=== PATIENT | female | born 1970 | race Caucasian/White ===

== ENCOUNTER → 2018-02-11 14:18 | Outpatient (POV) | payer MEDICAID, SELFPAY | PROVIDERS: Family Provider Physician Assistant; PCP Physician Assistant; Visit Provider Internal Medicine | DX: Z00.00 Encounter for general adult medical examination without abnormal findings (principal) ==

== ENCOUNTER 2018-03-31 12:34 | Inpatient (IN) ==
[2018-03-31 12:55] LABS: ABG Base Excess -7.2 mmol/L (-2.4-2.3); ABG Oxygen Saturation 96 % (90-100); ABG PO2 103.9 mmhg (80-100); ABG TCO2 24.1 mmhg (23-27)
[2018-03-31 12:57] LABS: ABG PH 7.13 mmol/L (7.35-7.45); Allen's Test Acceptable; Oxygen 100 %
[2018-03-31 12:58] LABS: ABG PCO2 67.9 mmhg (35.0-45.0)
[2018-03-31 13:00] LABS: Basophils # 0.1 K/mm3 (0-0.2); Basophils % 0.9 % (0.1-2.0); Eosinophils # 0.4 K/mm3 (0.0-0.4); Eosinophils % 3.9 % (0.1-12.0); Hematocrit 47.6 % (37.0-47.0); Hemoglobin 16.1 g/dL (12.2-16.2); Lymphocytes # 6.3 K/mm3 (0.7-4.5); Lymphocytes % 56.6 K/mm3 (10-50); Mean Corpuscular HGB Conc 33.9 g/dL (31.8-35.4); Mean Corpuscular Hemoglobin 33.6 pg (27.0-31.2); Mean Corpuscular Volume 99.2 fl (81-99); Mean Platelet Volume 7.8 fl (7.4-10.4); Monocytes # 0.5 K/mm3 (0.1-1.0); Monocytes % 4.7 % (1.7-9.3); Neutrophils # 3.7 K/mm3 (1.8-7.8); Neutrophils % 33.8 % (37.0-80.0); Platelet Count 271 K/mm3 (142-424); Red Blood Count 4.79 M/mm3 (4.20-5.40); White Blood Count 11.1 K/mm3 (4.8-10.8)
--- NOTE | 2018-03-31 13:11 | Emergency Department Note ---
ED Disposition Clinical Impression: COPD exacerbation, Tobacco abuse disorder, Respiratory failure with hypercapnia, Non-compliance, Opiate dependence Disposition: Still a Patient Condition on Discharge: Serious - Critical Care Critical Care Time: Yes Attestation: On , the high probability of a clinically significant, sudden or life threatening deterioration of the following system(s) required my full and direct attention, intervention and personal management. The time I documented below is in addition to time spent performing reported procedures but includes the following listed in this critical care notation. Total Critical Care Time: 30 Vital system(s) involved:: Respiratory Failure My critical care processes included: Assessment & monitoring of V/S, Initial and Re-exams, Data Review/Interpretation, Coordinating Care, Medication Orders and management, Documentation Medical Decision Making - Medical Records Medical records reviewed: Yes: I reviewed the patient's medical records. - Eliecer Inquiry Pt receiving controlled substance: No Eliecer was queried for this patient: No Vital Signs: 03/31/18 12:45 03/31/18 12:57 03/31/18 13:18 Temperature 98.0 F Temperature Source Oral Pulse Rate 110 H Pulse Rate [Right Brachial] 120 H 82 Respiratory Rate 26 H Blood Pressure [Right Arm] 114/54 155/98 Blood Pressure Mean [Right Arm] 74 117 Blood Pressure Source [Right Arm] Automatic Cuff Automatic Cuff Blood Pressure Position [Right Arm] Sitting Sitting 02 Sat by Pulse Oximetry 91 L 94 L Oxygen Delivery Method Room Air BiPAP - Lab Data Lab Results 03/31/18 12:36: Specimen Source Rt radial, O2 % 100, ABG pH 7.13 L*, ABG pCO2 67.9 H, ABG pO2 103.9 H, ABG HCO3 22.0, ABG Total CO2 24.1, ABG O2 Saturation 96, ABG Base Excess -7.2 L, Cong Test Acceptable 03/31/18 12:45: WBC 11.1 H, RBC 4.79, Hgb 16.1, Hct 47.6 H, MCV 99.2 H, MCH 33.6 H, MCHC 33.9, RDW 14.0, Plt Count 271, MPV 7.8, Neut % (Auto) 33.8 L, Lymph % (Auto) 56.6 H, [place] % (Auto) 4.7, Eos % (Auto) 3.9, Baso % (Auto) 0.9, Neut # (Auto) 3.7, Lymph # (Auto) 6.3 H, [place] # (Auto) 0.5, Eos # (Auto) 0.4, Baso # (Auto) 0.1, Total Counted 100, Neutrophils % (Manual) 34 L, Lymphocytes % (Manual) 45, Atypical Lymphs % 16.0, Monocytes % (Manual) 3, Eosinophils % (Manual) 2, Platelet Estimate Normal, Spherocytes 3+ 03/31/18 12:45: Sodium 142, Potassium 5.0, Chloride 107, Carbon Dioxide 27, Anion Gap 13.0, BUN 10, Creatinine 0.91, Estimated Creat Clear 80, Estimated GFR 67, Est GFR ( Amer) 81, Glucose 218 H, Calcium 8.7, Total Bilirubin 0.4, AST 34, ALT 25, Alkaline Phosphatase 156 H, Total Protein 7.2, Albumin 3.7, Globulin 3.5 H, Albumin/Globulin Ratio 1.1 03/31/18 12:45: Total Creatine Kinase 114, CK-MB (CK-2) 2.0, CK-MB (CK-2) Rel Index 1.8, Troponin I < 0.02 03/31/18 12:45: B-Natriuretic Peptide 118 H 03/31/18 12:45: Lactate 5.8 H 03/31/18 14:00: Specimen Source Rt radial, O2 % 60, ABG pH 7.25 L, ABG pCO2 56.1 H, ABG pO2 91.6, ABG HCO3 24.3, ABG Total CO2 26.0, ABG O2 Saturation 96, ABG Base Excess -2.9 L, Cong Test Acceptable, Tidal Volume Bipap 06/13 Result diagrams: 03/31/18 12:45 03/31/18 12:45 Orders (Tests/Meds): ED MEDICATIONS Generic Name Dose Route Start Last Admin Trade Name Freq PRN Reason Stop Dose Admin Albuterol/Ipratropium 3 ml 03/31/18 13:00 Duoneb 3ml Neb IH 04/30/18 12:59 Q1H JUDAH Ceftriaxone Sodium 1 gm/ 50 mls @ 100 mls/hr 03/31/18 13:00 03/31/18 13:24 Sodium Chloride IV 04/14/18 12:59 100 mls/hr Q24H JUDAH Administration Protocol Discontinued Medications Generic Name Dose Route Start Last Admin Trade Name Freq PRN Reason Stop Dose Admin Albuterol Sulfate 2.5 mg 03/31/18 12:40 03/31/18 12:45 Albuterol 0.083% 2.5mg/3ml Neb IH 03/31/18 12:41 2.5 mg ONCE ONE Administration Nitroglycerin 0.5 gm 03/31/18 12:59 03/31/18 13:24 Nitroglycerin 1 Inch Oint Udp TD 03/31/18 13:00 0.5 gm ONCE ONE Administration ORDERS Category Date Time Status Chest XR -- portable [XR chest portable] Stat Exams 03/31/18 12:41 Taken Lactic Acid Follow Up (RFLX 1) Stat Lab 03/31/18 13:19 Ordered UA [Urinalysis and Microscopic] Stat Lab 03/31/18 13:22 Ordered Blood Culture Stat Micro 03/31/18 12:45 Received ABG [Arterial Blood Gas] Stat RT 03/31/18 14:00 Ordered Arterial Blood Gas Stat RT 03/31/18 12:36 Ordered - Radiology Data #1 Image(s): Chest Image Reviewed: Yes I reviewed the patient's radiology image Preliminary Findings: Abnormal Hyperinflated chronic changes no definite acute infiltrates. Medical Decision Narrative: I obtained a stat EKG revealed tachycardia 113/min be an artifact no acute findings. Her ABG was significant for respiratory acidosis 7.129/67/103 oxygen saturation is 96%. The patient was alert oriented 3 I discussed with her using a BiPAP trying to avert on a ventilator and she was agreeable. 1325 I did a reassessment of the patient she was in no respiratory distress working with a BiPAP machine 60%, Rate 20/min, 12/6 pressures with excellent harmony. Saturation is 95% RR 22/min blood pressure is 155/98 mmhg heart rate is 83/min. Patient maintain her alertness feels 50% better or more lungs are clear to auscultation with moderate air entry, heart sounds are clear, abdomen was soft nontender, no lower extremity edema. 1425 patient remained hemodynamically and neurologically stable working with the BiPAP machine obtained a second blood gas that showed improvement of her acid- base balance carbon dioxide retention and maintenance of her oxygen level. Patient seems to be improving and turning the corner. I spoke with Laura the physician seismic survey assistant for Dr. Vicente who agreed the agreed to admit the patient on his behalf. Resp/SOB HPI - General Chief Complaint: Shortness of Breath/Dyspnea Stated Complaint: RESPIRATORY Time Seen by Provider: 03/31/18 13:00 Mode of Arrival: EMS - History of Present Illness 47 years old white female smoker with end-stage lung disease who is oxygen dependent and opiate dependence. The patient reports that at 10:00 she became short of breath she contacted EMS upon arrival found her off her oxygen with a saturation of 66%. Patient received the labs on him IV Solu-Medrol with i mprovement of her oxygenation to 89%. She was brought to the ED continuous neb and upon arrival her blood pressure was 155/98 mmhg, respiration is 20/min, tachycardia 113/min and oxygen saturation 93% while receiving a DuoNeb. Complaint: shortness of breath Onset (ago): hour(s) (3 hours.) Severity: severe Consistency/Duration: constant Relieving factors: oxygen, bronchodilators, upright position Exacerbating factors: exertion, other (off her oxygen, smoking and second hand smoke.) Known history of: COPD Associated symptoms: denies other symptoms Treatment prior to arrival: oxygen, bronchodilator - Related Data Home oxygen amount: other (She was given Solu-Medrol DuoNeb and oxygen therapy.) Home Medications Medication Instructions Recorded Confirmed buprenorphine 8 mg-naloxone 2 mg 1 tab SUBLINGUAL BID tab 10/11/17 03/31/18 sublingual tablet Fluticasone/Vilanterol [Breo 1 inh INHALATION Q24H 03/31/18 03/31/18 Ellipta 200-25 Mcg INH] Ibuprofen [Ibuprofen 800mg 800 mg PO TID 03/31/18 03/31/18 Tablet] Omeprazole [Omeprazole 20mg 20 mg PO DAILY 03/31/18 03/31/18 Capsule] Propranolol HCl [Innopran Xl] 80 mg PO DAILY 03/31/18 03/31/18 Sertraline HCl [Zoloft] 100 mg PO Q24H 03/31/18 03/31/18 Umeclidinium [place] [Incruse 62.5 mcg INHALATION QHS 03/31/18 03/31/18 Ellipta] Previous Rx's Medication Instructions Recorded albuterol sulfate HFA 90 2 puff INHALATION Q4-6H PRN 90 03/26/18 mcg/actuation aerosol inhaler Days #3 units Allergies Allergy/AdvReac Type Severity Reaction Status Date / Time hydromorphone Allergy Severe S-DIFF. Verified 02/19/18 13:51 BREATHING; HIVES propoxyphene Allergy Severe S-SWELLS-OR Verified 02/19/18 13:51 [From Darvocet-N] AL/THROAT gabapentin [From Neurontin] Allergy Intermediate I-HIVES Verified 02/19/18 13:51 [facility] History I have reviewed the patient's past medical history: Yes (I did review her most recent office visit. ) Medical History: Reports:: Anxiety, Chronic Obstructive Pulmonary Disease (COPD), Depression, Gastroesophageal Reflux Disease(GERD) Other Surgeries: Yes: Hysterectomy-Total Amputation: No Fractures: No Comment: gallbladder - Social History Smoking Status: Current every day smoker Tobacco Type: cigarettes # Packs/Day (cigarettes): 1 Alcohol Intake: never Substance Use Type: denies use Occupational Status: unemployed Housing: house Household Members: children - Psychiatric History Pschychiatric History:: Reports:: Anxiety, Depression Family Hx:: Hypertension ROS Obtained: Yes All systems reviewed & no additional complaints Physical Exam - General General appearance: alert, anxious, in distress, other (She is alert oriented 3 in obvious respiratory distress. ) - Head Head exam: atraumatic, normocephalic, normal inspection - Eye Eye exam: Present: normal appearance, PERRL, EOMI. Absent: scleral icterus, jaundice, nystagmus - ENT ENT exam: Present: normal exam, normal oropharynx, mucous membranes moist, TM's normal bilaterally, normal external ear exam - Neck Neck exam: Present: normal inspection, full ROM, trachea midline. Absent: tenderness, meningismus, lymphadenopathy - Chest Chest inspection: Present: normal inspection, symmetric chest wall rise. Absent: tenderness - Respiratory Respiratory exam: Present: normal lung sounds bilaterally, respiratory distress, wheezes (Moderate air entry with inspiratory and expiratory wheezing.) - Cardiovascular Cardiovascular exam: Present: tachycardia. Absent: systolic murmur, diastolic murmur, JVD - Abdominal Exam Abdominal exam: Present: soft, normal bowel sounds. Absent: distention, tenderness, guarding, rebound, rigidity - External exam: Present: normal external exam - Extremities Exam Extremities exam: Present: normal inspection, full ROM, normal capillary refill. Absent: tenderness, pedal edema, joint swelling, calf tenderness - Back Exam Back exam: Present: normal inspection. Absent: tenderness, CVA tenderness (R), CVA tenderness (L), paraspinal tenderness, vertebral tenderness - Neurological Exam Neurological exam: Present: alert, oriented X3, CN II-XII intact, motor sensory deficit, reflexes normal, other (The gait was not tested due to her respiratory condition.) - Psychiatric Psychiatric exam: Present: anxious - Skin Skin exam: Present: warm, intact, normal color, diaphoresis - Lymphatic Lymphatic Findings: no adenopathy
[2018-03-31 13:12] LABS: Albumin Level 3.7 gm/dL (3.4-5.0); Albumin/Globulin Ratio 1.1 (1.1-1.8); Bilirubin,Total 0.4 mg/dL (0.2-1.0); Calcium 8.7 mg/dL (8.5-10.1); Globulin 3.5 gm/dl (1.3-3.2); Total Protein,Serum 7.2 gm/dL (6.4-8.2)
[2018-03-31 13:17] LABS: Eosinophils % 2 % (0-3); Lymphocytes % 45 % (10-50); Monocytes % 3 % (2-9); Neutrophils % 34 % (42-76); Total Cells Counted 100
[2018-03-31 13:36] LABS: Creatine Kinase 114 U/L (26-192)
[2018-03-31 14:06] LABS: ABG Base Excess -2.9 mmol/L (-2.4-2.3); ABG HCO3 24.3 mmhg (22.0-26.0); ABG Oxygen Saturation 96 % (90-100); ABG PH 7.25 mmol/L (7.35-7.45); ABG PO2 91.6 mmhg (80-100)
[2018-03-31 14:08] LABS: ABG PCO2 56.1 mmhg (35.0-45.0); Allen's Test Acceptable; Oxygen 60 %
[2018-03-31 16:22] LABS: Anion Gap 11.2 mEq/L (5-15); Potassium 4.2 mmoL/L (3.5-5.1)
[2018-03-31 16:35] LABS: Calcium 7.9 mg/dL (8.5-10.1)
[2018-03-31 17:54] LABS: ABG Base Excess -4.8 mmol/L (-2.4-2.3); ABG Oxygen Saturation 98 % (90-100); ABG PCO2 48.3 mmhg (35.0-45.0); ABG PH 7.28 mmol/L (7.35-7.45); ABG PO2 127.6 mmhg (80-100); ABG TCO2 23.5 mmhg (23-27)
[2018-03-31 17:55] LABS: Allen's Test Acceptable; Oxygen 60% I=12 E-6 %
--- NOTE | 2018-03-31 19:09 | History & Physical Report ---
*Admission Date: 03/31/18 *Chief complaint: Shortness of air *History of present illness: Patient admitted earlier thru ER with acute onset SOA, improved with Bipap. History of respiratory failure, COPD. ABG improved with Bipap to avoid ventilation. Second serial troponin elevated. [facility] History I have reviewed the patient's past medical history: Yes Medical History: Reports:: Anxiety, Chronic Obstructive Pulmonary Disease (COPD), Depression, Gastroesophageal Reflux Disease(GERD) Denies:: Cancer, Diabetes Mellitus Type 1, Diabetes Mellitus Type 2, MRSA Other Surgeries: Yes: Hysterectomy-Total Amputation: No Fractures: No - *Social History Educational Level: Completed High School Smoking Status: Current every day smoker Tobacco Type: cigarettes # Packs/Day (cigarettes): 1 Alcohol Intake: never Substance Use Type: denies use Occupational Status: unemployed Housing: house Household Members: children - Psychiatric History Expresses thoughts of harming self/others: None Suicide Plan Description: No Plan Pschychiatric History:: Reports:: Anxiety, Depression *Family Hx:: Hypertension Review of Systems - Review of Systems Review of systems:: pertinent systems reviewed and negative unless documented below - Constitutional Denies fever(s) - *Respiratory Reports cough, Reports shortness of breath Meds Home Medications Medication Instructions Recorded Confirmed Type buprenorphine 8 mg-naloxone 2 mg 1 tab SUBLINGUAL BID tab 10/11/17 03/31/18 History sublingual tablet Fluticasone/Vilanterol [Breo 1 inh INHALATION Q24H 03/31/18 03/31/18 History Ellipta 200-25 Mcg INH] Ibuprofen [Ibuprofen 800mg 800 mg PO TID 03/31/18 03/31/18 History Tablet] Omeprazole [Omeprazole 20mg 20 mg PO DAILY 03/31/18 03/31/18 History Capsule] Propranolol HCl [Innopran Xl] 80 mg PO DAILY 03/31/18 03/31/18 History Sertraline HCl [Zoloft] 100 mg PO Q24H 03/31/18 03/31/18 History Umeclidinium [place] [Incruse 62.5 mcg INHALATION QHS 03/31/18 03/31/18 History Ellipta] Allergies Allergy/AdvReac Type Severity Reaction Status Date / Time hydromorphone Allergy Severe S-DIFF. Verified 02/19/18 13:51 BREATHING; HIVES propoxyphene Allergy Severe S-SWELLS-OR Verified 02/19/18 13:51 [From Darvocet-N] AL/THROAT gabapentin [From Neurontin] Allergy Intermediate I-HIVES Verified 02/19/18 13:51 Exam Vital signs and Labs for Last 24 Hours: Temp Pulse Resp BP Pulse Ox 97.8 F 79 22 142/79 90 L 03/31/18 16:49 03/31/18 16:49 03/31/18 16:49 03/31/18 16:49 03/31/18 18:45 Laboratory Results - last 24 hr 03/31/18 12:36: Specimen Source Rt radial, O2 % 100, ABG pH 7.13 L*, ABG pCO2 67.9 H, ABG pO2 103.9 H, ABG HCO3 22.0, ABG Total CO2 24.1, ABG O2 Saturation 96, ABG Base Excess -7.2 L, Cong Test Acceptable 03/31/18 12:45: WBC 11.1 H, RBC 4.79, Hgb 16.1, Hct 47.6 H, MCV 99.2 H, MCH 33.6 H, MCHC 33.9, RDW 14.0, Plt Count 271, MPV 7.8, Neut % (Auto) 33.8 L, Lymph % (Auto) 56.6 H, [place] % (Auto) 4.7, Eos % (Auto) 3.9, Baso % (Auto) 0.9, Neut # (Auto) 3.7, Lymph # (Auto) 6.3 H, [place] # (Auto) 0.5, Eos # (Auto) 0.4, Baso # (Auto) 0.1, Total Counted 100, Neutrophils % (Manual) 34 L, Lymphocytes % (Manual) 45, Atypical Lymphs % 16.0, Monocytes % (Manual) 3, Eosinophils % (Manual) 2, Platelet Estimate Normal, Spherocytes 3+ 03/31/18 12:45: Sodium 142, Potassium 5.0, Chloride 107, Carbon Dioxide 27, Anion Gap 13.0, BUN 10, Creatinine 0.91, Estimated Creat Clear 80, Estimated GFR 67, Est GFR ( Amer) 81, Glucose 218 H, Calcium 8.7, Total Bilirubin 0.4, AST 34, ALT 25, Alkaline Phosphatase 156 H, Total Protein 7.2, Albumin 3.7, Globulin 3.5 H, Albumin/Globulin Ratio 1.1 03/31/18 12:45: Total Creatine Kinase 114, CK-MB (CK-2) 2.0, CK-MB (CK-2) Rel Index 1.8, Troponin I < 0.02 03/31/18 12:45: B-Natriuretic Peptide 118 H 03/31/18 12:45: Lactate 5.8 H 03/31/18 14:00: Specimen Source Rt radial, O2 % 60, ABG pH 7.25 L, ABG pCO2 56.1 H, ABG pO2 91.6, ABG HCO3 24.3, ABG Total CO2 26.0, ABG O2 Saturation 96, ABG Base Excess -2.9 L, Cong Test Acceptable, Tidal Volume Bipap /03/31/18 14:48: Lactate 1.3 03/31/18 15:48: Sodium 144, Potassium 4.2, Chloride 111 H, Carbon Dioxide 26, Anion Gap 11.2, BUN 11, Creatinine 0.62 D, Estimated Creat Clear 118, Estimated GFR 104, Est GFR ( Amer) 125 D, Glucose 119 H D, Calcium 7.9 L 03/31/18 17:20: Lactate 0.6 03/31/18 17:51: Specimen Source Left radial, O2 % 60% i=12 e-6, ABG pH 7.28 L, ABG pCO2 48.3 H, ABG pO2 127.6 H, ABG HCO3 22.0, ABG Total CO2 23.5, ABG O2 Saturation 98, ABG Base Excess -4.8 L, Cong Test Acceptable 03/31/18 18:12: Troponin I 0.72 H I & O for Last 24 hours: Intake & Output 03/29/18 03/30/18 03/31/18 04/01/18 11:59 11:59 11:59 11:59 Intake Total 2149 Output Total 0 / 0 Balance 2149 Weight 139 lb 5 oz - Constitutional no acute distress (after bipap placed (in obvious distress in ER per MD)) - *Routine HEENT Exam Head: Present: normocephalic Eye: Present: PERRL ENT: Present: mucous membranes moist, TM's clear bilaterally. Absent: sinus tenderness - Routine Chest/Breast/Axilla Exam Chest wall: Absent: tenderness - *Routine Respiratory Exam Present: decreased breath sounds, respiratory distress - *Routine Cardiovascular Exam Present: RRR. Absent: murmur - *Routine Extremities Exam Absent: cyanosis, clubbing - *Routine Skin Exam Present: intact - *Routine Neurological Exam Present: alert, oriented X3 - Routine Psychiatric Exam Present: normal affect Assessment and Plan - Assessment and plan all Dx Assessment and Plan for all problems:: ECHO and cardiology consult for elevated troponin Bipap, Abx, Steroids, DuoNebs for COPD exacerbation
[2018-03-31 22:54] LABS: ABG Base Excess -6.7 mmol/L (-2.4-2.3); ABG HCO3 18.7 mmhg (22.0-26.0); ABG Oxygen Saturation 91 % (90-100); ABG PCO2 33.7 mmhg (35.0-45.0); ABG PH 7.36 mmol/L (7.35-7.45); ABG PO2 61.8 mmhg (80-100); ABG TCO2 19.8 mmhg (23-27)
[2018-03-31 22:56] LABS: Allen's Test Acceptable
[2018-04-01 05:54] LABS: Basophils % 0.2 % (0.1-2.0); Eosinophils % 0.6 % (0.1-12.0); Hematocrit 42.1 % (37.0-47.0); Lymphocytes # 0.8 K/mm3 (0.7-4.5); Lymphocytes % 19.4 K/mm3 (10-50); Mean Corpuscular HGB Conc 32.3 g/dL (31.8-35.4); Mean Corpuscular Hemoglobin 31.1 pg (27.0-31.2); Mean Corpuscular Volume 96.2 fl (81-99); Mean Platelet Volume 8.3 fl (7.4-10.4); Monocytes # 0.1 K/mm3 (0.1-1.0); Monocytes % 1.8 % (1.7-9.3); Platelet Count 186 K/mm3 (142-424); Red Blood Count 4.37 M/mm3 (4.20-5.40); White Blood Count 3.9 K/mm3 (4.8-10.8)
[2018-04-01 05:57] LABS: Hemoglobin 13.6 g/dL (12.2-16.2)
[2018-04-01 06:00] LABS: Albumin Level 3.2 gm/dL (3.4-5.0); Albumin/Globulin Ratio 1.1 (1.1-1.8); Anion Gap 14.6 mEq/L (5-15); Bilirubin,Total 0.4 mg/dL (0.2-1.0); Calcium 8.2 mg/dL (8.5-10.1); Phosphorous 2.7 mg/dL (2.4-4.9); Potassium 3.6 mmoL/L (3.5-5.1); Total Protein,Serum 6.2 gm/dL (6.4-8.2)
--- NOTE | 2018-04-01 07:35 | Pharmacy Consult Notes ---
[facility] Pharmacy VTE Monitoring - Patient Demographics Admission date: 03/31/18 Report Date: 04/01/18 Time: 07:35 Allergies/Adverse Reactions: Patient Allergies hydromorphone Allergy (Severe, Verified 02/19/18 13:51) S-DIFF. BREATHING; HIVES propoxyphene [From Darvocet-N] Allergy (Severe, Verified 02/19/18 13:51) H-BPOBZA-UAOB/THROAT gabapentin [From Neurontin] Allergy (Intermediate, Verified 02/19/18 13:51) I-HIVES Height: 1.6 m Weight: 68.237 kg Patient Problems: Current Active Problems Tobacco abuse disorder (Acute) Respiratory failure with hypercapnia (Acute) Non-compliance (Acute) Opiate dependence (Acute) COPD exacerbation (Acute) - VTE Risk Labs: VTE Related Lab Results Hgb 13.6 g/dL (12.2-16.2) D 04/01/18 05:14 Hct 42.1 % (37.0-47.0) 04/01/18 05:14 Plt Count 186 K/mm3 (142-424) D 04/01/18 05:14 BUN 11 mg/dL (7-18) 04/01/18 05:14 Creatinine 0.69 mg/dL (0.55-1.02) 04/01/18 05:14 Estimated Creat Clear 102 mL/min (0-300) 04/01/18 05:14 Was VTE Risk Assessment Performed: Yes VTE Score: 2 VTE Risk Level: Very Low Risk - Prophylaxis VTE Prophylaxis Ordered?: Yes Types of VTE Prophylaxis: TEDS Knee High Location of Applied Device: Bilateral Lower Extremeties - VTE Diagnosis Confirmed Treatment or plan recommended: Continue Current Treatment
--- NOTE | 2018-04-01 08:55 | Progress Note ---
Internal Medicine - PN: Subj *Date: 04/01/18 *Time: 08:53 Interval history: doing better with resp and we discussed tob cessation and has elevated card enz awaiting card eval Exam Vital signs and Labs for Last 24 Hours: Temp Pulse Resp BP Pulse Ox 98.8 F 66 13 110/70 88 L 04/01/18 08:00 04/01/18 08:00 04/01/18 08:00 04/01/18 08:00 04/01/18 08:00 Laboratory Results - last 24 hr 03/31/18 12:36: Specimen Source Rt radial, O2 % 100, ABG pH 7.13 L*, ABG pCO2 67.9 H, ABG pO2 103.9 H, ABG HCO3 22.0, ABG Total CO2 24.1, ABG O2 Saturation 96, ABG Base Excess -7.2 L, Cong Test Acceptable 03/31/18 12:45: WBC 11.1 H, RBC 4.79, Hgb 16.1, Hct 47.6 H, MCV 99.2 H, MCH 33.6 H, MCHC 33.9, RDW 14.0, Plt Count 271, MPV 7.8, Neut % (Auto) 33.8 L, Lymph % (Auto) 56.6 H, [place] % (Auto) 4.7, Eos % (Auto) 3.9, Baso % (Auto) 0.9, Neut # (Auto) 3.7, Lymph # (Auto) 6.3 H, [place] # (Auto) 0.5, Eos # (Auto) 0.4, Baso # (Auto) 0.1, Total Counted 100, Neutrophils % (Manual) 34 L, Lymphocytes % (Manual) 45, Atypical Lymphs % 16.0, Monocytes % (Manual) 3, Eosinophils % (Manual) 2, Platelet Estimate Normal, Spherocytes 3+ 03/31/18 12:45: Sodium 142, Potassium 5.0, Chloride 107, Carbon Dioxide 27, Anion Gap 13.0, BUN 10, Creatinine 0.91, Estimated Creat Clear 80, Estimated GFR 67, Est GFR ( Amer) 81, Glucose 218 H, Calcium 8.7, Total Bilirubin 0.4, AST 34, ALT 25, Alkaline Phosphatase 156 H, Total Protein 7.2, Albumin 3.7, Globulin 3.5 H, Albumin/Globulin Ratio 1.1 03/31/18 12:45: Total Creatine Kinase 114, CK-MB (CK-2) 2.0, CK-MB (CK-2) Rel Index 1.8, Troponin I < 0.02 03/31/18 12:45: B-Natriuretic Peptide 118 H 03/31/18 12:45: Lactate 5.8 H 03/31/18 14:00: Specimen Source Rt radial, O2 % 60, ABG pH 7.25 L, ABG pCO2 56.1 H, ABG pO2 91.6, ABG HCO3 24.3, ABG Total CO2 26.0, ABG O2 Saturation 96, ABG Base Excess -2.9 L, Cong Test Acceptable, Tidal Volume Bipap 06/1303/31/18 14:48: Lactate 1.3 03/31/18 15:48: Sodium 144, Potassium 4.2, Chloride 111 H, Carbon Dioxide 26, Anion Gap 11.2, BUN 11, Creatinine 0.62 D, Estimated Creat Clear 118, Estimated GFR 104, Est GFR ( Amer) 125 D, Glucose 119 H D, Calcium 7.9 L 03/31/18 17:20: Lactate 0.6 03/31/18 17:51: Specimen Source Left radial, O2 % 60% i=12 e-6, ABG pH 7.28 L, ABG pCO2 48.3 H, ABG pO2 127.6 H, ABG HCO3 22.0, ABG Total CO2 23.5, ABG O2 Saturation 98, ABG Base Excess -4.8 L, Cong Test Acceptable 03/31/18 18:12: Troponin I 0.72 H 03/31/18 21:00: Troponin I 0.88 H 03/31/18 22:45: Specimen Source Left radial, O2 % 28% nc, ABG pH 7.36, ABG pCO2 33.7 L, ABG pO2 61.8 L, ABG HCO3 18.7 L, ABG Total CO2 19.8 L, ABG O2 Saturation 91, ABG Base Excess -6.7 L, Cong Test Acceptable 04/01/18 05:14: WBC 3.9 L D, RBC 4.37, Hgb 13.6 D, Hct 42.1, MCV 96.2, MCH 31.1, MCHC 32.3, RDW 14.0, Plt Count 186 D, MPV 8.3, Neut % (Auto) 78.0, Lymph % (Auto) 19.4, [place] % (Auto) 1.8, Eos % (Auto) 0.6, Baso % (Auto) 0.2, Neut # (Auto) 3.0, Lymph # (Auto) 0.8, [place] # (Auto) 0.1, Eos # (Auto) 0.0, Baso # (Auto) 0.0 04/01/18 05:14: Sodium 140, Potassium 3.6, Chloride 106, Carbon Dioxide 23, Anion Gap 14.6, BUN 11, Creatinine 0.69, Estimated Creat Clear 102, Estimated GFR 92, Est GFR ( Amer) 111, Glucose 176 H D, Calcium 8.2 L, Phosphorus 2.7, Magnesium 1.4, Total Bilirubin 0.4, AST 20 D, ALT 26, Alkaline Phosphatase 129 H, Total Protein 6.2 L, Albumin 3.2 L D, Globulin 3.0, Albumin/Globulin Ratio 1.1 I & O for Last 24 hours: Intake & Output 03/29/18 03/30/18 03/31/18 04/01/18 11:59 11:59 11:59 11:59 Intake Total 3418 / 3418 Output Total 0 / 0 Balance 3418 / 3418 Weight 150 lb 7 oz - Constitutional no acute distress - *Routine HEENT Exam Head: Present: normocephalic Eye: Present: EOMI, PERRL ENT: Present: mucous membranes dry - *Routine Neck Exam Present: supple - *Routine Respiratory Exam Present: decreased breath sounds - *Routine Cardiovascular Exam Present: RRR, murmur, S4 - *Routine Abdominal Exam Present: soft - *Routine Extremities Exam Absent: calf tenderness - *Routine Skin Exam Present: intact - *Routine Neurological Exam Present: alert, oriented X3, CN II-XII intact - Routine Psychiatric Exam Present: normal affect Assessment and Plan (1) Elevated troponin Current visit: Yes Status: Acute Category: Medical Code(s): R74.8 - Abnormal levels of other serum enzymes (2) Tobacco abuse disorder Current visit: Yes Status: Acute Category: Medical Code(s): Z72.0 - Tobacco use (3) Respiratory failure with hypercapnia Current visit: Yes Status: Acute Category: Medical Code(s): J96.92 - Respiratory failure, unspecified with hypercapnia
--- NOTE | 2018-04-01 14:56 | Consult Report ---
History of Present Illness Consult date: 04/01/18 Requesting physician: Darron Vicente Consult reason: shortness of breath Chief complaint: Shortness of Breath and COPD exacerbation Additional Medical History:: 1. Acute Non-ST elevation myocardial infarction (03/31/18) 2. COPD exacerbation (03/31/18) 3. Tobacco abuse disorder a. Smokes 1-2ppd for past 20 + years. 4. Opiate dependence 5. Noncompliance to medication regimen. 6. Oxygen dependency a. Continuous oxygen at 1-2 liters via [place] at home. 7. End-stage lung disease 8. Left ventricular dysfunction (04/01/18) 9. Systolic congestive heart failure EF 40% a. Heart catheterization (04/01/18) 10. Abnormal EKG (03/31/18) History of present illness: 47-year-old female presented into the emergency room on 03/31/2018 with complaints of increased shortness of breath. Patient has history of COPD and stated she was having a very hard time breathing. Patient is oxygen dependent at home. Denied chest pain, pressure or tightness. Patient admitted to smoking 1-2 packs per day and has for the past 20+ years. Patient is alert and oriented 3 appropriately. No lower extremity edema noted. Upon evaluation, EKG revealed normal sinus rhythm with T-wave abnormality with a heart rate of 69 bpm. Vital signs are stable. Initial chest x-ray revealed no acute findings otherwise noted as COPD. Creatinine 0.69 and BUN 11. Cardiac serial enzymes revealed [address] elevation was noted on EKG. Echocardiogram was performed. Preliminary results revealed EF of 40-45%. Due to elevated troponins, non-ST elevation myocardial infarction, tobacco use and shortness of breath, left heart catheterization was recommended. Discussed with patient the risk and benefits of a left heart catheterization with access through the right wrist. Patient agreeable to procedure. Discussed case with Dr. Alfred. Left heart catheterization results revealed: IMPRESSION: 1. Clinically insignificant myocardial bridge 2. No evidence of atherosclerotic heart disease 3. Left ventricular dilatation with large regional wall motion abnormality 4. Moderate to severely elevated LVEDP PLAN: 1. Patient has a nonischemic cardiomyopathy. Various cardiomyopathy is can still present with regional wall motion abnormalities 2. Patient requires diuretics and standard therapy for systolic heart failure 3. Risk factor modification 4. Avoidance of tobacco products Will recommend starting diuretics, tobacco cessation and Aspirin daily. Patient will need to have cardiology follow-up in 1 week after discharge from the hospital. [facility] History Medical History: Reports:: Anxiety, Chronic Obstructive Pulmonary Disease (COPD), Depression, Gastroesophageal Reflux Disease(GERD) Denies:: Cancer, Diabetes Mellitus Type 1, Diabetes Mellitus Type 2, MRSA Other Surgeries: Yes: Hysterectomy-Total Amputation: No Fractures: No - *Social History Educational Level: Completed High School Smoking Status: Current every day smoker Tobacco Type: cigarettes # Packs/Day (cigarettes): 1 Alcohol Intake: never Substance Use Type: denies use Occupational Status: unemployed Housing: house Household Members: children - Psychiatric History Expresses thoughts of harming self/others: None Suicide Plan Description: No Plan Pschychiatric History:: Reports:: Anxiety, Depression *Family Hx:: Hypertension Meds Home Medications Medication Instructions Recorded Confirmed Type buprenorphine 8 mg-naloxone 2 mg 1 tab SUBLINGUAL BID tab 10/11/17 03/31/18 History sublingual tablet Fluticasone/Vilanterol [Breo 1 puff INHALATION DAILY 03/31/18 04/01/18 History Ellipta 200-25 Mcg INH] Ibuprofen [Ibuprofen 800mg 800 mg PO TID 03/31/18 03/31/18 History Tablet] Omeprazole [Omeprazole 20mg 20 mg PO DAILY 03/31/18 03/31/18 History Capsule] Propranolol HCl [Innopran Xl] 80 mg PO DAILY 03/31/18 03/31/18 History Sertraline HCl [Zoloft] 100 mg PO DAILY 03/31/18 04/01/18 History Umeclidinium Brm/Vilanterol Tr 1 each IH DAILY 04/01/18 04/01/18 History [Anoro Ellipta 62.5-25 Mcg INH] Allergies Allergy/AdvReac Type Severity Reaction Status Date / Time hydromorphone Allergy Severe S-DIFF. Verified 02/19/18 13:51 BREATHING; HIVES propoxyphene Allergy Severe S-SWELLS-OR Verified 02/19/18 13:51 [From Darvocet-N] AL/THROAT gabapentin [From Neurontin] Allergy Intermediate I-HIVES Verified 02/19/18 13:51 Review of Systems - Review of Systems Review of systems:: pertinent systems reviewed and negative unless documented below - Constitutional Reports daytime sleepiness, Reports fatigue, Reports lack of energy, Reports weakness - *Cardiovascular Reports shortness of breath, Reports shortness of breath with activity, Reports shortness of breath when lying down, Denies chest pain, Denies chest pain at rest, Denies chest pain with activity, Denies generalized swelling, Denies irregular heart rhythm, Denies rapid, pounding, or irregular heartbeat - *Respiratory Reports cough, Reports shortness of breath, Reports shortness of breath with activity, Reports wheezing, Denies chest congestion, Denies coughing up blood - *Gastrointestinal Denies abdominal pain, Denies bloating - *Musculoskeletal Reports muscle weakness, Denies abnormal walking, Denies neck pain - *Neurologic Denies abnormal walking, Denies seizure-like activity, Denies dizziness Exam Vital signs and Labs for Last 24 Hours: Temp Pulse Resp BP Pulse Ox 97.7 F 67 18 97/59 92 L 04/01/18 12:25 04/01/18 13:25 04/01/18 13:15 04/01/18 13:15 04/01/18 13:25 Laboratory Results - last 24 hr 03/31/18 14:48: Lactate 1.3 03/31/18 15:48: Sodium 144, Potassium 4.2, Chloride 111 H, Carbon Dioxide 26, Anion Gap 11.2, BUN 11, Creatinine 0.62 D, Estimated Creat Clear 118, Estimated GFR 104, Est GFR ( Amer) 125 D, Glucose 119 H D, Calcium 7.9 L 03/31/18 17:20: Lactate 0.6 03/31/18 17:51: Specimen Source Left radial, O2 % 60% i=12 e-6, ABG pH 7.28 L, ABG pCO2 48.3 H, ABG pO2 127.6 H, ABG HCO3 22.0, ABG Total CO2 23.5, ABG O2 Saturation 98, ABG Base Excess -4.8 L, Cong Test Acceptable 03/31/18 18:12: Troponin I 0.72 H 03/31/18 21:00: Troponin I 0.88 H 03/31/18 22:45: Specimen Source Left radial, O2 % 28% nc, ABG pH 7.36, ABG pCO2 33.7 L, ABG pO2 61.8 L, ABG HCO3 18.7 L, ABG Total CO2 19.8 L, ABG O2 Saturation 91, ABG Base Excess -6.7 L, Cong Test Acceptable 04/01/18 05:14: WBC 3.9 L D, RBC 4.37, Hgb 13.6 D, Hct 42.1, MCV 96.2, MCH 31.1, MCHC 32.3, RDW 14.0, Plt Count 186 D, MPV 8.3, Neut % (Auto) 78.0, Lymph % (Auto) 19.4, [place] % (Auto) 1.8, Eos % (Auto) 0.6, Baso % (Auto) 0.2, Neut # (Auto) 3.0, Lymph # (Auto) 0.8, [place] # (Auto) 0.1, Eos # (Auto) 0.0, Baso # (Auto) 0.0 04/01/18 05:14: Sodium 140, Potassium 3.6, Chloride 106, Carbon Dioxide 23, Anion Gap 14.6, BUN 11, Creatinine 0.69, Estimated Creat Clear 102, Estimated GFR 92, Est GFR ( Amer) 111, Glucose 176 H D, Calcium 8.2 L, Phosphorus 2.7, Magnesium 1.4, Total Bilirubin 0.4, AST 20 D, ALT 26, Alkaline Phosphatase 129 H, Total Protein 6.2 L, Albumin 3.2 L D, Globulin 3.0, Albumin/Globulin Ratio 1.1 I & O for Last 24 hours: Intake & Output 03/29/18 03/30/18 03/31/18 04/01/18 23:59 23:59 23:59 23:59 Intake Total 2390 / 2390 1028 / 1028 Output Total 0 / 0 Balance 2390 / 2390 1028 / 1028 Weight 139 lb 5 oz 150 lb 7 oz - Constitutional no acute distress, average body habitus, cooperative - *Routine HEENT Exam ENT: Present: mucous membranes moist - *Routine Neck Exam Present: supple, full ROM, normal carotid upstroke. Absent: JVD, carotid bruit, lymphadenopathy - Routine Chest/Breast/Axilla Exam Chest wall: Present: tenderness. Absent: pacemaker Axillae: Absent: lymphadenopathy, mass - *Routine Respiratory Exam Present: accessory muscle use. Absent: wheezes - *Routine Cardiovascular Exam Present: RRR, Normal S1, Normal S2. Absent: murmur, gallop, rubs, click, bradycardia, tachycardia, irregular rhythm, irregularly irregular, JVD - *Routine Abdominal Exam Present: soft, normoactive bowel sounds. Absent: tenderness, bruit - *Routine Extremities Exam Present: full ROM, pulses intact, normal capillary refill. Absent: cyanosis, clubbing, edema - Routine Back/Spine/Pelvis Exam Back/Spine: Present: full ROM. Absent: CVA tenderness - *Routine Skin Exam Present: intact, dry, warm, normal turgor. Absent: cyanosis, erythema, pallor, lesions - *Routine Neurological Exam Present: alert, oriented X3, CN II-XII intact, moving all extremities, normal speech Assessment and Plan (1) Elevated troponin Current visit: Yes Status: Acute Category: Medical Code(s): R74.8 - Abnormal levels of other serum enzymes (2) Tobacco abuse disorder Current visit: Yes Status: Acute Category: Medical Code(s): Z72.0 - Tobacco use (3) Respiratory failure with hypercapnia Current visit: Yes Status: Acute Category: Medical Code(s): J96.92 - Respiratory failure, unspecified with hypercapnia (4) Non-ST elevated myocardial infarction Current visit: Yes Status: Acute Category: Medical Code(s): I21.4 - Non-ST elevation (NSTEMI) myocardial infarction (5) Left ventricular dysfunction Current visit: Yes Status: Acute Category: Medical Code(s): I51.9 - Heart disease, unspecified (6) Systolic congestive heart failure Current visit: Yes Status: Acute Category: Medical Code(s): I50.20 - Unspecified systolic (congestive) heart failure (7) COPD exacerbation Current visit: Yes Status: Acute Category: Medical Code(s): J44.1 - Chronic obstructive pulmonary disease with (acute) exacerbation (8) Non-compliance Current visit: Yes Status: Acute Category: Medical Code(s): Z91.19 - Patient's noncompliance with other medical treatment and regimen (9) Opiate dependence Current visit: Yes Status: Acute Category: Medical Code(s): F11.20 - Opioid dependence, uncomplicated - Assessment and plan all Dx Assessment and Plan for all problems:: Plan: 1. Schedule Left heart catheterization today. (04/01/18). 2. Schedule Echocardiogram today (04/01/18). 3. Start Aspirin 81mg po daily. 4. Start Lasix 40mg daily for systolic heart failure. 5. Will defer starting beta jemima or eugenio inhibitor at this time due to bradycardia and hypotension. 6. Tobacco cessation advised and recommended. 7. Follow-up in cardiac clinic in 1 week.
--- NOTE | 2018-04-01 19:57 | Cardiology Report ---
PROCEDURE: 2-D M-mode and color Doppler study INDICATIONS FOR THE TEST: Chest pain COPD+ Heart Murmur Tobacco Smoking+ Palpitations Fatigue Syncope Edema Hypertension Diabetes Mellitus Rheumatic Fever SOB GUIDO Obesity Hyperlipidemia Family History HD Additional History HOME O2 PATIENT INFORMATION HEIGHT: 63 WEIGHT:139 GENDER: Female B/P:114/54 2-D/M-MODE INTERPRETATION: 2-D MEASUREMENTS OBSERVED VALUES IN CMS Right Ventricular Dimension (RVDd) 2.7 Interventricular Septum (Thickness)(IVsd) 1.1 Left Ventricular Internal Dimensions(LVIDd) 4.0 Left Ventricular Posterior Wall (Thickness)(LVPWd) 1.4 Aortic Root 3.6 Aortic Cusp Separation 2.1 Left Atrial Dimensions (LAD) 3.2 2D 1. Left atrium is mildly enlarged, left ventricle is normal size, mild concentric left ventricular hypertrophy, visually estimated ejection fraction 55% with no regional wall motion abnormality, endocardial surface are somewhat poorly visualized. 2. The right atrium and right ventricle are normal size and contractility. 3. The aortic valve is minimally thickened and fibrosed. 4. The mitral and tricuspid valvular grossly normal. 5. The pulmonic valve is poorly visualized. 6. No significant pericardial effusion noted. DOPPLER INTERROGATION: Doppler interrogation of the aortic, mitral and tricuspid valvular presence of mild mitral and tricuspid regurgitation, tricuspid regurgitation jet velocity is insufficient for calculation of the right ventricular systolic pressure, grade 1 diastolic dysfunction seen with tissue Doppler evidence of raised left atrial pressure. CONCLUSION: 1. Mildly enlarged left atrium, normal left ventricular size, mild concentric left ventricular hypertrophy, visually estimated ejection fraction of 55% with no regional wall motion abnormality, grade 1 diastolic dysfunction seen with tissue Doppler evidence of raised left atrial pressure. 2. Mild mitral and tricuspid regurgitation 3. No significant pericardial effusion noted.
--- NOTE | 2018-04-02 08:41 | Progress Note ---
Subjective Date: 04/02/18 Time: 08:38 Principal diagnosis: NSTEMI Interval history: 47-year-old white female in bed in no acute distress. States she is breathing better with no chest pain. States she will quit smoking. She does relate similar episode 1 year ago for which she was on the ventilator for about 5 days. Exam Vital signs and Labs for Last 24 Hours: Temp Pulse Resp BP Pulse Ox 98.4 F 75 16 108/69 90 L 04/02/18 04:34 04/02/18 06:44 04/02/18 04:34 04/02/18 04:34 04/02/18 06:44 I & O for Last 24 hours: Intake & Output 03/30/18 03/31/18 04/01/18 04/02/18 11:59 11:59 11:59 11:59 Intake Total 3658 / 3658 1842 / 1842 Output Total 0 / 0 300 / 300 Balance 3658 / 3658 1542 / 1542 Weight 150 lb 7 oz 143 lb 1 oz - *Routine Respiratory Exam Present: CTA bilaterally, wheezes. Absent: accessory muscle use, rales, rhonchi Comments: Expiratory wheeze noted bilaterally - *Routine Cardiovascular Exam Present: RRR. Absent: murmur, gallop, rubs - *Routine Extremities Exam Absent: edema, calf tenderness Progress Note: A&P (1) Non-ST elevated myocardial infarction Status: Acute Current Visit: Yes (2) Respiratory failure with hypercapnia Status: Acute Current Visit: Yes (3) Tobacco abuse disorder Status: Acute Current Visit: Yes (4) Left ventricular dysfunction Status: Acute Current Visit: Yes (5) Systolic congestive heart failure Status: Acute Current Visit: Yes (6) COPD exacerbation Status: Acute Current Visit: Yes (7) Non-compliance Status: Acute Current Visit: Yes (8) Opiate dependence Status: Acute Current Visit: Yes Assessment and Plan for All Diagnoses:: 1. Patient was started on aspirin and p.o. Lasix yesterday. 2. Blood pressure has improved and will therefore start ARB therapy today. 3. With wheezing at this time, will hold off on beta-jemima therapy until lungs have improved and blood pressure response to ARB is evaluated. 4. Continue to monitor intake and output and vital signs.
--- NOTE | 2018-04-02 09:41 | Progress Note ---
Internal Medicine - PN: Subj *Date: 04/02/18 *Time: 09:38 Interval history: doing better this am with recent card cath Exam Vital signs and Labs for Last 24 Hours: Temp Pulse Resp BP Pulse Ox 97.8 F 92 H 18 112/60 93 L 04/02/18 08:00 04/02/18 08:00 04/02/18 08:00 04/02/18 08:00 04/02/18 08:00 I & O for Last 24 hours: Intake & Output 03/30/18 03/31/18 04/01/18 04/02/18 11:59 11:59 11:59 11:59 Intake Total 3657 / 3657 Output Total 0 / 0 300 / 300 Balance 3657 / 3657 1781 / 1781 Weight 150 lb 7 oz 143 lb 1 oz - Constitutional no acute distress - *Routine HEENT Exam Head: Present: normocephalic Eye: Present: EOMI, PERRL ENT: Present: mucous membranes dry - *Routine Neck Exam Present: supple - *Routine Respiratory Exam Present: CTA bilaterally - *Routine Cardiovascular Exam Present: RRR, murmur - *Routine Abdominal Exam Present: soft - *Routine Extremities Exam Absent: calf tenderness - *Routine Skin Exam Present: intact - *Routine Neurological Exam Present: alert, CN II-XII intact - Routine Psychiatric Exam Present: normal affect Assessment and Plan (1) Non-ST elevated myocardial infarction Current visit: Yes Status: Acute Category: Medical Code(s): I21.4 - Non-ST elevation (NSTEMI) myocardial infarction (2) Respiratory failure with hypercapnia Current visit: Yes Status: Acute Category: Medical Code(s): J96.92 - Respiratory failure, unspecified with hypercapnia (3) Tobacco abuse disorder Current visit: Yes Status: Acute Category: Medical Code(s): Z72.0 - Tobacco use (4) Left ventricular dysfunction Current visit: Yes Status: Acute Category: Medical Code(s): I51.9 - Heart disease, unspecified (5) Systolic congestive heart failure Current visit: Yes Status: Acute Category: Medical Code(s): I50.20 - Unspecified systolic (congestive) heart failure (6) COPD exacerbation Current visit: Yes Status: Acute Category: Medical Code(s): J44.1 - Chron ic obstructive pulmonary disease with (acute) exacerbation (7) Non-compliance Current visit: Yes Status: Acute Category: Medical Code(s): Z91.19 - Patient's noncompliance with other medical treatment and regimen (8) Opiate dependence Current visit: Yes Status: Acute Category: Medical Code(s): F11.20 - Opioid dependence, uncomplicated
--- NOTE | 2018-04-02 13:41 | Consult Report ---
*Admission Date: 03/31/18 *Chief complaint: I got so short of breath. *History of present illness: Mrs. Kimble is a 47-year-old woman who appears to have significant chronic obstructive pulmonary disease associated with continued cigarette smoking. I initially evaluated her once in 2014 and then she return to me in early February of this year. I had ordered pulmonary function studies, a 6-minute walk, a CT scan of the chest because of a hilar abnormality on chest x-ray and plan to follow-up with her in April. I also counseled her about quitting smoking. The testing I ordered was not set up and she was in her usual state of health until this past weekend. On Sunday, she dusted her home using pledge and other sprays and slept well Sunday night. On Sunday, she just did not feel right: "I seemed weak." As the day went on, she became more breathless and it seemed to occur almost suddenly. "I was holding my very last cigarette in about to light it when it hit me." She had no chest pain or near syncopal episode and no fever or chills. For a couple of days before this, her cough had increased a little but it was still productive of clear sputum.. She came to the emergency room and has been treated for an acute exacerbation of COPD. She was also found to have a non-ST segment elevation myocardial infarction and cardiac catheterization showed no occlusive coronary disease but a dilated left ventricle with a segmental area of poor contractility. She is feeling much better but is still more short of breath than usual and she is still wheezing despite bronchodilators and intravenous corticosteroids. I have placed my history from the February 11 note below this narrative. "Mrs. Kimble is a 47-year-old woman who presumably has chronic obstructive pulmonary disease and whom I saw in December 2014 for recurrent episodes of bronchitis. I only saw her once at that time and could not confirm obstructive lung disease because she did not complete pulmonary function testing. Over the last several years, she has had intermittent episodes of bronchitis, at least once a year requiring antibiotics and, last September, she was admitted to [facility] with acute respiratory failure and signs of sepsis. She was intubated and transferred to the [facility] where she recalls that rhinovirus was identified and she was found to have a DVT in one of her legs. Pulmonary embolism was apparently excluded. She was treated with Xarelto for a year, stopping about a month ago. Mrs. Kimble has a daily cough which is productive of perhaps 2 teaspoonfuls of white sputum. She has had no chest pain or hemoptysis. She becomes breathless walking briskly on level ground, perhaps for 100-150 feet and easily becomes short of breath climbing up and down her basement steps, especially if she is carrying laundry. Sometimes, she has to stop before reaching the top of the stairs. Mrs. Kimble is comfortable at rest. She has difficulty falling asleep at night but, once asleep, does not awaken often. She does not have symptoms of excessive daytime somnolence. She is troubled by recurrent heartburn which has been helped by omeprazole. She drinks at least 4 large cups of coffee every day and 40 ounces of either Mountain Dew or Pepsi. She often snacks on peanut butter and crackers or a Li'l Debbies before going to bed. Her appetite is good and her weight has increased this past year. Normally, she weighs about 125. When I initially saw her in 2014, she had lost quite a bit of weight after an illness and she also related it to periodontitis. She had an EGD in 2013 which showed duodenitis and gastritis. Mrs. Kimble began smoking at the age of 19 and smoked 1 package of cigarettes daily until this past year. She smokes about one half package a day now. She has been prescribed Chantix, Wellbutrin and nicotine patches and does not use any of these currently." [facility] History Medical History: Reports:: Anxiety, Chronic Obstructive Pulmonary Disease (COPD), Depression, Gastroesophageal Reflux Disease(GERD) Denies:: Cancer, Diabetes Mellitus Type 1, Diabetes Mellitus Type 2, MRSA Other Surgeries: Yes: Hysterectomy-Total Amputation: No Fractures: No - *Social History Educational Level: Completed High School Smoking Status: Current every day smoker Tobacco Type: cigarettes # Packs/Day (cigarettes): 1 Alcohol Intake: never Substance Use Type: denies use Occupational Status: unemployed Housing: house Household Members: children Comment: Mrs. 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 He has been out in this heat and it has been difficult lately. She never had any children of her own but cared for a young mother and her child years ago. The mother could not take care of the baby and so she has raised the boy who is now 15. He is doing well and looking forward to starting school again so he can play football and baseball.The [place]'s live in their own home and have 2 cats. Their dog had to be put to sleep just a couple of weeks ago. He was a 22-year-old Pomeranian.She enjoys reading and working puzzles.. - Psychiatric History Expresses thoughts of harming self/others: None Suicide Plan Description: No Plan Pschychiatric History:: Reports:: Anxiety, Depression *Family Hx:: Hypertension Comment: Her mother was a quadriplegic after an automobile accident. when she was in her thirties. She at the age of 63. Her father has chronic obstructive pulmonary disease. He is one of my patients. . I have taken care of other family members and one of her aunts of. complications of chronic obstructive pulmonary disease. . There is a family history of breast cancer, lung cancer and throat cancer. Review of Systems - Review of Systems Review of systems:: pertinent systems reviewed and negative unless documented below - *Neurologic Reports weakness, Denies abnormal walking, Denies seizure-like activity, Denies dizziness Meds Home Medications Medication Instructions Recorded Confirmed Type buprenorphine 8 mg-naloxone 2 mg 1 tab SUBLINGUAL BID tab 10/11/17 03/31/18 History sublingual tablet Fluticasone/Vilanterol [Breo 1 puff INHALATION DAILY 03/31/18 04/01/18 History Ellipta 200-25 Mcg INH] Ibuprofen [Ibuprofen 800mg 800 mg PO TID 03/31/18 03/31/18 History Tablet] Omeprazole [Omeprazole 20mg 20 mg PO DAILY 03/31/18 03/31/18 History Capsule] Propranolol HCl [Innopran Xl] 80 mg PO DAILY 03/31/18 03/31/18 History Sertraline HCl [Zoloft] 100 mg PO DAILY 03/31/18 04/01/18 History Umeclidinium Brm/Vilanterol Tr 1 each IH DAILY 04/01/18 04/01/18 History [Anoro Ellipta 62.5-25 Mcg INH] Allergies Allergy/AdvReac Type Severity Reaction Status Date / Time hydromorphone Allergy Severe S-DIFF. Verified 02/19/18 13:51 BREATHING; HIVES propoxyphene Allergy Severe S-SWELLS-OR Verified 02/19/18 13:51 [From Darvocet-N] AL/THROAT gabapentin [From Neurontin] Allergy Intermediate I-HIVES Verified 02/19/18 13:51 Exam Vital signs and Labs for Last 24 Hours: Temp Pulse Resp BP Pulse Ox 98.5 F 95 H 20 127/84 94 L 04/02/18 12:00 04/02/18 12:00 04/02/18 12:00 04/02/18 12:00 04/02/18 12:00 I & O for Last 24 hours: Intake & Output 03/30/18 03/31/18 04/01/18 04/02/18 23:59 23:59 23:59 23:59 Intake Total 2390 / 2390 2036 1313 / 1313 Output Total 0 / 0 300 / 300 Balance 2390 / 2390 2036 1013 / 1013 Weight 63.191 kg 68.237 kg 64.892 kg Microbiology Reports for the Last 24 Hours: Microbiology 03/31/18 12:45 Blood Blood Culture - Preliminary NO GROWTH AFTER 48 HOURS 03/31/18 12:45 Blood Blood Culture - Preliminary NO GROWTH AFTER 48 HOURS Narrative: On physical examination, Mrs. Kimble is a very pleasant woman who is sitting in bed, mildly breathless, wearing oxygen. She is able to carry on a conversation without difficulty. HEENT: Sclerae clear; conjunctivae pink; PERRLA; external nares unremarkable; lips moist; oropharynx shows some missing teeth. There is no evidence of thrush. Mallampati I. Neck: Carotids 2+ and without bruits; no adenopathy. No JVD sitting erect. Chest: Symmetrical expansion; increased AP diameter; hyperresonance by percussion bilaterally; prolonged expiratory phase of ventilation with expiratory wheezes throughout. Heart: Regular rhythm; question S3 gallop Abdomen: Bowel sounds present; soft, nontender, no masses or organomegaly. Musculoskeletal: No royer arthritis Neurological: Grossly intact Skin: No rash Extremities: No clubbing or edema. Internal Medicine - CN: Reslt - Labs CBC & Chem 7: 04/01/18 05:14 04/01/18 05:14 - ABG Interpretation ABG results: 03/31/18 03/31/18 03/31/18 12:36 14:00 17:51 ABG pH 7.13 L* 7.25 L 7.28 L ABG pCO2 67.9 H 56.1 H 48.3 H ABG pO2 103.9 H 91.6 127.6 H ABG HCO3 22.0 24.3 22.0 ABG Total CO2 24.1 26.0 23.5 ABG O2 Saturation 96 96 98 ABG Base Excess -7.2 L -2.9 L -4.8 L 03/31/18 22:45 ABG pH 7.36 ABG pCO2 33.7 L ABG pO2 61.8 L ABG HCO3 18.7 L ABG Total CO2 19.8 L ABG O2 Saturation 91 ABG Base Excess -6.7 L - Impressions I personally reviewed her most recent chest x-rays. There is evidence of chronic air-trapping in that there is hyperlucency in the upper lobes, an increased AP diameter, increased retrosternal airspace, flattening of the diaphragms. The left hilum appears prominent and I think it is vascular. There is no evidence of a pulmonary infiltrate, pneumothorax, pleural effusion or atelectasis. I reviewed her labs. ABG showed the development of hypercapnia, I think when she is under conscious sedation for the cardiac cath. Her CBC showed leukopenia with low neutrophil count and 3+ spherocytes. Assessment and Plan (1) Non-ST elevated myocardial infarction Current visit: Yes Status: Acute Category: Medical Code(s): I21.4 - Non-ST elevation (NSTEMI) myocardial infarction (2) Respiratory failure with hypercapnia Current visit: Yes Status: Acute Category: Medical Code(s): J96.92 - Respiratory failure, unspecified with hypercapnia (3) Tobacco abuse disorder Current visit: Yes Status: Acute Category: Medical Code(s): Z72.0 - To bacco use (4) Left ventricular dysfunction Current visit: Yes Status: Acute Category: Medical Code(s): I51.9 - Heart disease, unspecified (5) Systolic congestive heart failure Current visit: Yes Status: Acute Category: Medical Code(s): I50.20 - Unspecified systolic (congestive) heart failure (6) COPD exacerbation Current visit: Yes Status: Acute Category: Medical Code(s): J44.1 - Chronic obstructive pulmonary disease with (acute) exacerbation (7) Non-compliance Current visit: Yes Status: Acute Category: Medical Code(s): Z91.19 - Patient's noncompliance with other medical treatment and regimen (8) Opiate dependence Current visit: Yes Status: Acute Category: Medical Code(s): F11.20 - Opioid dependence, uncomplicated - Assessment and plan all Dx Assessment and Plan for all problems:: Mrs. Kimble has, likely, severe chronic obstructive pulmonary disease associated with continued cigarette smoking. I really urged her never to restart after this serious illness. I agree with continuing corticosteroids and bronchodilators but do not think antibiotics are necessary. She has a leukopenia along with spherocytes on the initial CBC here. I would repeat that and, if they are still present, consider Max test and perhaps hemoglobin electrophoresis. I do not think she has had these abnormalities on prior CBCs though. She has a history of venous thrombosis when she was hospitalized for sepsis and the sudden onset of dyspnea here associated with an initial blood gas showing respiratory alkalosis has made me consider that she might of had a pulmonary embolism as a precipitating factor. I have ordered a venous duplex and d-dimer but would follow up with a CT scan of the chest with contrast if these tests are not helpful. I will see her in the outpatient clinic in just a few weeks and plan to have pulmonary function studies and a 6-minute walk performed before then. I assume she will be offered the pneumococcal vaccine as appropriate and the influenza vaccine at the time of discharge. Thank you for the opportunity to participate in Mrs. Kimble's care.
--- NOTE | 2018-04-02 14:50 | Non-Invasive Vascular Report ---
"Venous Exam Indications: Orthopnea 786.02. IMPRESSIONS 1. There is no evidence of significant Reflux. 2. No evidence of deep or superficial vein thrombosis involving the right lower extremity Left lower extremity venous duplex evaluation. Doppler flow study including spectral analysis, color and young scale imaging. Location: Vascular laboratory. Patient status: Outpatient. Tables: Venous flow and imaging: + +-------+ + |Location |Overall|Flow properties | + +-------+ + |Left common femoral |Patent |Normal phasicity; spontaneous; | | | |normal augmentation; compressible | + +-------+ + |Left saphenofemoral junction|Patent |Compressible | + +-------+ + |Left profunda femoral |Patent |Compressible | + +-------+ + |Left femoral |Patent |Normal phasicity; spontaneous; | | | |normal augmentation; compressible | + +-------+ + |Left greater saphenous |Patent |Normal phasicity; spontaneous; | | | |normal augmentation; compressible | + +-------+ + |Left popliteal |Patent |Normal phasicity; spontaneous; | | | |normal augmentation; compressible | + +-------+ + |Left posterior tibial |Patent |Compressible | + +-------+ + |Left peroneal |Patent |Compressible | + +-------+ + |Left gastrocnemius |Patent |Compressible | + +-------+ + |Left soleal |Patent |Compressible | + +-------+ + (Report amended ) Electronically signed by: oCng Tang [id number]"
--- NOTE | 2018-04-03 09:48 | Discharge Summary ---
General - General Admission date:: 03/31/18 Discharge date: 04/03/18 HPI HPI: Patient admitted earlier thru ER with acute onset SOA, improved with Bipap. History of respiratory failure, COPD. ABG improved with Bipap to avoid ventilation. Second serial troponin elevated. Hospital Course Hospital Course: cta chest:IMPRESSION: 1. Acute pulmonary emboli in the right lower lobe. 2. Centrilobular and paraseptal emphysema with scattered areas of fibrosis and left lower lobe atelectasis. 3. Mild prominence of the main pulmonary artery which may be related to pulmonary arterial hypertension venous doppler neg from dvt Patient states last September she had a PE in in December had been a year so she stopped taking her blood thinner. Will restart Xarelto at 15 mg twice a day for 3 weeks and then increase to 20 mg once a day patient is going to follow-up with Dr. Maguire. We will discharge home on short course of steroids. Objective Vital signs: Temp Pulse Resp BP Pulse Ox 98.4 F 94 H 20 128/88 94 L 04/03/18 07:43 04/03/18 07:43 04/03/18 07:43 04/03/18 07:43 04/03/18 08:00 - *Routine HEENT Exam Head: Present: normocephalic Eye: Present: EOMI ENT: Present: mucous membranes moist - *Routine Neck Exam Present: full ROM - *Routine Respiratory Exam Present: wheezes - *Routine Cardiovascular Exam Present: RRR - *Routine Abdominal Exam Present: soft, normoactive bowel sounds - *Routine Extremities Exam Present: full ROM - Routine Back/Spine/Pelvis Exam Back/Spine: Present: full ROM - *Routine Skin Exam Present: intact - *Routine Neurological Exam Present: alert, oriented X3 - Routine Psychiatric Exam Present: normal affect Results Labs on day of discharge: Labs from last 24 hours 04/02/18 14:00 D-Dimer 1020 H* Preliminary micro results at discharge 03/31/18 12:45 Blood Culture - Preliminary Blood NO GROWTH AFTER 48 HOURS 03/31/18 12:45 Blood Culture - Preliminary Blood NO GROWTH AFTER 48 HOURS - Additional Comments Dr. Vicente rounded earlier-all orders per Dr. Vicente. DS: Diagnosis - Discharge Diagnosis (1) Non-ST elevated myocardial infarction Status: Acute (2) Respiratory failure with hypercapnia Status: Acute (3) Tobacco abuse disorder Status: Acute (4) Left ventricular dysfunction Status: Acute (5) Systolic congestive heart failure Status: Acute (6) COPD exacerbation Status: Acute (7) Non-compliance Status: Acute (8) Opiate dependence Status: Acute (9) Pulmonary emboli Status: Acute Discharge Plan - Patient Discharge Instructions ACTIVITY: Continue current activity DIET: continue same diet Patient Instructions: Chronic Obstructive Pulmonary Disease, Cardiac Catheterization, Nicotine Addiction, Surgical Site Infection, How to Quit Smoking, Respiratory Failure - Follow up Plan Follow up with: Darron Vicente MD [Staff Physician] - 1 week Ángel Maguire MD [Consulting Physician] - 2 weeks Disposition: Home, Self-Fdc Medications: Home Medications Medication Instructions Recorded Confirmed Type buprenorphine 8 mg-naloxone 2 mg 1 tab SUBLINGUAL BID tab 10/11/17 03/31/18 History sublingual tablet Fluticasone/Vilanterol [Breo 1 puff INHALATION DAILY 03/31/18 04/01/18 History Ellipta 200-25 Mcg INH] Ibuprofen [Ibuprofen 800mg 800 mg PO TID 03/31/18 03/31/18 History Tablet] Omeprazole [Omeprazole 20mg 20 mg PO DAILY 03/31/18 03/31/18 History Capsule] Propranolol HCl [Innopran Xl] 80 mg PO DAILY 03/31/18 03/31/18 History Sertraline HCl [Zoloft] 100 mg PO DAILY 03/31/18 04/01/18 History Umeclidinium Brm/Vilanterol Tr 1 each IH DAILY 04/01/18 04/01/18 History [Anoro Ellipta 62.5-25 Mcg INH] Prescriptions/Medication Reconciliation: New Irbesartan [Avapro 75mg tablet] 75 mg PO DAILY 30 Days #30 tab Nicotine [Nicoderm 21mg/24hr patch] 21 mg TD DAILY 30 Days #30 patch.td24 predniSONE [Prednisone 20mg Tab] 20 mg PO BID 5 Days #10 tab Rivaroxaban [Xarelto 15mg tablet] 15 mg PO BID 21 Days tab Ipratropium/Albuterol Sulfate [Duoneb 3mL neb] 3 ml IH Q4RT 30 Days #1 box Continue albuterol sulfate HFA 90 mcg/actuation aerosol inhaler 2 puff INHALATION Q4- 6H PRN 90 Days #3 units PRN Reason: shortness of breath or wheezing buprenorphine 8 mg-naloxone 2 mg sublingual tablet 1 tab SUBLINGUAL BID tab Propranolol HCl [Innopran Xl] 80 mg PO DAILY Omeprazole [Omeprazole 20mg Capsule] 20 mg PO DAILY Sertraline HCl [Zoloft] 100 mg PO DAILY Umeclidinium Brm/Vilanterol Tr [Anoro Ellipta 62.5-25 Mcg INH] 1 each IH DAILY Discontinued Fluticasone/Vilanterol [Breo Ellipta 200-25 Mcg INH] 1 puff INHALATION DAILY Ibuprofen [Ibuprofen 800mg Tablet] 800 mg PO TID
--- NOTE | 2018-04-03 11:06 | Progress Note ---
Subjective Date: 04/03/18 Time: 11:04 Principal diagnosis: NSTEMI Interval history: 47-year-old white female in bed in no acute distress. States she feels much better. She is ready to go home. CT of the chest yesterday revealed evidence of pulmonary embolus in the right side. Patient had been started on Lovenox therapy and was switched to Xarelto therapy today. Lower extremity venous Doppler negative for DVT. Exam Vital signs and Labs for Last 24 Hours: Temp Pulse Resp BP Pulse Ox 98.4 F 83 20 128/88 95 04/03/18 07:43 04/03/18 10:10 04/03/18 07:43 04/03/18 07:43 04/03/18 10:10 Laboratory Results - last 24 hr 04/02/18 14:00: D-Dimer 1020 H* I & O for Last 24 hours: Intake & Output 03/31/18 04/01/18 04/02/18 04/03/18 11:59 11:59 11:59 11:59 Intake Total 3658 / 3658 2082 / 2082 1560 / 1560 Output Total 0 / 0 300 / 300 2501 / 2501 Balance 3658 / 3658 1782 / 1782 -941 / -941 Weight 150 lb 7 oz 143 lb 1 oz 144 lb 3 oz Microbiology Reports for the Last 24 Hours: Microbiology 03/31/18 12:45 Blood Blood Culture - Preliminary NO GROWTH AFTER 48 HOURS 03/31/18 12:45 Blood Blood Culture - Preliminary NO GROWTH AFTER 48 HOURS - *Routine Respiratory Exam Present: CTA bilaterally. Absent: accessory muscle use, rales, rhonchi, wheezes - *Routine Cardiovascular Exam Present: RRR. Absent: murmur, gallop, rubs Progress Note: A&P (1) Non-ST elevated myocardial infarction Status: Acute Current Visit: Yes (2) Respiratory failure with hypercapnia Status: Acute Current Visit: Yes (3) Tobacco abuse disorder Status: Acute Current Visit: Yes (4) Left ventricular dysfunction Status: Acute Current Visit: Yes (5) Systolic congestive heart failure Status: Acute Current Visit: Yes (6) COPD exacerbation Status: Acute Current Visit: Yes (7) Non-compliance Status: Acute Current Visit: Yes (8) Opiate dependence Status: Acute Current Visit: Yes (9) Pulmonary emboli Status: Acute Current Visit: Yes Assessment and Plan for All Diagnoses:: Elevated troponins likely secondary to pulmonary embolus. 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 Patient will continue Lasix therapy at 40 mg daily. Xarelto 15 mg twice daily for 21 days and then switch to Xarelto 20 mg daily thereafter. We will see the patient back in the office in 1-2 weeks and plan on performing an echocardiogram in about 2-3 months. Strongly urged smoking cessation.
== END 2018-04-03 11:25 | disposition home or self-care (01) ==
LOC: ER 12:34 → 2ND 14:43
PROVIDERS: ADMIT Emergency Medicine; ATTEND Emergency Medicine

== ENCOUNTER → 2018-05-07 14:11 | Outpatient (POV) | payer MEDICAID, SELFPAY | PROVIDERS: Visit Provider Internal Medicine | DX: Z00.00 Encounter for general adult medical examination without abnormal findings (principal) ==

== ENCOUNTER 2018-05-26 19:58 | Observation (INO) ==
[2018-05-26 20:18] LABS: ABG Base Excess -2.1 mmol/L (-2.4-2.3); ABG HCO3 24.3 mmhg (22.0-26.0); ABG Oxygen Saturation 94 % (90-100); ABG PO2 71.4 mmhg (80-100); ABG TCO2 25.9 mmhg (23-27)
[2018-05-26 20:19] LABS: Allen's Test Y; Oxygen 4 %
[2018-05-26 20:20] LABS: ABG PCO2 50.7 mmhg (35.0-45.0)
[2018-05-26 20:27] LABS: Basophils # 0.1 K/mm3 (0-0.2); Basophils % 0.9 % (0.1-2.0); Eosinophils # 0.7 K/mm3 (0.0-0.4); Eosinophils % 9.6 % (0.1-12.0); Hematocrit 45.7 % (37.0-47.0); Lymphocytes # 2.1 K/mm3 (0.7-4.5); Lymphocytes % 28.5 % (10-50); Mean Corpuscular HGB Conc 32.7 g/dL (31.8-35.4); Mean Corpuscular Hemoglobin 31.4 pg (27.0-31.2); Mean Platelet Volume 7.3 fl (7.4-10.4); Monocytes # 0.4 K/mm3 (0.1-1.0); Monocytes % 5.4 % (1.7-9.3); Neutrophils % 55.5 % (37.0-80.0); Platelet Count 256 K/mm3 (142-424); Red Blood Count 4.76 M/mm3 (4.20-5.40); White Blood Count 7.2 K/mm3 (4.8-10.8)
[2018-05-26 20:47] LABS: Blood Urea Nitrogen 12 mg/dL (7-18); Calcium 8.6 mg/dL (8.5-10.1); Carbon Dioxide 31 mmol/L (21.0-32.0); Chloride 103 mmol/L (98-107); Glucose 110 mg/dL (74-106); Sodium 141 mmol/L (136-145)
--- NOTE | 2018-05-26 21:32 | Emergency Department Note ---
ED Disposition Clinical Impression: COPD exacerbation Disposition: Still a Patient Condition on Discharge: Fair Referrals: Darron Vicente MD [Primary Care Provider] - - Critical Care Critical Care Time: No Attestation: On 05/26/18, the high probability of a clinically significant, sudden or life th reatening deterioration of the following system(s) required my full and direct attention, intervention and personal management. The time I documented below is in addition to time spent performing reported procedures but includes the following listed in this critical care notation. Medical Decision Making - Eliecer Inquiry Pt receiving controlled substance: No Vital Signs: 05/26/18 19:58 05/26/18 20:27 05/26/18 21:48 Temperature 99 F Temperature Source Oral Pulse Rate [Right Radial] 88 76 77 Respiratory Rate 28 H 28 H 22 Blood Pressure [Right Arm] 161/124 H 162/86 H 141/108 H Blood Pressure Mean [Right Arm] 136 111 119 Blood Pressure Source [Right Arm] Automatic Cuff Automatic Cuff Automatic Cuff Blood Pressure Position [Right Arm] Sitting Sitting Sitting 02 Sat by Pulse Oximetry 86 L 90 L 94 L Oxygen Delivery Method Room Air Nasal Cannula Nasal Cannula Oxygen Flow Rate (LPM) 05/26/18 23:09 Temperature Temperature Source Pulse Rate [Right Radial] 78 Respiratory Rate 22 Blood Pressure [Right Arm] 142/79 H Blood Pressure Mean [Right Arm] 100 Blood Pressure Source [Right Arm] Automatic Cuff Blood Pressure Position [Right Arm] Sitting 02 Sat by Pulse Oximetry 95 Oxygen Delivery Method Nasal Cannula Oxygen Flow Rate (LPM) 6 - Lab Data Lab Results 05/26/18 20:17: Specimen Source R/r, O2 % 4, ABG pH 7.30 L, ABG pCO2 50.7 H, ABG pO2 71.4 L, ABG HCO3 24.3, ABG Total CO2 25.9, ABG O2 Saturation 94, ABG Base Excess -2.1, Cong Test Y 05/26/18 20:20: WBC 7.2, RBC 4.76, Hgb 15.0, Hct 45.7, MCV 96.0, MCH 31.4 H, MCHC 32.7, RDW 14.0, Plt Count 256, MPV 7.3 L, Neut % (Auto) 55.5, Lymph % (Auto) 28.5, [place] % (Auto) 5.4, Eos % (Auto) 9.6, Baso % (Auto) 0.9, Neut # (Auto) 4.0, Lymph # (Auto) 2.1, [place] # (Auto) 0.4, Eos # (Auto) 0.7 H, Baso # (Auto) 0.1 05/26/18 20:20: Sodium 141, Potassium 4.0, Chloride 103, Carbon Dioxide 31, Anion Gap 11.0, BUN 12, Creatinine 0.71, Estimated Creat Clear 96, Estimated GFR 89, Est GFR ( Amer) 107, Glucose 110 H, Calcium 8.6, Troponin I < 0.02 05/26/18 20:20: Lactate 0.4 Result diagrams: 05/26/18 20:20 05/26/18 20:20 Orders (Tests/Meds): ED MEDICATIONS Generic Name Dose Route Start Last Admin Trade Name Freq PRN Reason Stop Dose Admin Sodium Chloride 3 ml 05/26/18 20:05 Sodium Chloride 3% 15ml Neb IH 06/25/18 20:04 ONCE PRN INDUCE SPUTUM COLLECTION Discontinued Medications Generic Name Dose Route Start Last Admin Trade Name Freq PRN Reason Stop Dose Admin Albuterol/Ipratropium 3 ml 05/26/18 21:52 05/26/18 22:47 Duoneb 3ml Neb IH 05/26/18 21:53 3 ml ONCE ONE Administration Sodium Chloride 500 mls @ 999 mls/hr 05/26/18 20:15 05/26/18 20:21 Sod Chlor 0.9% 1000ml Bag IV 05/26/18 20:45 Not Given .Q31M JUDAH Sodium Chloride 1,000 mls @ 999 mls/hr 05/26/18 20:15 05/26/18 20:10 Sod Chlor 0.9% 1000ml Bag IV 05/26/18 21:15 999 mls/hr .Q1H1M JUDAH Administration Iopamidol 70 ml 05/26/18 22:53 05/26/18 22:55 Mye-Azplga-657; 75ml Vial IV 05/26/18 22:54 70 ml ONCE ONE Administration Protocol Methylprednisolone Sodium Succinate 125 mg 05/26/18 21:51 05/26/18 22:04 Solu-Medrol 125mg/2ml Vial IV 05/26/18 21:52 125 mg ONCE ONE Administration Sodium Chloride 40 ml 05/26/18 22:53 05/26/18 22:55 Rad-Ns 50ml Vial IV 05/26/18 22:54 40 ml ONCE ONE Administration Sodium Chloride 10 ml 05/26/18 22:53 05/26/18 22:55 Rad-Saline Flush 10ml Syringe IV 05/26/18 22:54 10 ml ONCE ONE Administration ORDERS Category Date Time Status CT angio chest Stat Cat Scan 05/26/18 21:51 Taken XR chest portable Stat Exams 05/26/18 20:04 Taken Urinalysis and Microscopic Stat Lab 05/26/18 20:04 Ordered Blood Culture Stat Micro 05/26/18 19:58 Ordered Sputum Culture & Gram Stain Stat Micro 05/26/18 20:05 Ordered ABG [Arterial Blood Gas] Stat RT 05/26/18 20:28 Ordered ECG Request by /Phillip Stat Y 05/26/18 20:04 Ordered - Radiology Data #1 Image(s): Chest Image Reviewed: Yes I reviewed the patient's radiology image Atelectasis vs scarring bases, COPD - CT Data CT Scan: Chest (CT angiogram) Time Received: 22:30 Findings Narrative: CT scan interpreted by [facility] radiologist. Faxed report received and reviewed: No acute findings. Pulmonary emboli appear less prominent compared to prior. There may be a small amount of residual clot in the lower lungs versus motion artifact. No definite new or large clots seen. Pulmonary hyperinflation, emphysematous changes, mild interstitial scarring. No consolidation seen. - ECG Data Tracing #1 EKG interpreted by Jamey Underwood MD: Rhythm: sinus Rate: 81 [place]: Rightward Ectopy: none Conduction: normal ST Segment Changes: none T Wave Changes: none Q Waves: none No evidence of acute ischemia or injury Baseline artifact and wander present, but I consider the EKG adequate for accurate interpretation. - Physician Consults Physician Consulted: Kit Vicente Time: 00:07 Reason -: Admission Comment/Response: Agrees to admit the patient to the hospital. We discussed the patient's clinical information, including history, exam, laboratory and radiolog y results and ED course. Per hospital procedure, I will write temporary bridge inpatient orders on the patient. Specific orders requested by the admitting physician: Continue oxygen, nebulizer treatments, steroids, start Zithromax General Adult HPI - General Chief complaint: Shortness of Breath/Dyspnea Stated complaint: soa Time Seen by Provider: 05/26/18 21:31 Mode of Arrival: Ambulatory Limitations: No Limitations Description of Symptoms (Recalled from ER Triage Doc. by RN): Pt reports difficulty breathing that started about 3hrs ago. Pt reports she was d/cd from here on may 04 with an unresolved PE and sent home on xarelto. Duo neb given in route. - History of Present Illness HPI narrative: Arrives by ambulance complaining of shortness of breath. She says it started this morning mildly but then suddenly got worse this evening. She said she had a feeling of a hot lopez up her chest when the shortness of breath got worse and this feels like when she had a pulmonary embolism April 02. She also has history of COPD. She denies chest pain. She has some congestion and coughing, but no sputum production and no hemoptysis. No leg pain or swelling. He is on Xarelto for her pulmonary embolism and she is compliant, no missed doses. Received a nebulizer treatment during transport. Feels like she can use another - Related Data Home Medications Medication Instructions Recorded Confirmed buprenorphine 8 mg-naloxone 2 mg 1 tab SUBLINGUAL BID tab 10/11/17 05/26/18 sublingual tablet Omeprazole [Omeprazole 20mg 20 mg PO DAILY 03/31/18 05/26/18 Capsule] Propranolol HCl [Innopran Xl] 80 mg PO DAILY 03/31/18 05/26/18 Sertraline HCl [Zoloft] 100 mg PO DAILY 03/31/18 05/26/18 Umeclidinium Brm/Vilanterol Tr 1 each IH DAILY 04/01/18 05/26/18 [Anoro Ellipta 62.5-25 Mcg INH] omeprazole 20 mg capsule,delayed 20 mg PO HS 30 Days #30 cap 04/17/18 05/26/18 release Ipratropium/Albuterol Sulfate 3 ml INHALATION Q8H 05/26/18 05/26/18 [Iprat-Albut 0.5-3(2.5) mg/3 ml] Varenicline Tartrate [Chantix 1 mg PO BID 05/26/18 05/26/18 Continuing Month Box] Varenicline Tartrate [Chantix See Rx Instructions PO PER PKG DIR 05/26/18 05/26/18 Starting Month Box] buPROPion HCl [Wellbutrin 75mg 75 mg PO BID 05/26/18 05/26/18 Tablet] Previous Rx's Medication Instructions Recorded albuterol sulfate HFA 90 2 puff INHALATION Q4-6H PRN 90 03/26/18 mcg/actuation aerosol inhaler Days #3 units Allergies Allergy/AdvReac Type Severity Reaction Status Date / Time hydromorphone Allergy Severe S-DIFF. Verified 05/26/18 20:03 BREATHING; HIVES propoxyphene Allergy Severe S-SWELLS-OR Verified 05/26/18 20:03 [From Darvocet-N] AL/THROAT gabapentin [From Neurontin] Allergy Intermediate I-HIVES Verified 05/26/18 20:03 [facility] History I have reviewed the patient's past medical history: Yes Medical History: Reports:: Anxiety, Chronic Obstructive Pulmonary Disease (COPD), Depression, Gastroesophageal Reflux Disease(GERD) Denies:: Cancer, Diabetes Mellitus Type 1, Diabetes Mellitus Type 2, MRSA Other Surgeries: Yes: Hysterectomy-Total Amputation: No Fractures: No Comment: gallbladder - Social History Smoking Status: Former smoker Tobacco Type: cigarettes # Packs/Day (cigarettes): 1 Alcohol Intake: never Substance Use Type: denies use Occupational Status: unemployed Housing: house Household Members: children Comment: Mrs. 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 He has been out in this heat and it has been difficult lately. She never had any children of her own but cared for a young mother and her child years ago. The mother could not take care of the baby and so she has raised the boy who is now 15. He is doing well and looking forward to starting school again so he can play football and baseball.The Shyanne's live in their own home and have 2 cats. Their dog had to be put to sleep just a couple of weeks ago. He was a 22-year-old Pomeranian.She enjoys reading and working puzzles.. - Psychiatric History Expresses thoughts of harming self/others: None Suicide Plan Description: No Plan Pschychiatric History:: Reports:: Anxiety, Depression Family Hx:: Hypertension Comment: Her mother was a quadriplegic after an automobile accident. when she was in her thirties. She at the age of 63. Her father has chronic obstructive pulmonary disease. He is one of my patients. . I have taken care of other family members and one of her aunts of. complications of chronic obstructive pulmonary disease. . There is a family history of breast cancer, lung cancer and throat cancer. ROS Obtained: Yes All systems reviewed & no additional complaints - Constitutional Constitutional: Denies fever(s) - Cardiovascular Cardiovascular: Denies chest pain, Denies leg edema - Respiratory Respiratory: Yes cough, Yes dyspnea, No excessive phlegm production, No coughing up blood - Gastrointestinal Gastrointestingal: Denies: abdominal pain, vomiting Physical Exam - General General appearance: alert Comment: Labored respirations - Head Head exam: atraumatic, normocephalic - Eye Eye exam: Present: normal appearance, PERRL, EOMI - ENT ENT exam: Present: mucous membranes moist - Neck Neck exam: Present: normal inspection, trachea midline - Respiratory Respiratory exam: Present: accessory muscle use, other (Decreased breath sounds bilaterally) - Cardiovascular Cardiovascular exam: Present: regular rate, normal rhythm, normal heart sounds - Abdominal Exam Abdominal exam: Present: soft. Absent: distention, tenderness - Extremities Exam Extremities exam: Present: normal inspection, full ROM. Absent: tenderness, pedal edema, calf tenderness - Neurological Exam Neurological exam: Present: alert, oriented X3 - Psychiatric Psychiatric exam: Present: normal affect - Skin Skin exam: Present: warm, dry
--- NOTE | 2018-05-27 11:10 | Pharmacy Consult Notes ---
[facility] VTE Monitoring - Patient Demographics Admission date: 05/26/18 Report Date: 05/27/18 Time: 11:10 Allergies/Adverse Reactions: Patient Allergies hydromorphone Allergy (Severe, Verified 05/26/18 20:03) S-DIFF. BREATHING; HIVES propoxyphene [From Darvocet-N] Allergy (Severe, Verified 05/26/18 20:03) M-HKSHMS-OBOT/THROAT gabapentin [From Neurontin] Allergy (Intermediate, Verified 05/26/18 20:03) I-HIVES Height: 1.6 m Weight: 64.183 kg Patient Problems: Current Active Problems COPD exacerbation (Acute) - VTE Risk Labs: VTE Related Lab Results Hgb 15.0 g/dL (12.2-16.2) 05/26/18 20:20 Hct 45.7 % (37.0-47.0) 05/26/18 20:20 Plt Count 256 K/mm3 (142-424) 05/26/18 20:20 BUN 12 mg/dL (7-18) 05/26/18 20:20 Creatinine 0.71 mg/dL (0.55-1.02) 05/26/18 20:20 Estimated Creat Clear 96 mL/min (50-200) 05/26/18 20:20 VTE Score: 6 VTE Risk Level: Moderate Risk - Prophylaxis VTE Prophylaxis Ordered?: Yes Types of VTE Prophylaxis: TEDS Knee High Location of Applied Device: Bilateral Lower Extremeties - VTE Diagnosis Confirmed Treatment or plan recommended: Continue Current Treatment
--- NOTE | 2018-05-27 12:58 | History & Physical Report ---
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 She says it started this morning mildly but then suddenly got worse this evening. She said she had a feeling of a hot lopez up her chest when the shortness of breath got worse and this feels like when she had a pulmonary embolism April 02. She also has history of COPD. She denies chest pain. She has some congestion and coughing, but no sputum production and no hemoptysis. No leg pain or swelling. He is on Xarelto for her pulmonary embolism and she is compliant, no missed doses. Received a nebulizer treatment during transport. [facility] History I have reviewed the patient's past medical history: Yes Medical History: Reports:: Anxiety, Chronic Obstructive Pulmonary Disease (COPD), Depression, Gastroesophageal Reflux Disease(GERD) Denies:: Cancer, Diabetes Mellitus Type 1, Diabetes Mellitus Type 2, MRSA Other Surgeries: Yes: Hysterectomy-Total Amputation: No Fractures: No - *Social History Educational Level: Completed High School Smoking Status: Current every day smoker Tobacco Type: cigarettes # Packs/Day (cigarettes): 2 Alcohol Intake: never Substance Use Type: painkillers Occupational Status: unemployed Housing: house Household Members: children - Psychiatric History Expresses thoughts of harming self/others: None Suicide Plan Description: No Plan Pschychiatric History:: Reports:: Anxiety, Depression *Family Hx:: Hypertension Review of Systems - Review of Systems Review of systems:: pertinent systems reviewed and negative unless documented below - Constitutional Denies fever(s) - Eyes Denies change in vision - ENT Denies sinus pain - *Cardiovascular Denies chest pain at rest - *Respiratory Reports cough, Reports shortness of breath - *Gastrointestinal Denies abdominal pain - *Genitourinary Denies blood in urine - *Musculoskeletal Denies joint pain - Integumentary/Breasts Denies rash - *Neurologic Denies seizure-like activity - Psychiatric Reports anxiety Meds Home Medications Medication Instructions Recorded Confirmed Type buprenorphine 8 mg-naloxone 2 mg 1.25 tab SUBLINGUAL DAILY tab 10/11/17 05/27/18 History sublingual tablet Omeprazole [Omeprazole 20mg 20 mg PO DAILY 03/31/18 05/27/18 History Capsule] Propranolol HCl [Innopran Xl] 80 mg PO DAILY 03/31/18 05/27/18 History Sertraline HCl [Zoloft] 100 mg PO DAILY 03/31/18 05/27/18 History Umeclidinium Brm/Vilanterol Tr 1 puff IH DAILY 04/01/18 05/27/18 History [Anoro Ellipta 62.5-25 Mcg INH] Ipratropium/Albuterol Sulfate 3 ml INHALATION Q8H 05/26/18 05/27/18 History [Iprat-Albut 0.5-3(2.5) mg/3 ml] Varenicline Tartrate [Chantix 1 mg PO BID 05/26/18 05/27/18 History Continuing Month Box] buPROPion HCl [Wellbutrin 75mg 75 mg PO BID 05/26/18 05/27/18 History Tablet] Rivaroxaban [Xarelto 20mg Tablet] 20 mg PO DAILY 05/27/18 05/27/18 History Allergies Allergy/AdvReac Type Severity Reaction Status Date / Time hydromorphone Allergy Severe S-DIFF. Verified 05/26/18 20:03 BREATHING; HIVES propoxyphene Allergy Severe S-SWELLS-OR Verified 05/26/18 20:03 [From Darvocet-N] AL/THROAT gabapentin [From Neurontin] Allergy Intermediate I-HIVES Verified 05/26/18 20:03 Exam Vital signs and Labs for Last 24 Hours: Temp Pulse Resp BP Pulse Ox 97.8 F 81 20 161/93 H 94 L 05/27/18 10:47 05/27/18 10:47 05/27/18 10:47 05/27/18 10:47 05/27/18 11:21 Laboratory Results - last 24 hr 05/26/18 20:17: Specimen Source R/r, O2 % 4, ABG pH 7.30 L, ABG pCO2 50.7 H, ABG pO2 71.4 L, ABG HCO3 24.3, ABG Total CO2 25.9, ABG O2 Saturation 94, ABG Base Excess -2.1, Cong Test Y 05/26/18 20:20: WBC 7.2, RBC 4.76, Hgb 15.0, Hct 45.7, MCV 96.0, MCH 31.4 H, MCHC 32.7, RDW 14.0, Plt Count 256, MPV 7.3 L, Neut % (Auto) 55.5, Lymph % (Auto) 28.5, [place] % (Auto) 5.4, Eos % (Auto) 9.6, Baso % (Auto) 0.9, Neut # (Auto) 4.0, Lymph # (Auto) 2.1, [place] # (Auto) 0.4, Eos # (Auto) 0.7 H, Baso # (Auto) 0.1 05/26/18 20:20: Sodium 141, Potassium 4.0, Chloride 103, Carbon Dioxide 31, Anion Gap 11.0, BUN 12, Creatinine 0.71, Estimated Creat Clear 96, Estimated GFR 89, Est GFR ( Amer) 107, Glucose 110 H, Calcium 8.6, Troponin I < 0.02 05/26/18 20:20: Lactate 0.4 I & O for Last 24 hours: Intake & Output 05/25/18 05/26/18 05/27/18 05/28/18 11:59 11:59 11:59 11:59 Intake Total 150 / 150 Balance 150 / 150 Weight 141 lb 8 oz - Constitutional no acute distress, average body habitus - *Routine HEENT Exam Head: Present: normocephalic Eye: Present: EOMI, PERRL ENT: Present: mucous membranes dry - *Routine Neck Exam Absent: JVD - *Routine Respiratory Exam Present: wheezes - *Routine Cardiovascular Exam Present: RRR, murmur, S4 - *Routine Abdominal Exam Present: soft - *Routine Extremities Exam Absent: calf tenderness - *Routine Skin Exam Present: intact - *Routine Neurological Exam Present: alert, oriented X3, CN II-XII intact - Routine Psychiatric Exam Present: normal affect Assessment and Plan (1) COPD exacerbation Current visit: Yes Status: Acute Category: Medical Code(s): J44.1 - Chronic obstructive pulmonary disease with (acute) exacerbation (2) Bronchitis Current visit: No Status: Acute Category: Medical Code(s): J40 - Bronchitis, not specified as acute or chronic
--- NOTE | 2018-05-28 16:19 | Discharge Summary ---
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 She says it started this morning mildly but then suddenly got worse this evening. She said she had a feeling of a hot lopez up her chest when the shortness of breath got worse and this feels like when she had a pulmonary embolism April 02. She also has history of COPD. She denies chest pain. She has some congestion and coughing, but no sputum production and no hemoptysis. No leg pain or swelling. He is on Xarelto for her pulmonary embolism and she is compliant, no missed doses. Received a nebulizer treatment during transport. Hospital Course Hospital Course: today pt states she feels better and would like to be d/c. discussed with elva will restart breo and encourage proper oral care. CTA:IMPRESSION 1. No definitive PE.. .. Certainly no prominent nor large PE evident. The larger vessels well visualized and normal. However Motion artifact degrades images through lower lobes & does limit evaluation of smaller vessels toward lung bases... At the left lower lobe, I tend to favor viewing motion artifact rather than residual PE at left lower lobe branches-but if there should be persistent significant symptoms a follow-up CTA chest would be suggested to better evaluate. Appears to been clearing of intraluminal thrombi RLL vessels since previous CTA chest study 04/02/2018. 2. Prominent emphysematous changes again observed. 3. No acute infiltrate. No pleural fluid or lesions. Mental arteries appear satisfactory with no new findings Objective Vital signs: Temp Pulse Resp BP Pulse Ox 98.7 F 81 17 109/66 L 97 05/28/18 15:43 05/28/18 15:43 05/28/18 15:43 05/28/18 15:43 05/28/18 15:43 no acute distress - *Routine HEENT Exam Head: Present: normocephalic Eye: Present: PERRL ENT: Present: mucous membranes moist - *Routine Neck Exam Present: full ROM - *Routine Respiratory Exam Present: wheezes - *Routine Cardiovascular Exam Present: RRR - *Routine Abdominal Exam Present: soft, normoactive bowel sounds - *Routine Extremities Exam Present: full ROM - *Routine Skin Exam Present: intact - *Routine Neurological Exam Present: alert, oriented X3 - Routine Psychiatric Exam Present: normal affect Results - Additional Comments rounded with jamie all orders per jamie DS: Diagnosis - Discharge Diagnosis (1) COPD exacerbation Status: Acute (2) Bronchitis Status: Acute Discharge Plan - Patient Discharge Instructions ACTIVITY: Continue current activity DIET: continue same diet Patient Instructions: DI for Chronic Obstructive Pulmonary Disease - Follow up Plan Follow up with: Darron Vicente MD [Primary Care Provider] - 1 week Disposition: Home, Self-Fpc Medications: Home Medications Medication Instructions Recorded Confirmed Type buprenorphine 8 mg-naloxone 2 mg 1.25 tab SUBLINGUAL DAILY tab 10/11/17 05/27/18 History sublingual tablet Ipratropium/Albuterol Sulfate 3 ml INHALATION Q8H 05/26/18 05/27/18 History [Iprat-Albut 0.5-3(2.5) mg/3 ml] Varenicline Tartrate [Chantix 1 mg PO BID 05/26/18 05/27/18 History Continuing Month Box] buPROPion HCl [Wellbutrin 75mg 75 mg PO BID 05/26/18 05/27/18 History Tablet] Rivaroxaban [Xarelto 20mg Tablet] 20 mg PO DAILY 05/27/18 05/27/18 History Prescriptions/Medication Reconciliation: New Fluticasone/Vilanterol [Breo Ellipta 100-25 Mcg INH] 1 each IH DAILY 30 Days #1 blst.w.dev predniSONE [Prednisone 20mg Tab] 20 mg PO BID #10 tab Azithromycin [Zithromax 250mg tab] 250 mg PO DIRECTED #6 tab Continue albuterol sulfate HFA 90 mcg/actuation aerosol inhaler 2 puff INHALATION Q4- 6H PRN 90 Days #3 units PRN Reason: shortness of breath or wheezing propranolol XL 80 mg capsule,extended release 24 hr 80 mg PO DAILY #30 cap omeprazole 20 mg capsule,delayed release 20 mg PO DAILY #30 cap buprenorphine 8 mg-naloxone 2 mg sublingual tablet 1.25 tab SUBLINGUAL DAILY tab sertraline 100 mg tablet 100 mg PO DAILY #30 tab Ipratropium/Albuterol Sulfate [Iprat-Albut 0.5-3(2.5) mg/3 ml] 3 ml INHALATION Q8H buPROPion HCl [Wellbutrin 75mg Tablet] 75 mg PO BID Rivaroxaban [Xarelto 20mg Tablet] 20 mg PO DAILY Varenicline Tartrate [Chantix Continuing Month Box] 1 mg PO BID Discontinued umeclidinium 62.5 mcg-vilanterol 25 mcg/actuation powdr for inhalation 1 inh INHALATION DAILY #60 each
== END 2018-05-28 17:35 | disposition home or self-care (01) ==
LOC: 2ND 19:58 → ER 19:58 → 2ND 05-27 09:28
PROVIDERS: ADMIT Family Medicine; ATTEND Emergency Medicine

== ENCOUNTER 2018-08-19 12:40 | Inpatient (IN) | payer MEDICAID, SELFPAY ==
[2018-08-19] VITALS (10 sets, daily range): BP systolic 96–162; BP diastolic 65–89; PULSE 74–117; RESP 18–49; TEMP 36.4–37; O2SAT 91–97; BMI 22.7; BMI 25.8
--- NOTE | 2018-08-19 12:06 | XR_ITS ---
XR chest portable HISTORY: Shortness of air, extreme shortness of air ITS.REASON: soa ORDERING PHYSICIAN: Darron Vicente MD PATIENT AGE: 47 years COMPARISON: 08/09/2018 FINDINGS: The cardiomediastinal silhouette and pulmonary vascularity are within normal limits. COPD with chronic coarsening of the bronchovascular markings. There is some patchy density once again noted in the right lower lobe and may be due to an area of atelectasis or infiltrate. The left lung is clear. No acute bony findings. IMPRESSION: COPD with patchy infiltrate or atelectatic change in the right lung base
--- NOTE | 2018-08-19 12:08 | PC.NURSE ---
EKG COMPLETED AND SHOWN TO DR. WELLS
[2018-08-19 12:13] LABS: ABG Base Excess -9.9 mmol/L (-2.4-2.3); ABG HCO3 20.9 mmhg (22.0-26.0); ABG Oxygen Saturation 96 % (90-100); ABG PO2 109.1 mmhg (80-100); ABG TCO2 23.4 mmhg (23-27)
[2018-08-19 12:17] LABS: Allen's Test Acceptable; Oxygen 4L %; Source Right Radial
[2018-08-19 12:18] LABS: ABG PH 7.03 mmol/L (7.35-7.45)
[2018-08-19 12:19] LABS: ABG PCO2 81.2 mmhg (35.0-45.0)
--- NOTE | 2018-08-19 12:28 | HMH.EDSOB ---
ED Disposition Clinical Impression: Acute exacerbation of chronic obstructive airways disease Disposition: Admitted As Inpatient Condition on Discharge: Serious - Critical Care Critical Care Time: No Attestation: On , the high probability of a clinically significant, sudden or life threatening deterioration of the following system(s) required my full and direct attention, intervention and personal management. The time I documented below is in addition to time spent performing reported procedures but includes the following listed in this critical care notation. Medical Decision Making - Medical Records Medical records reviewed: Yes: I reviewed the patient's medical records. - Eliecer Inquiry Pt receiving controlled substance: No Vital Signs: 08/19/18 12:12 08/19/18 12:15 Temperature 97.5 F L Temperature Source Temporal Artery Scan Pulse Rate 111 H Pulse Rate [Right Brachial] 117 H Respiratory Rate 49 H Blood Pressure [Right Arm] 162/89 H Blood Pressure Mean [Right Arm] 113 Blood Pressure Source [Right Arm] Automatic Cuff Blood Pressure Position [Right Arm] Sitting 02 Sat by Pulse Oximetry 91 L Oxygen Delivery Method CPAP Oxygen Flow Rate (LPM) 10 - Lab Data Lab results reviewed: Yes: I reviewed the patient's lab results. Lab Results 08/19/18 12:09: Specimen Source Right radial, O2 % 4l, ABG pH 7.03 L*, ABG pCO2 81.2 H, ABG pO2 109.1 H, ABG HCO3 20.9 L, ABG Total CO2 23.4, ABG O2 Saturation 96, ABG Base Excess -9.9 L, Cong Test Acceptable 08/19/18 12:10: WBC 12.9 H, RBC 4.82, Hgb 15.0, Hct 47.4 H, MCV 98.4, MCH 31.0, MCHC 31.5 L, RDW 13.4, Plt Count 293, MPV 7.0 L, Neut % (Auto) 41.2, Lymph % (Auto) 46.6, [place] % (Auto) 6.9, Eos % (Auto) 4.2, Baso % (Auto) 1.0, Neut # (Auto) 5.3, Lymph # (Auto) 6.0 H, [place] # (Auto) 0.9, Eos # (Auto) 0.6 H, Baso # (Auto) 0.1 08/19/18 12:10: Sodium 138, Potassium 4.8, Chloride 101, Carbon Dioxide 26, Anion Gap 15.8 H, BUN 11, Creatinine 0.99, Estimated Creat Clear 74, Estimated GFR 60, Est GFR ( Amer) 73, Glucose 217 H, Calcium 9.1, Total Bilirubin 0.4, AST 5 L, ALT 11 L, Alkaline Phosphatase 122 H, Total Creatine Kinase 32, CK-MB (CK-2) < 0.5 D, CK-MB (CK-2) Rel Index 1.6, Troponin I < 0.02, Total Protein 7.1, Albumin 3.4, Globulin 3.7 H, Albumin/Globulin Ratio 0.9 L 08/19/18 12:10: Lactate 5.6 H 08/19/18 12:10: B-Natriuretic Peptide 70 Result diagrams: 08/19/18 12:10 08/19/18 12:10 Orders (Tests/Meds): ED MEDICATIONS Discontinued Medications Generic Name Dose Route Start Last Admin Trade Name Freq PRN Reason Stop Dose Admin Methylprednisolone Sodium Succinate 125 mg 08/19/18 12:23 08/19/18 12:29 Solu-Medrol 125mg/2ml Vial IV 08/19/18 12:24 125 mg ONCE ONE Administration ORDERS Category Date Time Status Blood Culture Stat Micro 08/19/18 12:10 Received - Radiology Data #1 Image(s): Chest Image Reviewed: Yes I reviewed the patient's radiology image Preliminary Findings: Abnormal (copd) - ECG Data Tracing #1 I reviewed this ECG and interpreted as documented below: Normal Sinus Rhythm: Yes Ischemic changes: non-specific ST-T wave changes Resp/SOB HPI - General Chief Complaint: Shortness of Breath/Dyspnea Stated Complaint: short Time Seen by Provider: 08/19/18 12:15 Mode of Arrival: EMS Source of Information: Patient, EMS, Medical Record Limitations: No Limitations Description of Symptoms (Recalled from ER Triage Doc. by RN): pt presents with copd exacerbation, extreme shortness of air, gasping and on bipap per ems; alert and responsive to questions - History of Present Illness pt with acute excerbation of copd - had recently been on abx and has no fever or hemoptysis- MD Complaint: shortness of breath Onset (ago): hour(s) Context: recent illness Severity: severe Known history of: COPD Associated symptoms: denies other symptoms Treatment prior to arrival: oxygen, bronchodi
[2018-08-19 12:32] LABS: Basophils # 0.1 K/mm3 (0-0.2); Eosinophils # 0.6 K/mm3 (0.0-0.4); Eosinophils % 4.2 % (0.1-12.0); Hematocrit 47.4 % (37.0-47.0); Lymphocytes % 46.6 % (10-50); Mean Corpuscular HGB Conc 31.5 g/dL (31.8-35.4); Mean Corpuscular Volume 98.4 fl (81-99); Monocytes # 0.9 K/mm3 (0.1-1.0); Monocytes % 6.9 % (1.7-9.3); Neutrophils # 5.3 K/mm3 (1.8-7.8); Neutrophils % 41.2 % (37.0-80.0); Platelet Count 293 K/mm3 (142-424); Red Blood Count 4.82 M/mm3 (4.20-5.40); Red Cell Distribution Width 13.4 % (11.5-17.5); White Blood Count 12.9 K/mm3 (4.8-10.8)
[2018-08-19 12:49] LABS: Alanine Aminotransferase 11 U/L (12-78); Albumin Level 3.4 gm/dL (3.4-5.0); Albumin/Globulin Ratio 0.9 (1.1-1.8); Alkaline Phosphatase 122 U/L (46-116); Anion Gap 15.8 mEq/L (5-15); Aspartate Amino Transferase 5 U/L (15-37); Bilirubin,Total 0.4 mg/dL (0.2-1.0); Blood Urea Nitrogen 11 mg/dL (7-18); CKMB Relative Index 1.6 U/L (0-4.0); Calcium 9.1 mg/dL (8.5-10.1); Carbon Dioxide 26 mmol/L (21.0-32.0); Chloride 101 mmol/L (98-107); Creatine Kinase 32 U/L (26-192); Creatine Kinase MB < 0.5 ng/ml (0.0-3.6); Creatinine Clearance Estimated 74 mL/min (50-200); Creatinine,Serum 0.99 mg/dL (0.55-1.02); Estimated Glomerular Filt Rate 60 ml/min (>60); GFR (African American) 73 ML/MIN (>60); Globulin 3.7 gm/dl (1.3-3.2); Glucose 217 mg/dL (74-106); Potassium 4.8 mmoL/L (3.5-5.1); Sodium 138 mmol/L (136-145); Total Protein,Serum 7.1 gm/dL (6.4-8.2); Troponin I < 0.02 ng/ml (0.00-0.06)
[2018-08-19 12:50] LABS: Lactic Acid 5.6 mmol/L (0.4-2.0)
--- NOTE | 2018-08-19 12:51 | PC.NURSE ---
Lactic of 5.[address] Vicente.
[2018-08-19 16:26] LABS: Reflex Lactic Add Lactic Reflex
--- NOTE | 2018-08-19 16:26 | PC.NURSE ---
Admitted to Room 201 from ED with diagnosis of COPD exacerbation. Pt is alert and oriented X4, resp slightly labored, BiPAP in place at 40% O2, lungs with expiratory wheezes bilaterally. Pt denies pain. Will continue to monitor.
[2018-08-19 16:55] LABS: Lactic Acid Follow Up (RFLX 1) 0.8 (0.4-2.0)
[2018-08-19 17:34] LABS: Troponin I 0.15 ng/ml (0.00-0.06)
[2018-08-19 18:07] LABS: ABG Base Excess 0.3 mmol/L (-2.4-2.3); ABG HCO3 26.5 mmhg (22.0-26.0); ABG Oxygen Saturation 96 % (90-100); ABG PH 7.32 mmol/L (7.35-7.45); ABG PO2 86.3 mmhg (80-100); ABG TCO2 28.1 mmhg (23-27)
[2018-08-19 18:10] LABS: Allen's Test Acceptable
[2018-08-19 18:11] LABS: Source Left Radial
[2018-08-19 18:13] LABS: ABG PCO2 52.9 mmhg (35.0-45.0)
[2018-08-19 20:29] LABS: Troponin I 0.17 ng/ml (0.00-0.06)
--- NOTE | 2018-08-19 20:45 | P.CONPHA_ITS ---
[facility] Pharmacy VTE Monitoring - Patient Demographics Admission date: 08/19/18 Report Date: 08/19/18 Time: 20:45 Allergies/Adverse Reactions: Patient Allergies hydromorphone Allergy (Severe, Verified 07/26/18 14:26) S-DIFF. BREATHING; HIVES propoxyphene [From Darvocet-N] Allergy (Severe, Verified 07/26/18 14:26) [id number]/THROAT gabapentin [From Neurontin] Allergy (Intermediate, Verified 07/26/18 14:26) I-HIVES codeine Allergy (Verified 07/26/18 14:26) Height: 1.6 m Weight: 66.224 kg Patient Problems: Current Active Problems Acute exacerbation of chronic obstructive airways disease (Acute) - VTE Risk Labs: VTE Related Lab Results Hgb 15.0 g/dL (12.2-16.2) 08/19/18 12:10 Hct 47.4 % (37.0-47.0) H 08/19/18 12:10 Plt Count 293 K/mm3 (142-424) 08/19/18 12:10 BUN 11 mg/dL (7-18) 08/19/18 12:10 Creatinine 0.99 mg/dL (0.55-1.02) 08/19/18 12:10 Estimated Creat Clear 74 mL/min (50-200) 08/19/18 12:10 Was VTE Risk Assessment Performed: Yes VTE Score: 7 VTE Risk Level: Moderate Risk Clinical Trial Participant: No - Prophylaxis VTE Prophylaxis Ordered?: Yes Types of VTE Prophylaxis: TEDS Knee High
--- NOTE | 2018-08-19 23:40 | PC.NURSE ---
Addendum entered by Beth Gomes CNA 08/19/18 23:45: Original Note: 2100 round changed trash and ice water
[2018-08-20] VITALS (8 sets, daily range): BP systolic 90–112; BP diastolic 58–72; PULSE 68–83; RESP 17–18; TEMP 36.4–36.8; O2SAT 92–99; BMI 26.2
--- NOTE | 2018-08-20 04:09 | PC.NURSE ---
PT HAS SLEPT WELL TONIGHT. SHE HAS TOLERATED BIPAP VERY WELL. EXPIRATORY WHEEZES NOTED ON AUSCULTATION. PT HAS BEEN UP TO BSC X3 THIS SHIFT WITH STANDBY ASSIST. VSS. WILL CONT. TO [id number].
[2018-08-20 06:14] LABS: Eosinophils % 0.1 % (0.1-12.0); Hematocrit 41.9 % (37.0-47.0); Lymphocytes # 0.9 K/mm3 (0.7-4.5); Lymphocytes % 13.7 % (10-50); Mean Corpuscular HGB Conc 31.9 g/dL (31.8-35.4); Mean Corpuscular Hemoglobin 30.5 pg (27.0-31.2); Mean Corpuscular Volume 95.6 fl (81-99); Mean Platelet Volume 6.9 fl (7.4-10.4); Monocytes # 0.1 K/mm3 (0.1-1.0); Monocytes % 1.7 % (1.7-9.3); Neutrophils # 5.4 K/mm3 (1.8-7.8); Neutrophils % 84.4 % (37.0-80.0); Platelet Count 198 K/mm3 (142-424); Red Blood Count 4.38 M/mm3 (4.20-5.40); Red Cell Distribution Width 13.2 % (11.5-17.5); White Blood Count 6.4 K/mm3 (4.8-10.8)
[2018-08-20 06:27] LABS: Anion Gap 10.7 mEq/L (5-15); Blood Urea Nitrogen 14 mg/dL (7-18); Calcium 8.7 mg/dL (8.5-10.1); Carbon Dioxide 30 mmol/L (21.0-32.0); Chloride 103 mmol/L (98-107); Creatinine Clearance Estimated 96 mL/min (50-200); Creatinine,Serum 0.78 mg/dL (0.55-1.02); Estimated Glomerular Filt Rate 80 ml/min (>60); GFR (African American) 96 ML/MIN (>60); Glucose 134 mg/dL (74-106); Potassium 4.7 mmoL/L (3.5-5.1); Sodium 139 mmol/L (136-145)
[2018-08-20 06:57] LABS: Hemoglobin 13.4 g/dL (12.2-16.2)
--- NOTE | 2018-08-20 07:26 | PC.NURSE ---
REPORT GIVEN TO Mike FRAUSTO W/C
--- NOTE | 2018-08-20 08:04 | HMH.CNCARD ---
History of Present Illness Consult date: 08/20/18 Requesting physician: Darron Vicente Consult reason: shortness of breath Chief complaint: SOA Additional Medical History:: 1. Acute Non-ST elevation myocardial infarction (03/31/18) by troponins A. Non-ischemic Cardiomyopathy with LV dilatation and EF of 40% with moderate to severely elevated LVEDP B. Echo, 03/2018, mild LAE, normal LV size with mild concentric LVH. LVEF 55%. Grade I diastolic dysfunction. Mild MR/TR. 2. Tobacco abuse disorder A. Smokes 1-2ppd for past 20 + years. B. COPD with Chronic oxygen use 3. Opiate dependence 4. Noncompliance to medication 5. History of Pulmonary embolus, 03/2018, RLL by CTA of chest A. Xarelto therapy B. Repeat CTA of chest, 05/2018, showed apparent clearing of RLL emboli. History of present illness: 47-year-old white female with history of nonischemic cardiomyopathy that improved on medical therapy last year, COPD with chronic oxygen use and history of pulmonary embolus treated with Xarelto therapy presented to the emergency department for evaluation of increasing shortness of breath. Blood gas revealed mixed metabolic and respiratory acidosis that improved with BiPAP therapy overnight. Patient denies any chest pain, pressure or tightness. She is breathing much better today. During the workup patient was noted to have normal first troponin but mildly elevated second third troponins. Cardiology consulted for evaluation recommendations. [facility] History Medical History: Reports:: Anxiety, Chronic Obstructive Pulmonary Disease (COPD), Depression, Gastroesophageal Reflux Disease(GERD) Denies:: Cancer, Diabetes Mellitus Type 1, Diabetes Mellitus Type 2, MRSA Have you ever received a pneumonia vaccine?: Yes Have you received a flu vaccine this season?: Yes Other Surgeries: Yes: Cholecystectomy, Hysterectomy-Total Amputation: No Fractures: No - *Social History Educational Level: Completed High School Smoking Status: Current every day smoker Tobacco Type: cigarettes # Packs/Day (cigarettes): 2 Alcohol Intake: never Substance Use Type: painkillers Occupational Status: unemployed Housing: house Household Members: children Travel in the last 8 weeks: None - Psychiatric History Expresses thoughts of harming self/others: None Suicide Plan Description: No Plan Pschychiatric History:: Reports:: Anxiety, Depression Family Hx:: Hypertension Meds Home Medications Medication Instructions Recorded Confirmed Type buprenorphine 8 mg-naloxone 2 mg 2 tab SUBLINGUAL DAILY tab 10/11/17 08/20/18 History sublingual tablet albuterol sulfate HFA 90 2 puff INHALATION Q4-6H PRN 90 03/26/18 08/19/18 Rx mcg/actuation aerosol inhaler Days #3 units Varenicline Tartrate [Chantix 1mg 1 mg PO BID 05/26/18 08/19/18 History tablet] bupropion HCl 75 mg tablet 75 mg PO BID #180 tab 06/07/18 08/19/18 Rx rivaroxaban 20 mg tablet 20 mg PO DAILY #90 tab 06/07/18 08/19/18 Rx ipratropium-albuterol 0.5 mg-3 3 ml INHALATION Q4H #180 ml 07/26/18 08/19/18 Rx mg(2.5 mg base)/3 mL nebulization soln propranolol XL 80 mg 80 mg PO DAILY #90 cap 07/31/18 08/19/18 Rx capsule,extended release 24 hr sertraline 100 mg tablet 100 mg PO DAILY #30 tab 07/31/18 08/19/18 Rx Fluticasone/Vilanterol [Breo 1 inh INHALATION Q24H 08/09/18 08/19/18 History Ellipta] Omeprazole [Omeprazole 20mg 20 mg PO DAILY 08/09/18 08/19/18 History Capsule] Pantoprazole Sodium [Protonix 40mg 40 mg PO DAILY 08/09/18 08/19/18 History tablet] Umeclidinium [place] [Incruse 1 inh INHALATION Q24H 08/09/18 08/19/18 History Ellipta] Allergies Allergy/AdvReac Type Severity Reaction Status Date / Time hydromorphone Allergy Severe S-DIFF. Verified 07/26/18 14:26 BREATHING; HIVES propoxyphene Allergy Severe S-SWELLS-OR Verified 07/26/18 14:26 [From Darvocet-N] AL/THROAT gabapentin [From Neurontin] Allergy Intermediate I-HIVES Verifie
--- NOTE | 2018-08-20 08:19 | P.CONS_ITS ---
Addendum entered and electronically signed by ALINA Arauz 08/20/18 12:57: Echo shows LVEF >50% with mild mitral regurgitation and moderate tricuspid regurgitation. OK for discharge home from Cardiology standpoint. Continue propranolol XL 80 mg daily. Due to borderline low BP, will not add ARB at this time. Follow up in our office in 2-4 wks. Original Note: History of Present Illness Consult date: 08/20/18 Requesting physician: Darron Vicente Consult reason: shortness of breath Chief complaint: SOA Additional Medical History:: 1. Acute Non-ST elevation myocardial infarction (03/31/18) by troponins A. Non-ischemic Cardiomyopathy with LV dilatation and EF of 40% with moderate to severely elevated LVEDP B. Echo, 03/2018, mild LAE, normal LV size with mild concentric LVH. LVEF 55%. Grade I diastolic dysfunction. Mild MR/TR. 2. Tobacco abuse disorder A. Smokes 1-2ppd for past 20 + years. B. COPD with Chronic oxygen use 3. Opiate dependence 4. Noncompliance to medication 5. History of Pulmonary embolus, 03/2018, RLL by CTA of chest A. Xarelto therapy B. Repeat CTA of chest, 05/2018, showed apparent clearing of RLL emboli. History of present illness: 47-year-old white female with history of nonischemic cardiomyopathy that improved on medical therapy last year, COPD with chronic oxygen use and history of pulmonary embolus treated with Xarelto therapy presented to the emergency department for evaluation of increasing shortness of breath. Blood gas revealed mixed metabolic and respiratory acidosis that improved with BiPAP therapy overnight. Patient denies any chest pain, pressure or tightness. She is breathing much better today. During the workup patient was noted to have normal first troponin but mildly elevated second third troponins. Cardiology consulted for evaluation recommendations. [facility] History Medical History: Reports:: Anxiety, Chronic Obstructive Pulmonary Disease (COPD), Depression, Gastroesophageal Reflux Disease(GERD) Denies:: Cancer, Diabetes Mellitus Type 1, Diabetes Mellitus Type 2, MRSA Have you ever received a pneumonia vaccine?: Yes Have you received a flu vaccine this season?: Yes Other Surgeries: Yes: Cholecystectomy, Hysterectomy-Total Amputation: No Fractures: No - *Social History Educational Level: Completed High School Smoking Status: Current every day smoker Tobacco Type: cigarettes # Packs/Day (cigarettes): 2 Alcohol Intake: never Substance Use Type: painkillers Occupational Status: unemployed Housing: house Household Members: children Travel in the last 8 weeks: None - Psychiatric History Expresses thoughts of harming self/others: None Suicide Plan Description: No Plan Pschychiatric History:: Reports:: Anxiety, Depression Family Hx:: Hypertension Meds Home Medications Medication Instructions Recorded Confirmed Type buprenorphine 8 mg-naloxone 2 mg 2 tab SUBLINGUAL DAILY tab 10/11/17 08/20/18 History sublingual tablet albuterol sulfate HFA 90 2 puff INHALATION Q4-6H PRN 90 03/26/18 08/19/18 Rx mcg/actuation aerosol inhaler Days #3 units Varenicline Tartrate [Chantix 1mg 1 mg PO BID 05/26/18 08/19/18 History tablet] bupropion HCl 75 mg tablet 75 mg PO BID #180 tab 06/07/18 08/19/18 Rx rivaroxaban 20 mg tablet 20 mg PO DAILY #90 tab 06/07/18 08/19/18 Rx ipratropium-albuterol 0.5 mg-3 3 ml INHALATION Q4H #180 ml 07/26/18 08/19/18 Rx mg(2.5 mg base)/3 mL nebulization soln
--- NOTE | 2018-08-20 08:39 | CA_ITS ---
PROCEDURE: 2-D M-mode and color Doppler study INDICATIONS FOR THE TEST: Chest pain COPD+ Heart Murmur Tobacco Smoking+ Palpitations Fatigue Syncope Edema Hypertension+Diabetes Mellitus Rheumatic Fever SOB+GUIDO Obesity Hyperlipidemia Family History HD Additional History COPD exacerbation, opiod use PATIENT INFORMATION HEIGHT: 63 WEIGHT: 148 GENDER: Female B/P: 112/72 2-D/M-MODE INTERPRETATION: 2-D MEASUREMENTS OBSERVED VALUES IN CMS Right Ventricular Dimension (RVDd) 2.5 Interventricular Septum (Thickness)(IVsd) 1.1 Left Ventricular Internal Dimensions(LVIDd) 2.5 Left Ventricular Posterior Wall (Thickness)(LVPWd) 1.0 Aortic Root 2.6 Aortic Cusp Separation 2.3 Left Atrial Dimensions (LAD) 3.3 2D 1. Left atrium is mildly enlarged, left ventricle is normal size, mild concentric left ventricular hypertrophy, visually estimated ejection fraction 55% with no regional wall motion abnormality. 2. Right atrium and right ventricle are mildly enlarged with normal contractility. 3. The aortic valve is minimally thickened and fibrosed. 4. The mitral and tricuspid valve leaflets are minimally thickened. 5. The pulmonic valve is poorly present. 6. No significant pericardial effusion noted. DOPPLER INTERROGATION: Doppler interrogation of the aortic, mitral and tricuspid valvular presence of mild mitral and tricuspid regurgitation, tricuspid regurgitation jet velocity is inadequate for calculation of the right ventricular systolic pressure, grade 1 diastolic dysfunction seen with tissue Doppler evidence of raised left atrial pressure. CONCLUSION: 1. Mild biatrial enlargement, normal left ventricular size, mild concentric left ventricular hypertrophy, visually estimated ejection fraction 55% with no regional wall motion abnormality, grade aggressive dysfunction seen with tissue Doppler evidence of raised left atrial pressure. 2. Mildly enlarged right ventricle with normal contractility. 3. Mild mitral and tricuspid regurgitation 4. No significant pericardial effusion noted.
--- NOTE | 2018-08-20 08:46 | HMH.ACPN2 ---
Internal Medicine - PN: Subj *Date: 08/20/18 *Time: 08:46 Interval history: Patient needs volume ventilation to treat respiratory failure higher pressures on bilevel Pap device will not adequately treat patient Exam Vital signs and Labs for Last 24 Hours: Temp Pulse Resp BP Pulse Ox 98.0 F 83 17 90/70 L 94 L 08/20/18 08:00 08/20/18 08:00 08/20/18 08:00 08/20/18 08:00 08/20/18 08:00 Laboratory Results - last 24 hr 08/19/18 12:09: Specimen Source Right radial, O2 % 4l, ABG pH 7.03 L*, ABG pCO2 81.2 H, ABG pO2 109.1 H, ABG HCO3 20.9 L, ABG Total CO2 23.4, ABG O2 Saturation 96, ABG Base Excess -9.9 L, Cong Test Acceptable 08/19/18 12:10: WBC 12.9 H, RBC 4.82, Hgb 15.0, Hct 47.4 H, MCV 98.4, MCH 31.0, MCHC 31.5 L, RDW 13.4, Plt Count 293, MPV 7.0 L, Neut % (Auto) 41.2, Lymph % (Auto) 46.6, [place] % (Auto) 6.9, Eos % (Auto) 4.2, Baso % (Auto) 1.0, Neut # (Auto) 5.3, Lymph # (Auto) 6.0 H, [place] # (Auto) 0.9, Eos # (Auto) 0.6 H, Baso # (Auto) 0.1 08/19/18 12:10: Sodium 138, Potassium 4.8, Chloride 101, Carbon Dioxide 26, Anion Gap 15.8 H, BUN 11, Creatinine 0.99, Estimated Creat Clear 74, Estimated GFR 60, Est GFR ( Amer) 73, Glucose 217 H, Calcium 9.1, Total Bilirubin 0.4, AST 5 L, ALT 11 L, Alkaline Phosphatase 122 H, Total Creatine Kinase 32, CK-MB (CK-2) < 0.5 D, CK-MB (CK-2) Rel Index 1.6, Troponin I < 0.02, Total Protein 7.1, Albumin 3.4, Globulin 3.7 H, Albumin/Globulin Ratio 0.9 L 08/19/18 12:10: Lactate 5.6 H 08/19/18 12:10: B-Natriuretic Peptide 70 08/19/18 16:30: Lactate 0.8 08/19/18 17:06: Troponin I 0.15 H 08/19/18 17:53: Specimen Source Left radial, O2 % 40% i 14 e 6, ABG pH 7.32 L, ABG pCO2 52.9 H, ABG pO2 86.3, ABG HCO3 26.5 H, ABG Total CO2 28.1 H, ABG O2 Saturation 96, ABG Base Excess 0.3, Cong Test Acceptable 08/19/18 20:01: Troponin I 0.17 H 08/20/18 05:50: WBC 6.4 D, RBC 4.38, Hgb 13.4 D, Hct 41.9, MCV 95.6, MCH 30.5, MCHC 31.9, RDW 13.2, Plt Count 198 D, MPV 6.9 L, Neut % (Auto) 84.4 H, Lymph % (Auto) 13.7, [place] % (Auto) 1.7, Eos % (Auto) 0.1, Baso % (Auto) 0.0 L, Neut # (Auto) 5.4, Lymph # (Auto) 0.9, [place] # (Auto) 0.1, Eos # (Auto) 0.0, Baso # (Auto) 0.0 08/20/18 05:50: Sodium 139, Potassium 4.7, Chloride 103, Carbon Dioxide 30, Anion Gap 10.7, BUN 14 D, Creatinine 0.78 D, Estimated Creat Clear 96, Estimated GFR 80, Est GFR ( Amer) 96 D, Glucose 134 H D, Calcium 8.7, Magnesium 2.0 I & O for Last 24 hours: Intake & Output 08/17/18 08/18/18 08/19/18 08/20/18 11:59 11:59 11:59 11:59 Intake Total 1360 / 1360 Balance 1360 / 1360 Weight 148 lb 2 oz - Constitutional no acute distress - *Routine HEENT Exam Head: Present: normocephalic Eye: Present: EOMI, PERRL ENT: Present: mucous membranes moist - *Routine Neck Exam Present: supple. Absent: lymphadenopathy - *Routine Respiratory Exam Present: CTA bilaterally, diminished air movement - *Routine Cardiovascular Exam Present: RRR - *Routine Abdominal Exam Present: soft, normoactive bowel sounds. Absent: tenderness - *Routine Extremities Exam Absent: cyanosis, clubbing, edema - *Routine Skin Exam Present: warm. Absent: rash - *Routine Neurological Exam Present: alert, oriented X3 - Routine Psychiatric Exam Present: normal affect Assessment and Plan - Assessment and plan all Dx Assessment and Plan for all problems:: Cardiology consult Order trilogy Echo Rounded with Dr. Vicente all orders per Cinthia We will discharge later
--- NOTE | 2018-08-20 09:04 | HMH.PHAINT ---
VERIFIED SUBOXONE PRESCRIPTION: CALLED [facility] AND VERIFIED SUBOXONE PRESCRIPTION LAST FILLED ON AUG 16, 2018 WITH INSTRUCTIONS TAKE 2 TABS SUBLINGUAL UNDER TONGUE DAILY. HOME MED RECONCILIATION LIST IN [facility] CHANGED TO REFLECT THIS.
--- NOTE | 2018-08-20 09:06 | HMH.PHAINT ---
HOME MED RECONCILIATION: Called Dr. Vicente's office and had list of home medications faxed over from last office visit. Compared list provided by pt and office list and completed home medication reconciliation. Verified suboxone dose.
--- NOTE | 2018-08-20 09:30 | SW/DCPLANNER ---
Patient information and order form has been faxed to [facility] for this patient to have a Trilogy machine. I will follow up with David this afternoon to get a Trilogy machine to [facility] prior to discharge.
[2018-08-20 09:34] LABS: ABG HCO3 22.1 mmhg (22.0-26.0); ABG Oxygen Saturation 92 % (90-100); ABG PCO2 38.3 mmhg (35.0-45.0); ABG PH 7.38 mmol/L (7.35-7.45); ABG PO2 62.2 mmhg (80-100); ABG TCO2 23.3 mmhg (23-27)
[2018-08-20 09:37] LABS: Allen's Test Acceptable; Oxygen RA %; Source Right Radial
--- NOTE | 2018-08-20 15:00 | HMH.HPDC ---
General - General Admission date:: 08/19/18 Discharge date: 08/20/18 *Admission Date: 08/19/18 *Chief complaint: sob *History of present illness: 47-year-old female with history of COPD with chronic oxygen use and history of pulmonary embolus treated with Xarelto therapy presented to the emergency department for evaluation of increasing shortness of breath. Pt states she is breathing much better today. Pt admitted for sob and placed on bipap overnight,due to resp failure-Noted during the workup patient was noted to have normal first troponin but mildly elevated second third troponins. Cardiology consulted for evaluation recommendations. [facility] History I have reviewed the patient's past medical history: Yes Medical History: Reports:: Anxiety, Chronic Obstructive Pulmonary Disease (COPD), Depression, Gastroesophageal Reflux Disease(GERD) Denies:: Cancer, Diabetes Mellitus Type 1, Diabetes Mellitus Type 2, MRSA Have you ever received a pneumonia vaccine?: Yes Have you received a flu vaccine this season?: Yes Other Surgeries: Yes: Cholecystectomy, Hysterectomy-Total Amputation: No Fractures: No - *Social History Educational Level: Completed High School Smoking Status: Current every day smoker Tobacco Type: cigarettes # Packs/Day (cigarettes): 2 Alcohol Intake: never Substance Use Type: painkillers Occupational Status: unemployed Housing: house Household Members: children Travel in the last 8 weeks: None - Psychiatric History Expresses thoughts of harming self/others: None Suicide Plan Description: No Plan Pschychiatric History:: Reports:: Anxiety, Depression Family Hx:: Hypertension Review of Systems - Review of Systems Review of systems:: pertinent systems reviewed and negative unless documented below - Constitutional Denies body ache(s) - Eyes Denies change in vision - ENT Denies change in voice - *Cardiovascular Reports shortness of breath, Denies chest pain, Denies chest pain with activity - *Respiratory Reports cough, Reports shortness of breath with activity - *Gastrointestinal Denies heartburn - *Musculoskeletal Denies back pain - Integumentary/Breasts Denies nail changes, Denies rash - *Neurologic Denies headache(s), Denies seizure-like activity - Psychiatric Denies anxiety - Endocrine Denies flushing - Hematologic/Lymphatic Denies enlarged lymph nodes Exam Vital signs and Labs for Last 24 Hours: Temp Pulse Resp BP Pulse Ox 98.0 F 75 17 90/70 L 94 L 08/20/18 08:00 08/20/18 12:40 08/20/18 08:00 08/20/18 08:00 08/20/18 08:00 Laboratory Results - last 24 hr 08/19/18 16:30: Lactate 0.8 08/19/18 17:06: Troponin I 0.15 H 08/19/18 17:53: Specimen Source Left radial, O2 % 40% i 14 e 6, ABG pH 7.32 L, ABG pCO2 52.9 H, ABG pO2 86.3, ABG HCO3 26.5 H, ABG Total CO2 28.1 H, ABG O2 Saturation 96, ABG Base Excess 0.3, Cong Test Acceptable 08/19/18 20:01: Troponin I 0.17 H 08/20/18 05:50: WBC 6.4 D, RBC 4.38, Hgb 13.4 D, Hct 41.9, MCV 95.6, MCH 30.5, MCHC 31.9, RDW 13.2, Plt Count 198 D, MPV 6.9 L, Neut % (Auto) 84.4 H, Lymph % (Auto) 13.7, [place] % (Auto) 1.7, Eos % (Auto) 0.1, Baso % (Auto) 0.0 L, Neut # (Auto) 5.4, Lymph # (Auto) 0.9, [place] # (Auto) 0.1, Eos # (Auto) 0.0, Baso # (Auto) 0.0 08/20/18 05:50: Sodium 139, Potassium 4.7, Chloride 103, Carbon Dioxide 30, Anion Gap 10.7, BUN 14 D, Creatinine 0.78 D, Estimated Creat Clear 96, Estimated GFR 80, Est GFR ( Amer) 96 D, Glucose 134 H D, Calcium 8.7, Magnesium 2.0 08/20/18 08:14: Specimen Source Right radial, O2 % Ra, ABG pH 7.38, ABG pCO2 38.3, ABG pO2 62.2 L, ABG HCO3 22.1, ABG Total CO2 23.3, ABG O2 Saturation 92, ABG Base Excess -3.0 L, Cong Test Acceptable I & O for Last 24 hours: Intake & Output 08/18/18 08/19/18 08/20/18 08/21/18 11:59 11:59 11:59 11:59 Intake Total 1360 / 1360 480 / 480 Balance 1360 / 1360 480 / 480 Weight 148 lb 2 oz - Constitutional no acute distress - *Routine HE
--- NOTE | 2018-08-20 15:35 | HMH.PHAINT ---
DISC COUNSELING: PT COUNSELING COMPLETED AT DISCHARGE. PT VERBALIZED UNDERSTANDING OF PREDNISONE TAPER PACK. ENCOURAGED HER TO CALL BACK WITH ANY QUESTIONS.
== END 2018-08-20 16:39 | disposition home or self-care (01) | DRG 192 ==
LOC: ER 12:45 → 2ND 12:54
PROVIDERS: Nurse Practitioner Family; Admitting Provider Emergency Medicine; Emergency Provider Emergency Medicine; PCP Emergency Medicine; Visit Provider Emergency Medicine
DX: J44.1 Chronic obstructive pulmonary disease with (acute) exacerbation (principal); Z99.81 Dependence on supplemental oxygen; Z72.0 Tobacco use
CPT/HCPCS: 94660; 36415; 71045; 80048; 80053; 82550; 82553; 82803; 83605; 83735; 83880; 84484; 85025; 87040; 93005; 93306; 94640; 94761; 96374; 99284

== ENCOUNTER 2018-09-11 06:29 | Observation (INO) ==
[2018-09-11 06:44] LABS: ABG Base Excess -0.1 mmol/L (-2.4-2.3); ABG HCO3 27.6 mmhg (22.0-26.0); ABG Oxygen Saturation 77 % (90-100); ABG PH 7.23 mmol/L (7.35-7.45); ABG TCO2 29.7 mmhg (23-27); Allen's Test ACCEPTABLE; Oxygen ROOM AIR %
[2018-09-11 06:46] LABS: ABG PCO2 68.1 mmhg (35.0-45.0); ABG PO2 46.6 mmhg (80-100)
[2018-09-11 07:02] LABS: Basophils # 0.1 K/mm3 (0-0.2); Basophils % 0.8 % (0.1-2.0); Eosinophils # 0.4 K/mm3 (0.0-0.4); Eosinophils % 4.9 % (0.1-12.0); Hematocrit 44.8 % (37.0-47.0); Hemoglobin 14.7 g/dL (12.2-16.2); Lymphocytes % 43.4 % (10-50); Mean Corpuscular HGB Conc 32.9 g/dL (31.8-35.4); Mean Corpuscular Hemoglobin 30.8 pg (27.0-31.2); Mean Corpuscular Volume 93.7 fl (81-99); Mean Platelet Volume 7.2 fl (7.4-10.4); Monocytes # 0.5 K/mm3 (0.1-1.0); Monocytes % 5.6 % (1.7-9.3); Neutrophils # 4.2 K/mm3 (1.8-7.8); Neutrophils % 45.4 % (37.0-80.0); Platelet Count 290 K/mm3 (142-424); Red Blood Count 4.78 M/mm3 (4.20-5.40); Red Cell Distribution Width 13.4 % (11.5-17.5); White Blood Count 9.2 K/mm3 (4.8-10.8)
[2018-09-11 07:18] LABS: Alanine Aminotransferase 17 U/L (12-78); Albumin Level 3.5 gm/dL (3.4-5.0); Albumin/Globulin Ratio 0.9 (1.1-1.8); Alkaline Phosphatase 134 U/L (46-116); Anion Gap 11.2 mEq/L (5-15); Aspartate Amino Transferase 8 U/L (15-37); Bilirubin,Total 0.2 mg/dL (0.2-1.0); Blood Urea Nitrogen 14 mg/dL (7-18); Calcium 8.8 mg/dL (8.5-10.1); Carbon Dioxide 29 mmol/L (21.0-32.0); Chloride 105 mmol/L (98-107); Globulin 3.9 gm/dl (1.3-3.2); Glucose 111 mg/dL (74-106); Potassium 4.2 mmoL/L (3.5-5.1); Sodium 141 mmol/L (136-145); Total Protein,Serum 7.4 gm/dL (6.4-8.2)
--- NOTE | 2018-09-11 07:49 | Emergency Department Note ---
ED Disposition Clinical Impression: Acute exacerbation of chronic obstructive pulmonary disease (COPD) Disposition: Admitted as Observation Condition on Discharge: Fair Referrals: Provider,Referral, [Primary Care Provider] - - Critical Care Critical Care Time: No Attestation: On 09/11/18, the high probability of a clinically significant, sudden or life threatening deterioration of the following system(s) required my full and direct attention, intervention and personal management. The time I documented below is in addition to time spent performing reported procedures but includes the following listed in this critical care notation. Medical Decision Making - Medical Records Medical records reviewed: Yes: I reviewed the patient's medical records. - Eliecer Inquiry Pt receiving controlled substance: No Vital Signs: 09/11/18 06:30 09/11/18 06:38 09/11/18 06:40 Temperature 97.6 F Temperature Source Oral Pulse Rate Pulse Rate [Right Radial] 104 H Respiratory Rate 32 H Blood Pressure [Right Arm] 118/110 H 129/110 H Blood Pressure Mean [Right Arm] 112 116 Blood Pressure Source [Right Arm] Blood Pressure Position [Right Arm] 02 Sat by Pulse Oximetry 75 L 84 L Oxygen Delivery Method Simple Mask Oxygen Flow Rate (LPM) 6 09/11/18 06:50 09/11/18 06:51 09/11/18 07:00 Temperature Temperature Source Pulse Rate 105 H Pulse Rate [Right Radial] 94 H 88 Respiratory Rate 24 24 Blood Pressure [Right Arm] 145/83 H 113/84 Blood Pressure Mean [Right Arm] 103 93 Blood Pressure Source [Right Arm] Blood Pressure Position [Right Arm] 02 Sat by Pulse Oximetry 97 94 L Oxygen Delivery Method Simple Mask BiPAP Oxygen Flow Rate (LPM) 6 09/11/18 07:51 Temperature Temperature Source Pulse Rate Pulse Rate [Right Radial] 84 Respiratory Rate Blood Pressure [Right Arm] 112/69 Blood Pressure Mean [Right Arm] 83 Blood Pressure Source [Right Arm] Automatic Cuff Blood Pressure Position [Right Arm] Sitting 02 Sat by Pulse Oximetry 92 L Oxygen Delivery Method Room Air Oxygen Flow Rate (LPM) - Lab Data Lab results reviewed: Yes: I reviewed the patient's lab results. Lab Results 09/11/18 06:40: WBC 9.2, RBC 4.78, Hgb 14.7, Hct 44.8, MCV 93.7, MCH 30.8, MCHC 32.9, RDW 13.4, Plt Count 290, MPV 7.2 L, Neut % (Auto) 45.4, Lymph % (Auto) 43.4, [place] % (Auto) 5.6, Eos % (Auto) 4.9, Baso % (Auto) 0.8, Neut # (Auto) 4.2, Lymph # (Auto) 4.0, [place] # (Auto) 0.5, Eos # (Auto) 0.4, Baso # (Auto) 0.1 09/11/18 06:40: Sodium 141, Potassium 4.2, Chloride 105, Carbon Dioxide 29, Anion Gap 11.2, BUN 14, Creatinine 0.76, Estimated Creat Clear 98, Estimated GFR 82, Est GFR ( Amer) 99, Glucose 111 H, Calcium 8.8, Total Bilirubin 0.2, AST 8 L, ALT 17, Alkaline Phosphatase 134 H, Troponin I < 0.02, Total Protein 7.4, Albumin 3.5, Globulin 3.9 H, Albumin/Globulin Ratio 0.9 L 09/11/18 06:40: Lactate 1.3 09/11/18 06:41: Specimen Source R radial, O2 % Room air, ABG pH 7.23 L*, ABG pCO2 68.1 H, ABG pO2 46.6 L, ABG HCO3 27.6 H, ABG Total CO2 29.7 H, ABG O2 Saturation 77 L*, ABG Base Excess -0.1, Cong Test Acceptable Result diagrams: 09/11/18 06:40 09/11/18 06:40 Orders (Tests/Meds): ED MEDICATIONS Generic Name Dose Route Start Last Admin Trade Name Freq PRN Reason Stop Dose Admin Sodium Chloride 10 ml 09/11/18 06:37 Saline Flush 10ml Syringe IV 10/11/18 06:36 NEEDED PRN Maintain IV Site Discontinued Medications Generic Name Dose Route Start Last Admin Trade Name Freq PRN Reason Stop Dose Admin Albuterol/Ipratropium 3 ml 09/11/18 06:50 09/11/18 06:30 Duoneb 3ml Neb IH 09/11/18 06:51 3 ml ONCE ONE Administration Lorazepam 1 mg 09/11/18 06:37 09/11/18 06:48 Ativan 2mg/Ml Vial IV 09/11/18 06:38 1 mg ONCE ONE Administration Methylprednisolone Sodium Succinate 125 mg 09/11/18 06:37 09/11/18 06:48 Solu-Medrol 125mg/2ml Vial IV 09/11/18 06:38 125 mg ONCE ONE Administration ORDERS Category Date Time Status Blood Culture Stat Micro 09/11/18 06:40 Received - Radiology Data #1 Image(s): Chest Image Reviewed: Yes I reviewed the patient's radiology image Preliminary Findings: Abnormal - ECG Data Tracing #1 I reviewed this ECG and interpreted as documented below: Normal Sinus Rhythm: Yes Ischemic changes: non-specific ST-T wave changes Resp/SOB HPI - General Chief Complaint: Shortness of Breath/Dyspnea Stated Complaint: shortness of breath Time Seen by Provider: 09/11/18 06:35 Mode of Arrival: EMS Source of Information: Patient, EMS, Medical Record Limitations: No Limitations Description of Symptoms (Recalled from ER Triage Doc. by RN): pt woke up this am short of breath with labored respiration. pt rr is labored and shallow. pt states she is on antibiotics for a scratch that is on her right hand. pt states she just finished some steroids. - History of Present Illness pt with hx of copd and has trelegy at home presented to ed with sob - no hemoptysis and no fever - no prod cough MD Complaint: shortness of breath Onset (ago): hour(s) Severity: moderate Known history of: COPD Associated symptoms: denies other symptoms Treatment prior to arrival: none - Related Data Home oxygen amount: 2 liters Home Medications Medication Instructions Recorded Confirmed buprenorphine 8 mg-naloxone 2 mg 2 tab SUBLINGUAL DAILY tab 10/11/17 08/20/18 sublingual tablet Omeprazole [Omeprazole 20mg 20 mg PO DAILY 08/09/18 08/19/18 Capsule] Pantoprazole Sodium [Protonix 40mg 40 mg PO DAILY 08/09/18 08/19/18 tablet] Previous Rx's Medication Instructions Recorded ipratropium-albuterol 0.5 mg-3 3 ml INHALATION Q4H #180 ml 07/26/18 mg(2.5 mg base)/3 mL nebulization soln propranolol XL 80 mg 80 mg PO DAILY #90 cap 07/31/18 capsule,extended release 24 hr sertraline 100 mg tablet 100 mg PO DAILY #30 tab 07/31/18 albuterol sulfate HFA 90 2 puff INHALATION Q4-6H PRN 90 08/30/18 mcg/actuation aerosol inhaler Days #3 units bupropion HCl 75 mg tablet 75 mg PO BID #180 tab 08/30/18 fluticasone 200 mcg-vilanterol 25 1 inh INHALATION Q24H #60 each 08/30/18 mcg/dose powder for inhalation rivaroxaban 20 mg tablet 20 mg PO DAILY #90 tab 08/30/18 umeclidinium 62.5 mcg/actuation 1 inh INHALATION Q24H #30 each 08/30/18 blister powder for inhalation varenicline 1 mg tablet 1 mg PO BID #56 tab 08/30/18 cetirizine 10 mg tablet 10 mg PO DAILY #30 tab 09/01/18 Amoxicillin/Potassium Clav 1 tab PO Q12H 10 Days #20 tab 09/03/18 [Augmentin 875-125 Tablet] Allergies Allergy/AdvReac Type Severity Reaction Status Date / Time hydromorphone Allergy Severe S-DIFF. Verified 09/11/18 06:36 BREATHING; HIVES propoxyphene Allergy Severe S-SWELLS-OR Verified 09/11/18 06:36 [From Darvocet-N] AL/THROAT gabapentin [From Neurontin] Allergy Intermediate I-HIVES Verified 09/11/18 06:36 codeine Allergy Verified 09/11/18 06:[address] [facility] History - Hepatitis A Screen Drug use history?: No High risk sexual behaviors?: No History of sexually transmitted infection?: No Currently employed?: No Childcare worker?: No Do you have indoor plumbing?: Yes Do you have electricity?: Yes Attestation statement:: This patient has been screened for Hepatitis A risk factors. I have reviewed the patient's past medical history: Yes Medical History: Reports:: Anxiety, Chronic Obstructive Pulmonary Disease (COPD), Depression, Gastroesophageal Reflux Disease(GERD) Denies:: Cancer, Diabetes Mellitus Type 1, Diabetes Mellitus Type 2, MRSA Other Surgeries: Yes: Cholecystectomy, Hysterectomy-Total Amputation: No Fractures: No Comment: gallbladder - Social History Smoking Status: Former smoker Tobacco Type: cigarettes # Packs/Day (cigarettes): 2 Alcohol Intake: never Substance Use Type: painkillers Occupational Status: unemployed Housing: house Household Members: children Comment: Mrs. 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 He has been out in this heat and it has been difficult lately. She never had any children of her own but cared for a young mother and her child years ago. The mother could not take care of the baby and so she has raised the boy who is now 15. He is doing well and looking forward to starting school again so he can play football and baseball.The Shyanne's live in their own home and have 2 cats. Their dog had to be put to sleep just a couple of weeks ago. He was a 22-year-old Pomeranian.She enjoys reading and working puzzles.. - Psychiatric History Expresses thoughts of harming self/others: None Suicide Plan Description: No Plan Pschychiatric History:: Reports:: Anxiety, Depression Family Hx:: Hypertension Comment: Her mother was a quadriplegic after an automobile accident. when she was in her thirties. She at the age of 63. Her father has chronic obstructive pulmonary disease. He is one of my patients. . I have taken care of other family members and one of her aunts of. complications of chronic obstructive pulmonary disease. . There is a family history of breast cancer, lung cancer and throat cancer. ROS Obtained: Yes All systems reviewed & no additional complaints - Constitutional Constitutional: Denies fever(s) - Eyes Eyes: Denies blurry vision, Denies change in vision - ENT Ears, Nose, Mouth, and Throat: Denies sore throat - Cardiovascular Cardiovascular: Denies chest pain - Respiratory Respiratory: Yes cough - Gastrointestinal Gastrointestingal: Denies: abdominal pain - Genitourinary Female Genitourinary: Denies hematuria - Musculoskeletal Musculoskeletal: Denies joint pain, Denies joint swelling - Integumentary/Breasts Skin/Breast: Denies rash - Neurologic Neurologic: Denies headache(s), Denies seizure-like activity Physical Exam - General General appearance: alert, anxious - Head Head exam: normocephalic - Eye Eye exam: Present: PERRL, EOMI. Absent: scleral icterus - ENT ENT exam: Present: mucous membranes dry - Neck Neck exam: Present: trachea midline - Respiratory Respiratory exam: Present: respiratory distress, wheezes, accessory muscle use - Cardiovascular Cardiovascular exam: Present: regular rate, systolic murmur - Abdominal Exam Abdominal exam: Present: soft - Extremities Exam Extremities exam: Absent: calf tenderness - Neurological Exam Neurological exam: Present: alert, CN II-XII intact - Skin Skin exam: Absent: rash
--- NOTE | 2018-09-11 10:43 | Pharmacy Consult Notes ---
[facility] Pharmacy VTE Monitoring - Patient Demographics Admission date: 09/11/18 Report Date: 09/11/18 Time: 10:42 Allergies/Adverse Reactions: Patient Allergies hydromorphone Allergy (Severe, Verified 09/11/18 06:36) S-DIFF. BREATHING; HIVES propoxyphene [From Darvocet-N] Allergy (Severe, Verified 09/11/18 06:36) [id number]/THROAT gabapentin [From Neurontin] Allergy (Intermediate, Verified 09/11/18 06:36) I-HIVES codeine Allergy (Verified 09/11/18 06:36) Height: 1.6 m Weight: 67.245 kg Patient Problems: Current Active Problems COPD exacerbation (Acute) - VTE Risk Labs: VTE Related Lab Results Hgb 14.7 g/dL (12.2-16.2) 09/11/18 06:40 Hct 44.8 % (37.0-47.0) 09/11/18 06:40 Plt Count 290 K/mm3 (142-424) 09/11/18 06:40 BUN 14 mg/dL (7-18) 09/11/18 06:40 Creatinine 0.76 mg/dL (0.55-1.02) 09/11/18 06:40 Estimated Creat Clear 98 mL/min (50-200) 09/11/18 06:40 Was VTE Risk Assessment Performed: Yes VTE Score: 10 VTE Risk Level: Moderate Risk - Prophylaxis VTE Prophylaxis Ordered?: Yes Types of VTE Prophylaxis: TEDS Knee High Location of Applied Device: Bilateral Lower Extremeties - VTE Diagnosis Confirmed Treatment or plan recommended: Continue Current Treatment
--- NOTE | 2018-09-11 14:38 | History & Physical Report ---
*Admission Date: 09/11/18 *Chief complaint: sob *History of present illness: this wf was seen in the [facility] ed with sudden sob and wheezing with hx of copd- she denied any hemoptysis [facility] History I have reviewed the patient's past medical history: Yes Medical History: Reports:: Anxiety, Chronic Obstructive Pulmonary Disease (COPD), Depression, Gastroesophageal Reflux Disease(GERD), Hypertension Denies:: Cancer, Diabetes Mellitus Type 1, Diabetes Mellitus Type 2, MRSA *Have you ever received a pneumonia vaccine?: Yes *Have you received a flu vaccine this season?: No Other Surgeries: Yes: Cholecystectomy, Hysterectomy-Total Amputation: No Fractures: No - *Social History Educational Level: Attended High School Smoking Status: Former smoker Tobacco Type: cigarettes # Packs/Day (cigarettes): 2 Smoking End Date: 08/18/2018 Alcohol Intake: never Substance Use Type: opiates *Occupational Status:: unemployed Housing: house Household Members: children *Travel in the last 8 weeks: None - Psychiatric History Expresses thoughts of harming self/others: None Suicide Plan Description: No Plan Pschychiatric History:: Reports:: Anxiety, Depression Family Hx:: Cancer, Heart Attack, Hyperlipidemia, Hypertension Review of Systems - Review of Systems Review of systems:: pertinent systems reviewed and negative unless documented below - Constitutional Denies fever(s) - Eyes Denies change in vision - ENT Denies sore throat - *Cardiovascular Denies chest pain - *Respiratory Reports cough, Reports shortness of breath, Denies coughing up blood - *Gastrointestinal Denies abdominal pain - *Genitourinary Denies blood in urine - *Musculoskeletal Denies back pain - Integumentary/Breasts Denies boil - *Neurologic Denies headache(s), Denies seizure-like activity - Psychiatric Reports anxiety Meds Home Medications Medication Instructions Recorded Confirmed Type buprenorphine 8 mg-naloxone 2 mg 2 tab SUBLINGUAL DAILY tab 10/11/17 09/11/18 History sublingual tablet ipratropium-albuterol 0.5 mg-3 3 ml INHALATION Q4H #180 ml 07/26/18 09/11/18 Rx mg(2.5 mg base)/3 mL nebulization soln propranolol XL 80 mg 80 mg PO DAILY #90 cap 07/31/18 09/11/18 Rx capsule,extended release 24 hr sertraline 100 mg tablet 100 mg PO DAILY #30 tab 07/31/18 09/11/18 Rx Omeprazole [Omeprazole 20mg 20 mg PO DAILY PRN 08/09/18 09/11/18 History Capsule] albuterol sulfate HFA 90 2 puff INHALATION Q4-6H PRN 90 08/30/18 09/11/18 Rx mcg/actuation aerosol inhaler Days #3 units bupropion HCl 75 mg tablet 75 mg PO BID #180 tab 08/30/18 09/11/18 Rx fluticasone furoate 200 1 inh INHALATION Q24H #60 each 08/30/18 09/11/18 Rx mcg-vilanterol 25 mcg/dose inhalation powder rivaroxaban 20 mg tablet 20 mg PO DAILY #90 tab 08/30/18 09/11/18 Rx umeclidinium 62.5 mcg/actuation 1 inh INHALATION Q24H #30 each 08/30/18 09/11/18 Rx blister powder for inhalation varenicline 1 mg tablet 1 mg PO BID #56 tab 08/30/18 09/11/18 Rx cetirizine 10 mg tablet 10 mg PO DAILY #30 tab 09/01/18 09/11/18 Rx Amoxicillin/Potassium Clav 1 tab PO Q12H 09/11/18 09/11/18 History [Augmentin 875-125 Tablet] Allergies Allergy/AdvReac Type Severity Reaction Status Date / Time hydromorphone Allergy Severe S-DIFF. Verified 09/11/18 06:36 BREATHING; HIVES propoxyphene Allergy Severe S-SWELLS-OR Verified 09/11/18 06:36 [From Darvocet-N] AL/THROAT gabapentin [From Neurontin] Allergy Intermediate I-HIVES Verified 09/11/18 06:36 codeine Allergy Verified 09/11/18 06:36 Exam Vital signs and Labs for Last 24 Hours: Temp Pulse Resp BP Pulse Ox 97.9 F 76 20 105/61 L 96 09/11/18 11:37 09/11/18 11:37 09/11/18 11:37 09/11/18 11:37 09/11/18 11:37 Laboratory Results - last 24 hr 09/11/18 06:40: WBC 9.2, RBC 4.78, Hgb 14.7, Hct 44.8, MCV 93.7, MCH 30.8, MCHC 32.9, RDW 13.4, Plt Count 290, MPV 7.2 L, Neut % (Auto) 45.4, Lymph % (Auto) 43.4, [place] % (Auto) 5.6, Eos % (Auto) 4.9, Baso % (Auto) 0.8, Neut # (Auto) 4.2, Lymph # (Auto) 4.0, [place] # (Auto) 0.5, Eos # (Auto) 0.4, Baso # (Auto) 0.1 09/11/18 06:40: Sodium 141, Potassium 4.2, Chloride 105, Carbon Dioxide 29, Anion Gap 11.2, BUN 14, Creatinine 0.76, Estimated Creat Clear 98, Estimated GFR 82, Est GFR ( Amer) 99, Glucose 111 H, Calcium 8.8, Total Bilirubin 0.2, AST 8 L, ALT 17, Alkaline Phosphatase 134 H, Troponin I < 0.02, Total Protein 7.4, Albumin 3.5, Globulin 3.9 H, Albumin/Globulin Ratio 0.9 L 09/11/18 06:40: Lactate 1.3 09/11/18 06:41: Specimen Source R radial, O2 % Room air, ABG pH 7.23 L*, ABG pCO2 68.1 H, ABG pO2 46.6 L, ABG HCO3 27.6 H, ABG Total CO2 29.7 H, ABG O2 Saturation 77 L*, ABG Base Excess -0.1, Cong Test Acceptable I & O for Last 24 hours: Intake & Output 09/09/18 09/10/18 09/11/18 09/12/18 11:59 11:59 11:59 11:59 Intake Total 120 / 120 Balance 120 / 120 Weight 148 lb 4 oz - Constitutional no acute distress, somnolent - *Routine HEENT Exam Head: Present: normocephalic Eye: Present: EOMI, PERRL. Absent: conjunctival icterus ENT: Present: mucous membranes dry - *Routine Neck Exam Absent: JVD - *Routine Respiratory Exam Present: decreased breath sounds, prolonged expiratory phase, wheezes - *Routine Cardiovascular Exam Present: RRR - *Routine Abdominal Exam Present: soft - *Routine Extremities Exam Absent: edema - *Routine Skin Exam Present: intact - *Routine Neurological Exam Present: altered mental status. Absent: motor deficit - Routine Psychiatric Exam Present: unable to assess Assessment and Plan (1) Acute exacerbation of chronic obstructive pulmonary disease (COPD) Current visit: Yes Status: Acute Category: Medical Code(s): J44.1 - Chronic obstructive pulmonary disease with (acute) exacerbation
[2018-09-12 07:18] LABS: Basophils % 0.2 % (0.1-2.0); Eosinophils % 0.1 % (0.1-12.0); Hemoglobin 12.6 g/dL (12.2-16.2); Lymphocytes % 12.3 % (10-50); Mean Corpuscular Hemoglobin 30.8 pg (27.0-31.2); Mean Corpuscular Volume 93.2 fl (81-99); Mean Platelet Volume 7.1 fl (7.4-10.4); Monocytes # 0.2 K/mm3 (0.1-1.0); Neutrophils # 6.8 K/mm3 (1.8-7.8); Neutrophils % 85.4 % (37.0-80.0); Platelet Count 229 K/mm3 (142-424); Red Blood Count 4.08 M/mm3 (4.20-5.40); Red Cell Distribution Width 13.4 % (11.5-17.5)
[2018-09-12 07:26] LABS: Anion Gap 10.8 mEq/L (5-15); Calcium 8.7 mg/dL (8.5-10.1); Potassium 3.8 mmoL/L (3.5-5.1)
[2018-09-12 10:13] LABS: Lymphocytes % 11 % (10-50); Monocytes % 2 % (2-9); Neutrophils % 82 % (42-76); Total Cells Counted 100
--- NOTE | 2018-09-12 16:00 | Discharge Summary ---
General - General Admission date:: 09/11/18 Discharge date: 09/12/18 HPI HPI: this wf was seen in the [facility] ed with sudden sob and wheezing with hx of copd- she denied any hemoptysis Hospital Course Hospital Course: x ray: IMPRESSION: COPD with persistent increased density in the right lung base which may be due to an area of atelectasis/infiltrate or chronic volume loss. bipap pt sitting up with o2 in place states she is feeling better today and thinks yesterday her trilogy settings are wrong. Pt states she became increase sob and tried trilogy to help with her sob. Pt states even then it did not help. Pt states after being on bipap she now feels better and would like to go home. pt has o2 prn and breathing treatments at home. Objective Vital signs: Temp Pulse Resp BP Pulse Ox 97.7 F 86 18 114/68 95 09/12/18 12:00 09/12/18 12:00 09/12/18 12:00 09/12/18 12:00 09/12/18 12:00 no acute distress - *Routine HEENT Exam Head: Present: normocephalic Eye: Present: PERRL ENT: Present: mucous membranes moist - *Routine Respiratory Exam Present: CTA bilaterally - *Routine Cardiovascular Exam Present: RRR - *Routine Abdominal Exam Present: soft, normoactive bowel sounds - *Routine Extremities Exam Present: full ROM - *Routine Skin Exam Present: intact - *Routine Neurological Exam Present: alert, oriented X3, CN II-XII intact - Routine Psychiatric Exam Present: normal affect Results Labs on day of discharge: Labs from last 24 hours 09/12/18 09/12/18 07:04 07:04 WBC 8.0 RBC 4.08 L Hgb 12.6 Hct 38.0 MCV 93.2 MCH 30.8 MCHC 33.0 RDW 13.4 Plt Count 229 MPV 7.1 L Neut % (Auto) 85.4 H Lymph % (Auto) 12.3 [place] % (Auto) 2.0 Eos % (Auto) 0.1 Baso % (Auto) 0.2 Neut # (Auto) 6.8 Lymph # (Auto) 1.0 [place] # (Auto) 0.2 Eos # (Auto) 0.0 Baso # (Auto) 0.0 Total Counted 100 Neutrophils % (Manual) 82 H Lymphocytes % (Manual) 11 Atypical Lymphs % 5.0 Monocytes % (Manual) 2 Platelet Estimate Normal Sodium 139 Potassium 3.8 Chloride 106 Carbon Dioxide 26 Anion Gap 10.8 BUN 9 D Creatinine 0.57 D Estimated Creat Clear 131 Estimated GFR 114 Est GFR ( Amer) 138 D Glucose 144 H Calcium 8.7 Magnesium 1.8 - Additional Comments rounded with jamie all orders per jamie DS: Diagnosis - Discharge Diagnosis (1) Acute exacerbation of chronic obstructive pulmonary disease (COPD) Status: Acute Discharge Plan - Patient Discharge Instructions ACTIVITY: Continue current activity DIET: continue same diet Patient Instructions: DI for Chronic Obstructive Pulmonary Disease - Follow up Plan Follow up with: Darron Vicente MD [Emergency Provider] - 09/18/18 Disposition: Home, Self-Group Home Medications: Home Medications Medication Instructions Recorded Confirmed Type buprenorphine 8 mg-naloxone 2 mg 2 tab SUBLINGUAL DAILY tab 10/11/17 09/11/18 History sublingual tablet ipratropium-albuterol 0.5 mg-3 3 ml INHALATION Q4H #180 ml 07/26/18 09/11/18 Rx mg(2.5 mg base)/3 mL nebulization soln propranolol XL 80 mg 80 mg PO DAILY #90 cap 07/31/18 09/11/18 Rx capsule,extended release 24 hr sertraline 100 mg tablet 100 mg PO DAILY #30 tab 07/31/18 09/11/18 Rx Omeprazole [Omeprazole 20mg 20 mg PO DAILY PRN 08/09/18 09/11/18 History Capsule] albuterol sulfate HFA 90 2 puff INHALATION Q4-6H PRN 90 08/30/18 09/11/18 Rx mcg/actuation aerosol inhaler Days #3 units bupropion HCl 75 mg tablet 75 mg PO BID #180 tab 08/30/18 09/11/18 Rx fluticasone furoate 200 1 inh INHALATION Q24H #60 each 08/30/18 09/11/18 Rx mcg-vilanterol 25 mcg/dose inhalation powder rivaroxaban 20 mg tablet 20 mg PO DAILY #90 tab 08/30/18 09/11/18 Rx umeclidinium 62.5 mcg/actuation 1 inh INHALATION Q24H #30 each 08/30/18 09/11/18 Rx blister powder for inhalation varenicline 1 mg tablet 1 mg PO BID #56 tab 08/30/18 09/11/18 Rx cetirizine 10 mg tablet 10 mg PO DAILY #30 tab 09/01/18 09/11/18 Rx Amoxicillin/Potassium Clav 1 tab PO Q12H 09/11/18 09/11/18 History [Augmentin 875-125 Tablet] levoFLOXacin [Levaquin 500mg 500 mg PO DAILY #5 tab 09/12/18 Rx tab] predniSONE [Deltasone 10mg tablet] 10 mg PO BID 15 Days tab 09/12/18 Rx Prescriptions/Medication Reconciliation: New predniSONE [Deltasone 10mg tablet] 10 mg PO BID 15 Days tab levoFLOXacin [Levaquin 500mg tab] 500 mg PO DAILY #5 tab Continue propranolol XL 80 mg capsule,extended release 24 hr 80 mg PO DAILY #90 cap sertraline 100 mg tablet 100 mg PO DAILY #30 tab bupropion HCl 75 mg tablet 75 mg PO BID #180 tab rivaroxaban 20 mg tablet 20 mg PO DAILY #90 tab varenicline 1 mg tablet 1 mg PO BID #56 tab fluticasone furoate 200 mcg-vilanterol 25 mcg/dose inhalation powder 1 inh INHALATION Q24H #60 each buprenorphine 8 mg-naloxone 2 mg sublingual tablet 2 tab SUBLINGUAL DAILY tab ipratropium-albuterol 0.5 mg-3 mg(2.5 mg base)/3 mL nebulization soln 3 ml INHALATION Q4H #180 ml albuterol sulfate HFA 90 mcg/actuation aerosol inhaler 2 puff INHALATION Q4- 6H PRN 90 Days #3 units PRN Reason: shortness of breath or wheezing umeclidinium 62.5 mcg/actuation blister powder for inhalation 1 inh INHALATION Q24H #30 each cetirizine 10 mg tablet 10 mg PO DAILY #30 tab Omeprazole [Omeprazole 20mg Capsule] 20 mg PO DAILY PRN PRN Reason: gerd Discontinued Amoxicillin/Potassium Clav [Augmentin 875-125 Tablet] 1 tab PO Q12H
== END 2018-09-12 17:00 | disposition home or self-care (01) ==
LOC: ER 06:29 → 2ND 07:59 → INTOOBSV 07:59 → 2ND 08:40
PROVIDERS: ADMIT Emergency Medicine; ATTEND Emergency Medicine
CPT/HCPCS: 36415; 71010; 71045; 80048; 80053; 82803; 83605; 83735; 84484; 85007; 85025; 87040; 93005; 94640; 94660; 94761; 96374; 96375; 99285; G0378; J1956

== ENCOUNTER 2018-10-25 05:26 | Emergency (ER) | payer MEDICAID, SELFPAY ==
[2018-10-25] VITALS (8 sets, daily range): BP systolic 113–137; BP diastolic 58–103; PULSE 65–86; RESP 18–22; TEMP 36.4–36.7; O2SAT 86–94; BMI 26.5
--- NOTE | 2018-10-25 05:37 | XR_ITS ---
XR chest 2V HISTORY: HISTORY of COPD ITS.REASON: SOA ORDERING PHYSICIAN: Darron Vicente MD PATIENT AGE: 47 years Technique: PA and lateral chest. COMPARISON: 03/17/2017, 10/09/2018 CXR 2 view. Studies Also May 26, 2018 CT chest FINDINGS: Nothing definite acute. Slight coarsening markings at the medial right base again seen as noted on previous chest film October 09, 2018. Most evident reflecting some mild atelectasis and minimal scarring. Difficult to exclude minimal basilar of history particularly at right base likely at right middle lobe; but no definitive pneumonia on the lateral projection. Tend to favor minor atelectasis and scarring RML less likely infiltrate. Upper lung deleon are clear. The heart is normal in size. The cristina and mediastinal structures satisfactory. Normal pulmonary vascularity. . Normal pulmonary vascularity. No pleural effusion or pleural lesions. No pneumothorax. No acute bony abnormalities. Chest wall and T-spine unremarkable IMPRESSION: Stable chest since 10/09/2018. Slight accentuation of markings at the bases most likely reflecting mild chronic changes atelectasis.- Most notable region of RML Difficult to totally exclude a subtle infiltrate at medial right base but overall appearance appears similar if not perhaps very slightly improved versus 10/09/2018.
[2018-10-25 05:50] LABS: Basophils # 0.1 K/mm3 (0-0.2); Basophils % 0.8 % (0.1-2.0); Eosinophils # 0.2 K/mm3 (0.0-0.4); Eosinophils % 3.3 % (0.1-12.0); Hematocrit 41.1 % (37.0-47.0); Hemoglobin 13.9 g/dL (12.2-16.2); Lymphocytes # 2.6 K/mm3 (0.7-4.5); Lymphocytes % 38.9 % (10-50); Mean Corpuscular HGB Conc 33.8 g/dL (31.8-35.4); Mean Corpuscular Hemoglobin 30.8 pg (27.0-31.2); Mean Corpuscular Volume 91.2 fl (81-99); Mean Platelet Volume 6.8 fl (7.4-10.4); Monocytes # 0.4 K/mm3 (0.1-1.0); Monocytes % 6.3 % (1.7-9.3); Neutrophils # 3.3 K/mm3 (1.8-7.8); Neutrophils % 50.7 % (37.0-80.0); Platelet Count 204 K/mm3 (142-424); Red Blood Count 4.51 M/mm3 (4.20-5.40); Red Cell Distribution Width 13.2 % (11.5-17.5); White Blood Count 6.6 K/mm3 (4.8-10.8)
[2018-10-25 06:04] LABS: Lactic Acid 0.5 mmol/L (0.4-2.0)
[2018-10-25 06:09] LABS: Alanine Aminotransferase 19 U/L (12-78); Albumin Level 3.7 gm/dL (3.4-5.0); Albumin/Globulin Ratio 1.1 (1.1-1.8); Alkaline Phosphatase 86 U/L (46-116); Aspartate Amino Transferase 5 U/L (15-37); Bilirubin,Total 0.5 mg/dL (0.2-1.0); Blood Urea Nitrogen 17 mg/dL (7-18); Carbon Dioxide 29 mmol/L (21.0-32.0); Chloride 105 mmol/L (98-107); Creatinine Clearance Estimated 88 mL/min (50-200); Creatinine,Serum 0.86 mg/dL (0.55-1.02); Estimated Glomerular Filt Rate 71 ml/min (>60); GFR (African American) 86 ML/MIN (>60); Globulin 3.3 gm/dl (1.3-3.2); Glucose 91 mg/dL (74-106); Sodium 141 mmol/L (136-145)
[2018-10-25 06:10] LABS: ABG Base Excess 1.4 mmol/L (-2.4-2.3); ABG HCO3 26.2 mmhg (22.0-26.0); ABG Oxygen Saturation 91 % (90-100); ABG PCO2 43.1 mmhg (35.0-45.0); ABG PO2 59.8 mmhg (80-100); ABG TCO2 27.5 mmhg (23-27)
[2018-10-25 06:13] LABS: Allen's Test Acceptable; Oxygen room air %; Source Left Radial
[2018-10-25 06:15] LABS: C-Reactive Protein < 0.2 mg/L (0.0-0.9)
[2018-10-25 06:35] LABS: Troponin I < 0.02 ng/ml (0.00-0.06)
[2018-10-25 06:43] LABS: Erythrocyte Sedimentation Rate 8 mm/hr (0-20)
--- NOTE | 2018-10-25 07:45 | HMH.EDSOB ---
ED Disposition Clinical Impression: Acute exacerbation of chronic obstructive pulmonary disease (COPD) Disposition: Home, Self-Care Condition on Discharge: Good Instructions: DI for Chronic Obstructive Pulmonary Disease Additional Instructions: fluids and see pcp for martin burnett Prescriptions: predniSONE [Prednisone 20mg Tab] 20 mg PO BID #10 tab Referrals: Provider,Referral, [Referring] - - Critical Care Critical Care Time: No Attestation: On 10/25/18, the high probability of a clinically significant, sudden or life threatening deterioration of the following system(s) required my full and direct attention, intervention and personal management. The time I documented below is in addition to time spent performing reported procedures but includes the following listed in this critical care notation. Medical Decision Making - Medical Records Medical records reviewed: Yes: I reviewed the patient's medical records. - Eliecer Inquiry Pt receiving controlled substance: No Vital Signs: 10/25/18 05:28 10/25/18 06:17 10/25/18 06:19 Temperature 97.5 F L Temperature Source Oral Pulse Rate [Right] 86 75 76 Respiratory Rate 22 20 20 Blood Pressure [Right Arm] 137/103 H 113/84 Blood Pressure Mean [Right Arm] 114 93 Blood Pressure Source [Right Arm] Automatic Cuff Blood Pressure Position [Right Arm] Sitting Sitting 02 Sat by Pulse Oximetry 94 L 92 L 92 L Oxygen Delivery Method Room Air Room Air Room Air 10/25/18 06:30 10/25/18 07:00 10/25/18 07:30 Temperature Temperature Source Pulse Rate [Right] 65 86 78 Respiratory Rate 18 18 Blood Pressure [Right Arm] 123/84 135/58 L 123/86 Blood Pressure Mean [Right Arm] 97 83 98 Blood Pressure Source [Right Arm] Automatic Cuff Automatic Cuff Blood Pressure Position [Right Arm] Sitting 02 Sat by Pulse Oximetry 92 L 89 L 86 L Oxygen Delivery Method Room Air Room Air - Lab Data Lab results reviewed: Yes: I reviewed the patient's lab results. Lab Results 10/25/18 05:35: WBC 6.6, RBC 4.51, Hgb 13.9, Hct 41.1, MCV 91.2, MCH 30.8, MCHC 33.8, RDW 13.2, Plt Count 204, MPV 6.8 L, Neut % (Auto) 50.7, Lymph % (Auto) 38.9, [place] % (Auto) 6.3, Eos % (Auto) 3.3, Baso % (Auto) 0.8, Neut # (Auto) 3.3, Lymph # (Auto) 2.6, [place] # (Auto) 0.4, Eos # (Auto) 0.2, Baso # (Auto) 0.1, ESR 8 10/25/18 05:35: Sodium 141, Potassium 4.0, Chloride 105, Carbon Dioxide 29, Anion Gap 11.0, BUN 17, Creatinine 0.86, Estimated Creat Clear 88, Estimated GFR 71, Est GFR ( Amer) 86, Glucose 91, Calcium 9.0, Total Bilirubin 0.5, AST 5 L, ALT 19, Alkaline Phosphatase 86, C-Reactive Protein < 0.2, Total Protein 7.0, Albumin 3.7, Globulin 3.3 H, Albumin/Globulin Ratio 1.1 10/25/18 05:35: Lactate 0.5 10/25/18 05:35: Troponin I < 0.02 10/25/18 05:37: Specimen Source Left radial, O2 % room air, ABG pH 7.40, ABG pCO2 43.1, ABG pO2 59.8 L, ABG HCO3 26.2 H, ABG Total CO2 27.5 H, ABG O2 Saturation 91, ABG Base Excess 1.4, Cong Test Acceptable Result diagrams: 10/25/18 05:35 10/25/18 05:35 Orders (Tests/Meds): ORDERS Category Date Time Status Blood Culture Stat Micro 10/25/18 05:35 Received - Radiology Data #1 Image(s): Chest Image Reviewed: Yes I reviewed the patient's radiology image Preliminary Findings: Normal/NAD - ECG Data Tracing #1 Normal Sinus Rhythm: Yes Ischemic changes: non-specific ST-T wave changes Resp/SOB HPI - General Chief Complaint: Shortness of Breath/Dyspnea Stated Complaint: SOA Time Seen by Provider: 10/25/18 06:10 Mode of Arrival: EMS Source of Information: Patient, EMS, Medical Record Limitations: No Limitations Description of Symptoms (Recalled from ER Triage Doc. by RN): Pt states she started getting SOA yest, worse now, DuoNeb and 100mg Solu-Medrol given by EMS - History of Present Illness pt with hx of copd with acute episode of sob despite meds at [facility] Complaint: shortness of breath Onset (ago): hour(s) Context: rece
--- NOTE | 2018-10-25 07:48 | ED_ITS ---
ED Disposition Clinical Impression: Acute exacerbation of chronic obstructive pulmonary disease (COPD) Disposition: Home, Self-Care Condition on Discharge: Good Instructions: DI for Chronic Obstructive Pulmonary Disease Additional Instructions: fluids and see pcp for martin burnett Prescriptions: predniSONE [Prednisone 20mg Tab] 20 mg PO BID #10 tab Referrals: Provider,Referral, [Referring] - - Critical Care Critical Care Time: No Attestation: On 10/25/18, the high probability of a clinically significant, sudden or life threatening deterioration of the following system(s) required my full and direct attention, intervention and personal management. The time I documented below is in addition to time spent performing reported procedures but includes the following listed in this critical care notation. Medical Decision Making - Medical Records Medical records reviewed: Yes: I reviewed the patient's medical records. - Eliecer Inquiry Pt receiving controlled substance: No Vital Signs: 10/25/18 05:28 10/25/18 06:17 10/25/18 06:19 Temperature 97.5 F L Temperature Source Oral Pulse Rate [Right] 86 75 76 Respiratory Rate 22 20 20 Blood Pressure [Right Arm] 137/103 H 113/84 Blood Pressure Mean [Right Arm] 114 93 Blood Pressure Source [Right Arm] Automatic Cuff Blood Pressure Position [Right Arm] Sitting Sitting 02 Sat by Pulse Oximetry 94 L 92 L 92 L Oxygen Delivery Method Room Air Room Air Room Air 10/25/18 06:30 10/25/18 07:00 10/25/18 07:30 Temperature Temperature Source Pulse Rate [Right] 65 86 78 Respiratory Rate 18 18 Blood Pressure [Right Arm] 123/84 135/58 L 123/86 Blood Pressure Mean [Right Arm] 97 83 98 Blood Pressure Source [Right Arm] Automatic Cuff Automatic Cuff Blood Pressure Position [Right Arm] Sitting 02 Sat by Pulse Oximetry 92 L 89 L 86 L Oxygen Delivery Method Room Air Room Air - Lab Data Lab results reviewed: Yes: I reviewed the patient's lab results. Lab Results 10/25/18 05:35: WBC 6.6, RBC 4.51, Hgb 13.9, Hct 41.1, MCV 91.2, MCH 30.8, MCHC 33.8, RDW 13.2, Plt Count 204, MPV 6.8 L, Neut % (Auto) 50.7, Lymph % (Auto) 38.9, [place] % (Auto) 6.3, Eos % (Auto) 3.3, Baso % (Auto) 0.8, Neut # (Auto) 3.3, Lymph # (Auto) 2.6, [place] # (Auto) 0.4, Eos # (Auto) 0.2, Baso # (Auto) 0.1, ESR 8 10/25/18 05:35: Sodium 141, Potassium 4.0, Chloride 105, Carbon Dioxide 29, Anion Gap 11.0, BUN 17, Creatinine 0.86, Estimated Creat Clear 88, Estimated GFR 71, Est GFR ( Amer) 86, Glucose 91, Calcium 9.0, Total Bilirubin 0.5, AST 5 L, ALT 19, Alkaline Phosphatase 86, C-Reactive Protein < 0.2, Total Protein 7.0, Albumin 3.7, Globulin 3.3 H, Albumin/Globulin Ratio 1.1 10/25/18 05:35: Lactate 0.5 10/25/18 05:35: Troponin I < 0.02 10/25/18 05:37: Specimen Source Left radial, O2 % room air, ABG pH 7.40, ABG pCO2 43.1, ABG pO2 59.8 L, ABG HCO3 26.2 H, ABG Total CO2 27.5 H, ABG O2 Saturation 91, ABG Base Excess 1.4, Cong Test Acceptable Result diagrams: 10/25/18 05:35 10/25/18 05:35 Orders (Tests/Meds): ORDERS Category Date Time Status Blood Culture Stat Micro 10/25/18 05:35 Received - Radiology Data #1 I
--- NOTE | 2018-10-25 08:19 | PC.NURSE ---
pt horacee arrived at this time
== END 2018-10-25 08:19 | disposition home or self-care (01) ==
PROVIDERS: Emergency Provider Emergency Medicine; PCP Physician Assistant
DX: J44.1 Chronic obstructive pulmonary disease with (acute) exacerbation (principal); F41.8 Other specified anxiety disorders; I10 Essential (primary) hypertension; K21.9 Gastro-esophageal reflux disease without esophagitis; F17.210 Nicotine dependence, cigarettes, uncomplicated; Z51.81 Encounter for therapeutic drug level monitoring
CPT/HCPCS: 71046; 80053; 82803; 83605; 84484; 85025; 85651; 86140; 87040; 93005; 99284

== ENCOUNTER 2018-12-02 17:28 | Emergency (ER) | payer MEDICAID, SELFPAY ==
[2018-12-02 17:42] VITALS: BP 125/88; PULSE 83; RESP 24; TEMP 37.1; O2SAT 91; BMI 27.3
[2018-12-02 17:51] VITALS: BP 125/88; PULSE 83; RESP 20; TEMP 36.6; O2SAT 91; BMI 25.7
--- NOTE | 2018-12-02 18:31 | HMH.EDUTC ---
[facility] [place] Disposition Clinical Impression: Acute exacerbation of chronic obstructive pulmonary disease (COPD), Wheezing Disposition: Home, Self-Care Condition on Discharge: Good Instructions: DI for Chronic Obstructive Pulmonary Disease, Chronic Obstructive Pulmonary Disease, DI for Cough -- Adult, Cefdinir Additional Instructions: ? Start antibiotic today. Be sure to complete entire prescription even if feeling better ? Monitor temp. Tylenol every 4 hours as needed and / or ibuprofen every 6 hours as needed ( As long as your primary care physician has told you that it ok to take both. For fever/aches/pains ER if no less than 101 despite Tylenol or Motrin ? Humidifier/vaporizer or hot steamy shower ? Inhaler every 4-6 hours as needed like we discussed. If unsure how to use it, ask pharmacist to demonstrate how. Should help open airways and improve cough, wheezing, and shortness of breath ? Mucinex for your cough and cough suppressant only at night. Be sure to drink lots of water. Insurance may not cover a prescriptions for mucinex. Might be cheaper to get 400mg tablets and take 2 tablet in the morning, mid-day and evening with lots of water. If your doctor has told you that it is ok for you to take this medication Follow up IMMEDIATELY for new or worsening of symptoms OR no noticeable improvement over the next 48-72 hours. 911 immediately for any life threatening symptoms such as chest pain or difficulty breathing Prescriptions: Cefdinir [Omnicef 300mg Capsule] 300 mg PO BID #20 cap predniSONE [Prednisone 20mg Tab] 20 mg PO BID 5 Days #10 tab Referrals: Laura Arreola PA [Primary Care Provider] - Time of Disposition: 18:50 Medical Decision Making - Eliecer Inquiry Pt receiving controlled substance: No Eliecer was queried for this patient: No Vital Signs: 12/02/18 17:42 12/02/18 17:51 Temperature 98.8 F 98 F Temperature Source Oral Oral Pulse Rate [Left Radial] 83 83 Respiratory Rate 24 20 Blood Pressure [Right Arm] 125/88 125/88 Blood Pressure Mean [Right Arm] 100 100 Blood Pressure Source [Right Arm] Automatic Cuff Blood Pressure Position [Right Arm] Sitting 02 Sat by Pulse Oximetry 91 L 91 L Oxygen Delivery Method Room Air Room Air Orders (Tests/Meds): ED MEDICATIONS Discontinued Medications Generic Name Dose Route Start Last Admin Trade Name Freq PRN Reason Stop Dose Admin Albuterol/Ipratropium 3 ml 12/02/18 17:53 12/02/18 18:00 Duoneb 3ml Neb IH 12/02/18 17:54 3 ml ONCE ONE Administration Methylprednisolone Sodium Succinate 125 mg 12/02/18 17:54 12/02/18 18:00 Solu-Medrol 125mg/2ml Vial IM 12/02/18 17:55 125 mg ONCE ONE Administration [facility] [place] HPI - General Stated complaint: SOB Time Seen by Provider: 12/02/18 18:31 Mode of Arrival: Ambulatory Source of Information: Patient Limitations: No Limitations Description of Symptoms (Recalled from Triage Doc. by RN): PT C/O SOA. PT HAS HX OF COPD AND IS ON HOME O2 PRN. HEENT Symptoms (Recalled from RN notes): No Resp Symptoms (Recalled from RN notes): Yes Skin Symptoms (Recalled from RN notes): No MS Symptoms (Recalled from RN notes): No Functional Status (Recalled from RN notes): N/A - History of Present Illness Provider Complaint: Patient states that she was recently diagnosed and treated for pneumonia States that today she felt like she was coughing more and feeling SOA at times State that she wasn't sure if her pneumonia didn't get cleared up or if she may be getting ready to have a COPD exacerbation because she was outside for awhile this State that she isn't coughing anything up and denies fever - Related Data Home Medications Medication Instructions Recorded Confirmed buprenorphine 8 mg-naloxone 2 mg 2 tab SUBLINGUAL DAILY tab 10/11/17 11/14/18 sublingual tablet Ipratropium/Albuterol Sulfate See Rx Instructions .ROUTE .COMPLEX 11/14/18 11/14/18 [Iprat-Albut 0.5-3(2.5) mg/3 ml] Sertraline HCl
--- NOTE | 2018-12-02 18:36 | ED_ITS ---
[facility] [place] Disposition Clinical Impression: Acute exacerbation of chronic obstructive pulmonary disease (COPD), Wheezing Disposition: Home, Self-Care Condition on Discharge: Good Instructions: DI for Chronic Obstructive Pulmonary Disease, Chronic Obstructive Pulmonary Disease, DI for Cough -- Adult, Cefdinir Additional Instructions: ? Start antibiotic today. Be sure to complete entire prescription even if feeling better ? Monitor temp. Tylenol every 4 hours as needed and / or ibuprofen every 6 hours as needed ( As long as your primary care physician has told you that it ok to take both. For fever/aches/pains ER if no less than 101 despite Tylenol or Motrin ? Humidifier/vaporizer or hot steamy shower ? Inhaler every 4-6 hours as needed like we discussed. If unsure how to use it, ask pharmacist to demonstrate how. Should help open airways and improve cough, wheezing, and shortness of breath ? Mucinex for your cough and cough suppressant only at night. Be sure to drink lots of water. Insurance may not cover a prescriptions for mucinex. Might be cheaper to get 400mg tablets and take 2 tablet in the morning, mid-day and evening with lots of water. If your doctor has told you that it is ok for you to take this medication Follow up IMMEDIATELY for new or worsening of symptoms OR no noticeable improvement over the next 48-72 hours. 911 immediately for any life threatening symptoms such as chest pain or difficulty breathing Prescriptions: Cefdinir [Omnicef 300mg Capsule] 300 mg PO BID #20 cap predniSONE [Prednisone 20mg Tab] 20 mg PO BID 5 Days #10 tab Referrals: Laura Arreola PA [Primary Care Provider] - Time of Disposition: 18:50 Medical Decision Making - Eliecer Inquiry Pt receiving controlled substance: No Eliecer was queried for this patient: No Vital Signs: 12/02/18 17:42 12/02/18 17:51 Temperature 98.8 F 98 F Temperature Source Oral Oral Pulse Rate [Left Radial] 83 83 Respiratory Rate 24 20 Blood Pressure [Right Arm] 125/88 125/88 Blood Pressure Mean [Right Arm] 100 100 Blood Pressure Source [Right Arm] Automatic Cuff Blood Pressure Position [Right Arm] Sitting 02 Sat by Pulse Oximetry 91 L 91 L Oxygen Delivery Method Room Air Room Air Orders (Tests/Meds): ED MEDICATIONS Discontinued Medications Generic Name Dose Route Start Last Admin Trade Name Freq PRN Reason Stop Dose Admin Albuterol/Ipratropium 3 ml 12/02/18 17:53 12/02/18 18:00 Duoneb 3ml Neb IH 12/02/18 17:54 3 ml ONCE ONE Administration Methylprednisolone Sodium Succinate 125 mg 12/02/18 17:54 12/02/18 18:00 Solu-Medrol 125mg/2ml Vial IM 12/02/18 17:55 125 mg ONCE ONE Administration [facility] [place] HPI - General Stated complaint: SOB Time Seen by Provider: 12/02/18 18:31 Mode of Arrival: Ambulatory Source of Information: Patient Limitations: No Limitations Description of Symptoms (Recalled from Triage Doc. by RN): PT C/O SOA. PT HAS HX OF COPD AND IS ON HOME O2 PRN. HEENT Symptoms (Recalled from RN notes): No Resp Symptoms (Recalled from RN notes): Yes Skin Symptoms (Recalled from RN notes): No MS Symptoms (Recalled from RN notes): No Functional Status (Recalled from RN notes): N/A - History of Present Illness Provider Complaint: Patient states that she was recently diagnosed and treated for pneumonia States that to
[2018-12-02 18:48] VITALS: PULSE 93
[2018-12-02 18:59] VITALS: BP 126/66; PULSE 65; RESP 18; TEMP 36.6; O2SAT 100
== END 2018-12-02 18:59 | disposition home or self-care (01) ==
PROVIDERS: Emergency Provider Nurse Practitioner; PCP Physician Assistant
DX: J44.1 Chronic obstructive pulmonary disease with (acute) exacerbation (principal); K21.9 Gastro-esophageal reflux disease without esophagitis; I10 Essential (primary) hypertension; F17.210 Nicotine dependence, cigarettes, uncomplicated; Z51.81 Encounter for therapeutic drug level monitoring; Z88.5 Allergy status to narcotic agent
CPT/HCPCS: 96372; 99202

== ENCOUNTER → 2018-12-26 17:52 | Outpatient (CLI) | payer MEDICAID, SELFPAY ==
[2018-12-26 18:51] LABS: Anion Gap 15.8 mEq/L (5-15); Blood Urea Nitrogen 15 mg/dL (7-18); Calcium 8.2 mg/dL (8.5-10.1); Carbon Dioxide 26 mmol/L (21.0-32.0); Chloride 105 mmol/L (98-107); Creatinine,Serum 0.81 mg/dL (0.55-1.02); Estimated Glomerular Filt Rate 76 ml/min (>60); GFR (African American) 92 ML/MIN (>60); Glucose 100 mg/dL (74-106); Potassium 3.8 mmoL/L (3.5-5.1); Sodium 143 mmol/L (136-145)
== END ==
PROVIDERS: Visit Provider Physician Assistant
DX: E87.6 Hypokalemia (principal)
CPT/HCPCS: 80048

== ENCOUNTER → 2019-04-01 15:05 | Outpatient (CLI) | payer MEDICAID, SELFPAY ==
--- NOTE | 2019-04-01 15:09 | XR_ITS ---
PROCEDURE: XR FOOT LT MIN 3V CLINICAL INDICATION: Left foot swelling COMPARISON: No exams were available for comparison FINDINGS: No fracture or dislocation. No lytic or blastic change. There is normal mineralization. The joint spaces are well-preserved. No significant degenerative/arthritic changes. No erosive changes evident. Other findings:There is a small ossicle at the base of the 1st and 2nd metatarsal with mild prominence of the 1st intermetatarsal space which is of questionable clinical significance. IMPRESSION: No acute finding. Mild widening of the 1st intermetatarsal space with a small ossicle along the proximal and lateral aspect of the 1st metatarsal Dictated by: Cong Tang MD 04/01/2019 16:21 Electronically signed by Cong Tang MD in [place] 04/01/2019 16:21
== END ==
PROVIDERS: PCP Physician Assistant; Visit Provider Physician Assistant
DX: M79.89 Other specified soft tissue disorders (principal)
CPT/HCPCS: 73630

== ENCOUNTER 2019-05-12 15:57 | Observation (INO) ==
--- NOTE | 2019-05-12 16:31 | Emergency Department Note ---
ED Disposition Clinical Impression: COPD exacerbation, Acute and chronic respiratory failure with hypoxia Disposition: Admitted as Observation Condition on Discharge: Fair Referrals: Laura Arreola PA [Primary Care Provider] - Time of Disposition: 18:46 - Critical Care Critical Care Time: No Attestation: On 05/12/19, the high probability of a clinically significant, sudden or life threatening deterioration of the following system(s) required my full and direct attention, intervention and personal management. The time I documented below is in addition to time spent performing reported procedures but includes the following listed in this critical care notation. Medical Decision Making - Medical Records Medical records reviewed: Yes: I reviewed the patient's medical records. - Eliecer Inquiry Pt receiving controlled substance: No Eliecer was queried for this patient: No Vital Signs: 05/12/19 16:13 05/12/19 16:44 05/12/19 18:24 Temperature 99.1 F Temperature Source Oral Pulse Rate 90 Pulse Rate [Right Brachial] 94 H 87 Respiratory Rate 18 Blood Pressure [Right Arm] 164/98 H 156/107 H Blood Pressure Mean [Right Arm] 120 123 Blood Pressure Source [Right Arm] Manual Cuff/ Auscultation Blood Pressure Position [Right Arm] Sitting Sitting 02 Sat by Pulse Oximetry 87 L 91 L Oxygen Delivery Method Room Air Nasal Cannula Oxygen Flow Rate (LPM) 3 - Lab Data Lab results reviewed: Yes: I reviewed the patient's lab results. Lab Results 05/12/19 16:10: WBC 9.2, RBC 4.76, Hgb 13.9, Hct 44.0, MCV 92.3, MCH 29.2, MCHC 31.6 L, RDW 13.7, Plt Count 231, MPV 7.6, Neut % (Auto) 80.1 H, Lymph % (Auto) 12.1, [place] % (Auto) 4.2, Eos % (Auto) 2.9, Baso % (Auto) 0.7, Neut # (Auto) 7.4, Lymph # (Auto) 1.1, [place] # (Auto) 0.4, Eos # (Auto) 0.3, Baso # (Auto) 0.1 05/12/19 16:10: Sodium 142, Potassium 3.3 L, Chloride 104, Carbon Dioxide 31, Anion Gap 10.3, BUN 15, Creatinine 0.73, Estimated Creat Clear 112, Estimated GFR 85, Est GFR ( Amer) 103, Glucose 100, Calcium 8.8, Troponin I < 0.02 05/12/19 16:10: Lactate 0.8 05/12/19 16:24: Specimen Source Left radial, O2 % Room air, ABG pH 7.38, ABG pCO2 43.5, ABG pO2 69.5 L, ABG HCO3 24.9, ABG Total CO2 26.3, ABG O2 Saturation 94, ABG Base Excess -0.3, Cong Test Acceptable Result diagrams: 05/12/19 16:10 05/12/19 16:10 Orders (Tests/Meds): ED MEDICATIONS Generic Name Dose Route Start Last Admin Trade Name Freq PRN Reason Stop Dose Admin Sodium Chloride 10 ml 05/12/19 18:00 05/12/19 18:01 Rad-Saline Flush 10ml Syringe IV 06/11/19 17:59 10 ml NEEDED PRN Administration Maintain IV Site Discontinued Medications Generic Name Dose Route Start Last Admin Trade Name Freq PRN Reason Stop Dose Admin Albuterol/Ipratropium 3 ml 05/12/19 16:24 05/12/19 16:43 Duoneb 3ml Neb IH 05/12/19 16:25 3 ml ONCE ONE Administration Ioversol 70 ml 05/12/19 18:00 05/12/19 18:01 Rad-Optiray 350 100ml Vial IV 05/12/19 18:01 70 ml ONCE ONE Administration Protocol Methylprednisolone Sodium Succinate 125 mg 05/12/19 16:24 05/12/19 16:25 Solu-Medrol 125mg/2ml Vial IV 05/12/19 16:25 125 mg ONCE ONE Administration Sodium Chloride 50 ml 05/12/19 18:00 05/12/19 18:01 Rad-Ns 50ml Vial IV 05/12/19 18:01 50 ml ONCE ONE Administration ORDERS Category Date Time Status CT Chest w/PE protocol [CT angio chest] Stat Cat Scan 05/12/19 16:27 Taken Blood Culture Stat Micro 05/12/19 16:10 Received - Physician Consults Physician Consulted: sam Time: 18:45 Reason -: Admission - Reevaluation(s) Time: 18:37 Reevaluation #1: persistent dyspnea, wheezes. Maintaining adequate sats on 4 liters General Adult HPI - General Chief complaint: Shortness of Breath/Dyspnea Stated complaint: soa Time Seen by Provider: 05/12/19 16:45 Mode of Arrival: Ambulatory Source of Information: Patient Limitations: No Limitations Description of Symptoms (Recalled from ER Triage Doc. by RN): RIGHT SIDE PAIN X 1 WEEK, THAT SHE THOUGHT WAS PLEURITIC IN NATURE; FURTHER STATES THAT. SHE HAS HAD CHEST TIGHTNESS AND PHLEGM PRODUCTION; WORRIED ABOUT PROGRESSION OF PNEUMONIA - History of Present Illness HPI narrative: R posterior thoracic pain, "pleurisy like" x one week with marked increase in baseline dyspnea. COPD, has been ventilator dependent before, hospitalized in [place]. - Related Data Home Medications Medication Instructions Recorded Confirmed buprenorphine 8 mg-naloxone 2 mg 2 tab SUBLINGUAL DAILY tab 10/11/17 04/01/19 sublingual tablet Previous Rx's Medication Instructions Recorded propranolol XL 80 mg 80 mg PO DAILY #90 cap 01/31/19 capsule,extended release 24 hr ipratropium-albuterol 0.5 mg-3 See Rx Instructions .ROUTE 02/12/19 mg(2.5 mg base)/3 mL nebulization .COMPLEX #540 ml soln umeclidinium 62.5 mcg/actuation 1 inh INHALATION Q24H #30 each 02/14/19 blister powder for inhalation fluticasone furoate 200 See Rx Instructions .ROUTE 02/26/19 mcg-vilanterol 25 mcg/dose .COMPLEX #60 unspecified inhalation powder sertraline 100 mg tablet 100 mg PO DAILY #90 tab 02/26/19 ondansetron HCl 4 mg tablet 4 mg PO TID PRN 5 Days #15 tab 03/06/19 apixaban 5 mg tablet See Rx Instructions .ROUTE 03/27/19 .COMPLEX #60 tablet bupropion HCl 75 mg tablet See Rx Instructions .ROUTE 03/27/19 .COMPLEX #60 tablet albuterol sulfate HFA 90 2 puff INHALATION Q4-6H PRN #18 g 03/28/19 mcg/actuation aerosol inhaler prednisone 10 mg tablet 10 mg PO DAILY #42 tab 04/01/19 varenicline 1 mg tablet See Rx Instructions .ROUTE 04/10/19 .COMPLEX #56 tablet famotidine 20 mg tablet 20 mg PO DAILY #30 tab 04/15/19 hydroxyzine pamoate 25 mg capsule See Rx Instructions .ROUTE 04/25/19 .COMPLEX #120 capsule Allergies Allergy/AdvReac Type Severity Reaction Status Date / Time hydromorphone Allergy Severe S-DIFF. Verified 04/01/19 11:11 BREATHING; HIVES propoxyphene Allergy Severe S-SWELLS-OR Verified 04/01/19 11:11 [From Darvocet-N] AL/THROAT gabapentin [From Neurontin] Allergy Intermediate I-HIVES Verified 04/01/19 11:11 codeine Allergy Verified 04/01/19 11:11 [facility] History - Hepatitis A Screen Drug use history?: No High risk sexual behaviors?: No History of sexually transmitted infection?: No Currently employed?: No Childcare worker?: No Do you have indoor plumbing?: Yes Do you have electricity?: Yes Attestation statement:: This patient has been screened for Hepatitis A risk factors. I have reviewed the patient's past medical history: Yes Medical History: Reports:: Anxiety, Chronic Obstructive Pulmonary Disease (COPD), Depression, Gastroesophageal Reflux Disease(GERD), Hypertension Denies:: Cancer, Diabetes Mellitus Type 1, Diabetes Mellitus Type 2, Home Oxygen, MRSA Other Surgeries: Yes: Cholecystectomy, Hysterectomy-Total Amputation: No Fractures: No Comment: gallbladder - Social History Smoking Status: Former smoker Tobacco Type: cigarettes # Packs/Day (cigarettes): 1 Alcohol Intake: never Substance Use Type: opiates Occupational Status: unemployed Housing: house Household Members: children Comment: Mrs. 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 Most recently, she has been babysitting.Her of 16 years is 57 and works installing [employer] and cleaning them, I understand. He has been out in this heat and it has been difficult lately. She never had any children of her own but cared for a young mother and her child years ago. The mother could not take care of the baby and so she has raised the boy who is now 15. He is doing well and looking forward to starting school again so he can play football and baseball.The Shyanne's live in their own home and have 2 cats. Their dog had to be put to sleep just a couple of weeks ago. He was a 22-year-old Pomeranian.She enjoys reading and working puzzles.. - Psychiatric History Pschychiatric History:: Reports:: Anxiety, Depression Family Hx:: Cancer, Heart Attack, Hyperlipidemia, Hypertension Comment: Her mother was a quadriplegic after an automobile accident. when she was in her thirties. She at the age of 63. Her father has chronic obstructive pulmonary disease. He is one of my patients. . I have taken care of other family members and one of her aunts of. complications of chronic obstructive pulmonary disease. . There is a family history of breast cancer, lung cancer and throat cancer. ROS Obtained: Yes All systems reviewed & no additional complaints - Constitutional Constitutional: Reports chills, Reports fever(s) - Eyes Eyes: Denies change in vision - ENT Ears, Nose, Mouth, and Throat: Denies throat swelling - Cardiovascular Cardiovascular: Denies chest pain, Reports dyspnea, Reports dyspnea on exertion, Denies edema, Reports lightheadedness, Denies rapid heart rate, Denies slow heart rate - Respiratory Respiratory: Yes chest congestion, Yes cough, Yes dyspnea, Yes wheezing - Gastrointestinal Gastrointestingal: Denies: abdominal pain, nausea, vomiting - Genitourinary Female Genitourinary: Reports system reviewed and no additional complaints, except as docu - Musculoskeletal Musculoskeletal: Reports decreased muscle mass, Denies joint stiffness, Denies joint swelling, Reports other (Pain in posterior thorax on R) - Integumentary/Breasts Skin/Breast: Denies redness, Denies rash - Neurologic Neurologic: Reports system reviewed and no additional complaints, except as docu - Hematologic/Lymphatic Henatologic/Lymphatic: Denies easy bleeding, Denies easy bruising Physical Exam - General General appearance: alert, in distress (mild) - Head Head exam: atraumatic, normocephalic, normal inspection - Eye Eye exam: Present: normal appearance, PERRL, EOMI - ENT ENT exam: Present: normal exam, normal oropharynx, mucous membranes moist, TM's normal bilaterally, normal external ear exam - Respiratory Respiratory exam: Present: respiratory distress, wheezes, other (not appreciably). Absent: normal lung sounds bilaterally, prolonged expiratory phase - Cardiovascular Cardiovascular exam: Present: regular rate, normal rhythm. Absent: JVD - Abdominal Exam Abdominal exam: Present: soft. Absent: distention, tenderness - Extremities Exam Extremities exam: Absent: tenderness, pedal edema, joint swelling, calf tenderness - Neurological Exam Neurological exam: Present: alert, oriented X3 - Psychiatric Psychiatric exam: Present: normal affect, normal mood - Skin Skin exam: Present: warm, dry, intact, normal color
[2019-05-12 16:33] LABS: Basophils # 0.1 K/mm3 (0-0.2); Basophils % 0.7 % (0.1-2.0); Eosinophils # 0.3 K/mm3 (0.0-0.4); Eosinophils % 2.9 % (0.1-12.0); Hemoglobin 13.9 g/dL (12.2-16.2); Lymphocytes # 1.1 K/mm3 (0.7-4.5); Lymphocytes % 12.1 % (10-50); Mean Corpuscular HGB Conc 31.6 g/dL (31.8-35.4); Mean Corpuscular Volume 92.3 fl (81-99); Mean Platelet Volume 7.6 fl (7.4-10.4); Monocytes # 0.4 K/mm3 (0.1-1.0); Monocytes % 4.2 % (1.7-9.3); Neutrophils # 7.4 K/mm3 (1.8-7.8); Neutrophils % 80.1 % (37.0-80.0); Platelet Count 231 K/mm3 (142-424); Red Blood Count 4.76 M/mm3 (4.20-5.40); Red Cell Distribution Width 13.7 % (11.5-17.5); White Blood Count 9.2 K/mm3 (4.8-10.8)
[2019-05-12 16:36] LABS: ABG Base Excess -0.3 mmol/L (-2.4-2.3); ABG HCO3 24.9 mmhg (22.0-26.0); ABG Oxygen Saturation 94 % (90-100); ABG PCO2 43.5 mmhg (35.0-45.0); ABG PH 7.38 mmol/L (7.35-7.45); ABG PO2 69.5 mmhg (80-100); ABG TCO2 26.3 mmhg (23-27)
[2019-05-12 16:38] LABS: Allen's Test Acceptable; Oxygen ROOM AIR %
[2019-05-12 16:52] LABS: Anion Gap 10.3 mEq/L (5-15); Blood Urea Nitrogen 15 mg/dL (7-18); Calcium 8.8 mg/dL (8.5-10.1); Carbon Dioxide 31 mmol/L (21.0-32.0); Chloride 104 mmol/L (98-107); Glucose 100 mg/dL (74-106); Sodium 142 mmol/L (136-145)
--- NOTE | 2019-05-12 23:48 | History & Physical Report ---
*Admission Date: 05/12/19 *Chief complaint: sob *History of present illness: this wf who has progressive sob with trimmer meat cough who presents for eval - she has been compliant with meds and resp treatment - she was seen in the ed and was admitted pt has hx of pul emboli and had rt sided pleuritic pain at this time [facility] History I have reviewed the patient's past medical history: Yes Medical History: Reports:: Anxiety, Chronic Obstructive Pulmonary Disease (COPD), Depression, Gastroesophageal Reflux Disease(GERD), Hypertension Denies:: Cancer, Diabetes Mellitus Type 1, Diabetes Mellitus Type 2, Home Oxygen, MRSA *Have you ever received a pneumonia vaccine?: Yes *Have you received a flu vaccine this season?: No Other Surgeries: Yes: Appendectomy, Cardiac Catheterization, Cholecystectomy, Diagnostic Lap (X4), Hysterectomy-Total Amputation: No Fractures: No - *Social History Educational Level: Completed High School Smoking Status: Former smoker Tobacco Type: cigarettes # Packs/Day (cigarettes): 1 #Yrs smoked (if former smoker): 20 Smoking End Date: AUG 2018 Alcohol Intake: former Alcohol Intake Frequency:: holidays/special occasions only Substance Use Type: opiates *Occupational Status:: disabled Housing: house Household Members: children, friend(s) *Travel in the last 8 weeks: None - Psychiatric History Pschychiatric History:: Reports:: Anxiety, Depression Family Hx:: Cancer, Heart Attack, Hyperlipidemia, Hypertension Review of Systems - Review of Systems Review of systems:: pertinent systems reviewed and negative unless documented below - Constitutional Denies fever(s), Denies headache(s) - Eyes Denies change in vision - ENT Denies sore throat - *Cardiovascular Reports chest pain, Reports shortness of breath - *Respiratory Reports cough, Denies coughing up blood - *Gastrointestinal Denies abdominal pain - *Genitourinary Denies blood in urine - *Musculoskeletal Denies joint pain - Integumentary/Breasts Denies rash - *Neurologic Denies headache(s) - Psychiatric Denies confusion Meds Home Medications Medication Instructions Recorded Confirmed Type buprenorphine 8 mg-naloxone 2 mg 2 tab SUBLINGUAL DAILY tab 10/11/17 05/12/19 History sublingual tablet propranolol XL 80 mg 80 mg PO DAILY #90 cap 01/31/19 05/12/19 Rx capsule,extended release 24 hr sertraline 100 mg tablet 100 mg PO DAILY #90 tab 02/26/19 05/12/19 Rx albuterol sulfate HFA 90 2 puff INHALATION Q4-6H PRN #18 g 03/28/19 05/12/19 Rx mcg/actuation aerosol inhaler Apixaban [Eliquis] 5 mg PO BID 05/12/19 05/13/19 History 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] 20 mg PO DAILY 05/12/19 05/12/19 History Fluticasone/Vilanterol [Breo 1 puff INHALATION DAILY 05/12/19 05/13/19 History Ellipta 200-25 Mcg INH] Ipratropium/Albuterol Sulfate 3 ml IH Q4H 05/12/19 05/13/19 History [Iprat-Albut 0.5-3(2.5) mg/3 ml] Ondansetron HCl [Zofran 4mg Tab*] 4 mg PO DAILYP PRN 05/12/19 05/13/19 History Umeclidinium [place] [Incruse 1 puff IH DAILY 05/12/19 05/13/19 History Ellipta] Varenicline Tartrate [Chantix 1mg 1 mg PO BID 05/12/19 05/13/19 History tablet] buPROPion HCl [Wellbutrin 75mg 75 mg PO BID 05/12/19 05/13/19 History Tablet] hydrOXYzine pamoate [Vistaril] 25 mg PO QIDP PRN 05/12/19 05/13/19 History Allergies Allergy/AdvReac Type Severity Reaction Status Date / Time hydromorphone Allergy Severe S-DIFF. Verified 04/01/19 11:11 BREATHING; HIVES propoxyphene Allergy Severe S-SWELLS-OR Verified 04/01/19 11:11 [From Darvocet-N] AL/THROAT gabapentin [From Neurontin] Allergy Intermediate I-HIVES Verified 04/01/19 11:11 codeine Allergy Verified 04/01/19 11:11 Exam Vital signs and Labs for Last 24 Hours: Temp Pulse Resp BP Pulse Ox 98.4 F 76 18 153/94 H 92 L 05/12/19 21:04 05/12/19 21:04 05/12/19 21:04 05/12/19 21:04 05/12/19 22:59 Laboratory Results - last 24 hr 05/12/19 16:10: WBC 9.2, RBC 4.76, Hgb 13.9, Hct 44.0, MCV 92.3, MCH 29.2, MCHC 31.6 L, RDW 13.7, Plt Count 231, MPV 7.6, Neut % (Auto) 80.1 H, Lymph % (Auto) 12.1, [place] % (Auto) 4.2, Eos % (Auto) 2.9, Baso % (Auto) 0.7, Neut # (Auto) 7.4, Lymph # (Auto) 1.1, [place] # (Auto) 0.4, Eos # (Auto) 0.3, Baso # (Auto) 0.1 05/12/19 16:10: Sodium 142, Potassium 3.3 L, Chloride 104, Carbon Dioxide 31, Anion Gap 10.3, BUN 15, Creatinine 0.73, Estimated Creat Clear 112, Estimated GFR 85, Est GFR ( Amer) 103, Glucose 100, Calcium 8.8, Troponin I < 0.02 05/12/19 16:10: Lactate 0.8 05/12/19 16:24: Specimen Source Left radial, O2 % Room air, ABG pH 7.38, ABG pCO2 43.5, ABG pO2 69.5 L, ABG HCO3 24.9, ABG Total CO2 26.3, ABG O2 Saturation 94, ABG Base Excess -0.3, Cong Test Acceptable I & O for Last 24 hours: Intake & Output 05/10/19 05/11/19 05/12/19 05/13/19 12:59 11:59 11:59 11:59 Weight 160 lb 1 oz - Constitutional no acute distress - *Routine HEENT Exam Head: Present: normocephalic Eye: Present: EOMI, PERRL ENT: Present: mucous membranes dry - *Routine Neck Exam Present: supple. Absent: JVD - *Routine Respiratory Exam Present: decreased breath sounds, prolonged expiratory phase - *Routine Cardiovascular Exam Absent: murmur - *Routine Abdominal Exam Present: soft - *Routine Extremities Exam Absent: full ROM, Jase's sign - *Routine Skin Exam Present: intact - *Routine Neurological Exam Present: alert, oriented X3, CN II-XII intact - Routine Psychiatric Exam Present: normal affect Assessment and Plan (1) COPD (chronic obstructive pulmonary disease) with acute bronchitis Current visit: Yes Status: Acute Category: Medical Code(s): J44.0 - Chronic obstructive pulmonary disease with (acute) lower respiratory infection; J20.9 - Acute bronchitis, unspecified (2) Overweight (BMI 25.0-29.9) Current visit: Yes Status: Acute Category: Medical Code(s): E66.3 - Overweight
--- NOTE | 2019-05-13 00:41 | Pharmacy Consult Notes ---
[facility] Pharmacy VTE Monitoring - Patient Demographics Admission date: 05/12/19 Report Date: 05/13/19 Time: 00:40 Allergies/Adverse Reactions: Patient Allergies hydromorphone Allergy (Severe, Verified 04/01/19 11:11) S-DIFF. BREATHING; HIVES propoxyphene [From Darvocet-N] Allergy (Severe, Verified 04/01/19 11:11) [id number]/THROAT gabapentin [From Neurontin] Allergy (Intermediate, Verified 04/01/19 11:11) I-HIVES codeine Allergy (Verified 04/01/19 11:11) Height: 1.6 m Weight: 72.603 kg Patient Problems: Current Active Problems Acute exacerbation of chronic obstructive pulmonary disease (COPD) (Acute) Acute and chronic respiratory failure with hypoxia (Acute) - VTE Risk Labs: VTE Related Lab Results Hgb 13.9 g/dL (12.2-16.2) 05/12/19 16:10 Hct 44.0 % (37.0-47.0) 05/12/19 16:10 Plt Count 231 K/mm3 (142-424) 05/12/19 16:10 BUN 15 mg/dL (7-18) 05/12/19 16:10 Creatinine 0.73 mg/dL (0.55-1.02) 05/12/19 16:10 Estimated Creat Clear 112 mL/min (50-200) 05/12/19 16:10 Was VTE Risk Assessment Performed: Yes VTE Score: 7 VTE Risk Level: Moderate Risk Clinical Trial Participant: No - Prophylaxis VTE Prophylaxis Ordered?: Yes Types of VTE Prophylaxis: TEDS Knee High, Pharmacological (ELIQUIS)
[2019-05-13 06:11] LABS: Basophils % 0.3 % (0.1-2.0); Eosinophils % 0.2 % (0.1-12.0); Hematocrit 40.4 % (37.0-47.0); Hemoglobin 12.8 g/dL (12.2-16.2); Lymphocytes # 0.8 K/mm3 (0.7-4.5); Lymphocytes % 11.5 % (10-50); Mean Corpuscular HGB Conc 31.6 g/dL (31.8-35.4); Mean Corpuscular Volume 92.5 fl (81-99); Mean Platelet Volume 7.3 fl (7.4-10.4); Monocytes # 0.2 K/mm3 (0.1-1.0); Monocytes % 2.2 % (1.7-9.3); Neutrophils % 85.8 % (37.0-80.0); Platelet Count 241 K/mm3 (142-424); Red Blood Count 4.37 M/mm3 (4.20-5.40); Red Cell Distribution Width 13.6 % (11.5-17.5)
[2019-05-13 06:16] LABS: Anion Gap 9.9 mEq/L (5-15); Calcium 8.5 mg/dL (8.5-10.1)
[2019-05-13 08:07] LABS: Lymphocytes % 15 % (10-50); Monocytes % 1 % (2-9); Neutrophils % 84 % (42-76); Total Cells Counted 100
[2019-05-13 08:08] LABS: RBC Morphology Normal
--- NOTE | 2019-05-13 08:36 | Progress Note ---
Internal Medicine - PN: Subj *Date: 05/13/19 *Time: 08:34 Interval history: Patient sitting up in bed states feels better today. Patient states she is up in room. Patient states she still using her trilogy at home Exam Vital signs and Labs for Last 24 Hours: Temp Pulse Resp BP Pulse Ox 98.2 F 76 18 143/79 H 93 L 05/13/19 08:00 05/13/19 08:00 05/13/19 08:00 05/13/19 08:00 05/13/19 08:00 Laboratory Results - last 24 hr 05/12/19 16:10: WBC 9.2, RBC 4.76, Hgb 13.9, Hct 44.0, MCV 92.3, MCH 29.2, MCHC 31.6 L, RDW 13.7, Plt Count 231, MPV 7.6, Neut % (Auto) 80.1 H, Lymph % (Auto) 12.1, [place] % (Auto) 4.2, Eos % (Auto) 2.9, Baso % (Auto) 0.7, Neut # (Auto) 7.4, Lymph # (Auto) 1.1, [place] # (Auto) 0.4, Eos # (Auto) 0.3, Baso # (Auto) 0.1 05/12/19 16:10: Sodium 142, Potassium 3.3 L, Chloride 104, Carbon Dioxide 31, Anion Gap 10.3, BUN 15, Creatinine 0.73, Estimated Creat Clear 112, Estimated GFR 85, Est GFR ( Amer) 103, Glucose 100, Calcium 8.8, Troponin I < 0.02 05/12/19 16:10: Lactate 0.8 05/12/19 16:24: Specimen Source Left radial, O2 % Room air, ABG pH 7.38, ABG pCO2 43.5, ABG pO2 69.5 L, ABG HCO3 24.9, ABG Total CO2 26.3, ABG O2 Saturation 94, ABG Base Excess -0.3, Cong Test Acceptable 05/12/19 23:45: Troponin I < 0.02 05/13/19 02:47: Troponin I < 0.02 05/13/19 05:38: WBC 7.0, RBC 4.37, Hgb 12.8, Hct 40.4, MCV 92.5, MCH 29.2, MCHC 31.6 L, RDW 13.6, Plt Count 241, MPV 7.3 L, Neut % (Auto) 85.8 H, Lymph % (Auto) 11.5, [place] % (Auto) 2.2, Eos % (Auto) 0.2, Baso % (Auto) 0.3, Neut # (Auto) 6.0, Lymph # (Auto) 0.8, [place] # (Auto) 0.2, Eos # (Auto) 0.0, Baso # (Auto) 0.0 05/13/19 05:38: Sodium 140, Potassium 4.9 D, Chloride 106, Carbon Dioxide 29, Anion Gap 9.9, BUN 13, Creatinine 0.78, Estimated Creat Clear 102, Estimated GFR 79, Est GFR ( Amer) 96, Glucose 189 H D, Calcium 8.5, Magnesium 1.9 I & O for Last 24 hours: Intake & Output 05/10/19 05/11/19 05/12/19 05/13/19 12:59 11:59 11:59 11:59 Intake Total 822 / 822 Balance 822 / 822 Weight 160 lb 1 oz - Constitutional no acute distress - *Routine HEENT Exam Head: Present: normocephalic Eye: Present: PERRL ENT: Present: mucous membranes moist - *Routine Neck Exam Present: supple, full ROM. Absent: lymphadenopathy - *Routine Respiratory Exam Present: wheezes - *Routine Cardiovascular Exam Present: RRR - *Routine Abdominal Exam Present: soft, normoactive bowel sounds. Absent: tenderness - *Routine Extremities Exam Present: full ROM - *Routine Skin Exam Present: warm. Absent: rash - *Routine Neurological Exam Present: alert, oriented X3 - Routine Psychiatric Exam Present: normal affect Assessment and Plan (1) COPD (chronic obstructive pulmonary disease) with acute bronchitis Current visit: Yes Status: Acute Category: Medical Code(s): J44.0 - Chronic obstructive pulmonary disease with (acute) lower respiratory infection; J20.9 - Acute bronchitis, unspecified (2) Overweight (BMI 25.0-29.9) Current visit: Yes Status: Acute Category: Medical Code(s): E66.3 - Overweight - Assessment and plan all Dx Assessment and Plan for all problems:: Rounded with Dr. Vicente all orders per Cinthia
--- NOTE | 2019-05-13 17:00 | Electrocardiograph Report ---
APPROVED REPORT Exam: Resting ECG HR:82 bpm ECG Measurements Heart Rate 82 AXES [place] 152 P 70 QRSd 88 QRS 59 QT 364 T63 QTc 425 <Conclusion> Normal sinus rhythm Normal ECG Electronically signed by : Vinh Garzon, 05/13/2019 16:59:39
[2019-05-14 06:18] LABS: Basophils % 0.1 % (0.1-2.0); Eosinophils % 0.2 % (0.1-12.0); Hematocrit 37.8 % (37.0-47.0); Hemoglobin 12.2 g/dL (12.2-16.2); Lymphocytes % 6.9 % (10-50); Mean Corpuscular HGB Conc 32.2 g/dL (31.8-35.4); Mean Corpuscular Volume 90.8 fl (81-99); Mean Platelet Volume 7.6 fl (7.4-10.4); Monocytes # 0.4 K/mm3 (0.1-1.0); Monocytes % 2.5 % (1.7-9.3); Neutrophils # 12.4 K/mm3 (1.8-7.8); Neutrophils % 90.2 % (37.0-80.0); Platelet Count 252 K/mm3 (142-424); Red Blood Count 4.16 M/mm3 (4.20-5.40); Red Cell Distribution Width 13.6 % (11.5-17.5); White Blood Count 13.7 K/mm3 (4.8-10.8)
[2019-05-14 06:31] LABS: Anion Gap 10.8 mEq/L (5-15); Calcium 8.5 mg/dL (8.5-10.1)
[2019-05-14 08:21] LABS: Lymphocytes % 7 % (10-50); Monocytes % 1 % (2-9); Neutrophils % 92 % (42-76); RBC Morphology Normal; Total Cells Counted 100
--- NOTE | 2019-05-14 08:40 | Discharge Summary ---
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 - she has been compliant with meds and resp treatment - she was seen in the ed and was admitted pt has hx of pul emboli and had rt sided pleuritic pain at this time Hospital Course Hospital Course: pt has been improving slowly over the last 2 days with ivf and abx with steroids and breathing treatments-pt has home o2 which she uses prn Objective Vital signs: Temp Pulse Resp BP Pulse Ox 99.0 F 78 18 141/89 H 96 05/14/19 07:20 05/14/19 05:50 05/14/19 07:20 05/14/19 07:20 05/14/19 07:20 no acute distress - *Routine HEENT Exam Head: Present: normocephalic Eye: Present: EOMI, PERRL ENT: Present: mucous membranes dry - *Routine Neck Exam Present: supple - *Routine Respiratory Exam Present: wheezes - *Routine Cardiovascular Exam Present: RRR, murmur - *Routine Abdominal Exam Present: soft - *Routine Extremities Exam Absent: Jase's sign - *Routine Skin Exam Present: intact - *Routine Neurological Exam Present: alert, oriented X3, CN II-XII intact - Routine Psychiatric Exam Present: normal affect Results Labs on day of discharge: Labs from last 24 hours 05/14/19 05/14/19 05/13/19 05:55 05:55 05:38 WBC 13.7 H D RBC 4.16 L Hgb 12.2 Hct 37.8 MCV 90.8 MCH 29.2 MCHC 32.2 RDW 13.6 Plt Count 252 MPV 7.6 Neut % (Auto) 90.2 H Lymph % (Auto) 6.9 L Pitt % (Auto) 2.5 Eos % (Auto) 0.2 Baso % (Auto) 0.1 Neut # (Auto) 12.4 H Lymph # (Auto) 1.0 Pitt # (Auto) 0.4 Eos # (Auto) 0.0 Baso # (Auto) 0.0 Total Counted 100 100 Neutrophils % (Manual) 92 H 84 H Lymphocytes % (Manual) 7 L 15 Monocytes % (Manual) 1 L 1 L Platelet Estimate Normal Normal RBC Morphology Normal Normal Sodium 142 Potassium 3.8 D Chloride 107 Carbon Dioxide 28 Anion Gap 10.8 BUN 12 Creatinine 0.74 Estimated Creat Clear 108 Estimated GFR 84 Est GFR ( Amer) 102 Glucose 142 H Calcium 8.5 DS: Diagnosis - Discharge Diagnosis (1) COPD (chronic obstructive pulmonary disease) with acute bronchitis Status: Acute (2) Overweight (BMI 25.0-29.9) Status: Acute (3) Tobacco abuse disorder Status: Acute (4) Opiate dependence Status: Acute (5) Pulmonary emboli Status: Chronic Discharge Plan - Patient Discharge Instructions ACTIVITY: Continue current activity DIET: continue same diet Patient Instructions: Chronic Obstructive Pulmonary Disease, DI for Chronic Obstructive Pulmonary Disease, DI for Pneumonia -- Adult, DI for Respiratory Failure, Respiratory Failure - Follow up Plan Disposition: Home, Self-Fdc Medications: Home Medications Medication Instructions Recorded Confirmed Type buprenorphine 8 mg-naloxone 2 mg 2 tab SUBLINGUAL DAILY tab 10/11/17 05/12/19 History sublingual tablet propranolol XL 80 mg 80 mg PO DAILY #90 cap 01/31/19 05/12/19 Rx capsule,extended release 24 hr sertraline 100 mg tablet 100 mg PO DAILY #90 tab 02/26/19 05/12/19 Rx albuterol sulfate HFA 90 2 puff INHALATION Q4-6H PRN #18 g 03/28/19 05/12/19 Rx mcg/actuation aerosol inhaler Apixaban [Eliquis] 5 mg PO BID 05/12/19 05/13/19 History Famotidine [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 Machine Operator] 20 mg PO DAILY 05/12/19 05/12/19 History Fluticasone/Vilanterol [Breo 1 puff INHALATION DAILY 05/12/19 05/13/19 History Ellipta 200-25 Mcg INH] Ipratropium/Albuterol Sulfate 3 ml IH Q4H 05/12/19 05/13/19 History [Iprat-Albut 0.5-3(2.5) mg/3 ml] Ondansetron HCl [Zofran 4mg Tab*] 4 mg PO DAILYP PRN 05/12/19 05/13/19 History Umeclidinium [place] [Incruse 1 puff IH DAILY 05/12/19 05/13/19 History Ellipta] Varenicline Tartrate [Chantix 1mg 1 mg PO BID 05/12/19 05/13/19 History tablet] buPROPion HCl [Wellbutrin 75mg 75 mg PO BID 05/12/19 05/13/19 History Tablet] hydrOXYzine pamoate [Vistaril] 25 mg PO QIDP PRN 05/12/19 05/13/19 History Azithromycin [Zithromax 250mg 250 mg PO DIRECTED #6 tab 05/14/19 Rx tab] predniSONE [Prednisone 20mg 20 mg PO BID #10 tab 05/14/19 Rx Tab] Prescriptions/Medication Reconciliation: New predniSONE [Prednisone 20mg Tab] 20 mg PO BID #10 tab Azithromycin [Zithromax 250mg tab] 250 mg PO DIRECTED #6 tab Continued sertraline 100 mg tablet 100 mg PO DAILY #90 tab albuterol sulfate HFA 90 mcg/actuation aerosol inhaler 2 puff INHALATION Q4- 6H PRN #18 g PRN Reason: shortness of breath buprenorphine 8 mg-naloxone 2 mg sublingual tablet 2 tab SUBLINGUAL DAILY tab propranolol XL 80 mg capsule,extended release 24 hr 80 mg PO DAILY #90 cap Ipratropium/Albuterol Sulfate [Iprat-Albut 0.5-3(2.5) mg/3 ml] 3 ml IH Q4H hydrOXYzine pamoate [Vistaril] 25 mg PO QIDP PRN PRN Reason: Anxiety Fluticasone/Vilanterol [Breo Ellipta 200-25 Mcg INH] 1 puff INHALATION DAILY Famotidine [Acid Icicle Machine Operator] 20 mg PO DAILY buPROPion HCl [Wellbutrin 75mg Tablet] 75 mg PO BID Apixaban [Eliquis] 5 mg PO BID Umeclidinium [place]eland [Incruse Ellipta] 1 puff IH DAILY Varenicline Tartrate [Chantix 1mg tablet] 1 mg PO BID Ondansetron HCl [Zofran 4mg Tab*] 4 mg PO DAILYP PRN PRN Reason: Nausea - Problem Reconciliation Problems Reviewed?: Yes
== END 2019-05-14 11:24 | disposition home or self-care (01) ==
LOC: ER 15:57 → 2ND 18:56 → INTOOBSV 20:59
PROVIDERS: ADMIT Internal Medicine Adolescent Medicine; ATTEND Emergency Medicine
CPT/HCPCS: 36415; 71275; 80048; 82803; 83605; 83735; 84484; 85007; 85025; 87040; 93005; 94640; 94761; 96365; 96367; 96375; 99285; G0378; J0456; J0571; Q9967

== ENCOUNTER 2019-11-16 14:50 | Emergency (ER) | payer OTHER, SELFPAY ==
[2019-11-16 14:55] VITALS: BP 122/84; PULSE 86; RESP 22; TEMP 36.5; O2SAT 84; BMI 29.7
--- NOTE | 2019-11-16 15:13 | XR_ITS ---
PROCEDURE: XR CHEST PORTABLE CLINICAL HISTORY: SOA, cough heavy former smoker COMPARISON: CXR2V XR chest 2V from 11/14/2018 XR CHEST PORTABLE from 02/18/2019 XR CHEST 2V from 03/05/2019 CT ANGIO CHEST from 05/12/2019 FINDINGS: The cardiomediastinal silhouette and pulmonary vascularity are within normal limits. The lungs are clear without infiltrates, suspicious nodules, or pleural effusions. No acute bony abnormalities. IMPRESSION: No acute findings. Dictated by: Dr. Murali Warner MD 11/16/2019 15:[address] Murali Warner MD in [place] 11/16/2019 15:43
[2019-11-16 15:24] VITALS: O2SAT 94
--- NOTE | 2019-11-16 15:28 | PC.NURSE ---
rad at bs for portable xray
--- NOTE | 2019-11-16 15:50 | PC.NURSE ---
Called and spoke with Letitia in the lab about delay on results for blood work. she stated that the blood was sitting in the tube shoot and she just now seen it and will be running it.
--- NOTE | 2019-11-16 15:58 | PC.NURSE ---
Letitia from lab called stated lactic acid and purple top specimens are okay but all other blood tubes are too hemolyzed to run. Lab is coming to recollect specimens.
[2019-11-16 15:59] VITALS: BP 131/94; PULSE 73; RESP 20; O2SAT 96
[2019-11-16 16:00] LABS: Basophils # 0.2 K/mm3 (0-0.2); Basophils % 3.7 % (0.1-2.0); Eosinophils # 0.7 K/mm3 (0.0-0.4); Hematocrit 40.7 % (37.0-47.0); Lymphocytes # 1.6 K/mm3 (0.7-4.5); Lymphocytes % 24.6 % (10-50); Mean Corpuscular Volume 84.3 fl (81-99); Mean Platelet Volume 7.9 fl (7.4-10.4); Monocytes # 0.4 K/mm3 (0.1-1.0); Monocytes % 5.7 % (1.7-9.3); Neutrophils # 3.6 K/mm3 (1.8-7.8); Neutrophils % 55.1 % (37.0-80.0); Platelet Count 289 K/mm3 (142-424); Red Blood Count 4.82 M/mm3 (4.20-5.40); Red Cell Distribution Width 13.9 % (11.5-17.5); White Blood Count 6.6 K/mm3 (4.8-10.8)
[2019-11-16 16:08] LABS: Lactic Acid 1.9 mmol/L (0.7-2.1)
--- NOTE | 2019-11-16 16:09 | PC.NURSE ---
ER at -told lab staff they didn't need to recollect the blood on pt. ER MD gave verbal orders for Solu Medrol 125 mg IV once and Azithromycin 500 mg PO once.
--- NOTE | 2019-11-16 16:13 | HMH.EDSOB ---
ED Disposition Clinical Impression: Tobacco abuse disorder, COPD (chronic obstructive pulmonary disease) with acute bronchitis Disposition: Home, Self-Care Condition on Discharge: Good Prescriptions: Azithromycin 250 mg PO DAILY 5 Days #6 tab Transmission Status: Pending to [facility] methylPREDNISolone [Medrol 4mg tab] 4 mg PO DIRECTED #21 tab Transmission Status: Pending to [facility] Referrals: Laura Arreola PA [Primary Care Provider] - - Critical Care Critical Care Time: No Attestation: On 11/16/19, the high probability of a clinically significant, sudden or life threatening deterioration of the following system(s) required my full and direct attention, intervention and personal management. The time I documented below is in addition to time spent performing reported procedures but includes the following listed in this critical care notation. Medical Decision Making - Medical Records Medical records reviewed: Yes: I reviewed the patient's medical records. - Eliecer Inquiry Pt receiving controlled substance: No Vital Signs: 11/16/19 14:55 11/16/19 15:24 11/16/19 15:59 Temperature 97.7 F Temperature Source Oral Pulse Rate [Right Radial] 86 73 Respiratory Rate 22 20 Blood Pressure [Right Arm] 122/84 131/94 H Blood Pressure Mean [Right Arm] 96 106 Blood Pressure Source [Right Arm] Automatic Cuff Automatic Cuff Blood Pressure Position [Right Arm] Sitting Sitting 02 Sat by Pulse Oximetry 84 L 94 L 96 Oxygen Delivery Method Room Air Nasal Cannula Nasal Cannula Oxygen Flow Rate (LPM) 2 2 - Lab Data Lab results reviewed: Yes: I reviewed the patient's lab results. Lab Results 11/16/19 15:20: WBC 6.6, RBC 4.82, Hgb 13.0, Hct 40.7, MCV 84.3, MCH 27.0, MCHC 32.0, RDW 13.9, Plt Count 289, MPV 7.9, Neut % (Auto) 55.1, Lymph % (Auto) 24.6, Lyon % (Auto) 5.7, Eos % (Auto) 11.0, Baso % (Auto) 3.7 H, Neut # (Auto) 3.6, Lymph # (Auto) 1.6, Lyon # (Auto) 0.4, Eos # (Auto) 0.7 H, Baso # (Auto) 0.2 11/16/19 15:20: Lactate 1.9 Result diagrams: 11/16/19 15:20 Orders (Tests/Meds): ORDERS Category Date Time Status BNP [Brain Natriuretic Peptide] Stat Lab 11/16/19 15:20 Ordered Comprehensive Metabolic Panel Stat Lab 11/16/19 15:20 Ordered Blood Culture Stat Micro 11/16/19 15:25 Received Resp/SOB HPI - General Chief Complaint: Shortness of Breath/Dyspnea Stated Complaint: mucus, feet swollen, COPD Time Seen by Provider: 11/16/19 16:13 Mode of Arrival: Wheelchair Source of Information: Patient Limitations: No Limitations Description of Symptoms (Recalled from ER Triage Doc. by RN): Pt c/o SOA, wet cough, and pineda feet swelling x3 days. Pt reports hx of COPD. Pt is home O2 dependent. Pt presented on Room air with SaO2 of 84%, pt placed on NC at 2lpm-SaO2 94%. Pt denies fever - History of Present Illness 48-year-old female presents the ED with increased cough and shortness of breath. Patient is on home oxygen and here in the ED with altitude she is satting 88%. She states that she gets these COPD exacerbations about twice a year. Patient denies any chest pain. Patient denies any fever. Patient also denies any headache or sore throat. Patient denies any malaise or general fatigue. MD Complaint: shortness of breath Onset (ago): day(s) Context: occurred during exertion Severity: mild Consistency/Duration: constant Relieving factors: nothing Exacerbating factors: nothing Known history of: COPD - Related Data Home Medications Medication Instructions Recorded Confirmed buprenorphine 8 mg-naloxone 2 mg 2 tab SUBLINGUAL DAILY tab 10/11/17 09/02/19 sublingual tablet Umeclidinium [place] [Incruse 1 puff IH DAILY 05/12/19 09/02/19 Ellipta] buPROPion HCL [Wellbutrin 75mg 75 mg PO BID 05/12/19 09/02/19 Tablet] Previous Rx's Medication Instructions Recorded ipratropium 0.5 mg-albuterol 3 mg 3 ml INHALATION Q4H #90
[2019-11-16 16:25] VITALS: BP 114/91; PULSE 77; RESP 20; O2SAT 94
--- NOTE | 2019-11-16 16:50 | PC.NURSE ---
pt waiting on her ride.
[2019-11-16 17:24] VITALS: BP 114/91; PULSE 77; RESP 20; TEMP 36.5; O2SAT 94
== END 2019-11-16 17:25 | disposition home or self-care (01) ==
PROVIDERS: Emergency Provider Family Medicine; PCP Physician Assistant
DX: J44.0 Chronic obstructive pulmonary disease with (acute) lower respiratory infection (principal); F41.8 Other specified anxiety disorders; I10 Essential (primary) hypertension; K21.9 Gastro-esophageal reflux disease without esophagitis; Z99.81 Dependence on supplemental oxygen; Z90.49 Acquired absence of other specified parts of digestive tract; Z90.79 Acquired absence of other genital organ(s)
CPT/HCPCS: 71045; 83605; 85025; 87040; 96374; 99284

== ENCOUNTER → 2020-09-10 17:25 | Outpatient (CLI) | payer OTHER, SELFPAY | PROVIDERS: Visit Provider Nurse Practitioner Family | DX: R30.9 Painful micturition, unspecified (principal); R82.90 Unspecified abnormal findings in urine | CPT/HCPCS: 87086; 87088; 87186 ==

== ENCOUNTER → 2021-02-07 13:09 | Outpatient (CLI) | payer OTHER, SELFPAY ==
[2021-02-07 14:23] LABS: Basophils # 0.1 K/mm3 (0-0.2); Basophils % 0.9 % (0.1-2.0); Eosinophils # 0.3 K/mm3 (0.0-0.4); Eosinophils % 3.1 % (0.1-12.0); Hematocrit 39.9 % (37.0-47.0); Hemoglobin 12.8 g/dL (12.2-16.2); Lymphocytes # 4.3 K/mm3 (0.7-4.5); Lymphocytes % 41.2 % (10-50); Mean Corpuscular HGB Conc 32.1 g/dL (31.8-35.4); Mean Corpuscular Hemoglobin 24.4 pg (27.0-31.2); Mean Corpuscular Volume 75.9 fl (81-99); Mean Platelet Volume 7.2 fl (7.4-10.4); Monocytes # 0.6 K/mm3 (0.1-1.0); Monocytes % 5.2 % (1.7-9.3); Neutrophils # 5.2 K/mm3 (1.8-7.8); Neutrophils % 49.6 % (37.0-80.0); Platelet Count 235 K/mm3 (142-424); Red Blood Count 5.26 M/mm3 (4.20-5.40); Red Cell Distribution Width 14.1 % (11.5-17.5); White Blood Count 10.5 K/mm3 (4.8-10.8)
[2021-02-07 14:53] LABS: Alanine Aminotransferase 16 U/L (12-78); Albumin Level 4.1 g/dl (3.5-5.0); Albumin/Globulin Ratio 1.7 (1.1-1.8); Alkaline Phosphatase 93 U/L (38-126); Anion Gap 11.6 mEq/L (5-15); Aspartate Amino Transferase 28 U/L (14-36); Bilirubin,Total 0.6 mg/dl (0.2-1.3); Blood Urea Nitrogen 18 mg/dl (7-17); Calcium 8.5 mg/dl (8.4-10.2); Carbon Dioxide 38 mmol/L (22.0-30.0); Chloride 92 mmol/L (98-107); Chol/HDL Ratio 3.6 (1-3.5); Cholesterol 235 mg/dl (140-200); Estimated Glomerular Filt Rate 59 ml/min (>60); GFR (African American) 71 ML/MIN (>60); Globulin 2.4 g/dL (1.3-3.2); Glucose 97 mg/dl (74-100); HDL Cholesterol 66 mg/dl (40-60); Sodium 139 mmol/L (136-145); Total Protein,Serum 6.5 g/dl (6.3-8.2); Triglycerides 123 mg/dl (30-150); VLDL Cholesterol 25 mg/dL (0-40)
[2021-02-07 15:04] LABS: Direct LDL Cholesterol 134.23 mg/dL (100-129)
[2021-02-07 15:09] LABS: Potassium 2.6 mmoL/L (3.5-5.1)
[2021-02-07 15:10] LABS: T4 (Thyroxine) 9.7 ug/dl (5.53-11.0)
[2021-02-07 15:11] LABS: 25-OH Vitamin D, Total 16.4 ng/mL (30-100)
[2021-02-07 15:24] LABS: Thyroid Stimulating Hormone 2.13 uIU/mL (0.465-4.68)
[2021-02-07 15:42] LABS: Vitamin B12 411 pg/mL (239-931)
== END ==
PROVIDERS: Visit Provider Physician Assistant
DX: R60.9 Edema, unspecified (principal); R06.2 Wheezing; R12 Heartburn; E55.9 Vitamin D deficiency, unspecified
CPT/HCPCS: 36415; 80053; 80061; 82306; 82607; 84436; 84443; 85025; 87086

== ENCOUNTER → 2021-02-15 12:45 | Outpatient (CLI) | payer OTHER, SELFPAY ==
--- NOTE | 2021-02-15 12:47 | CA_ITS ---
APPROVED REPORT EXAM: Comprehensive 2D, Doppler, and color-flow Echocardiogram Computer Security Specialist: Chayito Luis CRT Ht: 5 ft 3 in Wt: 169lbs BSA: 1.80 BP: 128/84 mmHg Indications: COPD, Shortness of Breath, Peripheral Edema, Hyperlipidemia, Hypertension/HDD 2D Dimensions LVOT 1.84 cm (M/F) 1.5-2.5 LA Volume 10.30 mL LA Volume Index 5.70 mL/m2 (M/F) 16-34 M-Mode Dimensions RVDd 3.18 cm (0.9-2.6) LA Diam 2.69 cm (1.9-4.0) LVDd 3.87 cm (3.5-5.7) Ao Diam 3.85 cm (2.0-3.7) LVDs 2.68 cm (3.5-5.7) IVSd 0.98 cm (0.6-1.1) PWd 0.65 cm (0.6-1.1) EF (Teich) 59.00% FS 30.70% EDV (Teich) 64.70 mL ESV (Teich) 26.50 mL LV Diastology E Decel Time 220.00 (160-240 msec) E/A Ratio 0.86 MED E' 5.30 (< 7 cm/sec) MED A' 6.80 cm/s E'/MED E' Ratio 8.47 (>14) LAT E' 7.30 (<10 cm/sec) LAT A' 6.80 cm/s E/LAT E' Ratio 6.15 (>14) Aortic Valve AO Peak GR. 3.40 mmHg Mitral Valve MV E Max Jose Daniel. 45.00 (40-130 cm/s) MV A Velocity 52.00 (40-130 cm/s) E/A Ratio 0.86 MV Decel. Time 220.00 (160-240 ms) MV PHT 64.00 ms Tricuspid Valve TR P. Velocity 230.00 cm/s RAP Estimate 10.00 mmHg RVSP 31.10 mmHg Left Ventricle Left atrium is mildly enlarged, left ventricle is normal size, mild concentric left ventricular hypertrophy, visually estimated ejection fraction 55% with no regional wall motion abnormality, diastolic parameters are inconclusive. Right Ventricle Right atrium and right ventricle mildly enlarged with normal contractility. Aortic Valve Aortic valve is minimally thickened and fibrosed, there is no aortic stenosis or aortic insufficiency. Mitral Valve Mitral valve grossly normal, there is trace mitral regurgitation Tricuspid Valve Tricuspid valve grossly normal, there is trace tricuspid regurgitation, tricuspid regurgitation jet velocity is inadequate for calculation of the right ventricular systolic pressure Pulmonic Valve Pulmonic valve is poorly visualized. Great Vessels Aortic root is normal size. Pericardium No significant pericardial effusion noted. Conclusion 1. Mild biatrial normal, normal left ventricular size, mild concentric left ventricular hypertrophy, visually estimated ejection fraction 55% with no regional wall motion abnormality. Diastolic parameters are inconclusive. 2. Mildly enlarged right ventricle with normal contractility. 3. Trace mitral and tricuspid regurgitation. 4. No significant pericardial effusion noted. Electronically signed by : Clifford Leon MD 02/15/2021 19:22:58
--- NOTE | 2021-02-15 14:13 | XR_ITS ---
PROCEDURE: XR CHEST 2V CLINICAL HISTORY: wheezing COMPARISON: CR XR CHEST PORTABLE from 02/18/2019 CR XR CHEST 2V from 03/05/[address] ANGIO CHEST from 05/12/2019 CR XR CHEST PORTABLE from 11/16/2019 FINDINGS: Normal heart size. Mild prominence of the pulmonary outflow tract not significantly changed. No evidence of CHF. The lungs are clear without infiltrates, suspicious nodules, or pleural effusions. No acute bony abnormalities. IMPRESSION: No change with no acute finding Dictated by: Cong Tang MD 02/15/2021 14:26 Cong Tang MD in [place] 02/15/2021 14:26
[2021-03-08 09:34] LABS: H. pylori Breath Test NEGATIVE
== END ==
PROVIDERS: PCP Physician Assistant; Visit Provider Physician Assistant
DX: R60.9 Edema, unspecified (principal); R06.2 Wheezing; R12 Heartburn
CPT/HCPCS: 71046; 83013; 93306

== ENCOUNTER → 2021-02-16 09:49 | Outpatient (CLI) | payer OTHER, SELFPAY ==
--- NOTE | 2021-02-16 09:51 | CA_ITS ---
APPROVED REPORT Bilateral Lower Extremity Venous Study for DVT. Heavy Truck Technician: MARC Indications Lower Extremity Edema: Bilateral legs swelling. Vein Imaging CFV (R): compressive, spontaneous, phasic, augmentation SFJ (R): compressive, spontaneous, phasic, augmentation FEM (R): compressive, spontaneous, phasic, augmentation POP (R): compressive, spontaneous, phasic, augmentation DFV (R): compressive, spontaneous, phasic, augmentation PTV (R): compressive, spontaneous, phasic, augmentation GSV (R): Compressible Peroneals (R):Compressible GAS (R): Compressible CFV (L): compressive, spontaneous, phasic, augmentation SFJ (L): compressive, spontaneous, phasic, augmentation FEM (L): compressive, spontaneous, phasic, augmentation POP (L): compressive, spontaneous, phasic, augmentation DFV (L): compressive, spontaneous, phasic, augmentation PTV (L): Compressible GSV (L): Compressible Peroneals (L):Compressible Findings No evidence of DVT or superficial thrombophlebitis in the veins scanned of the right lower extremity. No evidence of DVT or superficial thrombophlebitis in the veins scanned of the left lower extremity. Conclusion No evidence of DVT or superficial thrombophlebitis in the veins scanned of the right lower extremity. No evidence of DVT or superficial thrombophlebitis in the veins scanned of the left lower extremity. Electronically signed by : Cong Tang MD 02/16/2021 16:08:49
[2021-02-16 11:29] LABS: Chloride 94 mmol/L (98-107); Potassium 3.3 mmoL/L (3.5-5.1); Sodium 138 mmol/L (136-145)
[2021-02-16 11:32] LABS: Blood Urea Nitrogen 15 mg/dl (7-17); Estimated Glomerular Filt Rate 53 ml/min (>60); GFR (African American) 64 ML/MIN (>60)
[2021-02-16 11:33] LABS: Anion Gap 13.3 mEq/L (5-15); Calcium 9.2 mg/dl (8.4-10.2); Carbon Dioxide 34 mmol/L (22.0-30.0); Glucose 107 mg/dl (74-100)
== END ==
PROVIDERS: PCP Physician Assistant; Visit Provider Physician Assistant
DX: R06.00 Dyspnea, unspecified (principal); I26.99 Other pulmonary embolism without acute cor pulmonale; I50.20 Unspecified systolic (congestive) heart failure; I50.9 Heart failure, unspecified; Z86.711 Personal history of pulmonary embolism; Z86.718 Personal history of other venous thrombosis and embolism
CPT/HCPCS: 36415; 80048; 93970

== ENCOUNTER → 2021-03-02 09:46 | Outpatient (CLI) | payer OTHER, SELFPAY ==
--- NOTE | 2021-03-02 09:46 | NM_ITS ---
PROCEDURE: NM PUL VENT AND PERFUSE CLINICAL INDICATION: swelling/dyspnea r/o CTEPH COMPARISON: No exams were available for comparison FINDINGS: Dose: 35.8 mCi technetium DTPA inhaled 8.65 mCi technetium MAA IV There are multiple matched small subsegmental defects. No segmental or subsegmental mismatched defects are apparent. A matched segmental defect is present in the lingula IMPRESSION: Multiple small subsegmental matched defects. There is also a segmental match defect involving the lingula.. These findings are intermediate probability for pulmonary embolus. The central graphic findings are not consistent with CTEPH as 1 would expect to see mismatching defects in a patient with pulmonary hypertension. Dictated by: Cong Tang MD 03/04/2021 12:18 Cong Tang MD in [place] 03/04/2021 12:18
--- NOTE | 2021-03-02 10:04 | HMH.ITSHM ---
Current Home Medications as stated by this patient Karen Kimble or credit and collections representative. []SPIRONOLACTONE SERTRALINE PROPRANOLOL POTASSIUM ONDANSETRON OMEPRAZOLE IPRATROPIUM HYDROXYZINE FUROSEMIDE FLUTICASONE VITAMIN D3 BUPRENORPHINE BUPROPION APIXABAN ALBUTEROL
== END ==
PROVIDERS: PCP Physician Assistant; Visit Provider Physician Assistant
DX: R06.00 Dyspnea, unspecified (principal); I26.99 Other pulmonary embolism without acute cor pulmonale; I50.20 Unspecified systolic (congestive) heart failure; I50.9 Heart failure, unspecified; Z86.711 Personal history of pulmonary embolism; Z86.718 Personal history of other venous thrombosis and embolism
CPT/HCPCS: 78582; A9540; A9567

== ENCOUNTER → 2021-03-08 09:00 | Outpatient (CLI) | payer OTHER, SELFPAY ==
[2021-03-08 11:32] LABS: Chloride 96 mmol/L (98-107); Potassium 3.3 mmoL/L (3.5-5.1); Sodium 140 mmol/L (136-145)
[2021-03-08 11:35] LABS: Anion Gap 15.3 mEq/L (5-15); Blood Urea Nitrogen 27 mg/dl (7-17); Carbon Dioxide 32 mmol/L (22.0-30.0); Estimated Glomerular Filt Rate 53 ml/min (>60); GFR (African American) 64 ML/MIN (>60)
[2021-03-08 11:36] LABS: Calcium 9.1 mg/dl (8.4-10.2); Glucose 116 mg/dl (74-100)
== END ==
PROVIDERS: Visit Provider Nurse Practitioner Family
DX: I50.9 Heart failure, unspecified (principal); J44.9 Chronic obstructive pulmonary disease, unspecified; K21.9 Gastro-esophageal reflux disease without esophagitis; Z72.0 Tobacco use; Z86.718 Personal history of other venous thrombosis and embolism
CPT/HCPCS: 36415; 80048

== ENCOUNTER 2021-03-29 08:41 | Day surgery (SDC) | payer OTHER, SELFPAY ==
[2021-03-29] VITALS (9 sets, daily range): BP systolic 118–176; BP diastolic 57–119; PULSE 58–70; RESP 18; O2SAT 92–99; BMI 28.0
--- NOTE | 2021-03-29 07:27 | IR_ITS ---
APPROVED REPORT Patient Location: Outpatient Buttonholer: NEGRA Tavares RT (R) PROCEDURES Right internal jugular vein access Right heart catheterization INDICATION Pulmonary hypertension Informed consent was obtained prior to the procedure. COMPLICATIONS None Estimated Blood Loss: Less than 10 mls TECHNIQUE One percent lidocaine was used to anesthetize the right anterior aspect of the neck. A putty remover needle was used to identify the right internal jugular vein. Following this a larger cannulation needle was used to cannulate the right internal jugular vein and a wire was passed into the vein. Prior to the 7 Luxembourger sheath being inserted the wire was confirmed under fluoroscopic guidance to be in the inferior vena cava. A 7 Luxembourger sheath was introduced and a Sheridan-Sarah catheter was floated using hemodynamic waveforms in the pulmonary artery, right ventricle , and right atrium. Saturations were obtained in the pulmonary artery and the right atrium. At the end of the procedure the patient was transferred to the postop holding area in stable condition for sheath removal. ANGIOGRAPHIC RESULTS Right atrial pressure 15 mmHg Right ventricular pressure 37/18 mmHg Pulmonary artery pressure 37/24 mmHg Pulmonary occlusion pressure 20 mmHg Right atrial saturation 74% Pulmonary saturation 73% IMPRESSION Biventricular diastolic dysfunction as described above Mild pulmonary pretension PLAN 1. Treatment of diastolic dysfunction 2. Increase Lasix to 40 mg twice daily plus increase spironolactone to 50 mg twice daily 3. Fluid and salt restriction Electronically signed by : Rambo Alfred MD 03/29/2021 11:34:54
[2021-03-29 09:13] LABS: Coronavirus 19, PCR Not Detected (NotDetected); Influenza A, PCR Not Detected (NotDetected); Influenza B, PCR Not Detected (NotDetected)
[2021-03-29 09:19] LABS: Basophils # 0.1 K/mm3 (0-0.2); Basophils % 0.5 % (0.1-2.0); Eosinophils # 0.1 K/mm3 (0.0-0.4); Eosinophils % 0.5 % (0.1-12.0); Hematocrit 40.6 % (37.0-47.0); Hemoglobin 13.1 g/dL (12.2-16.2); Lymphocytes # 3.5 K/mm3 (0.7-4.5); Lymphocytes % 35.7 % (10-50); Mean Corpuscular HGB Conc 32.2 g/dL (31.8-35.4); Mean Corpuscular Hemoglobin 26.1 pg (27.0-31.2); Mean Platelet Volume 7.7 fl (7.4-10.4); Monocytes # 0.8 K/mm3 (0.1-1.0); Monocytes % 8.2 % (1.7-9.3); Neutrophils # 5.4 K/mm3 (1.8-7.8); Neutrophils % 55.2 % (37.0-80.0); Platelet Count 325 K/mm3 (142-424); Red Blood Count 5.01 M/mm3 (4.20-5.40); Red Cell Distribution Width 15.2 % (11.5-17.5); White Blood Count 9.8 K/mm3 (4.8-10.8)
[2021-03-29 09:21] LABS: Chloride 98 mmol/L (98-107); Sodium 141 mmol/L (136-145)
[2021-03-29 09:24] LABS: Blood Urea Nitrogen 29 mg/dl (7-17); Creatinine Clearance Estimated 64 mL/min (50-200); Estimated Glomerular Filt Rate 48 ml/min (>60); GFR (African American) 58 ML/MIN (>60); Potassium 2.9 mmoL/L (3.5-5.1)
[2021-03-29 09:25] LABS: Anion Gap 13.9 mEq/L (5-15); Calcium 8.8 mg/dl (8.4-10.2); Carbon Dioxide 32 mmol/L (22.0-30.0); Glucose 83 mg/dl (74-100)
[2021-03-29 14:55] LABS: CATHL Arterial O2 SAT 74 % (90-100); CATHL Venous O2 SAT 74 % (75-80)
== END 2021-03-29 11:11 | disposition home or self-care (01) ==
LOC: CATHLAB 08:43
PROVIDERS: PCP Physician Assistant; Visit Provider Internal Medicine
DX: I27.20 Pulmonary hypertension, unspecified (principal); I50.82 Biventricular heart failure; I50.22 Chronic systolic (congestive) heart failure; Z86.711 Personal history of pulmonary embolism; Z86.718 Personal history of other venous thrombosis and embolism; F17.210 Nicotine dependence, cigarettes, uncomplicated; Z20.822 Contact with and (suspected) exposure to COVID-19; I11.0 Hypertensive heart disease with heart failure
CPT/HCPCS: 80048; 82810; 85025; 93451; 99152; C1894; C9803; J1644; U0003; U0005

== ENCOUNTER → 2021-04-06 14:19 | Outpatient (CLI) | payer OTHER, SELFPAY ==
[2021-04-06 15:22] LABS: Chloride 92 mmol/L (98-107); Potassium 4.8 mmoL/L (3.5-5.1); Sodium 138 mmol/L (136-145)
[2021-04-06 15:25] LABS: Anion Gap 14.8 mEq/L (5-15); Blood Urea Nitrogen 21 mg/dl (7-17); Carbon Dioxide 36 mmol/L (22.0-30.0); Estimated Glomerular Filt Rate 67 ml/min (>60); GFR (African American) 81 ML/MIN (>60)
[2021-04-06 15:26] LABS: Calcium 9.2 mg/dl (8.4-10.2); Glucose 157 mg/dl (74-100); Magnesium 1.9 mg/dl (1.6-2.3)
== END ==
PROVIDERS: Visit Provider Physician Assistant
DX: R06.00 Dyspnea, unspecified (principal); I26.99 Other pulmonary embolism without acute cor pulmonale; I50.20 Unspecified systolic (congestive) heart failure; I50.9 Heart failure, unspecified; Q24.5 Malformation of coronary vessels; R60.0 Localized edema; Z86.718 Personal history of other venous thrombosis and embolism; E87.6 Hypokalemia
CPT/HCPCS: 36415; 80048; 83735

== ENCOUNTER → 2021-04-12 10:10 | Outpatient (CLI) | payer OTHER, SELFPAY ==
[2021-04-12 11:45] VITALS: PULSE 89; PULSE 90
== END ==
PROVIDERS: PCP Physician Assistant; Visit Provider Internal Medicine Pulmonary Disease
DX: R06.09 Other forms of dyspnea (principal)
CPT/HCPCS: 94060; 94618; 94640; 94727; 94729

== ENCOUNTER → 2021-04-21 10:05 | Outpatient (CLI) | payer OTHER, SELFPAY ==
--- NOTE | 2021-04-21 10:06 | CT_ITS ---
PROCEDURE: CT HIGH RESOLUTION CHEST CLINICAL HISTORY: I27.20 - Pulmonary hypertension, unspecified COMPARISON: CT CT ANGIO CHEST from 05/12/2019 TECHNIQUE: Axial images obtained with sagittal and coronal reformats. All CT scans at the facility use one or more dose reduction, viz: automated exposure control, ma/kV adjustment per patient size (including targeted exams where dose is matched to indication, i.e. head), or iterative reconstruction technique. FINDINGS: Airways are patent and clear. There is severe paraseptal and central lobular emphysema. There is a right upper lobe granuloma. There is right lower lobe subsegmental atelectasis. There is left lower lobe subsegmental atelectasis. There is atherosclerosis. There is coronary atherosclerosis. There are calcified mediastinal lymph nodes consistent with chronic granulomatous disease. Cholecystectomy. No liver lesions. IMPRESSION: 1. Severe emphysema. 2. Atherosclerosis, including of the coronary arteries. Dictated by: Anne Ann MD 05/04/2021 14:36 Anne Ann MD in [place] 05/04/2021 14:36
== END ==
PROVIDERS: PCP Physician Assistant; Visit Provider Nurse Practitioner Family
DX: I27.20 Pulmonary hypertension, unspecified (principal); I50.20 Unspecified systolic (congestive) heart failure; I50.9 Heart failure, unspecified; I51.89 Other ill-defined heart diseases; Z72.0 Tobacco use; Z86.711 Personal history of pulmonary embolism; Z86.718 Personal history of other venous thrombosis and embolism
CPT/HCPCS: 71250

== ENCOUNTER → 2021-08-03 15:15 | Outpatient (CLI) | payer OTHER, SELFPAY ==
[2021-08-03 16:42] LABS: Chloride 88 mmol/L (98-107); Potassium 3.2 mmoL/L (3.5-5.1); Sodium 136 mmol/L (136-145)
[2021-08-03 16:45] LABS: Blood Urea Nitrogen 18 mg/dl (7-17); Estimated Glomerular Filt Rate 48 ml/min (>60); GFR (African American) 58 ML/MIN (>60); Glucose 115 mg/dl (74-100)
[2021-08-03 16:48] LABS: Basophils # 0.1 K/mm3 (0-0.2); Eosinophils % 0.8 % (0.1-12.0); Hematocrit 43.1 % (37.0-47.0); Hemoglobin 13.9 g/dL (12.2-16.2); Lymphocytes # 1.2 K/mm3 (0.7-4.5); Lymphocytes % 22.1 % (10-50); Mean Corpuscular HGB Conc 32.2 g/dL (31.8-35.4); Mean Corpuscular Hemoglobin 26.8 pg (27.0-31.2); Mean Corpuscular Volume 83.3 fl (81-99); Mean Platelet Volume 7.4 fl (7.4-10.4); Monocytes # 0.2 K/mm3 (0.1-1.0); Monocytes % 2.7 % (1.7-9.3); Neutrophils # 3.9 K/mm3 (1.8-7.8); Neutrophils % 73.3 % (37.0-80.0); Platelet Count 227 K/mm3 (142-424); Red Blood Count 5.18 M/mm3 (4.20-5.40); White Blood Count 5.4 K/mm3 (4.8-10.8)
[2021-08-03 17:00] LABS: Anion Gap 10.2 mEq/L (5-15); Carbon Dioxide 41 mmol/L (22.0-30.0)
[2021-08-08 14:15] LABS: Alpha-1-Antitrypsin 155 mg/dL (101-187)
[2021-08-09 11:12] LABS: D001-IgE D pteronyssinus <0.10 kU/L (Class 0); D002-IgE D farinae <0.10 kU/L (Class 0); E001-IgE Cat Dander <0.10 kU/L (Class 0); E005-IgE Dog Dander <0.10 kU/L (Class 0); E072-IgE Mouse Urine <0.10 kU/L (Class 0); G002-IgE Bermuda Grass <0.10 kU/L (Class 0); G006-IgE Timothy Grass <0.10 kU/L (Class 0); I006-IgE Cockroach, German <0.10 kU/L (Class 0); Immunoglobulin E, Total 3 IU/mL (6-495); M001-IgE Penicillium chrysogen <0.10 kU/L (Class 0); M002-IgE Cladosporium herbarum <0.10 kU/L (Class 0); M003-IgE Aspergillus fumigatus <0.10 kU/L (Class 0); M006-IgE Alternaria alternata <0.10 kU/L (Class 0); T001-IgE Maple/Box Elder <0.10 kU/L (Class 0); T003-IgE Common Silver Birch <0.10 kU/L (Class 0); T006-IgE Cedar, Mountain <0.10 kU/L (Class 0); T007-IgE Oak, White <0.10 kU/L (Class 0); T008-IgE Elm, American <0.10 kU/L (Class 0); T010-IgE Walnut <0.10 kU/L (Class 0); T011-IgE Maple Leaf Sycamore <0.10 kU/L (Class 0); T014-IgE Cottonwood <0.10 kU/L (Class 0); T015-IgE Ash, White <0.10 kU/L (Class 0); T022-IgE Pecan, Hickory <0.10 kU/L (Class 0); T070-IgE White Mulberry <0.10 kU/L (Class 0); W001-IgE Ragweed, Short <0.10 kU/L (Class 0); W011-IgE Thistle, Russian <0.10 kU/L (Class 0); W014-IgE Pigweed, Common <0.10 kU/L (Class 0); W018-IgE Sheep Sorrel <0.10 kU/L (Class 0)
== END ==
PROVIDERS: Internal Medicine Pulmonary Disease; Visit Provider Urology
DX: I50.9 Heart failure, unspecified (principal); J44.9 Chronic obstructive pulmonary disease, unspecified; J45.909 Unspecified asthma, uncomplicated
CPT/HCPCS: 36415; 80048; 82103; 82104; 82785; 85025; 86003

== ENCOUNTER → 2021-10-05 10:27 | Outpatient (CLI) | payer OTHER, SELFPAY ==
[2021-10-05 11:36] LABS: Chloride 98 mmol/L (98-107); Potassium 3.3 mmoL/L (3.5-5.1); Sodium 136 mmol/L (136-145)
[2021-10-05 11:39] LABS: Anion Gap 6.3 mEq/L (5-15); Blood Urea Nitrogen 22 mg/dl (7-17); Calcium 8.5 mg/dl (8.4-10.2); Carbon Dioxide 35 mmol/L (22.0-30.0); Estimated Glomerular Filt Rate 53 ml/min (>60); GFR (African American) 64 ML/MIN (>60); Glucose 100 mg/dl (74-100); Magnesium 1.8 mg/dl (1.6-2.3)
== END ==
PROVIDERS: Visit Provider Physician Assistant
DX: R06.02 Shortness of breath (principal); I27.20 Pulmonary hypertension, unspecified; I50.20 Unspecified systolic (congestive) heart failure; I50.32 Chronic diastolic (congestive) heart failure; I51.89 Other ill-defined heart diseases; Z72.0 Tobacco use; Z86.711 Personal history of pulmonary embolism; Z86.718 Personal history of other venous thrombosis and embolism
CPT/HCPCS: 36415; 80048; 83735

== ENCOUNTER 2021-12-07 12:10 | Emergency (ER) | payer OTHER, SELFPAY ==
[2021-12-07 13:29] VITALS: BP 140/74; PULSE 71; RESP 18; TEMP 36.9; O2SAT 92; BMI 27.3
--- NOTE | 2021-12-07 13:38 | HMH.EDUTC ---
[facility] Disposition Clinical Impression: Encounter for laboratory testing for COVID-19 virus Disposition: Home, Self-Care Condition on Discharge: Good Instructions: DI for COVID-19 (Suspected or Confirmed ), Preventing the Spread of Coronavirus Discharge Instructions Additional Instructions: You was tested for COVID today your Test result should be available on the [facility] My Health Portal in the next 24-48 hours Return if needed Straight to ER if any life threatening symptoms Referrals: Darron Vicente MD [Primary Care Provider] - As needed Time of Disposition: 13:42 Medical Decision Making - Eliecer Inquiry Pt receiving controlled substance: No Eliecer was queried for this patient: No Vital Signs: 12/07/21 13:29 Temperature 98.5 F Temperature Source Oral Pulse Rate [Left Radial] 71 Respiratory Rate 18 Blood Pressure [Right Arm] 140/74 Blood Pressure Mean [Right Arm] 96 Blood Pressure Source [Right Arm] Automatic Cuff Blood Pressure Position [Right Arm] Sitting 02 Sat by Pulse Oximetry 92 L Oxygen Delivery Method Room Air Orders (Tests/Meds): ORDERS Category Date Time Status Covid-19 Nasal PCR ([facility]) Routine Lab 12/07/21 13:29 Received [facility] HPI - General Stated complaint: covid test Time Seen by Provider: 12/07/21 13:38 Mode of Arrival: Ambulatory Source of Information: Patient Limitations: No Limitations Description of Symptoms (Recalled from Triage Doc. by RN): covid test HEENT Symptoms (Recalled from RN notes): No Resp Symptoms (Recalled from RN notes): No Skin Symptoms (Recalled from RN notes): No MS Symptoms (Recalled from RN notes): No Functional Status (Recalled from RN notes): na - History of Present Illness Provider Complaint: Patient states that her room mate tested positive for COVID States that she was suppose to go to the Suboxone clinic but they wouldnt see her until she had a negative COVID test States that she is not having any symptoms - Related Data Home Medications Medication Instructions Recorded Confirmed buprenorphine 8 mg-naloxone 2 mg 2 tab SUBLINGUAL DAILY tab 10/11/17 11/15/21 sublingual tablet buspirone 5 mg tablet 5 mg PO BID 03/11/21 11/15/21 Cholecalciferol (Vitamin D3) 1,250 mcg PO WEEKLY 03/29/21 11/15/21 [Dialyvite Vitamin D3 Max] Omeprazole 20 mg PO DAILY 03/29/21 11/15/21 Previous Rx's Medication Instructions Recorded ondansetron HCl 8 mg tablet See Rx Instructions .ROUTE 04/01/21 .COMPLEX #30 tablet mupirocin calcium 2 % topical cream 1 applic TOPICAL BID #15 g 06/15/21 apixaban 5 mg tablet See Rx Instructions .ROUTE 08/03/21 .COMPLEX #60 tablet propranolol 80 mg capsule,24 See Rx Instructions .ROUTE 08/03/21 hr,extended release .COMPLEX #30 cap sertraline 100 mg tablet See Rx Instructions .ROUTE 08/03/21 .COMPLEX #30 tab albuterol sulfate 90 mcg/actuation See Rx Instructions .ROUTE 08/31/21 aerosol inhaler .COMPLEX #18 g potassium chloride 20 mEq 20 meq PO DAILY #30 tab 08/31/21 tablet,extended release fluticasone propionate 50 1 spray INTRANASAL QDAY #9.9 ml 10/05/21 mcg/actuation nasal spray,suspension nystatin 100,000 unit/mL oral 500,000 unit PO TID 14 Days #210 ml 10/05/21 suspension fluticasone fur. 100 mcg-umeclid See Rx Instructions .ROUTE 10/06/21 62.5 mcg-vilant 25 mcg .COMPLEX #60 each inhalat.powder spironolactone 100 mg tablet 100 mg PO BID #60 tab 11/04/21 furosemide 40 mg tablet See Rx Instructions .ROUTE 11/14/21 .COMPLEX #60 tablet ipratropium 0.5 mg-albuterol 3 mg See Rx Instructions .ROUTE 11/14/21 (2.5 mg base)/3 mL nebulization .COMPLEX #540 ml soln clonazepam 0.5 mg tablet 0.5 mg PO TID #90 tab 11/15/21 prednisone 10 mg tablet See Rx Instructions .ROUTE 11/15/21 .COMPLEX #38 tab Allergies Allergy/AdvReac Type Severity Reaction Status Date / Time hydromorphone Allergy Severe S-DIFF. Verified 11/15/21 09:11 BREATHING; HIVES propoxyphene Allergy Severe S-SWELLS-OR Verified
[2021-12-07 13:48] VITALS: BP 140/74; PULSE 71; RESP 18; TEMP 36.9; O2SAT 92
== END 2021-12-07 13:49 | disposition home or self-care (01) ==
PROVIDERS: Emergency Provider Nurse Practitioner; PCP Emergency Medicine
DX: U07.1 COVID-19 (principal); I10 Essential (primary) hypertension; K21.9 Gastro-esophageal reflux disease without esophagitis; F41.8 Other specified anxiety disorders; J44.9 Chronic obstructive pulmonary disease, unspecified; Z87.891 Personal history of nicotine dependence; Z88.5 Allergy status to narcotic agent
CPT/HCPCS: 99212; C9803; G0463; U0003; U0005

== ENCOUNTER → 2022-01-16 09:55 | Outpatient (CLI) | payer OTHER, SELFPAY | PROVIDERS: PCP Emergency Medicine; Visit Provider Emergency Medicine | DX: Z20.822 Contact with and (suspected) exposure to COVID-19 (principal) | CPT/HCPCS: C9803; U0003; U0005 ==

== ENCOUNTER → 2022-02-01 14:55 | Outpatient (CLI) | payer OTHER, SELFPAY | PROVIDERS: PCP Emergency Medicine; Visit Provider Nurse Practitioner | DX: R06.02 Shortness of breath (principal) ==

== ENCOUNTER → 2022-02-03 09:34 | Outpatient (CLI) | payer OTHER, SELFPAY ==
[2022-02-03 10:25] LABS: Basophils # 0.1 K/mm3 (0-0.2); Basophils % 1.1 % (0.1-2.0); Eosinophils # 0.2 K/mm3 (0.0-0.4); Eosinophils % 2.6 % (0.1-12.0); Hematocrit 38.9 % (37.0-47.0); Hemoglobin 12.4 g/dL (12.2-16.2); Lymphocytes # 2.2 K/mm3 (0.7-4.5); Mean Corpuscular HGB Conc 31.9 g/dL (31.8-35.4); Mean Corpuscular Hemoglobin 28.1 pg (27.0-31.2); Mean Corpuscular Volume 88.2 fl (81-99); Mean Platelet Volume 7.4 fl (7.4-10.4); Monocytes # 0.5 K/mm3 (0.1-1.0); Monocytes % 5.2 % (1.7-9.3); Neutrophils # 5.9 K/mm3 (1.8-7.8); Neutrophils % 66.1 % (37.0-80.0); Platelet Count 217 K/mm3 (142-424); Red Blood Count 4.41 M/mm3 (4.20-5.40); Red Cell Distribution Width 14.9 % (11.5-17.5); White Blood Count 8.9 K/mm3 (4.8-10.8)
[2022-02-03 11:02] LABS: Alanine Aminotransferase 17 U/L (12-78); Albumin Level 3.9 g/dl (3.5-5.0); Albumin/Globulin Ratio 1.6 (1.1-1.8); Alkaline Phosphatase 141 U/L (38-126); Aspartate Amino Transferase 22 U/L (14-36); Blood Urea Nitrogen 30 mg/dl (7-17); Calcium 8.8 mg/dl (8.4-10.2); Carbon Dioxide 30 mmol/L (22.0-30.0); Chloride 102 mmol/L (98-107); Chol/HDL Ratio 2.2 (1-3.5); Cholesterol 236 mg/dl (140-200); Estimated Glomerular Filt Rate 53 ml/min (>60); GFR (African American) 64 ML/MIN (>60); Globulin 2.4 g/dL (1.3-3.2); Glucose 93 mg/dl (74-100); HDL Cholesterol 106 mg/dl (40-60); Sodium 138 mmol/L (136-145); Total Protein,Serum 6.3 g/dl (6.3-8.2); Triglycerides 62 mg/dl (30-150); VLDL Cholesterol 12 mg/dL (0-40)
[2022-02-03 11:04] LABS: Bilirubin,Total < 0.1 mg/dl (0.2-1.3)
[2022-02-03 11:13] LABS: Direct LDL Cholesterol 97.04 mg/dL (100-129)
[2022-02-03 11:17] LABS: Free T4 (Free Thyroxine) 1.29 ng/dl (0.78-2.19)
[2022-02-03 11:19] LABS: 25-OH Vitamin D, Total 83.5 ng/mL (30-100)
== END ==
PROVIDERS: PCP Emergency Medicine; Visit Provider Nurse Practitioner
DX: E03.9 Hypothyroidism, unspecified (principal); R53.83 Other fatigue; K59.00 Constipation, unspecified
CPT/HCPCS: 36415; 80053; 80061; 82306; 84439; 84443; 85025

== ENCOUNTER 2022-03-28 17:10 | Emergency (ER) | payer OTHER, SELFPAY ==
[2022-03-28 17:11] VITALS: BP 136/89; PULSE 74; RESP 20; TEMP 36.4; O2SAT 94; BMI 28.0
--- NOTE | 2022-03-28 17:24 | EXP.UTC ---
Discharge Plan Disposition Patient Disposition: Home, Self-Care Condition: Good Prescriptions Prescriptions: New benzonatate [benzonatate] 100 mg capsule 100 mg PO TIDP PRN (Reason: Cough) Qty: 30 0RF methylprednisolone 4 mg Tablets,Dose Pack 4 mg PO DIRECTED Qty: 21 0RF cefdinir 250 mg/5 mL suspension for reconstitution 300 mg PO BID 10 Days Qty: 120 0RF No Action buprenorphine-naloxone 8-2 mg tablet, sublingual 2 tab SUBLINGUAL DAILY hydroxyzine pamoate 50 mg capsule 50 mg PO prednisone 20 mg tablet 20 mg PO DAILY Qty: 42 0RF Rx Instructions: QID X 4 days, TID X 4 days, BID X 4 days, QD X 4 days, 1/2 X 4 days doxycycline hyclate 100 mg tablet 100 mg PO BID Qty: 20 0RF Mucinex 1,200 mg tablet extended release 12hr 1,200 mg PO BID Qty: 20 0RF sertraline 100 mg tablet See Rx Instructions .ROUTE .COMPLEX Qty: 30 3RF Dose Instruction: TAKE ONE TABLET BY MOUTH ONCE A DAY FOR DEPRESSION Rx Instructions: TAKE ONE TABLET BY MOUTH ONCE A DAY FOR DEPRESSION Eliquis 5 mg tablet See Rx Instructions .ROUTE .COMPLEX Qty: 60 3RF Dose Instruction: TAKE ONE TABLET BY MOUTH 2 TIMES A DAY FOR BLOOD THINNER Rx Instructions: TAKE ONE TABLET BY MOUTH 2 TIMES A DAY FOR BLOOD THINNER potassium chloride 20 mEq tablet extended release 20 meq PO DAILY Qty: 30 5RF albuterol sulfate 90 mcg/actuation HFA aerosol inhaler See Rx Instructions .ROUTE .COMPLEX Qty: 18 0RF Dose Instruction: INHALE 2 PUFFS EVERY 4 TO 6 HOURS NEEDED FOR SHORTNESS OF BREATH OR WHEEZING Rx Instructions: INHALE 2 PUFFS EVERY 4 TO 6 HOURS NEEDED FOR SHORTNESS OF BREATH OR WHEEZING spironolactone 100 mg tablet 100 mg PO BID Qty: 60 3RF ipratropium-albuterol 0.5 mg-3 mg(2.5 mg base)/3 mL solution for nebulization See Rx Instructions .ROUTE .COMPLEX Qty: 540 3RF Dose Instruction: INHALE CONTENTS OF 1 VIAL VIA NEBULIZER EVERY 4 HOURS FOR COPD Rx Instructions: INHALE CONTENTS OF 1 VIAL VIA NEBULIZER EVERY 4 HOURS FOR COPD ondansetron HCl 8 mg tablet See Rx Instructions .ROUTE .COMPLEX Qty: 30 0RF Dose Instruction: TAKE ONE TABLET BY MOUTH EVERY 8 HOURS GENERIC FOR ZOFRAN Rx Instructions: TAKE ONE TABLET BY MOUTH EVERY 8 HOURS GENERIC FOR ZOFRAN promethazine 12.5 mg tablet 12.5 mg PO TID PRN (Reason: nausea and vomiting) Qty: 14 2RF cholecalciferol (vitamin D3) 1,250 mcg (50,000 unit) capsule See Rx Instructions .ROUTE .COMPLEX Qty: 4 3RF Dose Instruction: TAKE ONE CAPSULE BY MOUTH WEEK Rx Instructions: TAKE ONE CAPSULE BY MOUTH WEEK Trelegy Ellipta 100-62.5-25 mcg blister with device See Rx Instructions .ROUTE .COMPLEX Qty: 60 2RF Dose Instruction: INHALE 1 PUFF BY MOUTH ONCE A DAY Rx Instructions: INHALE 1 PUFF BY MOUTH ONCE A DAY omeprazole 20 mg capsule,delayed release(DR/EC) See Rx Instructions .ROUTE .COMPLEX Qty: 90 0RF Dose Instruction: TAKE ONE CAPSULE BY MOUTH ONCE A DAY Rx Instructions: TAKE ONE CAPSULE BY MOUTH ONCE A DAY propranolol 80 mg capsule,extended release 24 hr See Rx Instructions .ROUTE .COMPLEX Qty: 90 0RF Dose Instruction: TAKE ONE CAPSULE BY MOUTH ONCE A DAY FOR HYPERTENSION Rx Instructions: TAKE ONE CAPSULE BY MOUTH ONCE A DAY FOR HYPERTENSION furosemide 40 mg tablet See Rx Instructions .ROUTE .COMPLEX Qty: 60 0RF Dose Instruction: TAKE ONE TABLET BY MOUTH 2 TIMES A DAY GENERIC FOR LASIX Rx Instructions: TAKE ONE TABLET BY MOUTH 2 TIMES A DAY GENERIC FOR LASIX clonazepam [Klonopin] 0.5 mg tablet 0.5 mg PO TID Qty: 90 0RF Referrals Follow up/Referrals: Darron Vicente MD [Primary Care Provider] - See instructions Activity Restrictions/Add. Instructions Additional Instructions/Restrictions: Drink plenty of fluids. Take tylenol or ibuprofen for pain or fever. Take the
--- NOTE | 2022-03-28 17:28 | XR_ITS ---
PROCEDURE INFORMATION: Exam: XR Chest Exam date and time: 03/28/2022 5:36 PM Age: 51 years old Clinical indication: Shortness of breath; Additional info: SOB TECHNIQUE: Imaging protocol: Radiologic exam of the chest. Views: 2 views. COMPARISON: CT HIGH RESOLUTION CHEST 04/21/2021 10:09 AM FINDINGS: Lungs: Pulmonary hyperexpansion and mild diaphragmatic flattening suggesting COPD. Pulmonary vasculature grossly normal. Mild bandlike densities in the lingula and right middle lobe consistent with atelectasis or fibrosis, similar to chest CT 04/21/2021. No definite superimposed acute infiltrates gross edema pattern. Granulomatous calcifications in the right perihilar region. Pleural spaces: No pleural effusion. No pneumothorax. Heart/Mediastinum: Heart size normal. No tracheal/mediastinal shift. Bones/joints: No acute osseous abnormalities are identified. Intraperitoneal space: Right upper quadrant surgical clips suggest prior cholecystectomy. IMPRESSION: 1. No acute thoracic process. 2. COPD. 3. Chronic bandlike alveolar densities in the lingula and right middle lobe favoring chronic scarring and atelectasis.
[2022-03-28 18:31] VITALS: BP 136/89; PULSE 74; RESP 20; TEMP 36.4; O2SAT 95
== END 2022-03-28 18:33 | disposition home or self-care (01) ==
PROVIDERS: Emergency Provider Nurse Practitioner Family; PCP Emergency Medicine
DX: J44.1 Chronic obstructive pulmonary disease with (acute) exacerbation (principal)
CPT/HCPCS: 71046; 96372; 99213; C9803; G0463; J0696; U0003; U0005

== ENCOUNTER 2023-02-11 18:20 | Observation (INO) | payer OTHER, SELFPAY ==
[2023-02-11] VITALS (9 sets, daily range): BP systolic 102–121; BP diastolic 56–94; PULSE 70–88; RESP 18–21; TEMP 36.6–36.8; O2SAT 84–96; BMI 28.3; BMI 26.5; BMI 28.0
--- NOTE | 2023-02-11 18:45 | EXP.UTC ---
Discharge Plan Disposition Patient Disposition: Still a Patient Discharge ED Provider: Hermann Tracy [facility] HPI General Chief complaint: Shortness of Breath/Dyspnea Stated complaint: SOA Time Seen by Provider: 02/11/23 18:45 History of Present Illness Provider Complaint: Patient states that for the last couple of days she has been keeping watch on her pulse ox States that she has been having shortness of breath that has continued to get worse States that this evening she was feeling very short of breath and she took a neb just prior to arrival but hasnt helped much and her legs are swollen Related Data Home Medications Medication Instructions Recorded Confirmed buprenorphine 8 mg-naloxone 2 mg 2 tab 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 spacer) furosemide 40 mg tablet 40 mg PO BID #180 tabs 09/15/22 omeprazole 20 mg capsule,delayed See Rx Instructions .Route 09/19/22 release .COMPLEX #30 caps apixaban 5 mg tablet (Eliquis) See Rx Instructions .Route 10/13/22 .COMPLEX #60 tabs ipratropium 0.5 mg-albuterol 3 mg See Rx Instructions .Route 11/21/22 (2.5 mg base)/3 mL nebulization .COMPLEX #540 mL soln propranolol 80 mg capsule,24 See Rx Instructions .Route 11/21/22 hr,extended release .COMPLEX #30 caps sertraline 100 mg tablet See Rx Instructions .Route 11/21/22 .COMPLEX #30 tabs spironolactone 100 mg tablet 100 mg PO BID #60 tabs 11/21/22 clonazepam 0.5 mg tablet (Klonopin) 0.5 mg PO QID #120 tabs 01/05/23 cholecalciferol (vitamin D3) 1,250 See Rx Instructions .Route 01/17/23 mcg (50,000 unit) capsule .COMPLEX #4 caps fluticasone fur. 100 mcg-umeclid See Rx Instructions .Route 01/22/23 62.5 mcg-vilant 25 mcg .COMPLEX #60 ea inhalat.powder (Trelegy Ellipta) hydroxyzine pamoate 50 mg capsule See Rx Instructions .Route 01/22/23 .COMPLEX #120 caps Allergies Allergy/AdvReac Type Severity Reaction Status Date / Time hydromorphone Allergy Severe S-DIFF. Verified 01/05/23 10:22 BREATHING; HIVES propoxyphene Allergy Severe S-SWELLS-OR Verified 01/05/23 10:22 [From Darvocet-N] AL/THROAT gabapentin [From Neurontin] Allergy Intermediate I-HIVES Verified 01/05/23 10:22 codeine Allergy Verified 01/05/23 10:[facility] Disclaimer[facility] The information contained in this section may have been updated after the patient was seen, as this information can be updated by other users. Medical History Anxiety CHF (congestive heart failure) COPD (chronic obstructive pulmonary disease) Gastroesophageal reflux disease Wheezing Social History Smoking Status: Former smoker pack-years: 20 second hand exposure: No alcohol intake: never substance use type: former substance user current occupational status: unemployed Travel in the last 8 weeks: None household members: none housing: house current occupational exposures/hazards: No caffeine: Yes ROS Obtained: Yes All systems reviewed & no additional complaints except as documented and Yes Systems reviewed as appropriate & no additional complaints except as documented Constitutional Constitutional: Reports system reviewed and no additional complaints, except as documented and Reports as per HPI ENT Ears, Nose, Mouth, and Throat: Reports system reviewed and no additional complaints, except as documented and Reports as per HPI Cardiovascular Cardiovascular: Reports system reviewed and no additional complaints, except as documented and Reports as per HPI Respiratory Respiratory: Reports system reviewed and
--- NOTE | 2023-02-11 18:50 | PC.NURSE ---
pt arrived to ed from [facility] via [facility]
--- NOTE | 2023-02-11 18:50 | PC.NURSE ---
report given by senia Lindsey needs further evaluation of low oxygen sat of 84-88 on RA and leg swelling.
--- NOTE | 2023-02-11 18:54 | ECG_ITS ---
APPROVED REPORT Exam: Resting ECG HR:73 bpm ECG Measurements Heart Rate 73 AXES NC 176 P 83 QRSd 102 QRS 78 QT 429 T 80 QTc 454 Conclusion SINUS RHYTHM INCOMPLETE RIGHT BUNDLE BRANCH BLOCK [90+ ms QRS DURATION, TERMINAL R IN V1/V2, 40+ ms S IN I/aVL/V4/V5/V6] MINIMAL ST DEPRESSION [0.025+ mV ST DEPRESSION] BORDERLINE ECG UNCONFIRMED REPORT Electronically signed by : Jaydon Parson MD 02/13/2023 20:53:43
--- NOTE | 2023-02-11 18:58 | PC.NURSE ---
pt states she uses 2 L of NC at home, states her legs have been swollen like this for a long time and stay that way. She takes 2 fluid pills.
--- NOTE | 2023-02-11 19:05 | XR_ITS ---
PROCEDURE INFORMATION: Exam: XR Chest Exam date and time: 02/11/2023 7:11 PM Age: 52 years old Clinical indication: Cough and shortness of breath; Patient HX: Cough, shortness of breath. HX of copd per patient. ; Additional info: SOA TECHNIQUE: Imaging protocol: Radiologic exam of the chest. Views: 1 view. COMPARISON: CR XR CHEST 2V 03/28/2022 5:36 PM FINDINGS: Lungs: Hyperexpanded lungs which may indicate underlying emphysematous changes. Right middle lobe opacities. Similar linear bibasilar densities likely representing atelectasis and/or scarring. Pleural spaces: Unremarkable. No pleural effusion. No pneumothorax. Heart/Mediastinum: Unremarkable. No cardiomegaly. Bones/joints: Unremarkable. IMPRESSION: 1. Right middle lobe opacities which may represent pneumonia or atelectasis in the acute setting. 2. Similar emphysematous changes and bibasilar atelectasis and/or scarring.
--- NOTE | 2023-02-11 19:13 | HMH.EDGENADL ---
Discharge Plan Disposition Patient Disposition: Admitted as Observation Clinical Impressions Clinical Impression: SHALINI (acute kidney injury), COPD (chronic obstructive pulmonary disease) Discharge ED Provider: Hermann Tracy A General Adult HPI General Chief complaint: Shortness of Breath/Dyspnea Stated complaint: SOA Time Seen by Provider: 02/11/23 18:45 Mode of Arrival: Ambulatory Source of Information: Patient Limitations: No Limitations Description of Symptoms (Recalled from ER Triage Doc. by RN): pt to ed c/o SOA. pt reports she has baseline edema, and has been taking her lasix as prescribed. pt reports 2.5L NC @ baseline. History of Present Illness HPI narrative: Is a 52-year-old female with history of COPD currently on 2.5 L nasal cannula at home, CAD, CHF, PE currently on Eliquis presenting with shortness of breath. Patient states she has been progressively short of breath for past 2 or 3 days. No fevers or chills, nausea or vomiting, cough, chest pain, neurologic deficits, or any other concerns. Mostly on exertion. Denies PND orthopnea. Has had associated lower extremity swelling, but no worse than usual. Has been compliant with meds Related Data Home Medications Medication Instructions Recorded Confirmed buprenorphine 8 mg-naloxone 2 mg 2 tab sublingual DAILY Drug 10/11/17 02/11/23 sublingual tablet addiction albuterol sulfate 90 mcg/actuation See Rx Instructions .Route 02/11/23 02/11/23 aerosol inhaler .COMPLEX Copd apixaban 5 mg tablet (Eliquis) See Rx Instructions .Route 02/11/23 02/11/23 .COMPLEX Blood Thinner cholecalciferol (vitamin D3) 1,250 See Rx Instructions .Route 02/11/23 02/11/23 mcg (50,000 unit) capsule .COMPLEX Supplement clonazepam 0.5 mg tablet (Klonopin) 0.5 mg PO QID Anxiety 02/11/23 02/11/23 fluticasone fur. 100 mcg-umeclid See Rx Instructions .Route 02/11/23 02/11/23 62.5 mcg-vilant 25 mcg .COMPLEX Copd inhalat.powder (Trelegy Ellipta) furosemide 40 mg tablet 40 mg PO BID Fluid 02/11/23 02/11/23 hydroxyzine pamoate 50 mg capsule See Rx Instructions .Route 02/11/23 02/11/23 .COMPLEX Allergy Symptoms inhalational spacing device 02/11/23 02/11/23 ([facility] spacer) ipratropium 0.5 mg-albuterol 3 mg See Rx Instructions .Route 02/11/23 02/11/23 (2.5 mg base)/3 mL nebulization .COMPLEX Copd soln omeprazole 20 mg capsule,delayed See Rx Instructions .Route 02/11/23 02/11/23 release .COMPLEX Acid Reflux potassium chloride 20 mEq 20 meq PO DAILY Supplement 02/11/23 02/11/23 tablet,extended release propranolol 80 mg capsule,24 See Rx Instructions .Route 02/11/23 02/11/23 hr,extended release .COMPLEX High Blood Pressure sertraline 100 mg tablet See Rx Instructions .Route 02/11/23 02/11/23 .COMPLEX Depression spironolactone 100 mg tablet 100 mg PO BID Fluid 02/11/23 02/11/23 Allergies Allergy/AdvReac Type Severity Reaction Status Date / Time hydromorphone Allergy Severe S-DIFF. Verified 01/05/23 10:22 BREATHING; HIVES propoxyphene Allergy Severe S-SWELLS-OR Verified 01/05/23 10:22 [From Darvocet-N] AL/THROAT gabapentin [From Neurontin] Allergy Intermediate I-HIVES Verified 01/05/23 10:22 codeine Allergy Verified 01/05/23 10:22 PFSH PFS Disclaimer: The information contained in this section may have been updated after the patient was seen, as this information can be updated by other users. Medical History (Updated 02/11/23 @ 21:46 by CRYSTAL Peters) Anxiety CHF (congestive heart failure) COPD (chronic obstructive pulmonary disease) Gastroesophageal reflux disease History of gastroesophageal reflux (GERD) Hyperlipidemia Hypertension Pneumonia Sleep apnea Wheezing Surgical History (Updated 02/11/23 @ 21:41 by Rylee Mcdermott RN) History of hysterectomy Family History (Updated 02/11/23 @ 21:41 by Rylee Mcdermott RN) Other No significant family history Social History (Updated 02/11/23 @ 21:41 by Rylee Ledezma
[2023-02-11 19:18] LABS: Basophils # 0.1 K/mm3 (0-0.2); Basophils % 0.6 % (0.1-2.0); Eosinophils # 0.7 K/mm3 (0.0-0.4); Eosinophils % 10.3 % (0.1-12.0); Hematocrit 37.7 % (37.0-47.0); Hemoglobin 12.1 g/dL (12.2-16.2); Lymphocytes % 28.3 % (10-50); Mean Corpuscular Hemoglobin 26.5 pg (27.0-31.2); Mean Corpuscular Volume 82.7 fl (81-99); Mean Platelet Volume 8.3 fl (7.4-10.4); Monocytes # 0.5 K/mm3 (0.1-1.0); Monocytes % 7.4 % (1.7-9.3); Neutrophils # 3.8 K/mm3 (1.8-7.8); Neutrophils % 53.4 % (37.0-80.0); Platelet Count 218 K/mm3 (142-424); Red Blood Count 4.56 M/mm3 (4.20-5.40); Red Cell Distribution Width 14.8 % (11.5-17.5); White Blood Count 7.2 K/mm3 (4.8-10.8)
[2023-02-11 19:25] LABS: Alanine Aminotransferase 14 U/L (12-78); Albumin Level 3.7 g/dl (3.5-5.0); Albumin/Globulin Ratio 1.3 (1.1-1.8); Alkaline Phosphatase 110 U/L (38-126); Anion Gap 11.7 mEq/L (5-15); Aspartate Amino Transferase 29 U/L (14-36); Bilirubin,Total 0.4 mg/dl (0.2-1.3); Blood Urea Nitrogen 14 mg/dl (7-17); Carbon Dioxide 38 mmol/L (22.0-30.0); Chloride 96 mmol/L (98-107); Creatinine Clearance Estimated 40 mL/min (50-200); Estimated Glomerular Filt Rate 30 ml/min (>60); GFR (African American) 36 ML/MIN (>60); Globulin 2.8 g/dL (1.3-3.2); Glucose 75 mg/dl (74-100); Sodium 143 mmol/L (136-145); Total Protein,Serum 6.5 g/dl (6.3-8.2)
[2023-02-11 19:29] LABS: Potassium 2.7 mmoL/L (3.5-5.1)
--- NOTE | 2023-02-11 19:31 | PC.NURSE ---
lab called to report a Pot of 2.7. notified
[2023-02-11 19:35] LABS: NT Pro Brain Natriuretic Pep. 1230 pg/mL (0-125)
[2023-02-11 19:42] LABS: Troponin I < 0.01 ng/ml (0.00-0.034)
[2023-02-11 20:02] LABS: VBG Base Excess 8.9 mmol/L (-2.4-2.3); VBG HCO3 34.9 mmol/L (23-30); VBG Oxygen Saturation 56.5 % (50-70); VBG PH 7.33 mmol/L (7.31-7.41); VBG PO2 32.2 mmol/L (28-40)
[2023-02-11 20:04] LABS: VBG PCO2 68.2 mmol/L (35-51)
--- NOTE | 2023-02-11 20:12 | PC.NURSE ---
on phone with hospitalist
--- NOTE | 2023-02-11 20:12 | PC.NURSE ---
housekeeping room inspector notified of admission
--- NOTE | 2023-02-11 20:13 | PC.NURSE ---
notified of critical CO2 68.2
--- NOTE | 2023-02-11 20:15 | PC.NURSE ---
OBSERVATION ADMISSION TO ROOM 210 TO SERVICE OF HOSPITALIZATION WITH DX OF SHALINI, COPD WITH EXACERBATION AND HYPOKALEMIA.
--- NOTE | 2023-02-11 20:52 | PC.NURSE ---
Called lab to collect blood cultures
--- NOTE | 2023-02-11 21:19 | PC.NURSE ---
pt arrived to the floor via wheelchair @[id number]
--- NOTE | 2023-02-11 21:31 | EXP.HP ---
History of Present Illness *Admission Date: 02/11/23 *Reason for visit:: CHF, COPD, SHALINI, hypokalemia *History of present illness: 52 year old female presented to the ED for c/o worsening SOB over the weekend. PMHX of COPD, CHF, CAD, DVT & PE on eliquis daily, hypokalemia, and GERD. Pt states her SOA has worsen over the weekend. It is worse with walking. She currently wears 2.5 L at home. She is not requiring an increase in o2 but her ED work up reveals a BNP of 1230, negative troponin, creatinine of 1.80, potassium of 2.7, and chest xray is concerning for right middle lobe pneumonia. The ED physician spoke with the hospitalist team for admission. She received 40 mg of Lasix, Rocephin and azithromycin, and 60 meq of p.o potassium. She is admitted to the medical floor in no acute distress. She has lower extremity swelling which she states is normal for her. She will have her BMP repeated to monitor for her potassium and a cardiology consult and pulmonary consult for COPD and CHF exacerbation. [facility] Disclaimer: The information contained in this section may have been updated after the patient was seen, as this information can be updated by other users. Medical History (Updated 02/12/23 @ 14:17 by Aimee Ibanez MD) Acute and chronic respiratory failure with hypoxia Anxiety CHF (congestive heart failure) COPD (chronic obstructive pulmonary disease) Diastolic dysfunction Gastroesophageal reflux disease History of gastroesophageal reflux (GERD) History of pulmonary embolism Hyperlipidemia Hypertension Myocardial bridge Pneumonia Sleep apnea Swelling of lower extremity Wheezing Surgical History (Updated 02/11/23 @ 21:41 by Rylee Mcdermott RN) History of hysterectomy Family History (Updated 02/11/23 @ 21:41 by Rylee Mcdermott RN) Other No significant family history Social History (Updated 02/11/23 @ 21:41 by Rylee Mcdermott RN) Smoking Status: Former smoker pack-years: 20 second hand exposure: No alcohol intake: never substance use type: former substance user current occupational status: unemployed Travel in the last 8 weeks: None household members: none housing: house current occupational exposures/hazards: No caffeine: Yes Review of Systems Review of Systems Review of systems:: pertinent systems reviewed and negative unless documented below Constitutional Constitutional: Reports as per HPI Eyes Eyes: Reports system reviewed and no additional complaints, except as documented ENT Ears, Nose, Mouth, and Throat: Reports system reviewed and no additional complaints, except as documented *Cardiovascular Cardiovascular: Reports system reviewed and no additional complaints, except as documented, Denies chest pain, Reports dyspnea and Reports dyspnea on exertion *Respiratory Respiratory: Reports dyspnea and Reports dyspnea on exertion *Gastrointestinal Gastrointestinal: Reports system reviewed and no additional complaints, except as documented *Genitourinary Genitourinary: Reports system reviewed and no additional complaints, except as documented *Musculoskeletal Musculoskeletal: Reports system reviewed and no additional complaints, except as documented and Reports joint swelling Integumentary/Breasts Skin/Breast: Reports system reviewed and no additional complaints, except as documented *Neurologic Neurologic: Reports system reviewed and no additional complaints, except as documented Meds Home Medications and Allergies Home Medications Medication Instructions Recorded Confirmed Type buprenorphine 8 mg-naloxone 2 mg 2 tab sublingual DAILY Opioid 10/11/17 02/11/23 History sublingual tablet dependence albuterol sulfate 90 mcg/actuation See Rx Instructions .Route 02/11/23 02/11/23 History aerosol inhaler .COMPLEX PRN Copd apixaban 5 mg tablet (Eliquis) 5 mg PO BID DVT prophylaxis 02/11/23 02/12/23 History cholecalciferol (vitamin D3) 1,250 50,000 unit PO WEEKLY Supplement 02/11/23 02/12/23 His
[2023-02-11 23:19] LABS: Troponin I < 0.01 ng/ml (0.00-0.034)
[2023-02-12] VITALS (13 sets, daily range): BP systolic 90–100; BP diastolic 50–58; PULSE 66–90; RESP 16–18; TEMP 36.5–36.7; O2SAT 78–100; BMI 28.0
[2023-02-12 01:03] LABS: Anion Gap 8.3 mEq/L (5-15); Blood Urea Nitrogen 15 mg/dl (7-17); Calcium 8.3 mg/dl (8.4-10.2); Carbon Dioxide 35 mmol/L (22.0-30.0); Chloride 103 mmol/L (98-107); Creatinine Clearance Estimated 47 mL/min (50-200); Estimated Glomerular Filt Rate 34 ml/min (>60); GFR (African American) 41 ML/MIN (>60); Glucose 125 mg/dl (74-100); Potassium 3.3 mmoL/L (3.5-5.1); Sodium 143 mmol/L (136-145)
[2023-02-12 01:41] LABS: Troponin I < 0.01 ng/ml (0.00-0.034)
--- NOTE | 2023-02-12 05:22 | PC.NURSE ---
NO ACUTE CHANGES SINCE PT ARRIVED TO THE FLOOR. PT HAS SLEPT INTERMITTENTLY. REMAINS ON 2.5L OF OXYGEN. NO C/O SOB. BP IS A LITTLE SOFT THIS AM AT 90/54 MANUALLY. NO C/O PAIN. OTHER VITAL SIGNS ARE STABLE.
[2023-02-12 06:39] LABS: Basophils % 0.3 % (0.1-2.0); Eosinophils % 0.3 % (0.1-12.0); Hematocrit 37.2 % (37.0-47.0); Hemoglobin 11.5 g/dL (12.2-16.2); Lymphocytes # 0.8 K/mm3 (0.7-4.5); Lymphocytes % 20.6 % (10-50); Mean Corpuscular HGB Conc 30.9 g/dL (31.8-35.4); Monocytes # 0.1 K/mm3 (0.1-1.0); Monocytes % 2.2 % (1.7-9.3); Neutrophils # 3.1 K/mm3 (1.8-7.8); Neutrophils % 76.5 % (37.0-80.0); Platelet Count 208 K/mm3 (142-424); Red Blood Count 4.43 M/mm3 (4.20-5.40); Red Cell Distribution Width 14.7 % (11.5-17.5)
[2023-02-12 06:42] LABS: Anion Gap 8.3 mEq/L (5-15); Blood Urea Nitrogen 18 mg/dl (7-17); Calcium 8.6 mg/dl (8.4-10.2); Carbon Dioxide 37 mmol/L (22.0-30.0); Chloride 100 mmol/L (98-107); Creatinine Clearance Estimated 54 mL/min (50-200); Estimated Glomerular Filt Rate 40 ml/min (>60); GFR (African American) 48 ML/MIN (>60); Glucose 132 mg/dl (74-100); Potassium 3.3 mmoL/L (3.5-5.1); Sodium 142 mmol/L (136-145)
[2023-02-12 07:00] LABS: NT Pro Brain Natriuretic Pep. 1120 pg/mL (0-125)
--- NOTE | 2023-02-12 09:00 | HMH.PHAINT1 ---
Pharmacy Intervention Comments: Home medications were verified using the external medication history resource and speaking with patient. -Avery Jamil, PharmD student
--- NOTE | 2023-02-12 09:05 | CA_ITS ---
APPROVED REPORT EXAM: Comprehensive 2D, Doppler, and color-flow Echocardiogram Counter Person: Chayito Luis CRT Ht: 5 ft 2 in Wt: 158lbs BSA: 1.73 BP: 112/94 mmHg Indications: Congestive Heart Failure, COPD, Shortness of Breath, Hyperlipidemia, Pleural Effusion, Hypertension/HDD 2D Dimensions LVOT 1.94 cm (M/F) 1.5-2.5 LA Volume 21.10 mL LA Volume Index 11.90 mL/m2 (M/F) 16-34 M-Mode Dimensions RVDd 3.02 cm (0.9-2.6) LA Diam 3.28 cm (1.9-4.0) LVDd 3.98 cm (3.5-5.7) Ao Diam 3.93 cm (2.0-3.7) LVDs 2.40 cm (3.5-5.7) IVSd 1.12 cm (0.6-1.1) PWd 0.74 cm (0.6-1.1) EF (Teich) 70.80% FS 39.70% EDV (Teich) 69.20 mL TAPSE 2.40 (<1.7) ESV (Teich) 20.20 mL LV Diastology E Decel Time 120.00 (160-240 msec) E/A Ratio 1.07 MED E' 9.20 (< 7 cm/sec) MED A' 10.20 cm/s E'/MED E' Ratio 7.13 (>14) LAT E' 10.80 (<10 cm/sec) LAT A' 10.20 cm/s E/LAT E' Ratio 6.07 (>14) Aortic Valve AO Peak GR. 4.40 mmHg Mitral Valve MV A Velocity 61.00 (40-130 cm/s) E/A Ratio 1.07 MV Decel. Time 120.00 (160-240 ms) Pulmonary Valve PV Peak Velocity 91.00 (50-150 cm/s) Tricuspid Valve TR P. Velocity 237.00 cm/s RAP Estimate 10.00 mmHg RVSP 32.50 mmHg Left Ventricle The left ventricle is normal size. The left ventricular systolic function is normal. The left ventricular ejection fraction is within the normal range. There is normal left ventricular wall thickness. There is normal LV segmental wall motion. The left ventricular diastolic function is normal. LVEF is 60%. Right Ventricle The right ventricle is moderately dilated. The right ventricular systolic function is normal. There is increased RV thickness. Atria The left atrium size is normal. The right atrium size is normal. There is no Doppler evidence of interatrial shunt. Aortic Valve The aortic valve opens well. There is no aortic valvular stenosis. No aortic regurgitation is present. Mitral Valve The mitral valve is normal in structure. No evidence of mitral valve stenosis. There is no mitral valve regurgitation noted. Tricuspid Valve The tricuspid valve leaflets are thin and pliable. Trace tricuspid regurgitation. RVSP is normal. Pulmonic Valve The pulmonary valve is normal in structure. Trace pulmonic regurgitation. Great Vessels The aortic root is normal in size. The ascending aorta is not well visualized. IVC is normal in size and collapses >50% with inspiration. Pericardium There is no pericardial effusion. Other Information Study Quality: Fair Conclusion Normal biventricular systolic function. Mild RV dilation. Normal RVSP. No significant valvular disease. Electronically signed by : Kim Henderson, 02/12/2023 15:06:46
--- NOTE | 2023-02-12 09:15 | PC.NURSE ---
pt got up to ambulate to the restroom, pt removed oxygen prior to getting up. pt's oxygen level found to be 78 on room air after returning to her bed. pt placed oxygen back on and sats increased to 90s. pt given BSC. Respiratory and Dr. Ibanez saw pt and increased her oxygen to 3LNC.
--- NOTE | 2023-02-12 09:18 | EXP.PULM.CON ---
History of Present Illness History of present illness: 52-year-old female greater than [id number] smoking Diagnosis of Asthma COPD Overlap Syndrome Last Seen in Pulmonary Clinic in May 2021. She also carries other medical history of CHF, CAD, DVT and PE on Eliquis presented with worsening respiratory distress over the weekend. [facility] Disclaimer: The information contained in this section may have been updated after the patient was seen, as this information can be updated by other users. Medical History (Updated 02/12/23 @ 14:17 by Aimee Ibanez MD) Acute and chronic respiratory failure with hypoxia Anxiety CHF (congestive heart failure) COPD (chronic obstructive pulmonary disease) Diastolic dysfunction Gastroesophageal reflux disease History of gastroesophageal reflux (GERD) History of pulmonary embolism Hyperlipidemia Hypertension Myocardial bridge Pneumonia Sleep apnea Swelling of lower extremity Wheezing Surgical History (Updated 02/11/23 @ 21:41 by Rylee Mcdermott RN) History of hysterectomy Family History (Updated 02/11/23 @ 21:41 by Rylee Mcdermott RN) Other No significant family history Social History (Updated 02/11/23 @ 21:41 by Rylee Mcdermott RN) Smoking Status: Former smoker pack-years: 20 second hand exposure: No alcohol intake: never substance use type: former substance user current occupational status: unemployed Travel in the last 8 weeks: None household members: none housing: house current occupational exposures/hazards: No caffeine: Yes Review of Systems Constitutional Constitutional: Reports anorexia, Reports body ache(s) and Reports fatigue Eyes Eyes: Denies eye discharge, Denies dry eyes, Denies irritation and Denies itchy eyes ENT Ears, Nose, Mouth, and Throat: Denies epistaxis, Denies facial pain, Denies lip swelling and Denies throat swelling *Cardiovascular Cardiovascular: Reports dyspnea, Reports dyspnea on exertion, Reports leg edema and Reports orthopnea *Respiratory Respiratory: Reports chest congestion, Reports cough, Reports dyspnea, Reports dyspnea on exertion, Reports excessive phlegm production and Reports wheezing *Gastrointestinal Gastrointestinal: Denies abdominal pain, Denies belching and Denies cramping *Musculoskeletal Musculoskeletal: Reports back pain, Reports myalgias and Reports other (No small joint swelling or Pain) *Neurologic Neurologic: Reports system reviewed and no additional complaints, except as documented Psychiatric Psychiatric: Denies homicidal ideation and Denies suicidal ideation Endocrine Endocrine: Reports fatigue and Denies heat intolerance Hematologic/Lymphatic Hematologic/Lymphatic: Denies easy bleeding and Denies lymphadenopathy Allergic/Immunologic Allergic/Immunologic: Denies itchy eyes, Denies lip swelling, Denies throat swelling and Reports wheezing Pulmonology Exam Inpatient Vital signs and Labs for Last 24 Hours: Temp Pulse Resp BP Pulse Ox O2 Del Method O2 Flow Rate 97.7 F 70 18 93/50 L 93 L Nasal Cannula 2 02/12/23 07:16 02/12/23 07:16 02/12/23 07:16 02/12/23 07:16 02/12/23 07:16 02/12/23 07:16 02/12/23 07:16 Laboratory Results - last 24 hr 02/11/23 19:00: WBC 7.2, RBC 4.56, Hgb 12.1 L, Hct 37.7, MCV 82.7, MCH 26.5 L, MCHC 32.0, RDW 14.8, Plt Count 218, MPV 8.3, Neut % (Auto) 53.4, Lymph % (Auto) 28.3, [place] % (Auto) 7.4, Eos % (Auto) 10.3, Baso % (Auto) 0.6, Neut # (Auto) 3.8, Lymph # (Auto) 2.0, [place] # (Auto) 0.5, Eos # (Auto) 0.7 H, Baso # (Auto) 0.1, Sodium 143, Potassium 2.7 L*, Chloride 96 L, Carbon Dioxide 38 H, Anion Gap 11.7, BUN 14, Creatinine 1.80 H, Estimated Creat Clear 40, Estimated GFR 30 L, Est GFR ( Amer) 36 L, Glucose 75, Calcium 9.0, Total Bilirubin 0.4, AST 29, ALT 14, Alkaline Phosphatase 110, Troponin I < 0.01, NT-Pro-B Natriuret Pep 1230 H, Total Protein 6.5, Albumin 3.7, Globulin 2.8, Albumin/Globulin Ratio 1.3 02/11/23 19:05: VBG pH 7.33, VBG pCO2 68.2 H, VBG
--- NOTE | 2023-02-12 09:38 | PC.NURSE ---
Chay[place] with Echo at bedside.
--- NOTE | 2023-02-12 09:48 | PC.NURSE ---
COURTESY TECH NOTE; ROUNDED ON PT 0820, PT DENIED NEED FOR ASSISTANCE WITH RESTROOM, AND NEED TO REPOSITION IN BED. CALL LIGHT WITHIN REACH, NO FURTHER REQUESTS AT THIS TIME TWAN LOPEZ
--- NOTE | 2023-02-12 10:47 | EXP.CARD.CON ---
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 Pt states her SOA has worsened over the weekend, worse with exertion, present at rest. She currently wears 2.5 L at home. ED work up reveals a BNP of 1230, negative troponin, creatinine of 1.80, potassium of 2.7, and chest xray was concerning for right middle lobe pneumonia. The ED physician spoke with the hospitalist team for admission. She received 40 mg of Lasix, Rocephin and azithromycin, and 60 meq of p.o potassium. She has lower extremity swelling which she states is normal for her. This morning denies chest pain continues to complain of shortness of air. Echo is pending. [facility] Disclaimer: The information contained in this section may have been updated after the patient was seen, as this information can be updated by other users. Medical History (Updated 02/12/23 @ 11:00 by Kaelyn Barksdale APRN) Acute and chronic respiratory failure with hypoxia Anxiety CHF (congestive heart failure) COPD (chronic obstructive pulmonary disease) Diastolic dysfunction Gastroesophageal reflux disease History of gastroesophageal reflux (GERD) History of pulmonary embolism Hyperlipidemia Hypertension Myocardial bridge Pneumonia Sleep apnea Wheezing Surgical History (Updated 02/11/23 @ 21:41 by Rylee Mcdermott RN) History of hysterectomy Family History (Updated 02/11/23 @ 21:41 by Rylee Mcdermott RN) Other No significant family history Social History (Updated 02/11/23 @ 21:41 by Rylee Mcdermott RN) Smoking Status: Former smoker pack-years: 20 second hand exposure: No alcohol intake: never substance use type: former substance user current occupational status: unemployed Travel in the last 8 weeks: None household members: none housing: house current occupational exposures/hazards: No caffeine: Yes Review of Systems Review of Systems Review of systems:: pertinent systems reviewed and negative unless documented below *Cardiovascular Cardiovascular: Denies chest pain and Reports dyspnea *Respiratory Respiratory: Reports dyspnea *Musculoskeletal Comments: Bilateral lower extremity edema noted patient reports is at baseline. *Neurologic Neurologic: Reports system reviewed and no additional complaints, except as documented Exam Data for Last 24 hours Vital signs and Labs for Last 24 Hours: Temp Pulse Resp BP Pulse Ox O2 Del Method O2 Flow Rate 97.7 F 70 18 93/50 L 93 L Nasal Cannula 2.5 02/12/23 07:16 02/12/23 08:00 02/12/23 07:16 02/12/23 07:16 02/12/23 08:00 02/12/23 09:00 02/12/23 09:00 Laboratory Results - last 24 hr 02/11/23 19:00: WBC 7.2, RBC 4.56, Hgb 12.1 L, Hct 37.7, MCV 82.7, MCH 26.5 L, MCHC 32.0, RDW 14.8, Plt Count 218, MPV 8.3, Neut % (Auto) 53.4, Lymph % (Auto) 28.3, [place] % (Auto) 7.4, Eos % (Auto) 10.3, Baso % (Auto) 0.6, Neut # (Auto) 3.8, Lymph # (Auto) 2.0, [place] # (Auto) 0.5, Eos # (Auto) 0.7 H, Baso # (Auto) 0.1, Sodium 143, Potassium 2.7 L*, Chloride 96 L, Carbon Dioxide 38 H, Anion Gap 11.7, BUN 14, Creatinine 1.80 H, Estimated Creat Clear 40, Estimated GFR 30 L, Est GFR ( Amer) 36 L, Glucose 75, Calcium 9.0, Total Bilirubin 0.4, AST 29, ALT 14, Alkaline Phosphatase 110, Troponin I < 0.01, NT-Pro-B Natriuret Pep 1230 H, Total Protein 6.5, Albumin 3.7, Globulin 2.8, Albumin/Globulin Ratio 1.3 02/11/23 19:05: VBG pH 7.33, VBG pCO2 68.2 H, VBG pO2 32.2, VBG HCO3 34.9 H, VBG Total CO2 37.0 H, VBG O2 Saturation 56.5, VBG Base Excess 8.9 H 02/11/23 22:30: Trop[place]
--- NOTE | 2023-02-12 17:17 | PC.NURSE ---
pt alert and oriented. ls diminished and wheezing t/o. 3LNC in place. abdomen soft, nontender, bs active. edema noted to BLE. pt is using BSC to void. call light w/i reach.
--- NOTE | 2023-02-12 23:31 | P.PN_ITS ---
Subjective *Date: 02/13/23 *Time: 06:24 Exam Data for Last 24 hours Vital signs and Labs for Last 24 Hours: Temp Pulse Resp BP Pulse Ox O2 Del Method O2 Flow Rate 97.9 F 77 18 100/58 L 92 L Nasal Cannula 2.5 02/12/23 20:00 02/12/23 22:10 02/12/23 20:00 02/12/23 20:00 02/12/23 20:00 02/12/23 20:00 02/12/23 20:00 Laboratory Results - last 24 hr 02/12/23 00:27: Sodium 143, Potassium 3.3 L D, Chloride 103, Carbon Dioxide 35 H , Anion Gap 8.3, BUN 15, Creatinine 1.60 H, Estimated Creat Clear 47, Estimated GFR 34 L, Est GFR ( Amer) 41 L, Glucose 125 H D, Calcium 8.3 L, Troponin I < 0.01 02/12/23 06:18: WBC 4.0 L D, RBC 4.43, Hgb 11.5 L, Hct 37.2, MCV 84.0, MCH 26.0 L, MCHC 30.9 L, RDW 14.7, Plt Count 208, MPV 8.0, Neut % (Auto) 76.5, Lymph % (Auto) 20.6, [place] % (Auto) 2.2, Eos % (Auto) 0.3, Baso % (Auto) 0.3, Neut # (Auto) 3.1, Lymph # (Auto) 0.8, [place] # (Auto) 0.1, Eos # (Auto) 0.0, Baso # (Auto) 0.0, Sodium 142, Potassium 3.3 L, Chloride 100, Carbon Dioxide 37 H, Anion Gap 8.3, BUN 18 H, Creatinine 1.40 H, Estimated Creat Clear 54, Estimated GFR 40 L, Est GFR ( Amer) 48 L, Glucose 132 H, Calcium 8.6, NT-Pro-B Natriuret Pep 1120 H I & O for Last 24 hours: Intake & Output 02/09/23 02/10/23 02/11/23 02/12/23 23:59 23:59 23:59 23:59 Intake Total 1070 / 1070 Output Total 300 / 300 1300 / 1300 Balance -300 / -300 -230 / -230 Weight 71.668 kg 71.668 kg
[2023-02-13] VITALS (7 sets, daily range): BP systolic 103–117; BP diastolic 65–70; PULSE 67–89; RESP 18–22; TEMP 36.4–36.7; O2SAT 92–96; BMI 32.5
--- NOTE | 2023-02-13 06:24 | EXP.PN ---
Subjective *Date: 02/12/23 *Time: 10:00 Interval history: No acute events overnight. Less dyspnea. No chest pain. She hasn't had any cough. Exam Data for Last 24 hours Vital signs and Labs for Last 24 Hours: Temp Pulse Resp BP Pulse Ox O2 Del Method O2 Flow Rate 98.0 F 67 18 112/70 92 L Nasal Cannula 3 02/13/23 04:00 02/13/23 06:15 02/13/23 04:00 02/13/23 04:00 02/13/23 06:15 02/13/23 06:15 02/13/23 06:15 Laboratory Results - last 24 hr 02/12/23 06:18: WBC 4.0 L D, RBC 4.43, Hgb 11.5 L, Hct 37.2, MCV 84.0, MCH 26.0 L, MCHC 30.9 L, RDW 14.7, Plt Count 208, MPV 8.0, Neut % (Auto) 76.5, Lymph % (Auto) 20.6, [place] % (Auto) 2.2, Eos % (Auto) 0.3, Baso % (Auto) 0.3, Neut # (Auto) 3.1, Lymph # (Auto) 0.8, [place] # (Auto) 0.1, Eos # (Auto) 0.0, Baso # (Auto) 0.0, Sodium 142, Potassium 3.3 L, Chloride 100, Carbon Dioxide 37 H, Anion Gap 8.3, BUN 18 H, Creatinine 1.40 H, Estimated Creat Clear 54, Estimated GFR 40 L, Est GFR ( Amer) 48 L, Glucose 132 H, Calcium 8.6, NT-Pro-B Natriuret Pep 1120 H I & O for Last 24 hours: Intake & Output 02/10/23 02/11/23 02/12/23 02/13/23 23:59 23:59 23:59 23:59 Intake Total 1420 / 1420 Output Total 300 / 300 1300 / 1300 500 / 500 Balance -300 / -300 120 / 120 -500 / -500 Weight 71.668 kg 71.668 kg 83.461 kg Constitutional Constitutional: no acute distress *Routine HEENT Exam Head: Present normocephalic Eye: Present EOMI and PERRL ENT: Present mucous membranes moist *Routine Neck Exam Neck: Present supple; Absent lymphadenopathy *Routine Respiratory Exam Respiratory: Present accessory muscle use, decreased breath sounds and prolonged expiratory phase *Routine Cardiovascular Exam Cardiovascular: Present RRR *Routine Abdominal Exam Abdominal: Present soft and normoactive bowel sounds; Absent tenderness *Routine Extremities Exam Extremities: Absent cyanosis, clubbing or edema *Routine Skin Exam Skin: Present warm; Absent rash *Routine Neurological Exam Neurological: Present alert and oriented X3 Assessment and Plan *Assessment and plan (1) COPD with acute exacerbation: Status: Acute Category: Medical Code(s): J44.1 - Chronic obstructive pulmonary disease with (acute) exacerbation (2) CHF (congestive heart failure): Status: Chronic Qualifiers: Heart failure type: diastolic Heart failure chronicity: chronic Qualified Code(s): I50.32 - Chronic diastolic (congestive) heart failure Category: Medical Code(s): I50.9 - Heart failure, unspecified (3) CAD (coronary artery disease): Status: Acute Category: Medical Code(s): I25.10 - Atherosclerotic heart disease of [place] coronary artery without angina pectoris (4) History of DVT (deep vein thrombosis): Status: Chronic Category: Medical Code(s): Z86.718 - Personal history of other venous thrombosis and embolism (5) SHALINI (acute kidney injury): Status: Acute Category: Medical Code(s): N17.9 - Acute kidney failure, unspecified (6) Hypokalemia: Status: Acute Category: Medical Code(s): E87.6 - Hypokalemia (7) Gastroesophageal reflux disease: Status: Chronic Qualifiers: Esophagitis presence: esophagitis presence not specified Qualified Code(s): K21.9 - Gastro-esophageal reflux disease without esophagitis Category: Medical Code(s): K21.9 - Gastro-esophageal reflux disease without esophagitis Plan 52 year old female with a PMH of cigarette nicotine dependence, asthma, copd, recurrent PE on Xarelto, CAD, CHF and chronic hypoxic respiratory failure presented with shortness of breath x 2 days and admitted on 02/12 with copd exacerbation and pneumonia. CXR reveals right middle lobe infiltrate. #COPD exacerbation #acute pneumonia Really appreciate Pulmonology and Cardiology. Continuing Rocephin, azithromycin, methylprednisolone, Duonebs and Pulmicort. Contin
[2023-02-13 06:32] LABS: Basophils % 0.1 % (0.1-2.0); Eosinophils % 0.3 % (0.1-12.0); Hematocrit 33.9 % (37.0-47.0); Hemoglobin 10.6 g/dL (12.2-16.2); Lymphocytes # 0.8 K/mm3 (0.7-4.5); Lymphocytes % 11.3 % (10-50); Mean Corpuscular HGB Conc 31.1 g/dL (31.8-35.4); Mean Corpuscular Hemoglobin 26.4 pg (27.0-31.2); Mean Corpuscular Volume 84.9 fl (81-99); Mean Platelet Volume 8.2 fl (7.4-10.4); Monocytes # 0.2 K/mm3 (0.1-1.0); Monocytes % 2.8 % (1.7-9.3); Neutrophils # 6.4 K/mm3 (1.8-7.8); Neutrophils % 85.6 % (37.0-80.0); Platelet Count 202 K/mm3 (142-424); Red Blood Count 3.99 M/mm3 (4.20-5.40); White Blood Count 7.5 K/mm3 (4.8-10.8)
[2023-02-13 06:35] LABS: Anion Gap 7.5 mEq/L (5-15); Blood Urea Nitrogen 21 mg/dl (7-17); Calcium 8.1 mg/dl (8.4-10.2); Carbon Dioxide 34 mmol/L (22.0-30.0); Chloride 102 mmol/L (98-107); Creatinine Clearance Estimated 73 mL/min (50-200); Estimated Glomerular Filt Rate 47 ml/min (>60); GFR (African American) 57 ML/MIN (>60); Glucose 156 mg/dl (74-100); Potassium 3.5 mmoL/L (3.5-5.1); Sodium 140 mmol/L (136-145)
[2023-02-13 06:36] LABS: MANUAL DIFFERENTIAL MANUAL DIFFERENTIAL (MANUAL DIFF)
[2023-02-13 07:12] LABS: Anisocytosis 1+; Hypochromasia 1+; Lymphocytes % 14 % (10-50); Monocytes % 3 % (2-9); Neutrophils % 83 % (42-76); Ovalocytes 1+; Platelet Estimate Normal; Total Cells Counted 100
--- NOTE | 2023-02-13 08:57 | EXP.PULM.PN ---
Subjective *Date: 02/13/23 *Time: 09:41 Interval history: No acute respiratory vents overnight. Patient admits continued improvement in his symptoms. Pulmonology Exam Inpatient Vital signs and Labs for Last 24 Hours: Temp Pulse Resp BP Pulse Ox O2 Del Method O2 Flow Rate 97.6 F 71 22 103/68 L 95 Nasal Cannula 2.5 02/13/23 07:57 02/13/23 07:57 02/13/23 07:57 02/13/23 07:57 02/13/23 07:57 02/13/23 07:57 02/13/23 07:57 Laboratory Results - last 24 hr 02/13/23 06:17: WBC 7.5 D, RBC 3.99 L, Hgb 10.6 L, Hct 33.9 L, MCV 84.9, MCH 26.4 L, MCHC 31.1 L, RDW 15.0, Plt Count 202, MPV 8.2, Neut % (Auto) 85.6 H, Lymph % (Auto) 11.3, [place] % (Auto) 2.8, Eos % (Auto) 0.3, Baso % (Auto) 0.1, Neut # (Auto) 6.4, Lymph # (Auto) 0.8, [place] # (Auto) 0.2, Eos # (Auto) 0.0, Baso # (Auto) 0.0, Total Counted 100, Neutrophils % (Manual) 83 H, Lymphocytes % (Manual) 14, Monocytes % (Manual) 3, Platelet Estimate Normal, Hypochromasia 1+, Anisocytosis 1+, Ovalocytes 1+, Sodium 140, Potassium 3.5, Chloride 102, Carbon Dioxide 34 H, Anion Gap 7.5, BUN 21 H, Creatinine 1.20 H, Estimated Creat Clear 73, Estimated GFR 47 L, Est GFR ( Amer) 57 L, Glucose 156 H, Calcium 8.1 L I & O for Labs for Last 24 Hours: Intake & Output 02/10/23 02/11/23 02/12/23 02/13/23 23:59 23:59 23:59 23:59 Intake Total 1420 / 1420 120 / 120 Output Total 300 / 300 1300 / 1300 500 / 500 Balance -300 / -300 120 / 120 -380 / -380 Weight 158 lb 158 lb 184 lb Constitutional: Present mild distress Head: Present normocephalic and atraumatic ENT: Present normal exam, normal oropharynx and mucous membranes moist Neck: Present normal inspection and full ROM Respiratory: Present respiratory distress, wheezes, crackles and able to speak in complete sentences Cardiac: Present S1/S2, Tachycardia and radial pulses present GI: Present soft and distention; Absent tenderness or guarding Rectal (female): Present deferred (female): Present deferred Skin: Present intact and erythema; Absent cyanosis or jaundice Comment:: Bilateral LE erythema noted Neuro: Present alert, awake and oriented x 3 Extremities: Present normal inspection and edema; Absent clubbing or cyanosis Psychiatric: Present normal affect and cooperative Assessment and Plan *Assessment and plan (1) Acute and chronic respiratory failure with hypoxia: Status: Acute Category: Medical Code(s): J96.21 - Acute and chronic respiratory failure with hypoxia (2) COPD exacerbation: Status: Acute Category: Medical Code(s): J44.1 - Chronic obstructive pulmonary disease with (acute) exacerbation (3) Swelling of lower extremity: Status: Acute Category: Medical Code(s): M79.89 - Other specified soft tissue disorders (4) Recurrent pulmonary emboli: Status: Acute Category: Medical Code(s): I26.99 - Other pulmonary embolism without acute cor pulmonale Plan 52-year-old female greater than [id number] smoking Diagnosis of Asthma COPD Overlap Syndrome Last Seen in Pulmonary Clinic in May 2021. She also carries other medical history of CHF, CAD, DVT and PE on Eliquis presented with worsening respiratory distress over the weekend. She had a diagnosis of right lower lobe pulmonary embolism on her CT from March 2018 and has since been on anticoagulation. CTA from May 2019 did not show any evidence of pulmonary embolism, however her subsequent VQ scan from February 2021 showed mismatch defects more concerning for acute pulmonary embolism than chronic thromboembolic phenomenon. HRCT from 2020 emphysematous changes no evidence of interstitial lung disease. Chest x-ray was ordered Chest x-ray from this admission showed right middle lobe infiltrate along with bilateral lower lobe atelectatic changes and emphysematous changes. Patient on this admission was initiated on Ceftriaxone and azithromycin along with methylprednisolone. On initial examinatio
--- NOTE | 2023-02-13 09:41 | CA_ITS ---
FINAL REPORT CLINICAL HISTORY: Swelling and SOB/ H/o PE FINDINGS: Color Doppler, duplex Doppler and compression sonography of the bilateral lower extremities was performed. There is no evidence of deep venous thrombosis from the level of the groin to the calf. The deep veins are patent and compressible. IMPRESSION: No evidence of deep venous thrombosis bilateral lower extremities. Reviewed, Interpreted and Dictated by Curtis Gomez III, MD Transcribed by Rose Hernandez Authenticated and [facility]
--- NOTE | 2023-02-13 09:53 | EXP.CARD.PN ---
Subjective Subjective Date: 02/13/23 Time: 08:30 Principal diagnosis: COPD and acute pneumonia Interval history: Doing well this morning. Denies chest pain reports shortness of air has improved. Morning labs reviewed. Exam Data for Last 24 hours Vital signs and Labs for Last 24 Hours: Temp Pulse Resp BP Pulse Ox O2 Del Method O2 Flow Rate 97.6 F 71 22 103/68 L 95 Nasal Cannula 2.5 02/13/23 07:57 02/13/23 07:57 02/13/23 07:57 02/13/23 07:57 02/13/23 07:57 02/13/23 07:57 02/13/23 07:57 Laboratory Results - last 24 hr 02/13/23 06:17: WBC 7.5 D, RBC 3.99 L, Hgb 10.6 L, Hct 33.9 L, MCV 84.9, MCH 26.4 L, MCHC 31.1 L, RDW 15.0, Plt Count 202, MPV 8.2, Neut % (Auto) 85.6 H, Lymph % (Auto) 11.3, [place] % (Auto) 2.8, Eos % (Auto) 0.3, Baso % (Auto) 0.1, Neut # (Auto) 6.4, Lymph # (Auto) 0.8, [place] # (Auto) 0.2, Eos # (Auto) 0.0, Baso # (Auto) 0.0, Total Counted 100, Neutrophils % (Manual) 83 H, Lymphocytes % (Manual) 14, Monocytes % (Manual) 3, Platelet Estimate Normal, Hypochromasia 1+, Anisocytosis 1+, Ovalocytes 1+, Sodium 140, Potassium 3.5, Chloride 102, Carbon Dioxide 34 H, Anion Gap 7.5, BUN 21 H, Creatinine 1.20 H, Estimated Creat Clear 73, Estimated GFR 47 L, Est GFR ( Amer) 57 L, Glucose 156 H, Calcium 8.1 L I & O for Last 24 hours: Intake & Output 02/10/23 02/11/23 02/12/23 02/13/23 23:59 23:59 23:59 23:59 Intake Total 1420 / 1420 120 / 120 Output Total 300 / 300 1300 / 1300 500 / 500 Balance -300 / -300 120 / 120 -380 / -380 Weight 158 lb 158 lb 184 lb Constitutional Constitutional: no acute distress *Routine HEENT Exam Head: Present normocephalic Eye: Present EOMI and PERRL ENT: Present mucous membranes moist *Routine Neck Exam Neck: Present supple; Absent lymphadenopathy *Routine Respiratory Exam Respiratory: Present accessory muscle use, decreased breath sounds and prolonged expiratory phase *Routine Cardiovascular Exam Cardiovascular: Present RRR *Routine Abdominal Exam Abdominal: Present soft and normoactive bowel sounds; Absent tenderness *Routine Extremities Exam Extremities: Absent cyanosis, clubbing or edema *Routine Skin Exam Skin: Present warm; Absent rash *Routine Neurological Exam Neurological: Present alert and oriented X3 Progress Note: A&P Assessment and plan (1) Acute and chronic respiratory failure with hypoxia: Status: Acute (2) COPD exacerbation: Status: Acute (3) Swelling of lower extremity: Status: Acute (4) Recurrent pulmonary emboli: Status: Acute Assessment and Plan Assessment and Plan for All Diagnoses:: Acute hypoxic respiratory failure Right middle lobe pneumonia HFpEF/Diastolic dysfunction Severe COPD with mild pulmonary HTN -Pulmonology has consulted -Chest x-ray shows a right middle lobe opacity which may represent pneumonia or atelectasis in this acute setting. Similar emphysematous changes and bibasilar atelectasis and/or scarring. -Prelim echo shows EF 55% -Holding home Lasix 40 mg twice daily and Aldactone 100 mg p.o. twice daily due to hypotension -Antibiotics per primary service 02/13/2023: Patient doing well this morning, reports shortness of air has improved. Resume Lasix at reduced dose of 40 mg daily. Cardiology will titrate medications up and add Aldactone back based on blood pressure/symptoms in office follow-up History of myocardial bridge in 2018 -Myocardial bridge to LAD noted in 2018 with normal course -Serial troponins negative -EKG negative for acute ischemic changes History of unprovoked PE and DVT -Anticoagulated with Eliquis 5 mg p.o. twice daily-denies missing medication SHALINI-resolved -1.2 Hypokalemia-resolved -3.5 CV summary 02/13/2023: CV stable for discharge home. Recommend restarting Lasix at 40 mg daily with cardiology follow-up in office in 1 to 2 weeks. Cardiology will increase Lasix and add back Aldactone based on blood pressure readings/symptoms at office follow-up. Cardiac
--- NOTE | 2023-02-13 11:14 | EXP.DC.SUM ---
General Admission date:: 02/11/23 Discharge date: 02/13/23 HPI HPI HPI: 52 year old female presented to the ED for c/o worsening SOB over the weekend. PMHX of COPD, CHF, CAD, DVT & PE on eliquis daily, hypokalemia, and GERD. Pt states her SOA has worsen over the weekend. It is worse with walking. She currently wears 2.5 L at home. She is not requiring an increase in o2 but her ED work up reveals a BNP of 1230, negative troponin, creatinine of 1.80, potassium of 2.7, and chest xray is concerning for right middle lobe pneumonia. The ED physician spoke with the hospitalist team for admission. She received 40 mg of Lasix, Rocephin and azithromycin, and 60 meq of p.o potassium. She is admitted to the medical floor in no acute distress. She has lower extremity swelling which she states is normal for her. She will have her BMP repeated to monitor for her potassium and a cardiology consult and pulmonary consult for COPD and CHF exacerbation. Hospital Course Hospital Course Hospital Course: 52-year-old female who presented with shortness of breath and increased oxygen requirement. Presentation concerning for acute hypoxemic respiratory failure, pneumonia, CHF exacerbation. Cardiology and pulmonology consulted during admission, assisted with care. Responded well to therapy. Problems addressed as follows during admission: Acute hypoxic respiratory failure Right middle lobe pneumonia HFpEF/Diastolic dysfunction Severe COPD with mild pulmonary HTN -Pulmonology consulted during admission, assisted with care. Chest x-ray obtained showing right middle lobe opacity with concern for pneumonia. Additionally symptoms suggestive of COPD exacerbation. Patient's oxygen requirement was increased to maintain O2 sats greater 90%. Weaned to 1 L by day of discharge. Recommend continuing as needed. At home, currently uses intermittent oxygen during the day and continuous at night. Wean to home regimen as tolerated. Continue Trelegy inhaler 100 daily. Continue DuoNebs every 6 hours as needed. Will complete 5 days total so steroids with prednisone 40 mg daily. Transitioned to Augmentin on day of discharge to complete 5 days total of antibiotics. Given history of PEs, swelling of legs, lower extremity duplex obtained. Did not show any DVTs at this time. Appears her anticoagulation is working. Cardiology was also consulted and assisted with heart failure component of her admission. Prelim echo obtained showing EF 55%. Given improvement in blood pressure, resume patient's home Lasix and Aldactone at discharge. History of myocardial bridge in 2018 -Myocardial bridge to LAD noted in 2018 with normal course. Serial troponins negative. EKG negative for acute ischemic changes History of unprovoked PE and DVT -Anticoagulated with Eliquis 5 mg p.o. twice daily. No DVT in lower extremity. Continue Eliquis at discharge. Noted to have SHALINI and hypokalemia during admission. Recommend repeat labs in 1 to 2 weeks at follow-up including CMP and magnesium to evaluate kidney function and electrolytes for stability. Stable for discharge home to complete antibiotic and steroid course as ordered. Exam Data for Last 24 hours Vital signs and Labs for Last 24 Hours: Temp Pulse Resp BP Pulse Ox O2 Del Method O2 Flow Rate 97.6 F 82 22 103/68 L 95 Nasal Cannula 2.5 02/13/23 07:57 02/13/23 10:44 02/13/23 07:57 02/13/23 07:57 02/13/23 07:57 02/13/23 07:57 02/13/23 07:57 Laboratory Results - last 24 hr 02/13/23 06:17: WBC 7.5 D, RBC 3.99 L, Hgb 10.6 L, Hct 33.9 L, MCV 84.9, MCH 26.4 L, MCHC 31.1 L, RDW 15.0, Plt Count 202, MPV 8.2, Neut % (Auto) 85.6 H, Lymph % (Auto) 11.3, [place] % (Auto) 2.8, Eos % (Auto) 0.3, Baso % (Auto) 0.1, Neut # (Auto) 6.4, Lymph # (Auto) 0.8, [place] # (Auto) 0.2, Eos # (Auto) 0.0, Baso # (Auto) 0.0, Total Counted 100, Neutrophils % (Manual) 83 H, Lymphocytes % (Manual) 14, Monocytes % (Manual) 3, Platelet Estimate Normal, Hypochromasia 1+, An
--- NOTE | 2023-02-13 12:55 | HMH.PHAINT1 ---
Pharmacy Intervention Comments: DISCHARGE MEDICATION COUNSELING PROVIDED. DISCUSSED THE FOLLOWING TWO NEW MEDICATIONS: -AUGMENTIN (ANTIBIOTIC, THREE TIMES DAILY, TAKE WITH FOOD, N/V/D POSSIBLE) -PREDNISONE (STEROID, DAILY, TAKE IN THE MORNING WITH BREAKFAST, MAY CAUSE UPSET STOMACH, INSOMNIA, INCREASED HUNGER/THIRST) PATIENT VERBALIZED NO QUESTIONS AT THIS TIME.
--- NOTE | 2023-02-13 13:25 | PC.NURSE ---
pt unable to produce sputum specimen
--- NOTE | 2023-02-14 13:23 | CARE MANAGER ---
Spoke with patient for post-discharge phone interview, no issues noted.
== END 2023-02-13 14:12 | disposition home or self-care (01) ==
LOC: UTC 18:23 → ER 18:46 → 2ND 22:26
PROVIDERS: Nurse Practitioner Critical Care Medicine; Admitting Provider Internal Medicine; Emergency Provider Emergency Medicine; PCP Emergency Medicine; Visit Provider Internal Medicine
DX: J44.1 Chronic obstructive pulmonary disease with (acute) exacerbation (principal); J96.21 Acute and chronic respiratory failure with hypoxia; I50.32 Chronic diastolic (congestive) heart failure; I25.10 Atherosclerotic heart disease of native coronary artery without angina pectoris; N17.9 Acute kidney failure, unspecified; E87.6 Hypokalemia; K21.9 Gastro-esophageal reflux disease without esophagitis; I26.99 Other pulmonary embolism without acute cor pulmonale; Z86.711 Personal history of pulmonary embolism; Q24.5 Malformation of coronary vessels; Z79.891 Long term (current) use of opiate analgesic; Z79.01 Long term (current) use of anticoagulants; Z79.899 Other long term (current) drug therapy; I27.82 Chronic pulmonary embolism; I11.0 Hypertensive heart disease with heart failure
CPT/HCPCS: 36415; 71045; 80048; 80053; 82803; 83880; 84484; 85007; 85025; 87040; 93005; 93306; 93970; 94640; 94761; 99285; G0378; J0456; J0696

== ENCOUNTER → 2023-04-05 15:56 | Outpatient (CLI) | payer OTHER, SELFPAY ==
[2023-03-23 13:35] LABS: Alanine Aminotransferase 12 U/L (12-78); Albumin Level 3.7 g/dl (3.5-5.0); Albumin/Globulin Ratio 1.4 (1.1-1.8); Alkaline Phosphatase 122 U/L (38-126); Anion Gap 12.6 mEq/L (5-15); Aspartate Amino Transferase 26 U/L (14-36); Bilirubin,Total 0.5 mg/dl (0.2-1.3); Blood Urea Nitrogen 12 mg/dl (7-17); Calcium 8.9 mg/dl (8.4-10.2); Carbon Dioxide 31 mmol/L (22.0-30.0); Chloride 97 mmol/L (98-107); Chol/HDL Ratio 4.3 (1-3.5); Cholesterol 192 mg/dl (140-200); Estimated Glomerular Filt Rate 47 ml/min (>60); GFR (African American) 57 ML/MIN (>60); Globulin 2.6 g/dL (1.3-3.2); Glucose 94 mg/dl (74-100); HDL Cholesterol 45 mg/dl (40-60); Potassium 3.6 mmoL/L (3.5-5.1); Sodium 137 mmol/L (136-145); Total Protein,Serum 6.3 g/dl (6.3-8.2); Triglycerides 103 mg/dl (30-150); VLDL Cholesterol 21 mg/dL (0-40)
[2023-03-23 13:47] LABS: Direct LDL Cholesterol 109.59 mg/dL (100-129)
== END ==
PROVIDERS: PCP Emergency Medicine; Visit Provider Emergency Medicine
DX: E87.6 Hypokalemia (principal); Z79.899 Other long term (current) drug therapy
CPT/HCPCS: 80053; 80061

== ENCOUNTER 2023-05-13 21:26 | Inpatient (IN) | payer OTHER, SELFPAY ==
[2023-05-13] VITALS (13 sets, daily range): BP systolic 80–134; BP diastolic 58–82; PULSE 64–88; RESP 12–24; TEMP 36.5–36.9; O2SAT 93–97; BMI 27.3; BMI 26.4
--- NOTE | 2023-05-13 21:30 | XR_ITS ---
PROCEDURE INFORMATION: Exam: XR Chest Exam date and time: 05/13/2023 10:06 PM Age: 52 years old Clinical indication: Shortness of breath; Additional info: SOA TECHNIQUE: Imaging protocol: Radiologic exam of the chest. Views: 1 view. COMPARISON: CR XR CHEST PORTABLE 02/11/2023 7:11 PM FINDINGS: Lungs: Unremarkable. No consolidation. Pleural spaces: Unremarkable. No pleural effusion. No pneumothorax. Heart/Mediastinum: Unremarkable. No cardiomegaly. Bones/joints: Unremarkable. IMPRESSION: No acute findings.
--- NOTE | 2023-05-13 21:30 | ECG_ITS ---
APPROVED REPORT Exam: Resting ECG HR:88 bpm ECG Measurements Heart Rate 88 AXES NH 183 P 94 QRSd 106 QRS 91 QT 398 T 86 QTc 443 Conclusion SINUS RHYTHM BORDERLINE RIGHT AXIS DEVIATION [QRS AXIS > 90] INCOMPLETE RIGHT BUNDLE BRANCH BLOCK [90+ ms QRS DURATION, TERMINAL R IN V1/V2, 40+ ms S IN I/aVL/V4/V5/V6] ST DEVIATION AND MODERATE T-WAVE ABNORMALITY, CONSIDER ANTERIOR ISCHEMIA [-0.1+ mV T-WAVE IN V3/V4] ABNORMAL ECG UNCONFIRMED REPORT Electronically signed by : Jaydon Parson MD 05/14/2023 17:49:34
--- NOTE | 2023-05-13 21:30 | HMH.EDGENADL ---
Discharge Plan Disposition Chief Complaint: Shortness of Breath/Dyspnea Discharge ED Provider: Musa Bello General Adult HPI General Chief complaint: Shortness of Breath/Dyspnea Stated complaint: SOa Time Seen by Provider: 05/13/23 21:29 Mode of Arrival: EMS Source of Information: Patient Limitations: No Limitations Description of Symptoms (Recalled from ER Triage Doc. by RN): pt has hx of copd and has been soa x3 days, pt states seh thinks the weather flared her up. pt took one albuterol neb at home and ems gave a duoneb en route History of Present Illness HPI narrative: The patient reports that her symptoms started over the weekend and worsened today. She describes difficulty breathing and a sensation of heat starting in her toes before the onset of symptoms. The patient typically manages her symptoms with Mestinon, Valium, and necrolysis treatment, but was unable to do so effectively today. The patient uses oxygen as needed and typically requires around 2.5 to 3 liters. Additional history limited at this time secondary to profound dyspnea and is acuity of her condition. Related Data Home Medications Medication Instructions Recorded Confirmed buprenorphine 8 mg-naloxone 2 mg 2 tab sublingual DAILY Opioid 10/11/17 05/13/23 sublingual tablet dependence albuterol sulfate 90 mcg/actuation See Rx Instructions .Route 02/11/23 05/13/23 aerosol inhaler .COMPLEX PRN Copd furosemide 40 mg tablet 40 mg PO BID Fluid 02/11/23 05/13/23 inhalational spacing device 02/11/23 05/13/23 (Laurita Benito [facility] spacer) sertraline 100 mg tablet 100 mg PO DAILY Mood 02/11/23 05/13/23 spironolactone 100 mg tablet 100 mg PO BID Fluid 02/11/23 05/13/23 Previous Rx's Medication Instructions Recorded omeprazole 20 mg capsule,delayed 20 mg PO DAILY Acid Reflux #90 caps 02/19/23 release cholecalciferol (vitamin D3) 1,250 See Rx Instructions .Route 03/02/23 mcg (50,000 unit) capsule .COMPLEX #4 caps hydroxyzine pamoate 50 mg capsule See Rx Instructions .Route 03/14/23 .COMPLEX #120 caps fluticasone fur. 100 mcg-umeclid See Rx Instructions .Route 03/21/23 62.5 mcg-vilant 25 mcg .COMPLEX #60 ea inhalat.powder (Trelegy Ellipta) diazepam 5 mg tablet 5 mg PO DAILY #30 tabs 04/20/23 apixaban 5 mg tablet (Eliquis) See Rx Instructions .Route 04/30/23 .COMPLEX #60 tabs propranolol 80 mg capsule,24 See Rx Instructions .Route 04/30/23 hr,extended release .COMPLEX #30 caps ipratropium 0.5 mg-albuterol 3 mg See Rx Instructions .Route 05/08/23 (2.5 mg base)/3 mL nebulization .COMPLEX #540 mL soln Allergies Allergy/AdvReac Type Severity Reaction Status Date / Time hydromorphone Allergy Severe S-DIFF. Verified 04/20/23 14:08 BREATHING; HIVES propoxyphene Allergy Severe S-SWELLS-OR Verified 04/20/23 14:08 [From Darvocet-N] AL/THROAT gabapentin [From Neurontin] Allergy Intermediate I-HIVES Verified 04/20/23 14:08 codeine Allergy Verified 04/20/23 14:08 [facility] Disclaimer: The information contained in this section may have been updated after the patient was seen, as this information can be updated by other users. Medical History Acute and chronic respiratory failure with hypoxia Anxiety Bronchitis CHF (congestive heart failure) COPD (chronic obstructive pulmonary disease) Diastolic dysfunction Gastroesophageal reflux disease History of DVT (deep vein thrombosis) History of DVT of lower extremity History of gastroesophageal reflux (GERD) History of pulmonary embolism Hyperlipidemia Hypertension Myocardial bridge 2017. Pneumonia Recurrent pulmonary emboli Sleep apnea Swelling of lower extremity Tobacco abuse disorder Wheezing Surgical History History of hysterectomy Family History Other No significant family history Social His
[2023-05-13 21:43] LABS: VBG Base Excess -0.7 mmol/L (-2.4-2.3); VBG HCO3 27.3 mmol/L (23-30); VBG Oxygen Saturation 90.5 % (50-70); VBG PH 7.21 mmol/L (7.31-7.41); VBG PO2 70.9 mmol/L (28-40); VBG Total CO2 29.5 mmol/L (23-27)
[2023-05-13 21:43] LABS: Chloride 95 mmol/L (98-107)
[2023-05-13 21:44] LABS: Potassium 3.4 mmoL/L (3.5-5.1); Sodium 138 mmol/L (136-145)
[2023-05-13 21:46] LABS: Alanine Aminotransferase 22 U/L (12-78); Aspartate Amino Transferase 33 U/L (14-36); Blood Urea Nitrogen 15 mg/dl (7-17); Creatinine Clearance Estimated 49 mL/min (50-200); Estimated Glomerular Filt Rate 37 ml/min (>60); GFR (African American) 44 ML/MIN (>60); Lactic Acid 2.4 mmol/L (0.7-2.1)
[2023-05-13 21:47] LABS: Albumin Level 4.2 g/dl (3.5-5.0); Albumin/Globulin Ratio 1.4 (1.1-1.8); Alkaline Phosphatase 119 U/L (38-126); Anion Gap 10.4 mEq/L (5-15); Bilirubin,Total 0.6 mg/dl (0.2-1.3); Calcium 8.8 mg/dl (8.4-10.2); Carbon Dioxide 36 mmol/L (22.0-30.0); Globulin 2.9 g/dL (1.3-3.2); Glucose 175 mg/dl (74-100); Total Protein,Serum 7.1 g/dl (6.3-8.2)
[2023-05-13 21:50] LABS: Basophils # 0.1 K/mm3 (0-0.2); Eosinophils # 0.5 K/mm3 (0.0-0.4); Eosinophils % 4.7 % (0.1-12.0); Hematocrit 41.6 % (37.0-47.0); Hemoglobin 13.9 g/dL (12.2-16.2); Lymphocytes # 3.4 K/mm3 (0.7-4.5); Lymphocytes % 34.9 % (10-50); Mean Corpuscular HGB Conc 33.3 g/dL (31.8-35.4); Mean Corpuscular Hemoglobin 27.5 pg (27.0-31.2); Mean Corpuscular Volume 82.6 fl (81-99); Mean Platelet Volume 7.9 fl (7.4-10.4); Monocytes # 0.5 K/mm3 (0.1-1.0); Monocytes % 5.4 % (1.7-9.3); Neutrophils # 5.2 K/mm3 (1.8-7.8); Neutrophils % 53.9 % (37.0-80.0); Platelet Count 177 K/mm3 (142-424); Red Blood Count 5.04 M/mm3 (4.20-5.40); Red Cell Distribution Width 14.2 % (11.5-17.5); White Blood Count 9.6 K/mm3 (4.8-10.8)
--- NOTE | 2023-05-13 21:52 | PC.NURSE ---
rad at bedside and accompanied by witness, Payton.
[2023-05-13 21:55] LABS: Magnesium 1.6 mg/dl (1.6-2.3)
--- NOTE | 2023-05-13 22:01 | PC.NURSE ---
RT @ bedside placing pt on bipap
[2023-05-13 22:04] LABS: Troponin I < 0.01 ng/ml (0.00-0.034)
[2023-05-13 22:05] LABS: NT Pro Brain Natriuretic Pep. 250 pg/mL (0-125)
[2023-05-13 22:22] LABS: VBG PCO2 70.6 mmol/L (35-51)
--- NOTE | 2023-05-13 22:52 | EXP.HP ---
History of Present Illness *Admission Date: 05/13/23 *Reason for visit:: SOB *History of present illness: This is a 52yo F with PMHx CHF, COPD, CKD, PE on eliquis, GERD, anxiety and current smoker that came to ER c/o SOB. patient stated that her symptoms started over the weekend and worsened today. She describes difficulty breathing and was expecting to see PCP but since symptoms worsened and nothing tried a home was so effectively today, patient decided to cam to the hospital. She uses oxygen as needed and typically requires around 2.5 to 3 liters. Additional history limited, most data collected from ER documentation due to profound dyspnea and her difficult to speak in full sentences. Admitted for further work up. [facility] Disclaimer: The information contained in this section may have been updated after the patient was seen, as this information can be updated by other users. Medical History (Updated 05/14/23 @ 06:19 by Johny Bonner APRN) Acute and chronic respiratory failure with hypoxia Anxiety Bronchitis CHF (congestive heart failure) COPD (chronic obstructive pulmonary disease) Diastolic dysfunction Gastroesophageal reflux disease History of DVT (deep vein thrombosis) History of DVT of lower extremity History of gastroesophageal reflux (GERD) History of pulmonary embolism Hyperlipidemia Hypertension Myocardial bridge Pneumonia Recurrent pulmonary emboli Sleep apnea Swelling of lower extremity Tobacco abuse disorder Wheezing Surgical History History of hysterectomy Family History Other No significant family history Social History (Updated 05/13/23 @ 23:51 by Kellen Kemp RN) Smoking Status: Former smoker tobacco type: cigarettes packs per day: 1 second hand exposure: No alcohol intake: never substance use type: former substance user current occupational status: unemployed Travel in the last 8 weeks: None household members: none housing: house current occupational exposures/hazards: No caffeine: Yes Review of Systems Review of Systems Review of systems:: unable to obtain Meds Home Medications and Allergies Home Medications Medication Instructions Recorded Confirmed Type buprenorphine 8 mg-naloxone 2 mg 2 tab sublingual DAILY Opioid 10/11/17 05/14/23 History sublingual tablet dependence albuterol sulfate 90 mcg/actuation 2 puff inhalation Q4HP PRN 02/11/23 05/14/23 History aerosol inhaler Shortness Of Breath furosemide 40 mg tablet 40 mg PO BID Fluid 02/11/23 05/13/23 History inhalational spacing device 02/11/23 05/13/23 History (Laurita Benito [facility] spacer) sertraline 100 mg tablet 100 mg PO DAILY Mood 02/11/23 05/13/23 History spironolactone 100 mg tablet 100 mg PO BID Fluid 02/11/23 05/13/23 History omeprazole 20 mg capsule,delayed 20 mg PO DAILY Acid Reflux #90 caps 02/19/23 05/13/23 Rx release diazepam 5 mg tablet 5 mg PO DAILY #30 tabs 04/20/23 05/13/23 Rx apixaban 5 mg tablet (Eliquis) 5 mg PO BID Blood 05/14/23 05/14/23 History Thinner/Recurrent PE cefdinir 300 mg capsule 300 mg PO BID 4 days #8 caps 05/14/23 Rx cholecalciferol (vitamin D3) 1,250 1,250 mcg PO WEEKLY Supplement 05/14/23 05/14/23 History mcg (50,000 unit) capsule fluticasone fur. 100 mcg-umeclid 1 inh inhalation DAILY Breathing 05/14/23 05/14/23 History 62.5 mcg-vilant 25 mcg Problems inhalat.powder (Trelegy Ellipta) hydroxyzine pamoate 50 mg capsule 50 mg PO QIDP PRN Anxiety 05/14/23 05/14/23 History ipratropium 0.5 mg-albuterol 3 mg 3 ml inhalation Q4HP PRN Shortness 05/14/23 05/14/23 History (2.5 mg base)/3 mL nebulization Of Breath soln prednisone 20 mg tablet 40 mg PO DAILY 4 days #8 tabs 05/14/23 Rx propranolol 80 mg capsule,24 80 mg PO DAILY High Blood Pressure 05/14/23 05/14/23 History hr,extended release New Prescriptions to Start Prescr
--- NOTE | 2023-05-13 22:56 | PC.NURSE ---
ER MD spoke with hospital medicine regarding admission and patient has been accepted for dx of copd exacerbation
--- NOTE | 2023-05-13 22:58 | PC.NURSE ---
spoke with linen room houseperson regarding bed assignment
--- NOTE | 2023-05-13 23:47 | PC.NURSE ---
pt arrived to the floor via stretcher @23:35
[2023-05-14] VITALS (8 sets, daily range): BP systolic 89–118; BP diastolic 55–68; PULSE 67–70; RESP 17–20; TEMP 36.4–36.5; O2SAT 92–100
[2023-05-14 00:10] LABS: Reflex Lactic Add Lactic Reflex
[2023-05-14 00:46] LABS: Lactic Acid Follow Up (RFLX 1) 1.1 mmol/L (0.7-2.1)
[2023-05-14 00:59] LABS: Troponin I < 0.01 ng/ml (0.00-0.034)
[2023-05-14 04:17] LABS: Troponin I < 0.01 ng/ml (0.00-0.034)
--- NOTE | 2023-05-14 05:05 | PC.NURSE ---
Pt is alert and oriented x4, Pt is currently on Bi-PAP and is tolerating it well, Pt has not C/O pain this shift and has been resting well. Lab in room at this time Pt denies pain and needs at this time.
[2023-05-14 06:23] LABS: Basophils % 0.3 % (0.1-2.0); Eosinophils % 0.2 % (0.1-12.0); Hematocrit 38.1 % (37.0-47.0); Lymphocytes # 0.9 K/mm3 (0.7-4.5); Lymphocytes % 13.4 % (10-50); Mean Corpuscular Hemoglobin 28.1 pg (27.0-31.2); Mean Corpuscular Volume 82.5 fl (81-99); Monocytes # 0.1 K/mm3 (0.1-1.0); Monocytes % 1.5 % (1.7-9.3); Neutrophils # 5.4 K/mm3 (1.8-7.8); Neutrophils % 84.7 % (37.0-80.0); Platelet Count 159 K/mm3 (142-424); Red Blood Count 4.62 M/mm3 (4.20-5.40); Red Cell Distribution Width 14.2 % (11.5-17.5); White Blood Count 6.4 K/mm3 (4.8-10.8)
[2023-05-14 06:31] LABS: Alanine Aminotransferase 11 U/L (12-78); Albumin Level 3.6 g/dl (3.5-5.0); Albumin/Globulin Ratio 1.3 (1.1-1.8); Alkaline Phosphatase 118 U/L (38-126); Anion Gap 13.3 mEq/L (5-15); Aspartate Amino Transferase 25 U/L (14-36); Bilirubin,Total 0.5 mg/dl (0.2-1.3); Blood Urea Nitrogen 17 mg/dl (7-17); Calcium 8.8 mg/dl (8.4-10.2); Carbon Dioxide 34 mmol/L (22.0-30.0); Chloride 94 mmol/L (98-107); Creatinine Clearance Estimated 47 mL/min (50-200); Estimated Glomerular Filt Rate 37 ml/min (>60); GFR (African American) 44 ML/MIN (>60); Globulin 2.7 g/dL (1.3-3.2); Glucose 135 mg/dl (74-100); Potassium 3.3 mmoL/L (3.5-5.1); Sodium 138 mmol/L (136-145); Total Protein,Serum 6.3 g/dl (6.3-8.2)
[2023-05-14 07:01] LABS: ABG Base Excess -0.7 mmol/L (-2.4-2.3); ABG HCO3 25.4 mmhg (22.0-26.0); ABG Oxygen Saturation 95 % (90-100); ABG PH 7.32 mmol/L (7.35-7.45); ABG PO2 79.3 mmhg (80-100); Allen's Test Acceptable; Oxygen 35% %; PEEP 16/8; Source Left Radial
[2023-05-14 07:03] LABS: ABG PCO2 50.6 mmhg (35.0-45.0)
--- NOTE | 2023-05-14 07:37 | EXP.PULM.CON ---
History of Present Illness History of present illness: Ms. Little is a 52 Y/O reported H/O of COPD on home O2 at 2-3L, CHF, CKD, PE on Eliquis presented with worsenign resp distress. Patient is in worsening respiratory's for the last week progressively getting worse not associated with significant worsening cough or productive phlegm. Admits intermittent wheezing. Denies any known sick contacts. [facility] Disclaimer: The information contained in this section may have been updated after the patient was seen, as this information can be updated by other users. Medical History (Updated 05/14/23 @ 06:19 by Johny Bonner APRN) Acute and chronic respiratory failure with hypoxia Anxiety Bronchitis CHF (congestive heart failure) COPD (chronic obstructive pulmonary disease) Diastolic dysfunction Gastroesophageal reflux disease History of DVT (deep vein thrombosis) History of DVT of lower extremity History of gastroesophageal reflux (GERD) History of pulmonary embolism Hyperlipidemia Hypertension Myocardial bridge Pneumonia Recurrent pulmonary emboli Sleep apnea Swelling of lower extremity Tobacco abuse disorder Wheezing Surgical History History of hysterectomy Family History Other No significant family history Social History (Updated 05/13/23 @ 23:51 by Kellen Kemp RN) Smoking Status: Former smoker tobacco type: cigarettes packs per day: 1 second hand exposure: No alcohol intake: never substance use type: former substance user current occupational status: unemployed Travel in the last 8 weeks: None household members: none housing: house current occupational exposures/hazards: No caffeine: Yes Review of Systems Constitutional Constitutional: Reports anorexia, Reports body ache(s) and Reports fatigue Eyes Eyes: Denies eye discharge, Denies dry eyes, Denies irritation and Denies itchy eyes ENT Ears, Nose, Mouth, and Throat: Denies epistaxis, Denies facial pain, Denies lip swelling and Denies throat swelling *Cardiovascular Cardiovascular: Reports dyspnea, Reports dyspnea on exertion, Reports leg edema and Reports orthopnea *Respiratory Respiratory: Denies change in phlegm color, Reports chest congestion, Reports cough, Reports dyspnea, Reports dyspnea on exertion, Denies excessive phlegm production and Reports wheezing *Gastrointestinal Gastrointestinal: Denies abdominal pain, Denies belching and Denies cramping *Musculoskeletal Musculoskeletal: Reports back pain, Reports myalgias and Reports other (No small joint swelling or Pain) *Neurologic Neurologic: Reports system reviewed and no additional complaints, except as documented Psychiatric Psychiatric: Denies homicidal ideation and Denies suicidal ideation Endocrine Endocrine: Reports fatigue and Denies heat intolerance Hematologic/Lymphatic Hematologic/Lymphatic: Denies easy bleeding and Denies lymphadenopathy Allergic/Immunologic Allergic/Immunologic: Denies itchy eyes, Denies lip swelling, Denies throat swelling and Reports wheezing Pulmonology Exam Inpatient Vital signs and Labs for Last 24 Hours: Temp Pulse Resp BP Pulse Ox O2 Del Method O2 Flow Rate 97.7 F 70 17 89/62 L 96 Nasal Cannula 4 05/14/23 04:00 05/14/23 04:00 05/14/23 04:00 05/14/23 04:00 05/14/23 07:20 05/14/23 07:20 05/14/23 07:20 FiO2 35 05/14/23 06:35 Laboratory Results - last 24 hr 05/13/23 21:27: WBC 9.6, RBC 5.04, Hgb 13.9, Hct 41.6, MCV 82.6, MCH 27.5, MCHC 33.3, RDW 14.2, Plt Count 177, MPV 7.9, Neut % (Auto) 53.9, Lymph % (Auto) 34.9, [place] % (Auto) 5.4, Eos % (Auto) 4.7, Baso % (Auto) 1.0, Neut # (Auto) 5.2, Lymph # (Auto) 3.4, [place] # (Auto) 0.5, Eos # (Auto) 0.5 H, Baso # (Auto) 0.1, Sodium 138, Potassium 3.4 L, Chloride 95 L, Carbon Dioxide 36 H, Anion Gap 10.4, BUN 15, Creatinine 1.50 H, Estimated Creat Clear 49, Estimated GFR 37 L,
--- NOTE | 2023-05-14 07:37 | HMH.PHAINT1 ---
Pharmacy Intervention Comments: MEDICATION RECONCILIATION COMPLETED ON PATIENT USING EXTERNAL FILL HISTORY FROM PHARMACY AND LIST FROM PCP/CARDIOLOGY OFFICES. -ALEISHA DEL CID, [place]
[2023-05-14 07:57] LABS: Basophils % 0.4 % (0.1-2.0); Eosinophils % 0.3 % (0.1-12.0); Hematocrit 38.8 % (37.0-47.0); Hemoglobin 13.4 g/dL (12.2-16.2); Lymphocytes # 0.7 K/mm3 (0.7-4.5); Lymphocytes % 14.8 % (10-50); Mean Corpuscular HGB Conc 34.6 g/dL (31.8-35.4); Mean Corpuscular Hemoglobin 28.2 pg (27.0-31.2); Mean Corpuscular Volume 81.7 fl (81-99); Mean Platelet Volume 7.8 fl (7.4-10.4); Monocytes # 0.1 K/mm3 (0.1-1.0); Monocytes % 1.3 % (1.7-9.3); Neutrophils # 4.1 K/mm3 (1.8-7.8); Neutrophils % 83.2 % (37.0-80.0); Platelet Count 155 K/mm3 (142-424); Red Blood Count 4.75 M/mm3 (4.20-5.40); Red Cell Distribution Width 14.1 % (11.5-17.5)
[2023-05-14 08:33] LABS: Anion Gap 13.4 mEq/L (5-15); Blood Urea Nitrogen 17 mg/dl (7-17); Calcium 8.9 mg/dl (8.4-10.2); Carbon Dioxide 34 mmol/L (22.0-30.0); Chloride 94 mmol/L (98-107); Creatinine Clearance Estimated 44 mL/min (50-200); Estimated Glomerular Filt Rate 34 ml/min (>60); GFR (African American) 41 ML/MIN (>60); Glucose 137 mg/dl (74-100); Potassium 3.4 mmoL/L (3.5-5.1); Sodium 138 mmol/L (136-145)
[2023-05-14 09:00] LABS: Adenovirus,PCR Not Detected (NotDetected); Coronavirus 19, PCR Not Detected (NotDetected); Coronavirus 229E Not Detected (NotDetected); Coronavirus NL63 Not Detected (NotDetected); Coronavirus OC43 Not Detected (NotDetected); Coronovirus HKU1,PCR Not Detected (NotDetected); Human Metapneumovirus Not Detected (NotDetected); Influenza A, PCR Not Detected (NotDetected); Influenza AH1, 2009 Not Detected (NotDetected); Influenza AH1, PCR Not Detected (NotDetected); Influenza AH3,PCR Not Detected (NotDetected); Influenza B, PCR Not Detected (NotDetected); Parainfluenza 1, PCR Not Detected (NotDetected); Parainfluenza 2, PCR Not Detected (NotDetected); Parainfluenza 3, PCR Not Detected (NotDetected); Parainfluenza 4, PCR Not Detected (NotDetected); Respiratory Syncytial Virus Not Detected (NotDetected); Rhinovirus/Enterovirus Not Detected (NotDetected)
[2023-05-14 09:42] LABS: Procalcitonin 0.098 ng/mL (0.0-2.0)
--- NOTE | 2023-05-14 10:55 | EXP.DC.SUM ---
General Admission date:: 05/13/23 Discharge date: 05/14/23 HPI HPI HPI: This is a 52yo F with PMHx CHF, COPD, CKD, PE on eliquis, GERD, anxiety and current smoker that came to ER c/o SOB. patient stated that her symptoms started over the weekend and worsened today. She describes difficulty breathing and was expecting to see PCP but since symptoms worsened and nothing tried a home was so effectively today, patient decided to cam to the hospital. She uses oxygen as needed and typically requires around 2.5 to 3 liters. Additional history limited, most data collected from ER documentation due to profound dyspnea and her difficult to speak in full sentences. Admitted for further work up. Hospital Course Hospital Course Hospital Course: 52yo F with PMHx CHF, COPD, CKD, PE on eliquis, GERD, anxiety and current smoker that came to ER c/o SOB. patient stated that her symptoms started over the weekend and worsened today. She describes difficulty breathing. initial ER work up included CXR that is grossly unremarkable. Gases showed hypercapnic respiratory acidosis, patient initially on severe respiratory distress, was placed on BiPAP, started on IV zoxyn. Able to wean quickly nasal cannula oxygen. Tolerating home baseline oxygen by the following morning. Wheeze significantly improved. Will complete course for COPD exacerbation. Stable for discharge home. Problems addressed as follows: - Acute on chronic hypercapnic respiratory failure secondary to COPD exacerbation: Patient admitted to [facility] for further management. Weaned off BiPAP to nasal cannula oxygen. Initially treated with Zosyn, DuoNebs every 6 hours. Will transition to cefdinir to complete 5-day course and prednisone p.o. Pulmonology consulted during admission. Assisted with care. We will have close follow-up as an outpatient with pulmonology. Stable to discharge home to complete treatment for COPD exacerbation. -chronic kidney injury Creatinine 1.5 during admission. Appears to be her baseline. Continued home medication for hypertension/CHF, depression and anxiety, GERD, opiate dependence disorder. Stable for discharge home. Patient does not smoke but recommended to her roommate that she stop smoking as this is complicating patient's condition. They stated they will work on this. Exam Data for Last 24 hours Vital signs and Labs for Last 24 Hours: Temp Pulse Resp BP Pulse Ox O2 Del Method O2 Flow Rate 97.6 F 70 17 118/68 100 Nasal Cannula 4 05/14/23 07:39 05/14/23 08:00 05/14/23 07:39 05/14/23 07:39 05/14/23 07:39 05/14/23 07:39 05/14/23 07:39 FiO2 35 05/14/23 06:35 Laboratory Results - last 24 hr 05/13/23 21:27: WBC 9.6, RBC 5.04, Hgb 13.9, Hct 41.6, MCV 82.6, MCH 27.5, MCHC 33.3, RDW 14.2, Plt Count 177, MPV 7.9, Neut % (Auto) 53.9, Lymph % (Auto) 34.9, [place] % (Auto) 5.4, Eos % (Auto) 4.7, Baso % (Auto) 1.0, Neut # (Auto) 5.2, Lymph # (Auto) 3.4, [place] # (Auto) 0.5, Eos # (Auto) 0.5 H, Baso # (Auto) 0.1, Sodium 138, Potassium 3.4 L, Chloride 95 L, Carbon Dioxide 36 H, Anion Gap 10.4, BUN 15, Creatinine 1.50 H, Estimated Creat Clear 49, Estimated GFR 37 L, Est GFR ( Amer) 44 L, Glucose 175 H, Lactate 2.4 H, Calcium 8.8, Magnesium 1.6, Total Bilirubin 0.6, AST 33, ALT 22, Alkaline Phosphatase 119, Troponin I < 0.01, NT-Pro-B Natriuret Pep 250 H, Total Protein 7.1, Albumin 4.2, Globulin 2.9, Albumin/Globulin Ratio 1.4 05/13/23 21:31: VBG pH 7.21 L, VBG pCO2 70.6 H, VBG pO2 70.9 H, VBG HCO3 27.3, VBG Total CO2 29.5 H, VBG O2 Saturation 90.5 H, VBG Base Excess -0.7 05/14/23 00:30: Lactate 1.1, Troponin I < 0.01 05/14/23 03:45: Troponin I < 0.01 05/14/23 05:11: WBC 6.4 D, RBC 4.62, Hgb 13.0, Hct 38.1, MCV 82.5, MCH 28.1, MCHC 34.0, RDW 14.2, Plt Count 159, MPV 8.0, Neut % (Auto) 84.7 H, Lymph % (Auto) 13.4, [place] % (Auto) 1.5 L, Eos % (Auto) 0.2, Baso % (Auto) 0.3, Neut # (Auto) 5.4, Lymph # (Auto) 0.9, [place] # (Auto) 0.1, Eos # (Auto) 0.0, Baso # (Auto) 0.0,
--- NOTE | 2023-05-15 14:59 | CARE MANAGER ---
Contacted patient related to hospital discharge. 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 She is aware of both follow up appointments. Denies questions or concerns. HELIO Butler
== END 2023-05-14 13:25 | disposition home or self-care (01) | DRG 189 ==
LOC: ER 22:27 → 2ND 23:01
PROVIDERS: Internal Medicine Adolescent Medicine; Internal Medicine Pulmonary Disease; Nurse Practitioner Family; Admitting Provider Internal Medicine; Emergency Provider Emergency Medicine; PCP Emergency Medicine; Visit Provider Internal Medicine
DX: J44.1 Chronic obstructive pulmonary disease with (acute) exacerbation (principal); J96.22 Acute and chronic respiratory failure with hypercapnia; N17.9 Acute kidney failure, unspecified; I13.0 Hypertensive heart and chronic kidney disease with heart failure and stage 1 through stage 4 chronic kidney disease, or unspecified chronic kidney disease; I82.503 Chronic embolism and thrombosis of unspecified deep veins of lower extremity, bilateral; N18.31 Chronic kidney disease, stage 3a; K21.9 Gastro-esophageal reflux disease without esophagitis; F41.9 Anxiety disorder, unspecified; F17.210 Nicotine dependence, cigarettes, uncomplicated; Z79.01 Long term (current) use of anticoagulants; I50.32 Chronic diastolic (congestive) heart failure; Z79.899 Other long term (current) drug therapy; Z99.81 Dependence on supplemental oxygen
CPT/HCPCS: 36415; 71045; 80048; 80053; 82803; 83605; 83735; 83880; 84145; 84484; 85025; 87040; 87632; 87635; 93005; 94640; 94660; 99285; J2543; J3475

== ENCOUNTER 2023-06-11 18:20 | Emergency (ER) | payer OTHER, SELFPAY ==
[2023-06-11] VITALS (7 sets, daily range): BP systolic 94–121; BP diastolic 62–75; PULSE 65–77; RESP 16–24; TEMP 36.5–36.9; O2SAT 78–98; BMI 27.3
--- NOTE | 2023-06-11 18:28 | ECG_ITS ---
APPROVED REPORT Exam: Resting ECG HR:86 bpm ECG Measurements Heart Rate 86 AXES MS 166 P 76 QRSd 92 QRS 78 QT 377 T 68 QTc 420 Conclusion SINUS RHYTHM INCOMPLETE RIGHT BUNDLE BRANCH BLOCK [90+ ms QRS DURATION, TERMINAL R IN V1/V2, 40+ ms S IN I/aVL/V4/V5/V6] MINIMAL ST DEPRESSION [0.025+ mV ST DEPRESSION] BORDERLINE ECG UNCONFIRMED REPORT Electronically signed by : Jaydon Parson MD 06/12/2023 10:18:14
--- NOTE | 2023-06-11 18:57 | PC.NURSE ---
pt to restroom
--- NOTE | 2023-06-11 19:01 | PC.NURSE ---
Dr. Elliott at BS for pt eval
--- NOTE | 2023-06-11 19:06 | XR_ITS ---
PROCEDURE INFORMATION: Exam: XR Chest Exam date and time: 06/11/2023 7:05 PM Age: 52 years old Clinical indication: Dyspnea; Additional info: Dyspnea. Copd TECHNIQUE: Imaging protocol: Radiologic exam of the chest. Views: 1 view. COMPARISON: CR XR CHEST PORTABLE 05/13/2023 10:06 PM FINDINGS: Lungs: Stable mild bibasilar interstitial prominence. No consolidation. Pleural spaces: Unremarkable. No pleural effusion. No pneumothorax. Heart/Mediastinum: Unremarkable. No cardiomegaly. Bones/joints: Unremarkable. IMPRESSION: No acute findings.
--- NOTE | 2023-06-11 19:07 | HMH.EDGENADL ---
Discharge Plan Disposition Patient Disposition: Home, Self-Care Prescriptions Prescriptions: New albuterol sulfate 90 mcg/actuation HFA aerosol inhaler 4 inh inhalation Q4H PRN (Reason: shortness of breath or wheezing) Qty: 8.5 0RF Rx Instructions: 4 puffs every 4 hours for 48 hours then as needed for shortness of breath or wheezing following benzonatate 100 mg capsule 100 mg PO TID PRN (Reason: cough) 5 Days Qty: 20 0RF doxycycline hyclate 100 mg capsule 100 mg PO BID 7 Days Qty: 14 0RF No Action buprenorphine-naloxone 8-2 mg tablet, sublingual 2 tab sublingual DAILY clonazepam [Klonopin] 0.5 mg tablet 0.5 mg PO TID Qty: 90 0RF omeprazole 20 mg capsule,delayed release(DR/EC) 20 mg PO DAILY Qty: 90 3RF Eliquis 5 mg tablet See Rx Instructions .ROUTE .COMPLEX Qty: 60 0RF Dose Instruction: TAKE ONE TABLET BY MOUTH 2 TIMES A DAY FOR BLOOD THINNER Rx Instructions: TAKE ONE TABLET BY MOUTH 2 TIMES A DAY FOR BLOOD THINNER hydroxyzine pamoate 50 mg capsule See Rx Instructions .ROUTE .COMPLEX Qty: 120 0RF Dose Instruction: TAKE ONE CAPSULE BY MOUTH FOUR TIMES A DAY Rx Instructions: TAKE ONE CAPSULE BY MOUTH FOUR TIMES A DAY furosemide 40 mg tablet 40 mg PO BID spironolactone 100 mg tablet 100 mg PO BID sertraline 100 mg tablet 100 mg PO DAILY albuterol sulfate 90 mcg/actuation HFA aerosol inhaler 2 puff inhalation Q4HP PRN (Reason: Shortness Of Breath) (DME) Laurita Benito [facility] Spacer See Rx Instructions .Route Rx Instructions: As directed ipratropium-albuterol 0.5 mg-3 mg(2.5 mg base)/3 mL solution for nebulization 3 ml inhalation Q4HP PRN (Reason: Shortness Of Breath) propranolol 80 mg capsule,extended release 24 hr 80 mg PO DAILY cholecalciferol (vitamin D3) 1,250 mcg (50,000 unit) capsule 1,250 mcg PO WEEKLY Trelegy Ellipta 100-62.5-25 mcg blister with device 1 inh inhalation DAILY Referrals Follow up/Referrals: Laura Arreola PA [Primary Care Provider] - See instructions Activity Restrictions/Add. Instructions Additional Instructions/Restrictions: Follow-up with your primary care doctor within 1 week return to the emergency department any worsening shortness of breath high fevers or other concerns. Clinical Impressions Clinical Impression: Acute exacerbation of chronic obstructive pulmonary disease Discharge ED Provider: Herrera Elliott General Adult HPI General Chief complaint: Shortness of Breath/Dyspnea Stated complaint: SOA, weak Time Seen by Provider: 06/11/23 18:48 Mode of Arrival: Wheelchair Source of Information: Patient Limitations: No Limitations Description of Symptoms (Recalled from ER Triage Doc. by RN): Presents to ED with c/o SOA x 2 days and swollen BLE. Patient further reports episodes of hot flashes. Patient reports taking Lasix daily. Patient reports 2L NC PRN at home but has not used it today. PMH: COPD and CHF. History of Present Illness HPI narrative: Patient is a 52-year-old female who is supposed to be on home oxygen who presents today with shortness of breath cough wheezing productive sputum no fevers chills. She has chronic lower extremity swelling states that she has not been told she has CHF but this is been documented in her chart in the past. Related Data Home Medications Medication Instructions Recorded Confirmed buprenorphine 8 mg-naloxone 2 mg 2 tab sublingual DAILY Opioid 10/11/17 05/22/23 sublingual tablet dependence albuterol sulfate 90 mcg/actuation 2 puff inhalation Q4HP PRN 02/11/23 05/22/23 aerosol inhaler Shortness Of Breath furosemide 40 mg tablet 40 mg PO BID Fluid 02/11/23 05/22/23 inhalational spacing device 02/11/23 05/22/23 (Laurita Benito [facility] spacer) sertraline 100 mg tablet 100 mg PO DAILY Mood 02/11/23 05/22/23 spironolactone 100 mg tablet 100 mg PO BID Fluid 02/11/23 05/22/23 cholecalcifer
[2023-06-11 19:17] LABS: VBG Base Excess 2.1 mmol/L (-2.4-2.3); VBG Oxygen Saturation 64.7 % (50-70); VBG PH 7.33 mmol/L (7.31-7.41); VBG PO2 35.7 mmol/L (28-40); VBG Total CO2 29.7 mmol/L (23-27)
[2023-06-11 19:20] LABS: VBG PCO2 54.5 mmol/L (35-51)
[2023-06-11 19:21] LABS: Basophils % 0.6 % (0.1-2.0); Eosinophils # 0.4 K/mm3 (0.0-0.4); Eosinophils % 7.4 % (0.1-12.0); Hematocrit 37.1 % (37.0-47.0); Hemoglobin 12.4 g/dL (12.2-16.2); Lymphocytes # 1.7 K/mm3 (0.7-4.5); Lymphocytes % 29.5 % (10-50); Mean Corpuscular HGB Conc 33.5 g/dL (31.8-35.4); Mean Corpuscular Hemoglobin 27.5 pg (27.0-31.2); Mean Corpuscular Volume 82.1 fl (81-99); Mean Platelet Volume 8.3 fl (7.4-10.4); Monocytes # 0.4 K/mm3 (0.1-1.0); Monocytes % 6.7 % (1.7-9.3); Neutrophils # 3.2 K/mm3 (1.8-7.8); Neutrophils % 55.9 % (37.0-80.0); Platelet Count 243 K/mm3 (142-424); Red Blood Count 4.52 M/mm3 (4.20-5.40); Red Cell Distribution Width 14.4 % (11.5-17.5); White Blood Count 5.8 K/mm3 (4.8-10.8)
--- NOTE | 2023-06-11 19:30 | PC.NURSE ---
Rounded on patient; call light within reach of patient
[2023-06-11 19:37] LABS: Alanine Aminotransferase 13 U/L (12-78); Albumin Level 3.8 g/dl (3.5-5.0); Albumin/Globulin Ratio 1.3 (1.1-1.8); Alkaline Phosphatase 122 U/L (38-126); Anion Gap 8.4 mEq/L (5-15); Aspartate Amino Transferase 27 U/L (14-36); Bilirubin,Total 0.4 mg/dl (0.2-1.3); Blood Urea Nitrogen 16 mg/dl (7-17); Calcium 8.6 mg/dl (8.4-10.2); Carbon Dioxide 34 mmol/L (22.0-30.0); Chloride 97 mmol/L (98-107); Creatinine Clearance Estimated 61 mL/min (50-200); Estimated Glomerular Filt Rate 47 ml/min (>60); GFR (African American) 57 ML/MIN (>60); Globulin 2.9 g/dL (1.3-3.2); Glucose 95 mg/dl (74-100); Potassium 3.4 mmoL/L (3.5-5.1); Sodium 136 mmol/L (136-145); Total Protein,Serum 6.7 g/dl (6.3-8.2)
[2023-06-11 19:50] LABS: NT Pro Brain Natriuretic Pep. 352 pg/mL (0-125); Troponin I < 0.01 ng/ml (0.00-0.034)
== END 2023-06-11 20:58 | disposition home or self-care (01) ==
PROVIDERS: Emergency Provider Student in an Organized Health Care Education/Training Program; PCP Physician Assistant
DX: J44.1 Chronic obstructive pulmonary disease with (acute) exacerbation (principal); I11.0 Hypertensive heart disease with heart failure; I50.9 Heart failure, unspecified; E78.5 Hyperlipidemia, unspecified; G47.30 Sleep apnea, unspecified; Z87.891 Personal history of nicotine dependence; Z86.711 Personal history of pulmonary embolism
CPT/HCPCS: 71045; 80053; 82803; 83880; 84484; 85025; 93005; 96361; 96374; 99285; J3475

== ENCOUNTER → 2023-06-18 23:23 | Outpatient (CLI) | payer OTHER, SELFPAY ==
[2023-06-18 18:37] LABS: Amphetamine/Metha Screen,Urine Negative ng/ml (<1000); Barbiturates Screen,Urine Negative ng/ml (<200)
[2023-06-18 18:38] LABS: Benzodiazepines Screen,Urine Positive ng/ml (<200)
[2023-06-18 18:39] LABS: Cannabinoid Screen,Urine Negative ng/ml (<50); Cocaine Screen,Urine Negative ng/ml (<300)
[2023-06-18 18:40] LABS: Methadone Screen,Urine Negative ng/ml (<300); Opiate Screen,Urine Negative ng/ml (<300)
[2023-06-18 18:42] LABS: Phencyclidine Screen,Urine Negative ng/ml (<25)
== END ==
PROVIDERS: PCP Physician Assistant; Visit Provider Family Medicine
DX: Z79.899 Other long term (current) drug therapy (principal); N39.0 Urinary tract infection, site not specified; B96.89 Other specified bacterial agents as the cause of diseases classified elsewhere
CPT/HCPCS: 80305; 87086

== ENCOUNTER 2023-07-18 18:15 | Outpatient (CLI) | payer OTHER, SELFPAY ==
[2023-07-18 21:51] LABS: Amphetamine/Metha Screen,Urine Negative ng/ml (<1000); Barbiturates Screen,Urine Negative ng/ml (<200); Benzodiazepines Screen,Urine Positive ng/ml (<200); Cannabinoid Screen,Urine Negative ng/ml (<50); Cocaine Screen,Urine Negative ng/ml (<300); Methadone Screen,Urine Negative ng/ml (<300); Opiate Screen,Urine Negative ng/ml (<300); Phencyclidine Screen,Urine Negative ng/ml (<25)
== END 2023-07-18 23:59 ==
LOC: LAB.DROPOF 18:16
PROVIDERS: PCP Nurse Practitioner Family; Visit Provider Nurse Practitioner Family
DX: F41.9 Anxiety disorder, unspecified (principal)
CPT/HCPCS: 80307

== ENCOUNTER 2023-08-26 18:05 | Emergency (ER) | payer OTHER, SELFPAY ==
[2023-08-26 18:35] VITALS: BP 96/58; PULSE 72; RESP 19; TEMP 36.5; O2SAT 91; BMI 25.1
--- NOTE | 2023-08-26 18:56 | EXP.UTC ---
Discharge Plan Disposition Patient Disposition: Home, Self-Care Condition: Good Prescriptions Prescriptions: New doxycycline hyclate 100 mg capsule 100 mg PO BID Qty: 20 0RF prednisone 10 mg tablets,dose pack See Rx Instructions .ROUTE .COMPLEX Qty: 21 0RF Rx Instructions: Take as directed on package instructions guaifenesin [Mucinex] 600 mg tablet extended release 12hr 600 mg PO BID PRN (Reason: cough) Qty: 20 0RF No Action buprenorphine-naloxone 8-2 mg tablet, sublingual 2 tab sublingual DAILY clonazepam [Klonopin] 0.5 mg tablet 0.5 mg PO TID Qty: 75 1RF Vraylar 1.5 mg capsule 1.5 mg PO DAILY Qty: 30 2RF ipratropium-albuterol 0.5 mg-3 mg(2.5 mg base)/3 mL solution for nebulization See Rx Instructions .ROUTE .COMPLEX Qty: 540 0RF Dose Instruction: INHALE CONTENTS OF 1 VIAL VIA NEBULIZER EVERY 4 HOURS FOR COPD Rx Instructions: INHALE CONTENTS OF 1 VIAL VIA NEBULIZER EVERY 4 HOURS FOR COPD hydroxyzine pamoate 50 mg capsule See Rx Instructions .ROUTE .COMPLEX Qty: 120 0RF Dose Instruction: TAKE ONE CAPSULE BY MOUTH FOUR TIMES A DAY Rx Instructions: TAKE ONE CAPSULE BY MOUTH FOUR TIMES A DAY propranolol 80 mg capsule,extended release 24 hr See Rx Instructions .ROUTE .COMPLEX Qty: 30 0RF Dose Instruction: TAKE ONE CAPSULE BY MOUTH ONCE A DAY FOR HYPERTENSION Rx Instructions: TAKE ONE CAPSULE BY MOUTH ONCE A DAY FOR HYPERTENSION Eliquis 5 mg tablet See Rx Instructions .ROUTE .COMPLEX Qty: 60 0RF Dose Instruction: TAKE ONE TABLET BY MOUTH 2 TIMES A DAY FOR BLOOD THINNER Rx Instructions: TAKE ONE TABLET BY MOUTH 2 TIMES A DAY FOR BLOOD THINNER omeprazole 20 mg capsule,delayed release(DR/EC) See Rx Instructions .ROUTE .COMPLEX Qty: 30 0RF Dose Instruction: TAKE ONE CAPSULE BY MOUTH ONCE A DAY Rx Instructions: TAKE ONE CAPSULE BY MOUTH ONCE A DAY cholecalciferol (vitamin D3) 1,250 mcg (50,000 unit) capsule See Rx Instructions .ROUTE .COMPLEX Qty: 4 0RF Dose Instruction: TAKE ONE CAPSULE BY MOUTH EVERY WEEK Rx Instructions: TAKE ONE CAPSULE BY MOUTH EVERY WEEK spironolactone 100 mg tablet See Rx Instructions .ROUTE .COMPLEX Qty: 60 3RF Dose Instruction: TAKE ONE TABLET BY MOUTH 2 TIMES A DAY Rx Instructions: TAKE ONE TABLET BY MOUTH 2 TIMES A DAY sertraline 100 mg tablet See Rx Instructions .ROUTE .COMPLEX Qty: 30 0RF Dose Instruction: TAKE ONE TABLET BY MOUTH ONCE A DAY FOR DEPRESSION Rx Instructions: TAKE ONE TABLET BY MOUTH ONCE A DAY FOR DEPRESSION albuterol sulfate 90 mcg/actuation HFA aerosol inhaler 4 inh inhalation Q4H PRN (Reason: shortness of breath or wheezing) Qty: 8.5 3RF Rx Instructions: 4 puffs every 4 hours for 48 hours then as needed for shortness of breath or wheezing following Trelegy Ellipta 100-62.5-25 mcg blister with device 1 inh inhalation DAILY Qty: 28 12RF furosemide 40 mg tablet 40 mg PO BID [facility] Spacer See Rx Instructions .Route Rx Instructions: As directed Referrals Follow up/Referrals: Laura Arreola PA [Primary Care Provider] - See instructions Activity Restrictions/Add. Instructions Additional Instructions/Restrictions: Follow up with your Family Doctor if no improvement Straight to ER if any life threatening symptoms or worsening of shortness of breath Clinical Impressions Clinical Impression: COPD (chronic obstructive pulmonary disease) Instructions Patient Instructions: Chronic Obstructive Pulmonary Disease, Be a Partner in Your COPD Care Discharge ED Provider: Rosalia Cisneros [facility] General Stated complaint: soa, weakness Mode of Arrival: Ambulatory Source of Information: Patient Limitations: No Limitations Time Seen by Provider: 08/26/23 18:50 Description of Symptoms (Recalled from Triage Doc. by RN): Pt's symptoms are chest congestion, cough, sore throat, drainage, wheezing, and fatigue. HEENT Symptoms (Recalled from RN notes): Yes Resp Symptoms (Recalled from RN notes): Yes Skin Symptoms (Recalled from RN notes): No MS Symptoms (Recalled from RN notes): No Functional Status (Recalled from RN notes): n/a History of Present Illness Provider Complaint: Patient states that she feels like she is starting to get sick States that she has COPD and she feels like she needed to come in and get a shot before it got bad States that when she has been having cough, sorethroat, Drainage some wheezing on and off and fatigue States that when she gets like this she comes in gets a shot and goes home and she was wanting to get a shot of antibiotics, steriods and go home Related Data Home Medications Medication Instructions Recorded Confirmed buprenorphine 8 mg-naloxone 2 mg 2 tab sublingual DAILY Opioid 10/11/17 08/26/23 sublingual tablet dependence furosemide 40 mg tablet 40 mg PO BID Fluid 02/11/23 08/26/23 inhalational spacing device 02/11/23 07/18/23 (Laurita Jigna [facility] spacer) Previous Rx's Medication Instructions Recorded cariprazine 1.5 mg capsule 1.5 mg PO DAILY #30 caps 07/18/23 (Vraylar) clonazepam 0.5 mg tablet (Klonopin) 0.5 mg PO TID #75 tabs 07/18/23 apixaban 5 mg tablet (Eliquis) See Rx Instructions .Route 07/23/23 .COMPLEX #60 tabs cholecalciferol (vitamin D3) 1,250 See Rx Instructions .Route 07/23/23 mcg (50,000 unit) capsule .COMPLEX #4 caps hydroxyzine pamoate 50 mg capsule See Rx Instructions .Route 07/23/23 .COMPLEX #120 caps ipratropium 0.5 mg-albuterol 3 mg See Rx Instructions .Route 07/23/23 (2.5 mg base)/3 mL nebulization .COMPLEX #540 mL soln omeprazole 20 mg capsule,delayed See Rx Instructions .Route 07/23/23 release .COMPLEX #30 caps propranolol 80 mg capsule,24 See Rx Instructions .Route 07/23/23 hr,extended release .COMPLEX #30 caps spironolactone 100 mg tablet See Rx Instructions .Route 07/23/23 .COMPLEX #60 tabs sertraline 100 mg tablet See Rx Instructions .Route 07/30/23 .COMPLEX #30 tabs albuterol sulfate 90 mcg/actuation 4 inh inhalation Q4H PRN shortness 08/17/23 aerosol inhaler of breath or wheezing #8.5 grams fluticasone fur. 100 mcg-umeclid 1 inh inhalation DAILY Breathing 08/17/23 62.5 mcg-vilant 25 mcg Problems #28 ea inhalat.powder (Trelegy Ellipta) doxycycline hyclate 100 mg capsule 100 mg PO BID #20 caps 08/26/23 guaifenesin 600 mg tablet, 600 mg PO BID PRN cough #20 tabs 08/26/23 extended release 12 hr (Mucinex) prednisone 10 mg tablets in a dose See Rx Instructions PO .COMPLEX 08/26/23 pack #21 tabs Allergies Allergy/AdvReac Type Severity Reaction Status Date / Time hydromorphone Allergy Severe S-DIFF. Verified 08/26/23 18:55 BREATHING; HIVES propoxyphene Allergy Severe S-SWELLS-OR Verified 08/26/23 18:55 [From Darvocet-N] AL/THROAT gabapentin [From Neurontin] Allergy Intermediate I-HIVES Verified 08/26/23 18:55 codeine Allergy Verified 08/26/23 18:55 Worker's Comp Is this a Worker's Comp case?: No [facility] Disclaimer: The information contained in this section may have been updated after the patient was seen, as this information can be updated by other users. Medical History (Updated 08/26/23 @ 19:14 by Rosalia Cisneros APRN) Acute and chronic respiratory failure with hypoxia Acute exacerbation of chronic obstructive pulmonary disease Anxiety Bronchitis CHF (congestive heart failure) COPD (chronic obstructive pulmonary disease) COPD exacerbation Diastolic dysfunction Gastroesophageal reflux disease History of DVT (deep vein thrombosis) History of DVT of lower extremity History of gastroesophageal reflux (GERD) History of pulmonary embolism Hyperlipidemia Hypertension Myocardial bridge Pneumonia Recurrent pulmonary emboli Sleep apnea Swelling of lower extremity Tobacco abuse disorder Wheezing Surgical History History of hysterectomy Family History Other No significant family history Social History Smoking Status: Former smoker tobacco type: cigarettes packs per day: 1 second hand exposure: No alcohol intake: never substance use type: former substance user current occupational status: unemployed Travel in the last 8 weeks: None household members: none housing: house current occupational exposures/hazards: No caffeine: Yes ROS Obtained: Yes All systems reviewed & no additional complaints except as documented and Yes Systems reviewed as appropriate & no additional complaints except as documented Constitutional Constitutional: Reports system reviewed and no additional complaints, except as documented, Reports as per HPI, Reports fatigue, Denies fever(s) and Denies headache(s) ENT Ears, Nose, Mouth, and Throat: Reports system reviewed and no additional complaints, except as documented, Reports as per HPI, Denies headache(s), Reports nasal congestion and Reports sore throat Cardiovascular Cardiovascular: Reports system reviewed and no additional complaints, except as documented, Reports as per HPI and Denies chest pain Respiratory Respiratory: Reports system reviewed and no additional complaints, except as documented, Reports as per HPI, Reports chest congestion, Reports cough and Reports wheezing (on and off with hx of COPD) Gastrointestinal Gastrointestingal: Reports system reviewed and no additional complaints, except as documented and as per HPI Musculoskeletal Musculoskeletal: Reports system reviewed and no additional complaints, except as documented and Reports as per HPI Neurologic Neurologic: Denies headache(s) Endocrine Endocrine: Reports fatigue Allergic/Immunologic Allergic/Immunologic: Reports wheezing (on and off with hx of COPD) Physical Exam General General appearance: alert and in no apparent distress ENT ENT exam: Present mucous membranes moist Expanded ENT Exam Nose exam: Present sinus tenderness Throat exam: Present other (Pharyngeal erythema noted with PND) Respiratory Respiratory exam: Present normal lung sounds bilaterally and wheezes (reports took neb just prior to arrival); Absent respiratory distress Cardiovascular Cardiovascular exam: Present regular rate, normal rhythm and normal heart sounds Abdominal Exam Abdominal exam: Present soft and normal bowel sounds; Absent distention or tenderness Neurological Exam Neurological exam: Present alert, oriented X3 and normal gait Medical Decision Making Eliecer Inquiry Pt receiving controlled substance: No Eliecer was queried for this patient: No Vital Signs: 08/26/23 18:35 Temperature 97.7 F Temperature Source Oral Pulse Rate [Right Radial] 72 Respiratory Rate 19 Blood Pressure [Right Arm] 96/58 L Blood Pressure Mean [Right Arm] 70 Blood Pressure Source [Right Arm] Manual Cuff/ Auscultation Blood Pressure Position [Right Arm] Sitting 02 Sat by Pulse Oximetry 91 L Oxygen Delivery Method Room Air Medical Decision Narrative: Discussed with patient and recommended transfer to the ED for more extensive work up and evaluation and she declined Discussed CXR patient declined Patient states that she will not go the ED and she usually gets a shot of Rochephin, steriods and dc'd home with antibiotics and steriods Patient educated of risks even and she still refused any testing, xrays or transfer States that she will follow up with her PCP if she gets any worse
[2023-08-26] MEDS: LIDOCAINE 1% 5ML PF VIAL IM (19:23)
[2023-08-26] MEDS: cefTRIAXone 1GM VIAL 1 GM IM (19:23)
[2023-08-26] MEDS: METHYLPREDNISOLONE SOD SUCC 125MG VIAL 125 MG IM (19:23)
[2023-08-26 19:46] VITALS: BP 96/58; PULSE 72; RESP 18; TEMP 36.5; O2SAT 91
== END 2023-08-26 19:46 | disposition home or self-care (01) ==
PROVIDERS: Emergency Provider Nurse Practitioner; PCP Physician Assistant
DX: R05.9 Cough, unspecified (principal); J44.9 Chronic obstructive pulmonary disease, unspecified; R07.0 Pain in throat; R53.83 Other fatigue; I11.0 Hypertensive heart disease with heart failure; I50.9 Heart failure, unspecified; K21.9 Gastro-esophageal reflux disease without esophagitis; E78.5 Hyperlipidemia, unspecified; Z87.891 Personal history of nicotine dependence
CPT/HCPCS: 96372; 99212; 99214; G0463; J0696

== ENCOUNTER 2023-11-27 12:21 | Emergency (ER) | payer OTHER, SELFPAY ==
[2023-11-27 12:22] VITALS: BP 127/78; PULSE 83; RESP 18; TEMP 36.8; O2SAT 90; BMI 26.0
--- NOTE | 2023-11-27 13:06 | ED_ITS ---
Discharge Plan Disposition Patient Disposition: Home, Self-Care Condition: Good Prescriptions Prescriptions: New doxycycline hyclate 100 mg capsule 100 mg PO BID Qty: 20 0RF prednisone 10 mg tablets,dose pack See Rx Instructions .ROUTE .COMPLEX Qty: 21 0RF Rx Instructions: Take as directed on package instructions guaifenesin [Mucinex] 600 mg tablet extended release 12hr 600 mg PO BID PRN (Reason: cough) Qty: 20 0RF No Action buprenorphine-naloxone 8-2 mg tablet, sublingual 2 tab sublingual DAILY Vraylar 1.5 mg capsule 1.5 mg PO DAILY Qty: 30 2RF albuterol sulfate 90 mcg/actuation HFA aerosol inhaler 4 inh inhalation Q4H PRN (Reason: shortness of breath or wheezing) Qty: 8.5 3RF Rx Instructions: 4 puffs every 4 hours for 48 hours then as needed for shortness of breath or wheezing following Trelegy Ellipta 100-62.5-25 mcg blister with device 1 inh inhalation DAILY Qty: 28 12RF spironolactone 100 mg tablet 100 mg PO DAILY Qty: 30 3RF furosemide 40 mg tablet 40 mg PO DAILY Qty: 30 4RF cholecalciferol (vitamin D3) 1,250 mcg (50,000 unit) capsule See Rx Instructions .ROUTE .COMPLEX Qty: 4 1RF Dose Instruction: TAKE ONE CAPSULE BY MOUTH EVERY WEEK Rx Instructions: TAKE ONE CAPSULE BY MOUTH EVERY WEEK Eliquis 5 mg tablet See Rx Instructions .ROUTE .COMPLEX Qty: 60 1RF Dose Instruction: TAKE ONE TABLET BY MOUTH 2 TIMES A DAY FOR BLOOD THINNER Rx Instructions: TAKE ONE TABLET BY MOUTH 2 TIMES A DAY FOR BLOOD THINNER omeprazole 20 mg capsule,delayed release(DR/EC) See Rx Instructions .ROUTE .COMPLEX Qty: 30 2RF Dose Instruction: TAKE ONE CAPSULE BY MOUTH ONCE A DAY Rx Instructions: TAKE ONE CAPSULE BY MOUTH ONCE A DAY propranolol 80 mg capsule,extended release 24 hr See Rx Instructions .ROUTE .COMPLEX Qty: 90 0RF Dose Instruction: TAKE ONE CAPSULE BY MOUTH ONCE A DAY FOR HYPERTENSION Rx Instructions: TAKE ONE CAPSULE BY MOUTH ONCE A DAY FOR HYPERTENSION sertraline 100 mg tablet See Rx Instructions .ROUTE .COMPLEX Qty: 30 3RF Dose Instruction: TAKE ONE TABLET BY MOUTH ONCE A DAY FOR DEPRESSION Rx Instructions: TAKE ONE TABLET BY MOUTH ONCE A DAY FOR DEPRESSION ipratropium-albuterol 0.5 mg-3 mg(2.5 mg base)/3 mL solution for nebulization See Rx Instructions .ROUTE .COMPLEX Qty: 540 3RF Dose Instruction: INHALE CONTENTS OF 1 VIAL VIA NEBULIZER EVERY 4 HOURS FOR COPD Rx Instructions: INHALE CONTENTS OF 1 VIAL VIA NEBULIZER EVERY 4 HOURS FOR COPD hydroxyzine pamoate 50 mg capsule See Rx Instructions .ROUTE .COMPLEX Qty: 120 1RF Dose Instruction: TAKE ONE CAPSULE BY MOUTH FOUR TIMES A DAY Rx Instructions: TAKE ONE CAPSULE BY MOUTH FOUR TIMES A DAY (DME) Laurita Benito [facility] Spacer See Rx Instructions .Route Rx Instructions: As directed Referrals Follow up/Referrals: Laura Arreola PA [Primary Care Provider] - See instructions Activity Restrictions/Add. Instructions Additional Instructions/Restrictions: * Start antibiotic today. Be sure to complete entire prescription even if feeling better * Monitor temp. Tylenol every 4 hours as needed and / or ibuprofen every 6 hours as needed ( As long as your primary care physician has told you that it ok to take both. For fever/aches/pains ER if no less than 101 despite Tylenol or Motrin * Humidifier/vaporizer or hot steamy shower * Inhaler/Nebulizer every 4-6 hours as needed like we discussed. If unsure how to use it, ask pharmacist to demonstrate how. Should help open airways and improve cough, wheezing, and shortness of breath * Mucinex during the day for your cough and cough suppressant only at night. Be sure to drink lots of water. Insurance may not cover a prescriptions for mucinex. Might be cheaper to get 400mg tablets and take 2 tablet in the morning, mid-day and evening with lots of water. *Start steroid tomorrow. Helps with inflammation therefore, cough and wheezing. Follow directions on the package. Reviewed side effects. Patient reports taking them before. Follow up IMMEDIATELY for new or worsening of symptoms OR no noticeable improvement over the next 48-72 hours. 911 immediately for any life threatening symptoms such as chest pain or difficulty breathing Clinical Impressions Clinical Impression: COPD (chronic obstructive pulmonary disease) Instructions Patient Instructions: Chronic Obstructive Pulmonary Disease (Alternative Therapy), DI for Chronic Obstructive Pulmonary Disease, COPD: When to Call for Help Discharge ED Provider: Rosalia Cisneros [facility] [place] HPI General Stated complaint: SOA congestion Mode of Arrival: Ambulatory Source of Information: Patient Limitations: No Limitations Time Seen by Provider: 11/27/23 13:12 Description of Symptoms (Recalled from Triage Doc. by RN): Pt's symptoms are congestion, wheezing, and copd exacerbation. HEENT Symptoms (Recalled from RN notes): Yes Resp Symptoms (Recalled from RN notes): No Skin Symptoms (Recalled from RN notes): No MS Symptoms (Recalled from RN notes): No Functional Status (Recalled from RN notes): n/a History of Present Illness Provider Complaint: Patient states that she has hx of COPD States that she has exacerbations at times States that for the last couple of days she has been having cough, sinus congestion, and cough and wheezing states that when she does this she has to come in and get a shot of rocephin, steriods and go home on antibiotics and steriods to get over it States that she has been doing this for years Related Data Home Medications Medication Instructions Recorded Confirmed buprenorphine 8 mg-naloxone 2 mg 2 tab sublingual DAILY Opioid 10/11/17 11/27/23 sublingual tablet dependence inhalational spacing device 02/11/23 09/20/23 (Laurita Jigna [facility] spacer) Previous Rx's Medication Instructions Recorded albuterol sulfate 90 mcg/actuation 4 inh inhalation Q4H PRN shortness 08/17/23 aerosol inhaler of breath or wheezing #8.5 grams fluticasone fur. 100 mcg-umeclid 1 inh inhalation DAILY Breathing 08/17/23 62.5 mcg-vilant 25 mcg Problems #28 ea inhalat.powder (Trelegy Ellipta) apixaban 5 mg tablet (Eliquis) See Rx Instructions .Route 08/30/23 .COMPLEX #60 tabs cholecalciferol (vitamin D3) 1,250 See Rx Instructions .Route 08/30/23 mcg (50,000 unit) capsule .COMPLEX #4 caps furosemide 40 mg tablet 40 mg PO DAILY Fluid #30 tabs 08/30/23 spironolactone 100 mg tablet 100 mg PO DAILY #30 tabs 08/30/23 omeprazole 20 mg capsule,delayed See Rx Instructions .Route 08/31/23 release .COMPLEX #30 caps cariprazine 1.5 mg capsule 1.5 mg PO DAILY #30 caps 09/20/23 (Vraylar) propranolol 80 mg capsule,24 See Rx Instructions .Route 10/01/23 hr,extended release .COMPLEX #90 caps ipratropium 0.5 mg-albuterol 3 mg See Rx Instructions .Route 11/06/23 (2.5 mg base)/3 mL nebulization .COMPLEX #540 mL soln sertraline 100 mg tablet See Rx Instructions .Route 11/06/23 .COMPLEX #30 tabs hydroxyzine pamoate 50 mg capsule See Rx Instructions .Route 11/22/23 .COMPLEX #120 caps doxycycline hyclate 100 mg capsule 100 mg PO BID #20 caps 11/27/23 guaifenesin 600 mg tablet, 600 mg PO BID PRN cough #20 tabs 11/27/23 extended release 12 hr (Mucinex) prednisone 10 mg tablets in a dose See Rx Instructions PO .COMPLEX 11/27/23 pack #21 tabs Allergies Allergy/AdvReac Type Severity Reaction Status Date / Time hydromorphone Allergy Severe S-DIFF. Verified 11/27/23 12:52 BREATHING; HIVES propoxyphene Allergy Severe S-SWELLS-OR Verified 11/27/23 12:52 [From Darvocet-N] AL/THROAT gabapentin [From Neurontin] Allergy Intermediate I-HIVES Verified 11/27/23 12:52 codeine Allergy Verified 11/27/23 12:52 Worker's Comp Is this a Worker's Comp case?: No [facility] Disclaimer: The information contained in this section may have been updated after the patient was seen, as this information can be updated by other users. Medical History Acute exacerbation of chronic obstructive pulmonary disease Recurrent pulmonary emboli Swelling of lower extremity History of DVT of lower extremity Sleep apnea Pneumonia History of gastroesophageal reflux (GERD) Hyperlipidemia Hypertension Diastolic dysfunction Myocardial bridge 2017. History of DVT (deep vein thrombosis) CHF (congestive heart failure) Gastroesophageal reflux disease COPD (chronic obstructive pulmonary disease) Acute and chronic respiratory failure with hypoxia History of pulmonary embolism Tobacco abuse disorder Anxiety COPD exacerbation Bronchitis Wheezing Surgical History History of hysterectomy Family History Other No significant family history Social History Smoking Status: Former smoker tobacco type: cigarettes packs per day: 1 second hand exposure: No alcohol intake: never substance use type: former substance user current occupational status: unemployed Travel in the last 8 weeks: None household members: none housing: house current occupational exposures/hazards: No caffeine: Yes ROS Obtained: Yes All systems reviewed & no additional complaints except as documented and Yes Systems reviewed as appropriate & no additional complaints except as documented Constitutional Constitutional: Reports system reviewed and no additional complaints, except as documented, Reports as per HPI and Denies fever(s) ENT Ears, Nose, Mouth, and Throat: Reports system reviewed and no additional complaints, except as documented, Reports as per HPI, Reports nasal congestion and Reports sinus pressure Cardiovascular Cardiovascular: Reports system reviewed and no additional complaints, except as documented and Reports as per HPI Respiratory Respiratory: Reports system reviewed and no additional complaints, except as documented, Reports as per HPI, Reports shortness of breath, Reports chest congestion and Reports cough Gastrointestinal Gastrointestingal: Reports system reviewed and no additional complaints, except as documented and as per HPI Physical Exam General General appearance: alert and in no apparent distress ENT ENT exam: Present mucous membranes moist Expanded ENT Exam Nose exam: Present sinus tenderness Respiratory Respiratory exam: Present normal lung sounds bilaterally and wheezes (reports took neb just prior to arrival and used Inhaler in room and wheezing diminished); Absent respiratory distress Cardiovascular Cardiovascular exam: Present regular rate, normal rhythm and normal heart sounds Neurological Exam Neurological exam: Present alert, oriented X3 and normal gait Medical Decision Making Eliecer Inquiry Pt receiving controlled substance: No Eliecer was queried for this patient: No Vital Signs: 11/27/23 12:22 Temperature 98.2 F Temperature Source Oral Pulse Rate [Right Radial] 83 Respiratory Rate 18 Blood Pressure [Right Arm] 127/78 Blood Pressure Mean [Right Arm] 94 Blood Pressure Source [Right Arm] Automatic Cuff Blood Pressure Position [Right Arm] Sitting 02 Sat by Pulse Oximetry 90 L Oxygen Delivery Method Room Air Medical Decision Narrative: Discussed with patient about transfer to the ED for further work up and evaluation and CXR and patient declined Patient aware of risks even and she still declined Medication discussed with pharmacy
[2023-11-27] MEDS: cefTRIAXone 1GM VIAL 1 GM IM (13:18)
[2023-11-27] MEDS: LIDOCAINE 1% 5ML PF VIAL IM (13:18)
[2023-11-27] MEDS: METHYLPREDNISOLONE SOD SUCC 125MG VIAL 125 MG IM (13:18)
[2023-11-27 13:45] VITALS: BP 127/78; PULSE 83; RESP 18; TEMP 36.8; O2SAT 94
== END 2023-11-27 13:45 | disposition home or self-care (01) ==
PROVIDERS: Emergency Provider Nurse Practitioner; PCP Physician Assistant
DX: J44.1 Chronic obstructive pulmonary disease with (acute) exacerbation (principal); R06.2 Wheezing; R05.9 Cough, unspecified; Z87.891 Personal history of nicotine dependence
CPT/HCPCS: 96372; 99212; 99214; G0463; J0696

== ENCOUNTER 2023-12-17 10:26 | Outpatient (CLI) | payer OTHER, SELFPAY ==
[2023-12-17 18:38] LABS: Basophils # 0.1 K/mm3 (0-0.2); Basophils % 0.7 % (0.1-2.0); Eosinophils # 0.2 K/mm3 (0.0-0.4); Eosinophils % 2.8 % (0.1-12.0); Hematocrit 37.5 % (37.0-47.0); Hemoglobin 11.6 g/dL (12.2-16.2); Lymphocytes # 1.7 K/mm3 (0.7-4.5); Lymphocytes % 25.6 % (10-50); Mean Corpuscular Hemoglobin 26.4 pg (27.0-31.2); Mean Corpuscular Volume 85.1 fl (81-99); Mean Platelet Volume 9.1 fl (7.4-10.4); Monocytes # 0.3 K/mm3 (0.1-1.0); Monocytes % 4.4 % (1.7-9.3); Neutrophils # 4.3 K/mm3 (1.8-7.8); Neutrophils % 66.5 % (37.0-80.0); Platelet Count 157 K/mm3 (142-424); Red Cell Distribution Width 14.8 % (11.5-17.5); White Blood Count 6.4 K/mm3 (4.8-10.8)
[2023-12-17 19:20] LABS: Alanine Aminotransferase 26 U/L (12-78); Albumin Level 3.6 g/dl (3.5-5.0); Albumin/Globulin Ratio 1.3 (1.1-1.8); Alkaline Phosphatase 129 U/L (38-126); Anion Gap 10.1 mEq/L (5-15); Aspartate Amino Transferase 34 U/L (14-36); Bilirubin,Total 0.5 mg/dl (0.2-1.3); Blood Urea Nitrogen 23 mg/dl (7-17); Calcium 9.2 mg/dl (8.4-10.2); Carbon Dioxide 33 mmol/L (22.0-30.0); Chloride 96 mmol/L (98-107); Chol/HDL Ratio 2.8 (1-3.5); Cholesterol 212 mg/dl (140-200); Estimated Glomerular Filt Rate 52 ml/min (>60); GFR (African American) 63 ML/MIN (>60); Globulin 2.7 g/dL (1.3-3.2); Glucose 142 mg/dl (74-100); HDL Cholesterol 75 mg/dl (40-60); Potassium 4.1 mmoL/L (3.5-5.1); Sodium 135 mmol/L (136-145); Total Protein,Serum 6.3 g/dl (6.3-8.2); Triglycerides 97 mg/dl (30-150); VLDL Cholesterol 19 mg/dL (0-40)
[2023-12-17 19:30] LABS: 25-OH Vitamin D, Total 69.2 ng/mL (30-100)
[2023-12-17 19:32] LABS: Direct LDL Cholesterol 98.96 mg/dL (100-129)
[2023-12-17 19:50] LABS: Thyroid Stimulating Hormone 1.58 uIU/mL (0.465-4.68)
[2023-12-17 20:11] LABS: Vitamin B12 400 pg/mL (239-931)
[2023-12-17 20:22] LABS: Ferritin 62.2 ng/ml (11.1-264)
== END 2023-12-17 23:59 | disposition home or self-care (01) ==
LOC: LAB.DROPOF 12-18 10:26
PROVIDERS: PCP Physician Assistant; Visit Provider Physician Assistant
DX: E87.6 Hypokalemia (principal); R53.83 Other fatigue; Z68.26 Body mass index [BMI] 26.0-26.9, adult; E66.3 Overweight
CPT/HCPCS: 80050; 80053; 80061; 82306; 82607; 82728; 84443; 85025

== ENCOUNTER 2024-01-31 13:52 | Emergency (ER) | payer OTHER, SELFPAY ==
[2024-01-31 14:13] VITALS: BP 124/75; PULSE 79; RESP 20; TEMP 36.6; O2SAT 93; BMI 27.3
--- NOTE | 2024-01-31 14:48 | EXP.UTC ---
Discharge Plan Disposition Patient Disposition: Home, Self-Care Condition: Good Prescriptions Prescriptions: New doxycycline hyclate 100 mg capsule 100 mg PO BID Qty: 20 0RF prednisone 10 mg tablets,dose pack See Rx Instructions .ROUTE .COMPLEX Qty: 21 0RF Rx Instructions: Take as directed on package instructions No Action buprenorphine-naloxone 8-2 mg tablet, sublingual 2 tab sublingual DAILY albuterol sulfate 90 mcg/actuation HFA aerosol inhaler 4 inh inhalation Q4H PRN (Reason: shortness of breath or wheezing) Qty: 8.5 3RF Rx Instructions: 4 puffs every 4 hours for 48 hours then as needed for shortness of breath or wheezing following Trelegy Ellipta 100-62.5-25 mcg blister with device 1 inh inhalation DAILY Qty: 28 12RF spironolactone 100 mg tablet 100 mg PO DAILY Qty: 30 3RF furosemide 40 mg tablet 40 mg PO DAILY Qty: 30 4RF propranolol 80 mg capsule,extended release 24 hr See Rx Instructions .ROUTE .COMPLEX Qty: 90 0RF Dose Instruction: TAKE ONE CAPSULE BY MOUTH ONCE A DAY FOR HYPERTENSION Rx Instructions: TAKE ONE CAPSULE BY MOUTH ONCE A DAY FOR HYPERTENSION sertraline 100 mg tablet See Rx Instructions .ROUTE .COMPLEX Qty: 30 3RF Dose Instruction: TAKE ONE TABLET BY MOUTH ONCE A DAY FOR DEPRESSION Rx Instructions: TAKE ONE TABLET BY MOUTH ONCE A DAY FOR DEPRESSION ipratropium-albuterol 0.5 mg-3 mg(2.5 mg base)/3 mL solution for nebulization See Rx Instructions .ROUTE .COMPLEX Qty: 540 3RF Dose Instruction: INHALE CONTENTS OF 1 VIAL VIA NEBULIZER EVERY 4 HOURS FOR COPD Rx Instructions: INHALE CONTENTS OF 1 VIAL VIA NEBULIZER EVERY 4 HOURS FOR COPD atorvastatin [Lipitor] 10 mg tablet 10 mg PO HS Qty: 30 2RF fluconazole 150 mg tablet 150 mg PO DAILY 3 Days Qty: 3 0RF omeprazole 20 mg capsule,delayed release(DR/EC) See Rx Instructions .ROUTE .COMPLEX Qty: 30 0RF Dose Instruction: TAKE ONE CAPSULE BY MOUTH ONCE A DAY Rx Instructions: TAKE ONE CAPSULE BY MOUTH ONCE A DAY Vraylar 1.5 mg capsule See Rx Instructions .ROUTE .COMPLEX Qty: 30 0RF Dose Instruction: TAKE ONE CAPSULE BY MOUTH ONCE A DAY Rx Instructions: TAKE ONE CAPSULE BY MOUTH ONCE A DAY cholecalciferol (vitamin D3) 1,250 mcg (50,000 unit) capsule See Rx Instructions .ROUTE .COMPLEX Qty: 4 0RF Dose Instruction: TAKE ONE CAPSULE BY MOUTH EVERY WEEK Rx Instructions: TAKE ONE CAPSULE BY MOUTH EVERY WEEK Eliquis 5 mg tablet See Rx Instructions .ROUTE .COMPLEX Qty: 60 0RF Dose Instruction: TAKE ONE TABLET BY MOUTH 2 TIMES A DAY FOR BLOOD THINNER Rx Instructions: TAKE ONE TABLET BY MOUTH 2 TIMES A DAY FOR BLOOD THINNER hydroxyzine pamoate 50 mg capsule See Rx Instructions .ROUTE .COMPLEX Qty: 120 2RF Dose Instruction: TAKE ONE CAPSULE BY MOUTH FOUR TIMES A DAY Rx Instructions: TAKE ONE CAPSULE BY MOUTH FOUR TIMES A DAY (DME) Laurita Jigna [facility] Spacer See Rx Instructions .Route Rx Instructions: As directed Referrals Follow up/Referrals: Laura Arreola PA [Primary Care Provider] - See instructions Activity Restrictions/Add. Instructions Additional Instructions/Restrictions: Start antibiotic today. Be sure to complete entire prescription even if feeling better Monitor temp. Tylenol every 4 hours as needed and / or ibuprofen every 6 hours as needed ( As long as your primary care physician has told you that it ok to take both. For fever/aches/pains ER if no less than 101 despite Tylenol or Motrin Humidifier/vaporizer or hot steamy shower Inhaler every 4-6 hours as needed like we discussed. If unsure how to use it, ask pharmacist to demonstrate how. Should help open airways and improve cough, wheezing, and shortness of breath *Start steroid tomorrow. Helps with inflammation therefore, cough and wheezing. Follow directions on the package. Reviewed side effects. Patient reports taking them before. Follow up IMMEDIATELY for new or worsening of symptoms OR no noticeable improvement over the next 48-72 hours. 911 immediately for any life threatening symptoms such as chest pain or difficulty breathing Clinical Impressions Clinical Impression: COPD exacerbation Instructions Patient Instructions: Chronic Obstructive Pulmonary Disease (Alternative Therapy), DI for Chronic Obstructive Pulmonary Disease Print Language Print Language: Ecuadorean Discharge ED Provider: Rosalia Cisneros [facility] [place] HPI General Stated complaint: SOA, COPD, wheezing Mode of Arrival: Ambulatory Source of Information: Patient Limitations: No Limitations Time Seen by Provider: 01/31/24 14:49 Description of Symptoms (Recalled from Triage Doc. by RN): Patient states she has COPD and yesterday she began to have shortness of breath and wheezing. HEENT Symptoms (Recalled from RN notes): No Resp Symptoms (Recalled from RN notes): Yes Skin Symptoms (Recalled from RN notes): No MS Symptoms (Recalled from RN notes): No Functional Status (Recalled from RN notes): wnl History of Present Illness Provider Complaint: Patient states that she has COPD States that she has been having sinus congestion, pressure, cough and wheezing some States that when she starts this she will come in and get a shot of Rocephin, SoluMedrol and go home on medications it helps get it under control before it gets bad an settles into her lungs so today she has been using her inhalers and she came in to get checked and get something to help Related Data Home Medications ?Medication ?Instructions ?Recorded ?Confirmed buprenorphine 8 mg-naloxone 2 mg 2 tab sublingual DAILY Opioid 10/11/17 12/25/23 sublingual tablet dependence inhalational spacing device 02/11/23 12/25/23 [facility] spacer) Previous Rx's ?Medication ?Instructions ?Recorded albuterol sulfate 90 mcg/actuation 4 inh inhalation Q4H PRN shortness 08/17/23 aerosol inhaler of breath or wheezing #8.5 grams fluticasone fur. 100 mcg-umeclid 1 inh inhalation DAILY Breathing 08/17/23 62.5 mcg-vilant 25 mcg Problems #28 ea inhalat.powder (Trelegy Ellipta) furosemide 40 mg tablet 40 mg PO DAILY Fluid #30 tabs 08/30/23 spironolactone 100 mg tablet 100 mg PO DAILY #30 tabs 08/30/23 propranolol 80 mg capsule,24 See Rx Instructions .Route 10/01/23 hr,extended release .COMPLEX #90 caps ipratropium 0.5 mg-albuterol 3 mg See Rx Instructions .Route 11/06/23 (2.5 mg base)/3 mL nebulization .COMPLEX #540 mL soln sertraline 100 mg tablet See Rx Instructions .Route 11/06/23 .COMPLEX #30 tabs atorvastatin 10 mg tablet (Lipitor) 10 mg PO HS #30 tabs 12/24/23 fluconazole 150 mg tablet 150 mg PO DAILY 3 days #3 tabs 12/27/23 cariprazine 1.5 mg capsule See Rx Instructions .Route 01/07/24 (Vraylar) .COMPLEX #30 caps cholecalciferol (vitamin D3) 1,250 See Rx Instructions .Route 01/07/24 mcg (50,000 unit) capsule .COMPLEX #4 caps omeprazole 20 mg capsule,delayed See Rx Instructions .Route 01/07/24 release .COMPLEX #30 caps apixaban 5 mg tablet (Eliquis) See Rx Instructions .Route 01/24/24 .COMPLEX #60 tabs hydroxyzine pamoate 50 mg capsule See Rx Instructions .Route 01/29/24 .COMPLEX #120 caps doxycycline hyclate 100 mg capsule 100 mg PO BID #20 caps 01/31/24 prednisone 10 mg tablets in a dose See Rx Instructions PO .COMPLEX 01/31/24 pack #21 tabs Allergies Allergy/AdvReac Type Severity Reaction Status Date / Time hydromorphone Allergy Severe S-DIFF. Verified 12/25/23 13:41 BREATHING; HIVES propoxyphene Allergy Severe S-SWELLS-OR Verified 12/25/23 13:41 [From Darvocet-N] AL/THROAT gabapentin [From Neurontin] Allergy Intermediate I-HIVES Verified 12/25/23 13:41 codeine Allergy Verified 12/25/23 13:41 Worker's Comp Is this a Worker's Comp case?: No [facility] Disclaimer: The information contained in this section may have been updated after the patient was seen, as this information can be updated by other users. Medical History Acute exacerbation of chronic obstructive pulmonary disease Recurrent pulmonary emboli Swelling of lower extremity History of DVT of lower extremity Sleep apnea Pneumonia History of gastroesophageal reflux (GERD) Hyperlipidemia Hypertension Diastolic dysfunction Myocardial bridge 2017. History of DVT (deep vein thrombosis) CHF (congestive heart failure) Gastroesophageal reflux disease COPD (chronic obstructive pulmonary disease) Acute and chronic respiratory failure with hypoxia History of pulmonary embolism Tobacco abuse disorder Anxiety COPD exacerbation Bronchitis Wheezing Surgical History History of hysterectomy Family History Other No significant family history Social History Smoking Status: Former smoker tobacco type: cigarettes packs per day: 1 second hand exposure: No alcohol intake: never substance use type: former substance user current occupational status: unemployed Travel in the last 8 weeks: None household members: none housing: house current occupational exposures/hazards: No caffeine: Yes ROS Obtained: Yes All systems reviewed & no additional complaints except as documented and Yes Systems reviewed as appropriate & no additional complaints except as documented Constitutional Constitutional: Reports system reviewed and no additional complaints, except as documented and Reports as per HPI ENT Ears, Nose, Mouth, and Throat: Reports system reviewed and no additional complaints, except as documented, Reports as per HPI, Reports sinus pain and Reports sinus pressure Cardiovascular Cardiovascular: Reports system reviewed and no additional complaints, except as documented and Reports as per HPI Respiratory Respiratory: Reports system reviewed and no additional complaints, except as documented, Reports as per HPI, Denies shortness of breath, Reports chest congestion, Reports cough and Reports wheezing Allergic/Immunologic Allergic/Immunologic: Reports wheezing Physical Exam General General appearance: alert and in no apparent distress ENT ENT exam: Present mucous membranes moist Expanded ENT Exam Nose exam: Present sinus tenderness Throat exam: Present other (PND noted ) Respiratory Respiratory exam: Present normal lung sounds bilaterally; Absent respiratory distress or wheezes Cardiovascular Cardiovascular exam: Present regular rate, normal rhythm and normal heart sounds Neurological Exam Neurological exam: Present alert, oriented X3 and normal gait Medical Decision Making Eliecer Inquiry Pt receiving controlled substance: No Eliecer was queried for this patient: No Vital Signs: 01/31/24 14:13 Temperature 97.9 F Temperature Source Oral Pulse Rate [Radial] 79 Respiratory Rate 20 Blood Pressure [Right Arm] 124/75 Blood Pressure Mean [Right Arm] 91 Blood Pressure Source [Right Arm] Automatic Cuff Blood Pressure Position [Right Arm] Sitting 02 Sat by Pulse Oximetry 93 L Oxygen Delivery Method Room Air Medical Decision Narrative: Medication discussed with pharamcy Recommended CXR patient declined
[2024-01-31] MEDS: LIDOCAINE 1% 5ML PF VIAL IM (15:03)
[2024-01-31] MEDS: METHYLPREDNISOLONE SOD SUCC 125MG VIAL 125 MG IM (15:03)
[2024-01-31] MEDS: cefTRIAXone 1GM VIAL 1 GM IM (15:03)
[2024-01-31 15:27] VITALS: BP 124/75; PULSE 79; RESP 20; TEMP 36.6; O2SAT 93
== END 2024-01-31 15:27 | disposition home or self-care (01) ==
PROVIDERS: Emergency Provider Nurse Practitioner; PCP Physician Assistant
DX: J44.1 Chronic obstructive pulmonary disease with (acute) exacerbation (principal); R06.2 Wheezing; R05.9 Cough, unspecified; Z87.891 Personal history of nicotine dependence
CPT/HCPCS: 96372; 99212; 99214; G0463; J0696; J2919

== ENCOUNTER 2024-02-25 14:24 | Outpatient (CLI) | payer OTHER, SELFPAY | END 2024-02-25 23:59 | disposition home or self-care (01) | LOC: LAB.DROPOF 02-26 08:33 | PROVIDERS: PCP Physician Assistant; Visit Provider Physician Assistant | DX: N39.0 Urinary tract infection, site not specified (principal); B96.89 Other specified bacterial agents as the cause of diseases classified elsewhere | CPT/HCPCS: 87086; 87088; 87186 ==

== ENCOUNTER 2024-04-08 14:21 | Outpatient (CLI) | payer OTHER, SELFPAY ==
[2024-04-08 23:35] LABS: Alanine Aminotransferase 13 U/L (12-78); Albumin Level 4.1 g/dl (3.5-5.0); Albumin/Globulin Ratio 1.5 (1.1-1.8); Alkaline Phosphatase 132 U/L (38-126); Anion Gap 7.3 mEq/L (5-15); Aspartate Amino Transferase 25 U/L (14-36); Bilirubin,Total 0.5 mg/dl (0.2-1.3); Blood Urea Nitrogen 19 mg/dl (7-17); Calcium 9.4 mg/dl (8.4-10.2); Carbon Dioxide 38 mmol/L (22.0-30.0); Chloride 95 mmol/L (98-107); Chol/HDL Ratio 2.3 (1-3.5); Cholesterol 166 mg/dl (140-200); Estimated Glomerular Filt Rate 47 ml/min (>60); GFR (African American) 57 ML/MIN (>60); Globulin 2.7 g/dL (1.3-3.2); Glucose 93 mg/dl (74-100); HDL Cholesterol 71 mg/dl (40-60); Magnesium 1.7 mg/dl (1.6-2.3); Potassium 4.3 mmoL/L (3.5-5.1); Sodium 136 mmol/L (136-145); Total Protein,Serum 6.8 g/dl (6.3-8.2); Triglycerides 81 mg/dl (30-150); VLDL Cholesterol 16 mg/dL (0-40)
[2024-04-08 23:46] LABS: Direct LDL Cholesterol 70.57 mg/dL (100-129)
== END 2024-04-08 23:59 | disposition home or self-care (01) ==
LOC: LAB.DROPOF 04-09 11:14
PROVIDERS: PCP Family Medicine; Visit Provider Family Medicine
DX: E66.3 Overweight (principal); J44.1 Chronic obstructive pulmonary disease with (acute) exacerbation; I25.10 Atherosclerotic heart disease of native coronary artery without angina pectoris; F11.20 Opioid dependence, uncomplicated; I50.30 Unspecified diastolic (congestive) heart failure; Z68.28 Body mass index [BMI] 28.0-28.9, adult
CPT/HCPCS: 80053; 80061; 83735

== ENCOUNTER 2024-08-01 07:07 | Outpatient (CLI) | payer OTHER, SELFPAY | END 2024-08-01 23:59 | disposition home or self-care (01) | LOC: LAB.DROPOF 08-02 07:08 | PROVIDERS: PCP Family Medicine; Visit Provider Family Medicine | DX: N39.0 Urinary tract infection, site not specified (principal) | CPT/HCPCS: 87086; 87088; 87186 ==

== ENCOUNTER 2024-09-17 21:58 | Outpatient (CLI) | payer OTHER, SELFPAY | END 2024-09-17 23:59 | disposition home or self-care (01) | LOC: LAB.DROPOF 21:59 | PROVIDERS: PCP Family Medicine; Visit Provider Family Medicine | DX: R39.9 Unspecified symptoms and signs involving the genitourinary system (principal) | CPT/HCPCS: 87086 ==

== ENCOUNTER 2024-10-11 11:32 | Emergency (ER) | payer OTHER, SELFPAY ==
[2024-10-11] VITALS (9 sets, daily range): BP systolic 101–168; BP diastolic 60–141; PULSE 72–88; RESP 14–26; TEMP 36.6; O2SAT 85–100; BMI 26.6
--- NOTE | 2024-10-11 11:39 | ECG_ITS ---
APPROVED REPORT Exam: Resting ECG HR:78 bpm ECG Measurements Heart Rate 78 AXES MS 170 P 73 QRSd 95 QRS 75 QT 379 T 72 QTc 412 Conclusion Sinus rhythm Incomplete right bundle branch block ST depressions and T wave inversions with no reciprocal changes in V2 Electronically signed by : SANGITA HAMPTON, 10/11/2024 15:06:36
--- NOTE | 2024-10-11 11:40 | XR_ITS ---
PROCEDURE INFORMATION: Exam: XR Chest Exam date and time: 10/11/2024 11:50 AM Age: 53 years old Clinical indication: Shortness of breath; Additional info: SOA, hypoxic, HX copd, cough TECHNIQUE: Imaging protocol: Radiologic exam of the chest. Views: 1 view. COMPARISON: CR XR CHEST PORTABLE 10/18/2022 19:05 FINDINGS: Tubes, catheters and devices: EKG leads. Lungs: Streaky opacities in the lower lung deleon. Pleural spaces: Unremarkable. No pleural effusion. No pneumothorax. Heart/Mediastinum: Unremarkable. No cardiomegaly. Bones/joints: Unremarkable. IMPRESSION: Streaky opacities in the lower lung deleon may represent atelectasis and/or pneumonia.
[2024-10-11 11:44] LABS: Coronavirus 19, PCR Not Detected (NotDetected); Influenza A, PCR Not Detected (NotDetected); Influenza B, PCR Not Detected (NotDetected)
[2024-10-11] MEDS: IPRATROPIUM/ALBUTEROL 3 ML NEB 9 ML IH (11:57)
--- NOTE | 2024-10-11 11:58 | ED_ITS ---
Discharge Plan Disposition Patient Disposition: Home, Self-Care Condition: Good Prescriptions Prescriptions: New prednisone 10 mg tablet 10 mg PO DIRECTED Qty: 42 0RF Rx Instructions: You have been prescribed Prednisone to take as a tapered dose. You will receive a quantity of 42 10mg tablets. You should take all the tablets for that day in the morning with food. The dosage will be reduced over a period of 12 days. Please follow the dosage instructions below. Day 1 take 6 tablets Day 2 take 6 tablets Day 3 take 5 tablets Day 4 take 5 tablets Day 5 take 4 tablets Day 6 take 4 tablets Day 7 take 3 tablets Day 8 take 3 tablets Day 9 take 2 tablets Day 10 take 2 tablets Day 11 take 1 tablet Day 12 take 1 tablet doxycycline hyclate 100 mg tablet 100 mg PO BID 10 Days Qty: 20 0RF No Action buprenorphine-naloxone 8-2 mg tablet, sublingual 2 tab sublingual DAILY Trelegy Ellipta 100-62.5-25 mcg blister with device 1 inh inhalation DAILY Qty: 28 12RF atorvastatin [Lipitor] 10 mg tablet 10 mg PO HS Qty: 30 5RF furosemide 40 mg tablet 40 mg PO DAILY Qty: 30 5RF omeprazole 20 mg capsule,delayed release(DR/EC) See Rx Instructions .ROUTE .COMPLEX Qty: 30 5RF Dose Instruction: TAKE ONE CAPSULE BY MOUTH ONCE A DAY Rx Instructions: TAKE ONE CAPSULE BY MOUTH ONCE A DAY propranolol 80 mg capsule,extended release 24 hr See Rx Instructions .ROUTE .COMPLEX Qty: 90 1RF Dose Instruction: TAKE ONE CAPSULE BY MOUTH ONCE A DAY FOR HYPERTENSION Rx Instructions: TAKE ONE CAPSULE BY MOUTH ONCE A DAY FOR HYPERTENSION sertraline 100 mg tablet See Rx Instructions .ROUTE .COMPLEX Qty: 30 5RF Dose Instruction: TAKE ONE TABLET BY MOUTH ONCE A DAY FOR DEPRESSION Rx Instructions: TAKE ONE TABLET BY MOUTH ONCE A DAY FOR DEPRESSION prednisone 20 mg tablet 20 mg PO BID 5 Days Qty: 10 0RF spironolactone 100 mg tablet See Rx Instructions .ROUTE .COMPLEX Qty: 90 3RF Dose Instruction: TAKE ONE TABLET BY MOUTH ONCE A DAY Rx Instructions: TAKE ONE TABLET BY MOUTH ONCE A DAY hydroxyzine pamoate 50 mg capsule See Rx Instructions .ROUTE .COMPLEX Qty: 120 2RF Dose Instruction: TAKE ONE CAPSULE BY MOUTH FOUR TIMES A DAY Rx Instructions: TAKE ONE CAPSULE BY MOUTH FOUR TIMES A DAY ipratropium-albuterol 0.5 mg-3 mg(2.5 mg base)/3 mL solution for nebulization See Rx Instructions .ROUTE .COMPLEX Qty: 540 3RF Dose Instruction: INHALE CONTENTS OF 1 VIAL VIA NEBULIZER EVERY 4 HOURS FOR COPD Rx Instructions: INHALE CONTENTS OF 1 VIAL VIA NEBULIZER EVERY 4 HOURS FOR COPD sulfamethoxazole-trimethoprim [Bactrim DS] 800-160 mg tablet 1 tab PO DAILY 7 Days Qty: 7 0RF Vraylar 1.5 mg capsule See Rx Instructions .ROUTE .COMPLEX Qty: 30 0RF Dose Instruction: TAKE ONE CAPSULE BY MOUTH ONCE A DAY Rx Instructions: TAKE ONE CAPSULE BY MOUTH ONCE A DAY albuterol sulfate 90 mcg/actuation HFA aerosol inhaler See Rx Instructions .ROUTE .COMPLEX Qty: 8.5 0RF Dose Instruction: INHALE 4 PUFFS BY MOUTH EVERY 4 HOURS NEEDED FOR SHORTNESS OF BREATH OR WHEEZING Rx Instructions: INHALE 4 PUFFS BY MOUTH EVERY 4 HOURS NEEDED FOR SHORTNESS OF BREATH OR WHEEZING cholecalciferol (vitamin D3) 1,250 mcg (50,000 unit) capsule See Rx Instructions .ROUTE .COMPLEX Qty: 4 0RF Dose Instruction: TAKE ONE CAPSULE BY MOUTH ONCE WEEKLY Rx Instructions: TAKE ONE CAPSULE BY MOUTH ONCE WEEKLY Eliquis 5 mg tablet See Rx Instructions .ROUTE .COMPLEX Qty: 60 0RF Dose Instruction: TAKE ONE TABLET BY MOUTH 2 TIMES A DAY FOR BLOOD THINNER Rx Instructions: TAKE ONE TABLET BY MOUTH 2 TIMES A DAY FOR BLOOD THINNER (DME) [facility] Spacer See Rx Instructions .Route Rx Instructions: As directed Referrals Follow up/Referrals: Kelli Bee APRN [Primary Care Provider] - See instructions Activity Restrictions/Add. Instructions Additional Instructions/Restrictions: You were evaluated in the emergency department today. Please waste picker your prescriptions at the pharmacy and take the full courses as prescribed. Follow- up closely with your primary care provider. Return to the emergency department for new or worsening symptoms. Clinical Impressions Clinical Impression: Acute exacerbation of chronic obstructive pulmonary disease, Acute and chronic respiratory failure Stand Alone Forms Stand Alone Forms: Work/School Release Instructions Patient Instructions: DI for Chronic Obstructive Pulmonary Disease Print Language Print Language: Kittitian Discharge ED Provider: Lucero Parham General Adult HPI General Chief complaint: Shortness of Breath/Dyspnea Stated complaint: SOA, cough Time Seen by Provider: 10/11/24 11:54 History of Present Illness HPI narrative: This patient is a 53-year-old female with a history of COPD and chronic respiratory failure requiring 2.5 L nasal cannula at all times at home, CKD, CHF, CAD, anxiety, GERD presenting to the emergency department for evaluation with concern for shortness of breath. Patient reports that she started feeling bad yesterday with productive cough, wheezing, chest tightness, shortness of breath. She notes that this feels similar to prior COPD flareups and knew she needed steroids, an antibiotic, and breathing treatments. She notes this always happens when the weather changes. She notes that she went to urgent treatment center where her oxygen was noted to be 80%, but she did not realize that her portable O2 tank was empty. Given this, they sent her to the ED for evaluation. She denies any other concerning symptoms such as fevers, abdominal pain, vomiting, changes in bowel movements, or other concerns. Related Data Home Medications ?Medication ?Instructions ?Recorded ?Confirmed buprenorphine 8 mg-naloxone 2 mg 2 tab sublingual DAILY Opioid 10/11/17 08/01/24 sublingual tablet dependence inhalational spacing device 02/11/23 08/01/24 ([facility] spacer) Previous Rx's ?Medication ?Instructions ?Recorded atorvastatin 10 mg tablet (Lipitor) 10 mg PO HS #30 tabs 04/08/24 fluticasone fur. 100 mcg-umeclid 1 inh inhalation DAILY Breathing 04/08/24 62.5 mcg-vilant 25 mcg Problems #28 ea inhalat.powder (Trelegy Ellipta) furosemide 40 mg tablet 40 mg PO DAILY Fluid #30 tabs 04/08/24 omeprazole 20 mg capsule,delayed See Rx Instructions .Route 04/08/24 release .COMPLEX #30 caps propranolol 80 mg capsule,24 See Rx Instructions .Route 04/08/24 hr,extended release .COMPLEX #90 caps sertraline 100 mg tablet See Rx Instructions .Route 04/08/24 .COMPLEX #30 tabs hydroxyzine pamoate 50 mg capsule See Rx Instructions .Route 07/15/24 .COMPLEX #120 caps spironolactone 100 mg tablet See Rx Instructions .Route 07/15/24 .COMPLEX #90 tabs prednisone 20 mg tablet 20 mg PO BID COPD 5 days #10 tabs 08/01/24 ipratropium 0.5 mg-albuterol 3 mg See Rx Instructions .Route 08/11/24 (2.5 mg base)/3 mL nebulization .COMPLEX #540 mL soln sulfamethoxazole 800 1 tab PO DAILY 7 days #7 tabs 09/17/24 mg-trimethoprim 160 mg tablet (Bactrim DS) albuterol sulfate 90 mcg/actuation See Rx Instructions .Route 10/09/24 aerosol inhaler .COMPLEX #8.5 grams apixaban 5 mg tablet (Eliquis) See Rx Instructions .Route 10/09/24 .COMPLEX #60 tabs cariprazine 1.5 mg capsule See Rx Instructions .Route 10/09/24 (Vraylar) .COMPLEX #30 caps cholecalciferol (vitamin D3) 1,250 See Rx Instructions .Route 10/09/24 mcg (50,000 unit) capsule .COMPLEX #4 caps doxycycline hyclate 100 mg tablet 100 mg PO BID 10 days #20 tabs 10/11/24 prednisone 10 mg tablet 10 mg PO DIRECTED #42 tabs 10/11/24 Allergies Allergy/AdvReac Type Severity Reaction Status Date / Time hydromorphone Allergy Severe S-DIFF. Verified 08/01/24 11:20 BREATHING; HIVES propoxyphene (From Allergy Severe S-SWELLS-OR Verified 08/01/24 11:20 Darvocet-N) AL/THROAT gabapentin (From Neurontin) Allergy Intermediate I-HIVES Verified 08/01/24 11:20 codeine Allergy Verified 08/01/24 11:20 PFSH PFSH Disclaimer: The information contained in this section may have been updated after the patient was seen, as this information can be updated by other users. Medical History Cat scratch of left lower leg Acute exacerbation of chronic obstructive pulmonary disease Recurrent pulmonary emboli Swelling of lower extremity History of DVT of lower extremity Sleep apnea Pneumonia History of gastroesophageal reflux (GERD) Hyperlipidemia Hypertension Diastolic dysfunction Myocardial bridge History of DVT (deep vein thrombosis) CHF (congestive heart failure) Gastroesophageal reflux disease COPD (chronic obstructive pulmonary disease) Acute and chronic respiratory failure with hypoxia History of pulmonary embolism Tobacco abuse disorder Anxiety COPD exacerbation Bronchitis Wheezing Surgical History History of hysterectomy Family History Other No significant family history Social History Smoking Status: Former smoker tobacco type: cigarettes packs per day: 1 second hand exposure: No alcohol intake: never substance use type: former substance user current occupational status: unemployed Travel in the last 8 weeks: None household members: none housing: house current occupational exposures/hazards: No caffeine: Yes Have you lived/traveled outside [place] in past 30 days?: No Contact w/someone who lives/traveled outside [place] past 30 days?: No Exposure to someone with infectious disease in past 14 days?: No Do you have a fever (greater than 100.4 F or 38 C)?: No Have you tested positive for COVID-19: No Exposed to someone with COVID-19 in past 14 days?: No Do you have a sore throat?: No Do you have a cough?: No Do you have any weakness?: No Do you have any diarrhea?: No Are you experiencing any unusual bleeding?: No Do you have any muscle aches/pain?: No Do you have any abdominal pain?: No Are you experiencing loss of taste or smell?: No Other Medical History Have you received the Flu Vaccine for this season: No Have you received the Pneumonia Vaccine: No ROS Obtained: Yes All systems reviewed & no additional complaints except as documented Physical Exam General General appearance: alert and in no apparent distress Head Head exam: atraumatic and normocephalic Eye Eye exam: Present normal appearance, PERRL and EOMI ENT ENT exam: Present normal exam, normal oropharynx, mucous membranes moist and normal external ear exam Neck Neck exam: Present normal inspection, full ROM and trachea midline; Absent tenderness Chest Chest inspection: Present normal inspection and symmetric chest wall rise; Absent tenderness Respiratory Respiratory exam: Present wheezes, accessory muscle use, prolonged expiratory phase and other (Increased work of breathing with diminished breath sounds bilaterally and wheezing.); Absent stridor Cardiovascular Cardiovascular exam: Present regular rate and normal rhythm Abdominal Exam Abdominal exam: Present soft; Absent distention, tenderness or guarding Extremities Exam Extremities exam: Present normal inspection, full ROM and normal capillary refill; Absent tenderness or edema Back Exam Back exam: Present normal inspection and full ROM; Absent tenderness Neurological Exam Neurological exam: Present alert, oriented X3, CN II-XII intact and normal gait; Absent motor sensory deficit Psychiatric Psychiatric exam: Present normal affect and normal mood Skin Skin exam: Present warm and dry Medical Decision Making Medical Records Medical records reviewed: Yes I reviewed the patient's medical records. Screening: Per USPSTF and CDC recommendations, given the prevalence of disease in our region, it is our hospital?s policy to screen for HIV and viral Hepatitis for all patients aged 18 and over and those with ongoing risk factors. Eliecer Inquiry Pt receiving controlled substance: No Vital Signs: 10/11/24 11:38 10/11/24 11:40 10/11/24 12:00 Temperature 97.8 F Temperature Source Axillary Pulse Rate 84 72 Pulse Rate [Left] 88 Respiratory Rate 26 H 14 Blood Pressure 160/97 H 168/141 H Blood Pressure [Right Arm] 160/97 H Blood Pressure Mean [Right Arm] 118 Blood Pressure Source Blood Pressure Source [Right Arm] Automatic Cuff 02 Sat by Pulse Oximetry 88 L 85 L 100 Oxygen Delivery Method Nasal Cannula Room Air Nasal Cannula Oxygen Flow Rate (LPM) 2 2 10/11/24 12:36 10/11/24 13:00 10/11/24 13:30 Temperature Temperature Source Pulse Rate 82 77 83 Pulse Rate [Left] Respiratory Rate Blood Pressure 118/72 101/70 L 118/60 Blood Pressure [Right Arm] Blood Pressure Mean [Right Arm] Blood Pressure Source Blood Pressure Source [Right Arm] 02 Sat by Pulse Oximetry 97 97 96 Oxygen Delivery Method Nasal Cannula Nasal Cannula Nasal Cannula Oxygen Flow Rate (LPM) 2 2 2 10/11/24 14:01 10/11/24 14:31 10/11/24 14:43 Temperature 97.8 F Temperature Source Oral Pulse Rate 74 73 80 Pulse Rate [Left] Respiratory Rate 20 Blood Pressure 123/81 130/95 H 130/95 H Blood Pressure [Right Arm] Blood Pressure Mean [Right Arm] Blood Pressure Source Automatic Cuff Blood Pressure Source [Right Arm] 02 Sat by Pulse Oximetry 95 97 Oxygen Delivery Method Nasal Cannula Nasal Cannula Nasal Cannula Oxygen Flow Rate (LPM) 2 2 2.5 Lab Data Lab results reviewed: Yes I reviewed the patient's lab results. Lab Results 10/11/24 11:37: SARS-CoV-2 (PCR) Not detected, Influenza A Untype (PCR) Not detected, Influenza Type B (PCR) Not detected 10/11/24 11:40: VBG pH 7.28 L, VBG pCO2 64.2 H, VBG pO2 39.4, VBG HCO3 29.4, VBG Total CO2 31.3 H, VBG O2 Saturation 71.4 H, VBG Base Excess 2.6 H, VBG Lactic Acid 1.2 10/11/24 11:49: WBC 6.4, RBC 4.04 L, Hgb 11.4 L, Hct 36.1 L, MCV 89.4, MCH 28.2, MCHC 31.6 L, RDW 14.6, Plt Count 187, MPV 9.9, Neut % (Auto) 64.0, Lymph % (Auto) 22.0, [facility] % (Auto) 8.4, Eos % (Auto) 4.2, Baso % (Auto) 1.1, Neut # (Auto) 4.1, Lymph # (Auto) 1.4, [facility] # (Auto) 0.5, Eos # (Auto) 0.3, Baso # (Auto) 0.1, D-Dimer 0.39, Sodium 139, Potassium 3.7, Chloride 100, Carbon Dioxide 35 H, Anion Gap 7.7, BUN 17, Creatinine 1.00, Estimated Creat Clear 75, Estimated GFR 58 L, Est GFR ( Amer) 70, Glucose 97, Calcium 9.3, Magnesium 1.7, Total Bilirubin 0.4, AST 22, ALT 14, Alkaline Phosphatase 99, Troponin I < 0.01, NT-Pro-B Natriuret Pep 200 H, Total Protein 6.6, Albumin 3.8, Globulin 2.8, Albumin/Globulin Ratio 1.4 10/11/24 13:30: VBG pH 7.31, VBG pCO2 59.2 H, VBG pO2 41.5 H, VBG HCO3 29.1, VBG Total CO2 30.9 H, VBG O2 Saturation 74.2 H, VBG Base Excess 2.8 H, VBG Lactic Acid 1.1 10/11/24 11:49 10/11/24 11:49 Orders (Tests/Meds): ED MEDICATIONS Discontinued Medications Generic Name Dose Route Start Last Admin Trade Name Freq PRN Reason Stop Dose Admin Albuterol/Ipratropium 9 ml 10/11/24 11:57 10/11/24 11:57 Ipratropium/Albuterol 3 Ml Neb IH 10/11/24 11:58 9 ml ONCE ONE Administration Doxycycline Hyclate 100 mg 10/11/24 14:18 10/11/24 14:22 Doxycycline Hycl 100 Mg Tablet PO 10/11/24 14:19 100 mg ONCE ONE Administration Magnesium Sulfate 2 gm in 50 mls @ 50 mls/hr 10/11/24 12:22 10/11/24 12:31 Magnesium Sulfate 2gm/50ml Premix IV 10/11/24 13:21 50 mls/hr ONCE ONE Administration Methylprednisolone Sodium Succinate 125 mg 10/11/24 11:57 10/11/24 12:19 Methylprednisolone Sod Succ 125mg Vial IV 10/11/24 11:58 125 mg ONCE ONE Administration ORDERS Category Date Time Status XR chest portable Stat Exams 10/11/24 11:40 Completed Complete Blood Count Auto Diff Stat Lab 10/11/24 11:49 Completed Comprehensive Metabolic Panel Stat Lab 10/11/24 11:49 Completed D-Dimer Stat Lab 10/11/24 11:49 Completed MAG [Magnesium] Stat Lab 10/11/24 11:49 Completed NT Pro Brain Natriuretic Pep. Stat Lab 10/11/24 11:49 Completed Rapid PCR Covid and Flu A/B Stat Lab 10/11/24 11:37 Completed Troponin I Q3H Lab 10/11/24 17:45 Ordered Troponin I Stat Lab 10/11/24 11:49 Completed VBG [Venous Blood Gas] Stat RT 10/11/24 13:30 Completed Venous Blood Gas Stat RT 10/11/24 11:40 Completed ECG Data Tracing #1: I reviewed this ECG and interpreted as documented below: Normal sinus rhythm with a ventricular rate of [address] changes concerning for STEMI. Normal axis and intervals ECG initial impression date: 10/11/24 ECG initial impression time: 11:43 Medical Decision Narrative: In summary, this patient is a 53-year-old female presenting to the Emergency Department for evaluation of cough, wheezing, chest tightness in the setting of COPD. She feels like she is having a COPD flareup and needs steroids and antibiotics. Differential diagnoses considered include but are not limited to pneumonia, COPD exacerbation, CHF exacerbation, respiratory failure, PE, ACS, dysrhythmia. Ruling out the most morbid conditions drove assessment. It should be noted patient's history includes COPD, CHF, CAD which likely are not at goal therapy. This complicates all aspects of care by increasing patient's risk for morbidity. I reviewed patient's past medical records and noted prior PCP evaluation in July for COPD exacerbation. On exam, the patient is sitting upright. She has wheezing, prolonged expiratory phase, and mild accessory muscle use. Her O2 saturation is normal on her home oxygen. She was reportedly hypoxic at the [facility] but she states she did not realize her portable O2 tank was empty and she is oxygen dependent at home 2.5 L nasal cannula. Vitals are reassuring on cardiac telemetry with no significant tachycardia, normotension. EKG obtained is reassuring without acute STEMI. Workup included CBC, CMP, troponin, BNP, D-dimer, viral swab, chest x-ray, EKG. She was given DuoNebs x 3 as well as IV methylprednisolone for symptomatic improvement. She is also given IV magnesium given severity of shortness of breath in the setting of presumed COPD exacerbation. I independently interpreted chest x-ray prior to the radiologist read and noted bibasilar consolidation concerning for possible developing pneumonia. Please see their read for final interpretation. Labs were obtained that demonstrated reassuring CBC with no significant leukocytosis or anemia. Initial VBG was concerning for decompensated respiratory acidosis, but the patient was not on her home oxygen upon arrival and had not been for quite some time given that her tank ran out. I did not place the patient on BiPAP, though it was considered, as I feel that she will likely correct with supplemental oxygen as well as her nebs and steroids. Chemistry is reassuring with negative troponin, D-dimer is negative. No significant SHALINI. On reassessment, patient had great improvement after administration of interventions above. She is feeling a lot better. She was given oral doxycycline for treatment of COPD exacerbation/pneumonia. Ultimately at this time, I feel that she is appropriate for discharge home with prescriptions for prednisone, doxycycline, and instructions for use of her inhalers. Patient states she always requires a prolonged steroid taper, so this was prescribed. Strict return precautions were given as well as instructions to close a patient follow-up. Critical Care Critical Care Time Critical Care Time: Yes Attestation: On 10/11/24, the high probability of a clinically significant, sudden or life threatening deterioration of the following system(s) required my full and direct attention, intervention and personal management. The time I documented below is in addition to time spent performing reported procedures but includes the following listed in this critical care notation. Total Time Total Critical Care Time: 45
[2024-10-11 12:00] LABS: Lactate Venous 1.2 mmol/L (0.4-2.0); VBG Base Excess 2.6 mmol/L (-2.4-2.3); VBG HCO3 29.4 mmol/L (23-30); VBG Oxygen Saturation 71.4 % (50-70); VBG PH 7.28 mmol/L (7.31-7.41); VBG PO2 39.4 mmol/L (28-40); VBG Total CO2 31.3 mmol/L (23-27)
[2024-10-11 12:05] LABS: VBG PCO2 64.2 mmol/L (35-51)
[2024-10-11 12:13] LABS: Basophils # 0.1 K/mm3 (0-0.2); Basophils % 1.1 % (0.1-2.0); Eosinophils # 0.3 K/mm3 (0.0-0.4); Eosinophils % 4.2 % (0.1-12.0); Hematocrit 36.1 % (37.0-47.0); Hemoglobin 11.4 g/dL (12.2-16.2); Lymphocytes # 1.4 K/mm3 (0.7-4.5); Mean Corpuscular HGB Conc 31.6 g/dL (31.8-35.4); Mean Corpuscular Hemoglobin 28.2 pg (27.0-31.2); Mean Corpuscular Volume 89.4 fl (81-99); Mean Platelet Volume 9.9 fl (7.4-10.4); Monocytes # 0.5 K/mm3 (0.1-1.0); Monocytes % 8.4 % (1.7-9.3); Neutrophils # 4.1 K/mm3 (1.8-7.8); Platelet Count 187 K/mm3 (142-424); Red Blood Count 4.04 M/mm3 (4.20-5.40); Red Cell Distribution Width 14.6 % (11.5-17.5); White Blood Count 6.4 K/mm3 (4.8-10.8)
[2024-10-11] MEDS: METHYLPREDNISOLONE SOD SUCC 125MG VIAL 125 MG IV (12:19)
[2024-10-11 12:20] LABS: Alanine Aminotransferase 14 U/L (12-78); Albumin Level 3.8 g/dl (3.5-5.0); Albumin/Globulin Ratio 1.4 (1.1-1.8); Alkaline Phosphatase 99 U/L (38-126); Anion Gap 7.7 mEq/L (5-15); Aspartate Amino Transferase 22 U/L (14-36); Bilirubin,Total 0.4 mg/dl (0.2-1.3); Blood Urea Nitrogen 17 mg/dl (7-17); Calcium 9.3 mg/dl (8.4-10.2); Carbon Dioxide 35 mmol/L (22.0-30.0); Chloride 100 mmol/L (98-107); Creatinine Clearance Estimated 75 mL/min (50-200); Estimated Glomerular Filt Rate 58 ml/min (>60); GFR (African American) 70 ML/MIN (>60); Globulin 2.8 g/dL (1.3-3.2); Glucose 97 mg/dl (74-100); Magnesium 1.7 mg/dl (1.6-2.3); Potassium 3.7 mmoL/L (3.5-5.1); Sodium 139 mmol/L (136-145); Total Protein,Serum 6.6 g/dl (6.3-8.2)
[2024-10-11 12:24] LABS: D-Dimer 0.39 ug/mL (0.0-0.5)
[2024-10-11] MEDS: MAGNESIUM SULFATE IN WATER 2 GM/50 ML PIGGYBACK IV (12:31)
[2024-10-11 12:33] LABS: NT Pro Brain Natriuretic Pep. 200 pg/mL (0-125)
[2024-10-11 12:35] LABS: Troponin I < 0.01 ng/ml (0.00-0.034)
[2024-10-11 13:57] LABS: VBG PH 7.31 mmol/L (7.31-7.41)
[2024-10-11 13:58] LABS: Lactate Venous 1.1 mmol/L (0.4-2.0); VBG Base Excess 2.8 mmol/L (-2.4-2.3); VBG HCO3 29.1 mmol/L (23-30); VBG Oxygen Saturation 74.2 % (50-70); VBG PCO2 59.2 mmol/L (35-51); VBG PO2 41.5 mmol/L (28-40); VBG Total CO2 30.9 mmol/L (23-27)
[2024-10-11] MEDS: DOXYCYCLINE HYCL 100 MG TABLET PO (14:22)
== END 2024-10-11 14:47 | disposition home or self-care (01) ==
PROVIDERS: Emergency Provider Emergency Medicine; PCP Family Medicine
DX: J96.20 Acute and chronic respiratory failure, unspecified whether with hypoxia or hypercapnia (principal); J44.1 Chronic obstructive pulmonary disease with (acute) exacerbation; R07.89 Other chest pain; F17.210 Nicotine dependence, cigarettes, uncomplicated
CPT/HCPCS: 71045; 80053; 82803; 83735; 83880; 84484; 85025; 85378; 87636; 93005; 96365; 96374; 99291; J2919; J3475; J7620

== ENCOUNTER 2024-11-08 12:02 | Emergency (ER) | payer OTHER, SELFPAY ==
[2024-11-08 12:11] VITALS: BP 136/91; PULSE 80; RESP 24; TEMP 36.6; O2SAT 84; BMI 31.8
--- NOTE | 2024-11-08 12:16 | PC.NURSE ---
pt placed on 2lnc due to ra saturation 84%
--- NOTE | 2024-11-08 12:19 | XR_ITS ---
PROCEDURE INFORMATION: Exam: XR Chest Exam date and time: 11/08/2024 12:28 PM Age: 53 years old Clinical indication: Cough and shortness of breath; Additional info: Copd TECHNIQUE: Imaging protocol: Radiologic exam of the chest. Views: 1 view. COMPARISON: CR XR CHEST PORTABLE 10/11/2024 11:50 AM FINDINGS: Lungs: There is subsegmental atelectasis at the left base. Pleural spaces: Unremarkable. No pleural effusion. No pneumothorax. Heart/Mediastinum: Unremarkable. No cardiomegaly. Bones/joints: Unremarkable. IMPRESSION: Subsegmental atelectasis.
[2024-11-08 12:20] LABS: Coronavirus 19, PCR Not Detected (NotDetected); Influenza A, PCR Not Detected (NotDetected); Influenza B, PCR Not Detected (NotDetected)
--- NOTE | 2024-11-08 12:28 | ED_ITS ---
<Statement entered by Roberto Kasper DO - 11/09/24 09:14> I was consulted by the CHARLENE, and we discussed the complexity of the problem being addressed. I approve the treatment and management plan for this patient's care in the emergency department, thus performing a substantive portion of the medical decision making. Patient seen by CHARLENE only. Roberto Kasper DO Discharge Plan Disposition Patient Disposition: Home, Self-Care Condition: Good Prescriptions Prescriptions: New doxycycline hyclate 100 mg capsule 100 mg PO BID 10 Days Qty: 20 0RF prednisone 20 mg tablet See Rx Instructions .ROUTE .COMPLEX Qty: 15 0RF Rx Instructions: 60 mg orally daily x 5 days No Action buprenorphine-naloxone 8-2 mg tablet, sublingual 2 tab sublingual DAILY Trelegy Ellipta 100-62.5-25 mcg blister with device 1 inh inhalation DAILY Qty: 28 12RF sertraline 100 mg tablet See Rx Instructions .ROUTE .COMPLEX Qty: 30 5RF Dose Instruction: TAKE ONE TABLET BY MOUTH ONCE A DAY FOR DEPRESSION Rx Instructions: TAKE ONE TABLET BY MOUTH ONCE A DAY FOR DEPRESSION prednisone 20 mg tablet 20 mg PO BID 5 Days Qty: 10 0RF spironolactone 100 mg tablet See Rx Instructions .ROUTE .COMPLEX Qty: 90 3RF Dose Instruction: TAKE ONE TABLET BY MOUTH ONCE A DAY Rx Instructions: TAKE ONE TABLET BY MOUTH ONCE A DAY ipratropium-albuterol 0.5 mg-3 mg(2.5 mg base)/3 mL solution for nebulization See Rx Instructions .ROUTE .COMPLEX Qty: 540 3RF Dose Instruction: INHALE CONTENTS OF 1 VIAL VIA NEBULIZER EVERY 4 HOURS FOR COPD Rx Instructions: INHALE CONTENTS OF 1 VIAL VIA NEBULIZER EVERY 4 HOURS FOR COPD sulfamethoxazole-trimethoprim [Bactrim DS] 800-160 mg tablet 1 tab PO DAILY 7 Days Qty: 7 0RF Vraylar 1.5 mg capsule See Rx Instructions .ROUTE .COMPLEX Qty: 30 0RF Dose Instruction: TAKE ONE CAPSULE BY MOUTH ONCE A DAY Rx Instructions: TAKE ONE CAPSULE BY MOUTH ONCE A DAY albuterol sulfate 90 mcg/actuation HFA aerosol inhaler See Rx Instructions .ROUTE .COMPLEX Qty: 8.5 0RF Dose Instruction: INHALE 4 PUFFS BY MOUTH EVERY 4 HOURS NEEDED FOR SHORTNESS OF BREATH OR WHEEZING Rx Instructions: INHALE 4 PUFFS BY MOUTH EVERY 4 HOURS NEEDED FOR SHORTNESS OF BREATH OR WHEEZING cholecalciferol (vitamin D3) 1,250 mcg (50,000 unit) capsule See Rx Instructions .ROUTE .COMPLEX Qty: 4 0RF Dose Instruction: TAKE ONE CAPSULE BY MOUTH ONCE WEEKLY Rx Instructions: TAKE ONE CAPSULE BY MOUTH ONCE WEEKLY Eliquis 5 mg tablet See Rx Instructions .ROUTE .COMPLEX Qty: 60 0RF Dose Instruction: TAKE ONE TABLET BY MOUTH 2 TIMES A DAY FOR BLOOD THINNER Rx Instructions: TAKE ONE TABLET BY MOUTH 2 TIMES A DAY FOR BLOOD THINNER atorvastatin [Lipitor] 10 mg tablet 10 mg PO HS Qty: 30 5RF propranolol 80 mg capsule,extended release 24 hr See Rx Instructions .ROUTE .COMPLEX Qty: 90 1RF Dose Instruction: TAKE ONE CAPSULE BY MOUTH ONCE A DAY FOR HYPERTENSION Rx Instructions: TAKE ONE CAPSULE BY MOUTH ONCE A DAY FOR HYPERTENSION omeprazole 20 mg capsule,delayed release(/EC) See Rx Instructions .ROUTE .COMPLEX Qty: 30 5RF Dose Instruction: TAKE ONE CAPSULE BY MOUTH ONCE A DAY Rx Instructions: TAKE ONE CAPSULE BY MOUTH ONCE A DAY furosemide 40 mg tablet 40 mg PO DAILY Qty: 30 5RF hydroxyzine pamoate 50 mg capsule See Rx Instructions .ROUTE .COMPLEX Qty: 120 2RF Dose Instruction: TAKE ONE CAPSULE BY MOUTH FOUR TIMES A DAY Rx Instructions: TAKE ONE CAPSULE BY MOUTH FOUR TIMES A DAY (JENNIFER) [facility] See Rx Instructions .Route Rx Instructions: As directed prednisone 10 mg tablet 10 mg PO DIRECTED Qty: 42 0RF Rx Instructions: You have been prescribed Prednisone to take as a tapered dose. You will receive a quantity of 42 10mg tablets. You should take all the tablets for that day in the morning with food. The dosage will be reduced over a period of 12 days. Please follow the dosage instructions below. Day 1 take 6 tablets Day 2 take 6 tablets Day 3 take 5 tablets Day 4 take 5 tablets Day 5 take 4 tablets Day 6 take 4 tablets Day 7 take 3 tablets Day 8 take 3 tablets Day 9 take 2 tablets Day 10 take 2 tablets Day 11 take 1 tablet Day 12 take 1 tablet doxycycline hyclate 100 mg tablet 100 mg PO BID 10 Days Qty: 20 0RF Referrals Follow up/Referrals: Kelli Bee APRN [Primary Care Provider] - See instructions Activity Restrictions/Add. Instructions Additional Instructions/Restrictions: Start antibiotic today. Be sure to complete entire prescription even if feeling better Tylenol and ibuprofen as needed for pain or fever Humidifier/vaporizer/hot steamy shower Follow-up with primary care tomorrow. Follow-up immediately in the ER of the [facility] for new or worsening symptoms or no noticeable improvement over the next 48-72 hours. Stop smoking Inhaler every 4-6 hours as needed. Should help open airways improved cough, wheezing, shortness of breath steroids as ordered Clinical Impressions Clinical Impression: Acute exacerbation of chronic obstructive airways disease Instructions Patient Instructions: DI for Chronic Obstructive Pulmonary Disease, DI for Shortness of Breath Print Language Print Language: Setswana Discharge ED Provider: Roberto Kasper General Adult HPI General Chief complaint: Shortness of Breath/Dyspnea Stated complaint: SOA Time Seen by Provider: 11/08/24 12:18 Mode of Arrival: Wheelchair Source of Information: Patient Description of Symptoms (Recalled from ER Triage Doc. by RN): pt has been increasingly short of breath this week. deep cough but unable to get anything up. wears 2lnc as needed. 84% on room air. denies fever. has copd History of Present Illness HPI narrative: 53-year-old female presents for shortness of breath. Patient states she was seen 07 October placed on doxycycline and steroids seem to get better once finishing meds couple weeks later started having shortness of air again. Patient states over the last 4 days the increased shortness of breath, patient states she has had some anxiety attacks related to her having trouble breathing. Related Data Home Medications ?Medication ?Instructions ?Recorded ?Confirmed buprenorphine 8 mg-naloxone 2 mg 2 tab sublingual DAILY Opioid 10/11/17 08/01/24 sublingual tablet dependence inhalational spacing device 02/11/23 08/01/24 (Laurita Benito [facility] spacer) Previous Rx's ?Medication ?Instructions ?Recorded fluticasone fur. 100 mcg-umeclid 1 inh inhalation DAILY Breathing 04/08/24 62.5 mcg-vilant 25 mcg Problems #28 ea inhalat.powder (Trelegy Ellipta) sertraline 100 mg tablet See Rx Instructions .Route 04/08/24 .COMPLEX #30 tabs spironolactone 100 mg tablet See Rx Instructions .Route 07/15/24 .COMPLEX #90 tabs prednisone 20 mg tablet 20 mg PO BID COPD 5 days #10 tabs 08/01/24 ipratropium 0.5 mg-albuterol 3 mg See Rx Instructions .Route 08/11/24 (2.5 mg base)/3 mL nebulization .COMPLEX #540 mL soln sulfamethoxazole 800 1 tab PO DAILY 7 days #7 tabs 09/17/24 mg-trimethoprim 160 mg tablet (Bactrim DS) albuterol sulfate 90 mcg/actuation See Rx Instructions .Route 10/09/24 aerosol inhaler .COMPLEX #8.5 grams apixaban 5 mg tablet (Eliquis) See Rx Instructions .Route 10/09/24 .COMPLEX #60 tabs cariprazine 1.5 mg capsule See Rx Instructions .Route 10/09/24 (Vraylar) .COMPLEX #30 caps cholecalciferol (vitamin D3) 1,250 See Rx Instructions .Route 10/09/24 mcg (50,000 unit) capsule .COMPLEX #4 caps doxycycline hyclate 100 mg tablet 100 mg PO BID 10 days #20 tabs 10/11/24 prednisone 10 mg tablet 10 mg PO DIRECTED #42 tabs 10/11/24 atorvastatin 10 mg tablet (Lipitor) 10 mg PO HS #30 tabs 10/28/24 furosemide 40 mg tablet 40 mg PO DAILY Fluid #30 tabs 10/28/24 hydroxyzine pamoate 50 mg capsule See Rx Instructions .Route 10/28/24 .COMPLEX #120 caps omeprazole 20 mg capsule,delayed See Rx Instructions .Route 10/28/24 release .COMPLEX #30 caps propranolol 80 mg capsule,24 See Rx Instructions .Route 10/28/24 hr,extended release .COMPLEX #90 caps doxycycline hyclate 100 mg capsule 100 mg PO BID 10 days #20 caps 11/08/24 prednisone 20 mg tablet See Rx Instructions .Route 11/08/24 .COMPLEX #15 tabs Allergies Allergy/AdvReac Type Severity Reaction Status Date / Time hydromorphone Allergy Severe S-DIFF. Verified 08/01/24 11:20 BREATHING; HIVES propoxyphene (From Allergy Severe S-SWELLS-OR Verified 08/01/24 11:20 Darvocet-N) AL/THROAT gabapentin (From Neurontin) Allergy Intermediate I-HIVES Verified 08/01/24 11:20 codeine Allergy Verified 08/01/24 11:20 [facility] Disclaimer: The information contained in this section may have been updated after the patient was seen, as this information can be updated by other users. Medical History , BANANA HANDLER) Cat scratch of left lower leg Acute exacerbation of chronic obstructive pulmonary disease Recurrent pulmonary emboli Swelling of lower extremity History of DVT of lower extremity Sleep apnea Pneumonia History of gastroesophageal reflux (GERD) Hyperlipidemia Hypertension Diastolic dysfunction Myocardial bridge History of DVT (deep vein thrombosis) CHF (congestive heart failure) Gastroesophageal reflux disease COPD (chronic obstructive pulmonary disease) Acute and chronic respiratory failure with hypoxia History of pulmonary embolism Tobacco abuse disorder Anxiety COPD exacerbation Bronchitis Wheezing Surgical History , BANANA HANDLER) History of hysterectomy Family History , BANANA HANDLER) No significant family history Social History , BANANA HANDLER) Smoking Status: Never smoker second hand exposure: No alcohol intake: never substance use type: former substance user current occupational status: unemployed Travel in the last 8 weeks?: None household members: none housing: house current occupational exposures/hazards: No caffeine: Yes Have you lived/traveled outside [place] in past 30 days?: No Contact w/someone who lives/traveled outside [place] past 30 days?: No Exposure to someone with infectious disease in past 14 days?: No Do you have a fever (greater than 100.4 F or 38 C)?: No Have you tested positive for COVID-19?: No Exposed to someone with COVID-19 in past 14 days?: No Do you have a sore throat?: No Do you have a cough?: No Do you have any weakness?: No Do you have any diarrhea?: No Are you experiencing any unusual bleeding?: No Do you have any muscle aches/pain?: No Do you have any abdominal pain?: No Are you experiencing loss of taste or smell?: No Other Medical History Have you received the Flu Vaccine for this season: No Have you received the Pneumonia Vaccine: No ROS Obtained: Yes Systems reviewed as appropriate & no additional complaints except as documented Physical Exam General General appearance: alert, in no apparent distress and anxious Eye Eye exam: Present normal appearance and PERRL ENT ENT exam: Present mucous membranes moist Respiratory Respiratory exam: Present wheezes Expanded Respiratory Exam Location: Left: wheezes and rhonchi, Right: wheezes and rhonchi and Lower: rhonchi Cardiovascular Cardiovascular exam: Present regular rate and normal rhythm Neurological Exam Neurological exam: Present alert and oriented X3 Skin Skin exam: Present warm and intact Lymphatic Lymphatic Findings: no adenopathy Medical Decision Making Medical Records Medical records reviewed: Yes I reviewed the patient's medical records. Screening: Per USPSTF and CDC recommendations, given the prevalence of disease in our region, it is our hospital?s policy to screen for HIV and viral Hepatitis for all patients aged 18 and over and those with ongoing risk factors. Eliecer Inquiry Pt receiving controlled substance: No Eliecer was queried for this patient: No Vital Signs: 11/08/24 12:11 Temperature 97.9 F Temperature Source Oral Pulse Rate [Right] 80 Respiratory Rate 24 Blood Pressure [Right Arm] 136/91 H Blood Pressure Mean [Right Arm] 106 02 Sat by Pulse Oximetry 84 L Oxygen Delivery Method Room Air Lab Data Lab results reviewed: Yes I reviewed the patient's lab results. Lab Results 11/08/24 12:15: WBC 5.5, RBC 4.18 L, Hgb 11.8 L, Hct 37.1, MCV 88.8, MCH 28.2, MCHC 31.8, RDW 13.8, Plt Count 195, MPV 10.1, Neut % (Auto) 57.2, Lymph % (Auto) 25.9, Otoe % (Auto) 7.8, Eos % (Auto) 8.0, Baso % (Auto) 0.4, Neut # (Auto) 3.2, Lymph # (Auto) 1.4, Otoe # (Auto) 0.4, Eos # (Auto) 0.4, Baso # (Auto) 0.0, Sodium 138, Potassium 4.1, Chloride 100, Carbon Dioxide 34 H, Anion Gap 8.1, BUN 14, Creatinine 1.10 H, Estimated Creat Clear 77, Estimated GFR 52 L, Est GFR ( Amer) 63, Glucose 122 H, Calcium 9.2, Total Bilirubin 0.3, AST 30, ALT 20, Alkaline Phosphatase 89, NT-Pro-B Natriuret Pep 132 H, Total Protein 6.6, Albumin 3.9, Globulin 2.7, Albumin/Globulin Ratio 1.4 11/08/24 12:19: VBG pH 7.29 L, VBG pCO2 60.3 H, VBG pO2 27.4 L, VBG HCO3 28.6, V BG Total CO2 30.5 H, VBG O2 Saturation 47.4 L, VBG Base Excess 2.1, VBG Lactic Acid 1.7 11/08/24 13:36: VBG pH 7.37, VBG pCO2 48.9, VBG pO2 37.6, VBG HCO3 27.4, VBG Total CO2 28.9 H, VBG O2 Saturation 71.4 H, VBG Base Excess 2.1, VBG Lactic Acid 1.2 11/08/24 12:15 11/08/24 12:15 Orders (Tests/Meds): ED MEDICATIONS Generic Name Dose Route Start Last Admin Trade Name Freq PRN Reason Stop Dose Admin Methylprednisolone Sodium Succinate 125 mg 11/08/24 12:30 11/08/24 12:44 Methylprednisolone Sod Succ 125mg Vial IV 12/08/24 12:29 125 mg Q6H JUDAH Administration Discontinued Medications Generic Name Dose Route Start Last Admin Trade Name Freq PRN Reason Stop Dose Admin Albuterol/Ipratropium 9 ml 11/08/24 12:23 11/08/24 12:44 Ipratropium/Albuterol 3 Ml Neb IH 11/08/24 12:24 9 ml ONCE ONE Administration ORDERS Category Date Time Status Chest XR -- portable [XR chest portable] Stat Exams 11/08/24 12:19 Completed BNP [NT Pro Brain Natriuretic Pep.] Stat Lab 11/08/24 12:15 Completed CBC Man Diff [Complete Blood Count Man Dif] Stat Lab 11/08/24 12:15 Results CMP [Comprehensive Metabolic Panel] Stat Lab 11/08/24 12:15 Completed HIV Combo Stat Lab 11/08/24 12:15 Received Hepatitis C Ab Qual. W/ RFX Stat Lab 11/08/24 12:15 Received Rapid PCR Covid and Flu A/B Stat Lab 11/08/24 12:15 Received Blood Culture Stat Micro 11/08/24 13:07 Received VBG [Venous Blood Gas] Stat RT 11/08/24 12:19 Completed VBG [Venous Blood Gas] Stat RT 11/08/24 13:36 Completed Radiology Data #1: Image(s): Chest Image Reviewed: Yes I have reviewed radiologist's interpretation Preliminary Findings: Abnormal Critical Care Critical Care Time Critical Care Time: No
[2024-11-08 12:29] LABS: Lactate Venous 1.7 mmol/L (0.4-2.0); VBG Base Excess 2.1 mmol/L (-2.4-2.3); VBG HCO3 28.6 mmol/L (23-30); VBG Oxygen Saturation 47.4 % (50-70); VBG PH 7.29 mmol/L (7.31-7.41); VBG PO2 27.4 mmol/L (28-40); VBG Total CO2 30.5 mmol/L (23-27)
[2024-11-08 12:30] LABS: MANUAL DIFFERENTIAL MANUAL DIFFERENTIAL (MANUAL DIFF)
[2024-11-08 12:32] LABS: Basophils % 0.4 % (0.1-2.0); Eosinophils # 0.4 Kmm3 (0.0-0.4); Hematocrit 37.1 % (37.0-47.0); Hemoglobin 11.8 g/dL (12.2-16.2); Lymphocytes # 1.4 K/mm3 (0.7-4.5); Lymphocytes % 25.9 % (10-50); Mean Corpuscular HGB Conc 31.8 g/dL (31.8-35.4); Mean Corpuscular Hemoglobin 28.2 pg (27.0-31.2); Mean Corpuscular Volume 88.8 fl (81-99); Mean Platelet Volume 10.1 fl (7.4-10.4); Monocytes # 0.4 K/mm3 (0.1-1.0); Monocytes % 7.8 % (1.7-9.3); Neutrophils # 3.2 K/mm3 (1.8-7.8); Neutrophils % 57.2 % (37.0-80.0); Platelet Count 195 K/mm3 (142-424); Red Blood Count 4.18 M/mm3 (4.20-5.40); Red Cell Distribution Width 13.8 % (11.5-17.5); White Blood Count 5.5 K/mm3 (4.8-10.8)
[2024-11-08 12:32] LABS: VBG PCO2 60.3 mmol/L (35-51)
[2024-11-08 12:37] LABS: Chloride 100 mmol/L (98-107)
[2024-11-08 12:38] LABS: Albumin Level 3.9 g/dl (3.5-5.0); Potassium 4.1 mmoL/L (3.5-5.1); Sodium 138 mmol/L (136-145)
[2024-11-08 12:40] LABS: Blood Urea Nitrogen 14 mg/dl (7-17); Creatinine Clearance Estimated 77 mL/min (50-200); Estimated Glomerular Filt Rate 52 ml/min (>60); GFR (African American) 63 ML/MIN (>60)
[2024-11-08 12:41] LABS: Alanine Aminotransferase 20 U/L (12-78); Albumin/Globulin Ratio 1.4 (1.1-1.8); Alkaline Phosphatase 89 U/L (38-126); Anion Gap 8.1 mEq/L (5-15); Aspartate Amino Transferase 30 U/L (14-36); Bilirubin,Total 0.3 mg/dl (0.2-1.3); Calcium 9.2 mg/dl (8.4-10.2); Carbon Dioxide 34 mmol/L (22.0-30.0); Globulin 2.7 g/dL (1.3-3.2); Glucose 122 mg/dl (74-100); Total Protein,Serum 6.6 g/dl (6.3-8.2)
[2024-11-08] MEDS: METHYLPREDNISOLONE SOD SUCC 125MG VIAL 125 MG IV (12:44)
[2024-11-08] MEDS: IPRATROPIUM/ALBUTEROL 3 ML NEB 9 ML IH (12:44)
[2024-11-08 12:50] LABS: NT Pro Brain Natriuretic Pep. 132 pg/mL (0-125)
[2024-11-08 13:47] LABS: HIV Combo NEGATIVE (Negative)
[2024-11-08 13:53] LABS: Lactate Venous 1.2 mmol/L (0.4-2.0); VBG Base Excess 2.1 mmol/L (-2.4-2.3); VBG HCO3 27.4 mmol/L (23-30); VBG Oxygen Saturation 71.4 % (50-70); VBG PCO2 48.9 mmol/L (35-51); VBG PH 7.37 mmol/L (7.31-7.41); VBG PO2 37.6 mmol/L (28-40); VBG Total CO2 28.9 mmol/L (23-27)
[2024-11-08 13:55] LABS: Hepatitis C Ab Qual. W/ RFX NEGATIVE (Negative)
[2024-11-08 14:18] VITALS: BP 118/54; PULSE 79; RESP 20; TEMP 36.9; O2SAT 94
[2024-11-08 14:21] LABS: Eosinophils % 6 % (0-3); Lymphocytes % 38 % (10-50); Monocytes % 6 % (2-9); Neutrophils % 50 % (42-76); Total Cells Counted 100
[2024-11-08 14:22] LABS: Platelet Estimate Normal; RBC Morphology Normal
== END 2024-11-08 14:28 | disposition home or self-care (01) ==
PROVIDERS: Nurse Practitioner Family; Emergency Provider Student in an Organized Health Care Education/Training Program; PCP Family Medicine
DX: J44.1 Chronic obstructive pulmonary disease with (acute) exacerbation (principal); R09.02 Hypoxemia; Z11.59 Encounter for screening for other viral diseases; Z11.4 Encounter for screening for human immunodeficiency virus [HIV]
CPT/HCPCS: 71045; 80053; 82803; 83880; 85007; 85014; 85018; 85048; 85049; 86803; 87040; 87389; 87636; 96374; 99284; J2919

== ENCOUNTER 2024-12-02 16:30 | Emergency (ER) | payer OTHER, SELFPAY ==
[2024-12-02 16:54] VITALS: BP 130/74; PULSE 86; RESP 18; TEMP 37; O2SAT 92; BMI 35.4
--- NOTE | 2024-12-02 16:57 | ECG_ITS ---
APPROVED REPORT Exam: Resting ECG HR:80 bpm ECG Measurements Heart Rate 80 AXES IL 166 P 89 QRSd 89 QRS 74 QT 387 T 80 QTc 423 Conclusion SINUS RHYTHM POSSIBLE RIGHT VENTRICULAR CONDUCTION DELAY [RSR (QR) IN V1/V2] Nonspecific ST changes not concerning for STEMI, not significantly changed from prior EKG Electronically signed by : MALKA RONQUILLO, 12/02/2024 19:58:58
--- NOTE | 2024-12-02 16:59 | XR_ITS ---
PROCEDURE INFORMATION: Exam: XR Chest Exam date and time: 12/02/2024 5:05 PM Age: 53 years old Clinical indication: Dyspnea; Additional info: Shortness of breath TECHNIQUE: Imaging protocol: Radiologic exam of the chest. Views: 2 views. COMPARISON: CR XR CHEST PORTABLE 11/08/2024 12:28 PM FINDINGS: Lungs: Unremarkable. No consolidation. Pleural spaces: Unremarkable. No pleural effusion. No pneumothorax. Heart/Mediastinum: Unremarkable. No cardiomegaly. Bones/joints: Unremarkable. IMPRESSION: No acute findings.
--- NOTE | 2024-12-02 17:05 | ED_ITS ---
<Statement entered by Lucero Parham DO - 12/02/24 19:11> I was consulted by the CHARLENE, and we discussed the complexity of the problems being addressed. I approved the treatment and management plan for this patient's care in the emergency department, thus performing a substantive portion of the medical decision making. Lucero Parham DO Discharge Plan Disposition Patient Disposition: Home, Self-Care Prescriptions Prescriptions: New furosemide 40 mg tablet 40 mg PO BID Qty: 10 0RF Rx Instructions: Take 40mg BID for 5 day starting tomorrow potassium chloride 20 mEq tablet,ER particles/crystals 20 meq PO DAILY Qty: 5 0RF No Action buprenorphine-naloxone 8-2 mg tablet, sublingual 2 tab sublingual DAILY Trelegy Ellipta 100-62.5-25 mcg blister with device 1 inh inhalation DAILY Qty: 28 12RF prednisone 20 mg tablet 20 mg PO BID 5 Days Qty: 10 0RF spironolactone 100 mg tablet See Rx Instructions .ROUTE .COMPLEX Qty: 90 3RF Dose Instruction: TAKE ONE TABLET BY MOUTH ONCE A DAY Rx Instructions: TAKE ONE TABLET BY MOUTH ONCE A DAY ipratropium-albuterol 0.5 mg-3 mg(2.5 mg base)/3 mL solution for nebulization See Rx Instructions .ROUTE .COMPLEX Qty: 540 3RF Dose Instruction: INHALE CONTENTS OF 1 VIAL VIA NEBULIZER EVERY 4 HOURS FOR COPD Rx Instructions: INHALE CONTENTS OF 1 VIAL VIA NEBULIZER EVERY 4 HOURS FOR COPD sulfamethoxazole-trimethoprim [Bactrim DS] 800-160 mg tablet 1 tab PO DAILY 7 Days Qty: 7 0RF albuterol sulfate 90 mcg/actuation HFA aerosol inhaler See Rx Instructions .ROUTE .COMPLEX Qty: 8.5 0RF Dose Instruction: INHALE 4 PUFFS BY MOUTH EVERY 4 HOURS NEEDED FOR SHORTNESS OF BREATH OR WHEEZING Rx Instructions: INHALE 4 PUFFS BY MOUTH EVERY 4 HOURS NEEDED FOR SHORTNESS OF BREATH OR WHEEZING atorvastatin [Lipitor] 10 mg tablet 10 mg PO HS Qty: 30 5RF propranolol 80 mg capsule,extended release 24 hr See Rx Instructions .ROUTE .COMPLEX Qty: 90 1RF Dose Instruction: TAKE ONE CAPSULE BY MOUTH ONCE A DAY FOR HYPERTENSION Rx Instructions: TAKE ONE CAPSULE BY MOUTH ONCE A DAY FOR HYPERTENSION omeprazole 20 mg capsule,delayed release(DR/EC) See Rx Instructions .ROUTE .COMPLEX Qty: 30 5RF Dose Instruction: TAKE ONE CAPSULE BY MOUTH ONCE A DAY Rx Instructions: TAKE ONE CAPSULE BY MOUTH ONCE A DAY furosemide 40 mg tablet 40 mg PO DAILY Qty: 30 5RF hydroxyzine pamoate 50 mg capsule See Rx Instructions .ROUTE .COMPLEX Qty: 120 2RF Dose Instruction: TAKE ONE CAPSULE BY MOUTH FOUR TIMES A DAY Rx Instructions: TAKE ONE CAPSULE BY MOUTH FOUR TIMES A DAY cholecalciferol (vitamin D3) 1,250 mcg (50,000 unit) capsule See Rx Instructions .ROUTE .COMPLEX Qty: 4 0RF Dose Instruction: TAKE ONE CAPSULE BY MOUTH ONCE WEEKLY Rx Instructions: TAKE ONE CAPSULE BY MOUTH ONCE WEEKLY Eliquis 5 mg tablet See Rx Instructions .ROUTE .COMPLEX Qty: 60 0RF Dose Instruction: TAKE ONE TABLET BY MOUTH 2 TIMES A DAY FOR BLOOD THINNER Rx Instructions: TAKE ONE TABLET BY MOUTH 2 TIMES A DAY FOR BLOOD THINNER Vraylar 1.5 mg capsule See Rx Instructions .ROUTE .COMPLEX Qty: 30 0RF Dose Instruction: TAKE ONE CAPSULE BY MOUTH ONCE A DAY Rx Instructions: TAKE ONE CAPSULE BY MOUTH ONCE A DAY sertraline 100 mg tablet See Rx Instructions .ROUTE .COMPLEX Qty: 90 5RF Dose Instruction: TAKE ONE TABLET BY MOUTH ONCE A DAY Rx Instructions: TAKE ONE TABLET BY MOUTH ONCE A DAY doxycycline hyclate 100 mg capsule 100 mg PO BID 10 Days Qty: 20 0RF prednisone 20 mg tablet See Rx Instructions .ROUTE .COMPLEX Qty: 15 0RF Rx Instructions: 60 mg orally daily x 5 days (DME) [facility] Spacer See Rx Instructions .Route Rx Instructions: As directed prednisone 10 mg tablet 10 mg PO DIRECTED Qty: 42 0RF Rx Instructions: You have been prescribed Prednisone to take as a tapered dose. You will receive a quantity of 42 10mg tablets. You should take all the tablets for that day in the morning with food. The dosage will be reduced over a period of 12 days. Please follow the dosage instructions below. Day 1 take 6 tablets Day 2 take 6 tablets Day 3 take 5 tablets Day 4 take 5 tablets Day 5 take 4 tablets Day 6 take 4 tablets Day 7 take 3 tablets Day 8 take 3 tablets Day 9 take 2 tablets Day 10 take 2 tablets Day 11 take 1 tablet Day 12 take 1 tablet doxycycline hyclate 100 mg tablet 100 mg PO BID 10 Days Qty: 20 0RF Referrals Follow up/Referrals: Kelli Bee APRN [Primary Care Provider] - See instructions Activity Restrictions/Add. Instructions Additional Instructions/Restrictions: You are seen in the emergency room tonight with complaints of lower extremity edema and shortness of breath. For 5 days, take 40 mg of Lasix twice daily. Also take a potassium supplement with this for 5 days while you are taking extra Lasix dose. Return to the emergency room if your condition worsens. Follow-up with your primary care provider and your pure pak machine operator in the next week. Clinical Impressions Clinical Impression: Chronic hypoxic respiratory failure, Anxiety, Heart failure with preserved ejection fraction Instructions Patient Instructions: Edema, Heart Failure: Salt and Fluids Print Language Print Language: Russian Discharge ED Provider: Lucero Parham HPI <Tania Christianson APRN - Last Filed: 12/02/24 18:59> General Chief Complaint: Shortness of Breath/Dyspnea Stated Complaint: SOB Time Seen by Provider: 12/02/24 17:08 Mode of Arrival: Ambulatory Source of Information: Patient Description of Symptoms (Recalled from ER Triage Doc. by RN): pt to the ED with increased SOB and bilateral pitting edema over the last few days. pt normally wears 2.5L NC at home History of Present Illness HPI narrative: Ms. Kimble is a 53-year-old female who presents emergency room today with complaints of shortness of breath and a 15 pound weight gain over the last 5 days. 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 Has noted some pretty significantly increased edema in her bilateral lower extremities. Is noted some worsening shortness of breath in the last couple of days. Does wear 2.5 L of nasal cannula at home at baseline, has not had increase her oxygen. Does states she thinks she has been more wheezy than usual. Does see Dr. Alfred for cardiology. States that her last echo and heart cath were done several years ago. Does have a history of PE, is taking Eliquis for this. Reports compliance with this. Please note that the above description of symptoms, and this electronic medical record under categorization of recalled from ER triage doctor by RN are reflective of an initial nursing assessment, however, is not reflective of my full history and physical exam that was personally taken and clarified. Consequentially, this proceeding description of symptoms, which may include the patient's cauterized chief complaint in the EMR, do not reflect my personal clinical impression, and the ultimate description of the history of present illness stated complaints should be deferred to this section of this note. Unless stated otherwise were congruent with the section of the note, additional signs, symptoms, or incongruence can be interpreted as in or accurate with my clinical impression. Related Data Home Medications ?Medication ?Instructions ?Recorded ?Confirmed buprenorphine 8 mg-naloxone 2 mg 2 tab sublingual DAILY Opioid 10/11/17 08/01/24 sublingual tablet dependence inhalational spacing device 02/11/23 08/01/24 [facility] spacer) Previous Rx's ?Medication ?Instructions ?Recorded fluticasone fur. 100 mcg-umeclid 1 inh inhalation DAILY Breathing 04/08/24 62.5 mcg-vilant 25 mcg Problems #28 ea inhalat.powder (Trelegy Ellipta) spironolactone 100 mg tablet See Rx Instructions .Route 07/15/24 .COMPLEX #90 tabs prednisone 20 mg tablet 20 mg PO BID COPD 5 days #10 tabs 08/01/24 ipratropium 0.5 mg-albuterol 3 mg See Rx Instructions .Route 08/11/24 (2.5 mg base)/3 mL nebulization .COMPLEX #540 mL soln sulfamethoxazole 800 1 tab PO DAILY 7 days #7 tabs 09/17/24 mg-trimethoprim 160 mg tablet (Bactrim DS) albuterol sulfate 90 mcg/actuation See Rx Instructions .Route 10/09/24 aerosol inhaler .COMPLEX #8.5 grams doxycycline hyclate 100 mg tablet 100 mg PO BID 10 days #20 tabs 10/11/24 prednisone 10 mg tablet 10 mg PO DIRECTED #42 tabs 10/11/24 atorvastatin 10 mg tablet (Lipitor) 10 mg PO HS #30 tabs 10/28/24 furosemide 40 mg tablet 40 mg PO DAILY Fluid #30 tabs 10/28/24 hydroxyzine pamoate 50 mg capsule See Rx Instructions .Route 10/28/24 .COMPLEX #120 caps omeprazole 20 mg capsule,delayed See Rx Instructions .Route 10/28/24 release .COMPLEX #30 caps propranolol 80 mg capsule,24 See Rx Instructions .Route 10/28/24 hr,extended release .COMPLEX #90 caps doxycycline hyclate 100 mg capsule 100 mg PO BID 10 days #20 caps 11/08/24 prednisone 20 mg tablet See Rx Instructions .Route 11/08/24 .COMPLEX #15 tabs apixaban 5 mg tablet (Eliquis) See Rx Instructions .Route 11/11/24 .COMPLEX #60 tabs cariprazine 1.5 mg capsule See Rx Instructions .Route 11/11/24 (Vraylar) .COMPLEX #30 caps cholecalciferol (vitamin D3) 1,250 See Rx Instructions .Route 11/11/24 mcg (50,000 unit) capsule .COMPLEX #4 caps furosemide 40 mg tablet 40 mg PO BID #10 tabs 12/02/24 potassium chloride 20 mEq 20 meq PO DAILY #5 tabs 12/02/24 tablet,extended release(part/cryst) sertraline 100 mg tablet See Rx Instructions .Route 12/02/24 .COMPLEX #90 tabs Allergies Allergy/AdvReac Type Severity Reaction Status Date / Time hydromorphone Allergy Severe S-DIFF. Verified 08/01/24 11:20 BREATHING; HIVES propoxyphene (From Allergy Severe S-SWELLS-OR Verified 08/01/24 11:20 Darvocet-N) AL/THROAT gabapentin (From Neurontin) Allergy Intermediate I-HIVES Verified 08/01/24 11:20 codeine Allergy Verified 08/01/24 11:20 PFSH <Tania Christianson, [employer] - Last Filed: 12/02/24 18:59> PFS Disclaimer: The information contained in this section may have been updated after the patient was seen, as this information can be updated by other users. Medical History , [employer] FORMER) Cat scratch of left lower leg Acute exacerbation of chronic obstructive pulmonary disease Recurrent pulmonary emboli Swelling of lower extremity History of DVT of lower extremity Sleep apnea Pneumonia History of gastroesophageal reflux (GERD) Hyperlipidemia Hypertension Diastolic dysfunction Myocardial bridge History of DVT (deep vein thrombosis) CHF (congestive heart failure) Gastroesophageal reflux disease COPD (chronic obstructive pulmonary disease) Acute and chronic respiratory failure with hypoxia History of pulmonary embolism Tobacco abuse disorder Anxiety COPD exacerbation Bronchitis Wheezing Surgical History , [employer] FORMER) History of hysterectomy Family History , [employer] FORMER) No significant family history Social History , [employer] FORMER) Smoking Status: Never smoker second hand exposure: No alcohol intake: never substance use type: former substance user current occupational status: unemployed Travel in the last 8 weeks?: None household members: none housing: house current occupational exposures/hazards: No caffeine: Yes Have you lived/traveled outside [place] in past 30 days?: No Contact w/someone who lives/traveled outside [place] past 30 days?: No Exposure to someone with infectious disease in past 14 days?: No Do you have a fever (greater than 100.4 F or 38 C)?: No Have you tested positive for COVID-19?: No Exposed to someone with COVID-19 in past 14 days?: No Do you have a sore throat?: No Do you have a cough?: No Do you have any weakness?: No Do you have any diarrhea?: No Are you experiencing any unusual bleeding?: No Do you have any muscle aches/pain?: No Do you have any abdominal pain?: No Are you experiencing loss of taste or smell?: No Other Medical History Have you received the Flu Vaccine for this season: No Have you received the Pneumonia Vaccine: No <Tania Christianson APRN - Last Filed: 12/02/24 18:59> ROS Obtained: Yes Systems reviewed as appropriate & no additional complaints except as documented Physical Exam <Tania Christianson APRN - Last Filed: 12/02/24 18:59> General General appearance: alert and in no apparent distress Head Head exam: atraumatic and normocephalic Eye Eye exam: Present PERRL and EOMI Neck Neck exam: Present trachea midline Chest Chest inspection: Present symmetric chest wall rise Respiratory Respiratory exam: Present other (Mild occasional expiratory wheezes noted throughout) Cardiovascular Cardiovascular exam: Present regular rate and normal rhythm Abdominal Exam Abdominal exam: Present soft and normal bowel sounds; Absent tenderness Extremities Exam Extremities exam: Present normal inspection and full ROM Neurological Exam Neurological exam: Present alert and oriented X3 Skin Skin exam: Present warm, dry and intact HEART Score <Tania Christianson APRN - Last Filed: 12/02/24 18:59> HEART Score HEART Score assessment performed?: No Critical Care <Tania Christianson [employer] - Last Filed: 12/02/24 18:59> Critical Care Time Critical Care Time: No Medical Decision Making <Tania Christianson [employer] - Last Filed: 12/02/24 18:59> Eliecer Inquiry Pt receiving controlled substance: No Vital Signs Vital Signs: 12/02/24 16:54 Temperature 98.6 F Temperature Source Oral Pulse Rate [Left Radial] 86 Respiratory Rate 18 Blood Pressure [Right Arm] 130/74 Blood Pressure Mean [Right Arm] 92 Blood Pressure Source [Right Arm] Automatic Cuff Blood Pressure Position [Right Arm] Sitting 02 Sat by Pulse Oximetry 92 L Oxygen Delivery Method Room Air Lab Data Labs: Lab Results 12/02/24 17:00: WBC 6.3, RBC 4.20, Hgb 11.9 L, Hct 36.3 L, MCV 86.4, MCH 28.3, MCHC 32.8, RDW 12.7, Plt Count 179, MPV 10.1, Neut % (Auto) 66.6, Lymph % (Auto) 17.2, [place] % (Auto) 8.6, Eos % (Auto) 6.5, Baso % (Auto) 0.6, Neut # (Auto) 4.2, Lymph # (Auto) 1.1, [place] # (Auto) 0.5, Eos # (Auto) 0.4, Baso # (Auto) 0.0, Sodium 137, Potassium 3.5, Chloride 95 L, Carbon Dioxide 40 H, Anion Gap 5.5, BUN 17, Creatinine 1.20 H, Estimated Creat Clear 79, Estimated GFR 47 L, Est GFR ( Amer) 57 L, Glucose 136 H, Calcium 9.2, Total Bilirubin 0.5, AST 26, ALT 16, Alkaline Phosphatase 95, Troponin I < 0.01, NT-Pro-B Natriuret Pep 77.1, Total Protein 6.6, Albumin 4.1, Globulin 2.5, Albumin/Globulin Ratio 1.6 12/02/24 17:00 12/02/24 17:00 Response Orders (Tests/Meds): ED MEDICATIONS Discontinued Medications Generic Name Dose Route Start Last Admin Trade Name Freq PRN Reason Stop Dose Admin Albuterol/Ipratropium 3 ml 12/02/24 16:59 12/02/24 18:25 Ipratropium/Albuterol 3 Ml Neb IH 12/02/24 17:00 3 ml ONCE ONE Administration ORDERS Category Date Time Status XR chest 2V Stat Exams 12/02/24 16:59 Completed BNP [NT Pro Brain Natriuretic Pep.] Stat Lab 12/02/24 17:00 Completed Complete Blood Count Auto Diff Stat Lab 12/02/24 17:00 Completed Comprehensive Metabolic Panel Stat Lab 12/02/24 17:00 Completed Troponin I Q3H Lab 12/02/24 20:00 Ordered Troponin I Q3H Lab 12/02/24 23:00 Ordered Troponin I Stat Lab 12/02/24 17:00 Completed ECG Request Stat Y 12/02/24 16:59 Ordered MDM Narrative Medical Decision Narrative: In summary patient is an 53-year-old female who presents emergency department for evaluation of shortness of breath and weight gain with notable lower extremity edema. Patient is hemodynamically stable upon arrival, afebrile. Physical exam notable for occasional expiratory wheezes throughout, 3+ pitting edema bilateral lower extremities. Differential diagnosis includes COPD exacerbation versus CHF exacerbation versus ACS. Initial workup will be conducted with hematologic labs, EKG, chest x-ray. I did consider a CTA of the chest as patient does have a history of pulmonary embolism. Patient not tachycardic, not hypoxic, no chest pain, reports full compliance with her Eliquis, on room air even though she tells me she wears 2.5 L of oxygen at home, SpO2 sats in the low 90s. Initial interventions include nebulizer treatment. Initial workup reviewed by me hematologic labs remarkable for slightly elevated creatinine of 1.2 which is near her baseline, BNP at 77, troponin was negative EKG showed a sinus rhythm., No ST elevation, similar to prior EKGs. Upon repeat evaluation patient had acceptable resolution of symptoms, improved wheeziness after her DuoNeb treatment. Had an extensive discussion with the patient regarding taking extra 5 days of Lasix to see if that helps with her swelling. Patient does not appear in acute volume overload, does have some chronic pitting edema which I suspect is more dependent. Told her to continue wearing her oxygen at home, she did come in on room air with O2 sats in the low 90s. Patient states that she does feel better after her nebulizer treatment. Will give her a dose of 40 mg of IV Lasix while here in the ER as well as an 80 mg dose of Solu-Medrol. Given this, patient is appropriate for discharge. I will be sending her home with prescription with 5 extra days of Lasix for her to take 40 mg twice daily x 5 days. Potassium at 3.5, will send her home a prescription for potassium 20 mEq to take daily while she is taking the extra dose of Lasix. She should follow-up with her primary care physician and her pure pak machine operator in the next week. Return precautions were given to the patient, patient should return to the ER if she develops worsening shortness of breath, chest pain, etc. <Lucero Parham, DO - Last Filed: 12/02/24 17:33> Vital Signs Vital Signs: 12/02/24 16:54 Temperature 98.6 F Temperature Source Oral Pulse Rate [Left Radial] 86 Respiratory Rate 18 Blood Pressure [Right Arm] 130/74 Blood Pressure Mean [Right Arm] 92 Blood Pressure Source [Right Arm] Automatic Cuff Blood Pressure Position [Right Arm] Sitting 02 Sat by Pulse Oximetry 92 L Oxygen Delivery Method Room Air Lab Data Labs: Lab Results 12/02/24 17:00: WBC 6.3, RBC 4.20, Hgb 11.9 L, Hct 36.3 L, MCV 86.4, MCH 28.3, MCHC 32.8, RDW 12.7, Plt Count 179, MPV 10.1, Neut % (Auto) 66.6, Lymph % (Auto) 17.2, [place] % (Auto) 8.6, Eos % (Auto) 6.5, Baso % (Auto) 0.6, Neut # (Auto) 4.2, Lymph # (Auto) 1.1, [place] # (Auto) 0.5, Eos # (Auto) 0.4, Baso # (Auto) 0.0, Sodium 137, Potassium 3.5, Chloride 95 L, Carbon Dioxide 40 H, Anion Gap 5.5, BUN 17, Creatinine 1.20 H, Estimated Creat Clear 79, Estimated GFR 47 L, Est GFR ( Amer) 57 L, Glucose 136 H, Calcium 9.2, Total Bilirubin 0.5, AST 26, ALT 16, Alkaline Phosphatase 95, Troponin I < 0.01, NT-Pro-B Natriuret Pep 77.1, Total Protein 6.6, Albumin 4.1, Globulin 2.5, Albumin/Globulin Ratio 1.6 Response Orders (Tests/Meds): ED MEDICATIONS Discontinued Medications Generic Name Dose Route Start Last Admin Trade Name Juancarlosq PRN Reason Stop Dose Admin Albuterol/Ipratropium 3 ml 12/02/24 16:59 12/02/24 18:25 Ipratropium/Albuterol 3 Ml Neb IH 12/02/24 17:00 3 ml ONCE ONE Administration ORDERS Category Date Time Status XR chest 2V Stat Exams 12/02/24 16:59 Completed BNP [NT Pro Brain Natriuretic Pep.] Stat Lab 12/02/24 17:00 Completed Complete Blood Count Auto Diff Stat Lab 12/02/24 17:00 Completed Comprehensive Metabolic Panel Stat Lab 12/02/24 17:00 Completed Troponin I Q3H Lab 12/02/24 20:00 Ordered Troponin I Q3H Lab 12/02/24 23:00 Ordered Troponin I Stat Lab 12/02/24 17:00 Completed ECG Request Stat Y 12/02/24 16:59 Ordered ECG Data Tracing #1: Attestation: I reviewed this ECG and interpreted as documented below: ECG Narrative: Normal sinus rhythm with a ventricular of [address]/T wave changes that are not significantly different from prior EKG. No acute STEMI. ECG initial impression date: 12/02/24 ECG initial impression time: 17:05
[2024-12-02 17:10] LABS: Basophils % 0.6 % (0.1-2.0); Eosinophils # 0.4 Kmm3 (0.0-0.4); Eosinophils % 6.5 % (0.1-12.0); Hematocrit 36.3 % (37.0-47.0); Hemoglobin 11.9 g/dL (12.2-16.2); Immature Granulocytes # 0.03 10^3uL; Immature Granulocytes % 0.5 %; Lymphocytes # 1.1 K/mm3 (0.7-4.5); Lymphocytes % 17.2 % (10-50); Mean Corpuscular HGB Conc 32.8 g/dL (31.8-35.4); Mean Corpuscular Hemoglobin 28.3 pg (27.0-31.2); Mean Corpuscular Volume 86.4 fl (81-99); Mean Platelet Volume 10.1 fl (7.4-10.4); Monocytes # 0.5 K/mm3 (0.1-1.0); Monocytes % 8.6 % (1.7-9.3); Neutrophils # 4.2 K/mm3 (1.8-7.8); Neutrophils % 66.6 % (37.0-80.0); Nucleated Red Blood Cells # 0 10^3/uL; Nucleated Red Blood Cells % 0 %; Platelet Count 179 K/mm3 (142-424); Red Cell Distribution Width 12.7 % (11.5-17.5); Red Cell Distribution Width-SD 39.9 fL; White Blood Count 6.3 K/mm3 (4.8-10.8)
[2024-12-02 17:18] LABS: Chloride 95 mmol/L (98-107)
[2024-12-02 17:19] LABS: Albumin Level 4.1 g/dl (3.5-5.0); Potassium 3.5 mmoL/L (3.5-5.1); Sodium 137 mmol/L (136-145)
[2024-12-02 17:22] LABS: Alanine Aminotransferase 16 U/L (12-78); Albumin/Globulin Ratio 1.6 (1.1-1.8); Alkaline Phosphatase 95 U/L (38-126); Anion Gap 5.5 mEq/L (5-15); Aspartate Amino Transferase 26 U/L (14-36); Bilirubin,Total 0.5 mg/dl (0.2-1.3); Blood Urea Nitrogen 17 mg/dl (7-17); Calcium 9.2 mg/dl (8.4-10.2); Carbon Dioxide 40 mmol/L (22.0-30.0); Creatinine Clearance Estimated 79 mL/min (50-200); Estimated Glomerular Filt Rate 47 ml/min (>60); GFR (African American) 57 ML/MIN (>60); Globulin 2.5 g/dL (1.3-3.2); Glucose 136 mg/dl (74-100); Total Protein,Serum 6.6 g/dl (6.3-8.2)
[2024-12-02 17:34] LABS: NT Pro Brain Natriuretic Pep. 77.1 pg/mL (0-125)
[2024-12-02 18:10] LABS: Troponin I < 0.01 ng/ml (0.00-0.034)
[2024-12-02] MEDS: IPRATROPIUM/ALBUTEROL 3 ML NEB IH (18:25)
[2024-12-02] MEDS: FUROSEMIDE 40MG/4ML VIAL 40 MG IV (18:52)
[2024-12-02] MEDS: METHYLPREDNISOLONE SOD SUCC 125MG VIAL 80 MG IV (18:52)
[2024-12-02 19:06] VITALS: BP 107/85; PULSE 76; RESP 16; TEMP 36.9; O2SAT 96
[2024-12-02 19:11] VITALS: BP 107/85; PULSE 76; RESP 16; TEMP 36.4; O2SAT 96
== END 2024-12-02 19:35 | disposition home or self-care (01) ==
PROVIDERS: Emergency Provider Emergency Medicine; PCP Family Medicine
DX: J96.21 Acute and chronic respiratory failure with hypoxia (principal); I50.30 Unspecified diastolic (congestive) heart failure; I11.0 Hypertensive heart disease with heart failure; J44.9 Chronic obstructive pulmonary disease, unspecified; Z87.891 Personal history of nicotine dependence
CPT/HCPCS: 71046; 80053; 83880; 84484; 85025; 93005; 96374; 96375; 99284; J1938; J2919

== ENCOUNTER 2024-12-11 07:28 | Emergency (ER) | payer OTHER, SELFPAY ==
[2024-12-11] VITALS (9 sets, daily range): BP systolic 110–135; BP diastolic 68–106; PULSE 72–89; RESP 10–23; TEMP 36.6–36.8; O2SAT 83–100; BMI 32.4
--- NOTE | 2024-12-11 07:33 | ECG_ITS ---
APPROVED REPORT Exam: Resting ECG HR:79 bpm ECG Measurements Heart Rate 79 AXES WA 158 P 78 QRSd 98 QRS 81 QT 306 T 82 QTc 340 Conclusion SINUS RHYTHM INCOMPLETE RIGHT BUNDLE BRANCH BLOCK [90+ ms QRS DURATION, TERMINAL R IN V1/V2, 40+ ms S IN I/aVL/V4/V5/V6] NONSPECIFIC T-WAVE ABNORMALITY No STEMI Electronically signed by : MALKA RONQUILLO, 12/11/2024 15:37:21
--- NOTE | 2024-12-11 07:40 | XR_ITS ---
FINAL REPORT CLINICAL HISTORY: Shortness of breath, BLE edema, CHF COMPARISON: 12/02/2024 FINDINGS: A portable view of the chest was obtained. Cardiac and mediastinal silhouettes are within normal limits. Linear opacities in both lung bases are favored to represent atelectasis. There are no new infiltrates. Blunting of the costophrenic angles could represent small effusions. There is no pneumothorax. IMPRESSION: Bibasilar linear opacities favor atelectasis. Possible small pleural effusions. Reviewed, Interpreted and Dictated by Aicha Street MD Transcribed by Yoselyn Longoria Authenticated and . [facility]
--- NOTE | 2024-12-11 07:42 | ED_ITS ---
Discharge Plan Disposition Patient Disposition: Home, Self-Care Condition: Good Prescriptions Prescriptions: New prednisone 10 mg tablet 10 mg PO DIRECTED Qty: 50 0RF Rx Instructions: see taper instructions Take a total of 40 mg (4 of the 10 mg pills) by mouth for 5 days. Then, take a total of 30 mg (3 of the 10 mg pills) by mouth for the next 5 days. Then, take a total of 20 mg (2 of the 10 mg pills) by mouth for the next 5 days. Finally, take a total of 10 mg (1 of the 10 mg pills) by mouth for the final 5 days. No Action buprenorphine-naloxone 8-2 mg tablet, sublingual 2 tab sublingual DAILY Trelegy Ellipta 100-62.5-25 mcg blister with device 1 inh inhalation DAILY Qty: 28 12RF prednisone 20 mg tablet 20 mg PO BID 5 Days Qty: 10 0RF spironolactone 100 mg tablet See Rx Instructions .ROUTE .COMPLEX Qty: 90 3RF Dose Instruction: TAKE ONE TABLET BY MOUTH ONCE A DAY Rx Instructions: TAKE ONE TABLET BY MOUTH ONCE A DAY ipratropium-albuterol 0.5 mg-3 mg(2.5 mg base)/3 mL solution for nebulization See Rx Instructions .ROUTE .COMPLEX Qty: 540 3RF Dose Instruction: INHALE CONTENTS OF 1 VIAL VIA NEBULIZER EVERY 4 HOURS FOR COPD Rx Instructions: INHALE CONTENTS OF 1 VIAL VIA NEBULIZER EVERY 4 HOURS FOR COPD sulfamethoxazole-trimethoprim [Bactrim DS] 800-160 mg tablet 1 tab PO DAILY 7 Days Qty: 7 0RF albuterol sulfate 90 mcg/actuation HFA aerosol inhaler See Rx Instructions .ROUTE .COMPLEX Qty: 8.5 0RF Dose Instruction: INHALE 4 PUFFS BY MOUTH EVERY 4 HOURS NEEDED FOR SHORTNESS OF BREATH OR WHEEZING Rx Instructions: INHALE 4 PUFFS BY MOUTH EVERY 4 HOURS NEEDED FOR SHORTNESS OF BREATH OR WHEEZING atorvastatin [Lipitor] 10 mg tablet 10 mg PO HS Qty: 30 5RF propranolol 80 mg capsule,extended release 24 hr See Rx Instructions .ROUTE .COMPLEX Qty: 90 1RF Dose Instruction: TAKE ONE CAPSULE BY MOUTH ONCE A DAY FOR HYPERTENSION Rx Instructions: TAKE ONE CAPSULE BY MOUTH ONCE A DAY FOR HYPERTENSION omeprazole 20 mg capsule,delayed release(DR/EC) See Rx Instructions .ROUTE .COMPLEX Qty: 30 5RF Dose Instruction: TAKE ONE CAPSULE BY MOUTH ONCE A DAY Rx Instructions: TAKE ONE CAPSULE BY MOUTH ONCE A DAY furosemide 40 mg tablet 40 mg PO DAILY Qty: 30 5RF hydroxyzine pamoate 50 mg capsule See Rx Instructions .ROUTE .COMPLEX Qty: 120 2RF Dose Instruction: TAKE ONE CAPSULE BY MOUTH FOUR TIMES A DAY Rx Instructions: TAKE ONE CAPSULE BY MOUTH FOUR TIMES A DAY cholecalciferol (vitamin D3) 1,250 mcg (50,000 unit) capsule See Rx Instructions .ROUTE .COMPLEX Qty: 4 0RF Dose Instruction: TAKE ONE CAPSULE BY MOUTH ONCE WEEKLY Rx Instructions: TAKE ONE CAPSULE BY MOUTH ONCE WEEKLY Eliquis 5 mg tablet See Rx Instructions .ROUTE .COMPLEX Qty: 60 0RF Dose Instruction: TAKE ONE TABLET BY MOUTH 2 TIMES A DAY FOR BLOOD THINNER Rx Instructions: TAKE ONE TABLET BY MOUTH 2 TIMES A DAY FOR BLOOD THINNER Vraylar 1.5 mg capsule See Rx Instructions .ROUTE .COMPLEX Qty: 30 0RF Dose Instruction: TAKE ONE CAPSULE BY MOUTH ONCE A DAY Rx Instructions: TAKE ONE CAPSULE BY MOUTH ONCE A DAY sertraline 100 mg tablet See Rx Instructions .ROUTE .COMPLEX Qty: 90 5RF Dose Instruction: TAKE ONE TABLET BY MOUTH ONCE A DAY Rx Instructions: TAKE ONE TABLET BY MOUTH ONCE A DAY doxycycline hyclate 100 mg capsule 100 mg PO BID 10 Days Qty: 20 0RF prednisone 20 mg tablet See Rx Instructions .ROUTE .COMPLEX Qty: 15 0RF Rx Instructions: 60 mg orally daily x 5 days furosemide 40 mg tablet 40 mg PO BID Qty: 10 0RF Rx Instructions: Take 40mg BID for 5 day starting tomorrow potassium chloride 20 mEq tablet,ER particles/crystals 20 meq PO DAILY Qty: 5 0RF (DME) [facility] See Rx Instructions .Route Rx Instructions: As directed prednisone 10 mg tablet 10 mg PO DIRECTED Qty: 42 0RF Rx Instructions: You have been prescribed Prednisone to take as a tapered dose. You will receive a quantity of 42 10mg tablets. You should take all the tablets for that day in the morning with food. The dosage will be reduced over a period of 12 days. Please follow the dosage instructions below. Day 1 take 6 tablets Day 2 take 6 tablets Day 3 take 5 tablets Day 4 take 5 tablets Day 5 take 4 tablets Day 6 take 4 tablets Day 7 take 3 tablets Day 8 take 3 tablets Day 9 take 2 tablets Day 10 take 2 tablets Day 11 take 1 tablet Day 12 take 1 tablet doxycycline hyclate 100 mg tablet 100 mg PO BID 10 Days Qty: 20 0RF Referrals Follow up/Referrals: Kelli Bee APRN [Primary Care Provider, Family Practice] - See instructions Aimee Ibanez MD [Physician, Pulmonology] - See instructions Preet Henderson MD [Staff Physician, Cardiology] - See instructions Activity Restrictions/Add. Instructions Additional Instructions/Restrictions: You were evaluated in the emergency department today. At this time, your labs and imaging are very reassuring. You do not have pneumonia, no evidence of fluid buildup on your lungs. Your potassium was a little bit low, so we gave you oral potassium. Ultimately, we do not see anything emergent that requires admission to the hospital at this time. We feel that you are appropriate for discharge home with close follow-up with pulmonology as well as with cardiology. It is also very important that you follow-up with your primary care provider, as the ER is not a substitute for primary care. Given that you keep developing recurrent shortness of breath after treatment of COPD exacerbations, I am prescribing you a prolonged steroid taper to see if this helps. I do not feel that you need antibiotics or further diuresis at this time. I recommend contacting all of these physicians, including your PCP, urology surgeon, and radiology services manager today and arranging follow-up over the next 72 hours. Return to the emergency department for new or worsening symptoms. Clinical Impressions Clinical Impression: Shortness of breath, Wheezing, Leg swelling, Hypokalemia, Acute exacerbation of chronic obstructive pulmonary disease Instructions Patient Instructions: DI for Chronic Obstructive Pulmonary Disease, DI for Dependent Edema, DI for Shortness of Breath Print Language Print Language: Z[place]ian Discharge ED Provider: Lucero Parham HPI General Chief Complaint: Shortness of Breath/Dyspnea Stated Complaint: soa, fluid retention Time Seen by Provider: 12/11/24 07:36 History of Present Illness HPI narrative: This patient is a 54-year-old female with a history of COPD on 2.5 L nasal cannula, CHF on Lasix, CKD, CAD, nonischemic cardiomyopathy, GERD, anxiety, prior PE on Eliquis, and chronic lower extremity edema presenting to the emergency department for evaluation with concern for shortness of breath and lower extremity swelling. Patient states that her COPD is flaring up. She notes that she was seen here 12/02/2024 for leg swelling and was prescribed an increased dose of Lasix for 1 week as well as given instructions to prop her feet up. She is been sitting with her feet up and had taken the Lasix, with initial improvement in her symptoms but now they have started to worsen again. No fevers, increase cough, sputum production, chest pain, abdominal pain, vomiting, changes in bowel movements, but she does note some nausea on review of systems. Related Data Home Medications ?Medication ?Instructions ?Recorded ?Confirmed buprenorphine 8 mg-naloxone 2 mg 2 tab sublingual PUNEET Y Opioid 10/11/17 08/01/24 sublingual tablet dependence inhalational spacing device 02/11/23 08/01/24 ([facility] spacer) Previous Rx's ?Medication ?Instructions ?Recorded fluticasone fur. 100 mcg-umeclid 1 inh inhalation PUNEET Y Breathing 04/08/24 62.5 mcg-vilant 25 mcg Problems #28 ea inhalat.powder (Trelegy Ellipta) spironolactone 100 mg tablet See Rx Instructions .Rout e 07/15/24 .COMPLEX #90 tabs prednisone 20 mg tablet 20 mg PO BID COPD 5 days #10 tabs 08/01/24 ipratropium 0.5 mg-albuterol 3 mg See Rx Instructions .Route 08/11/24 (2.5 mg base)/3 mL nebulization .COMPLEX #540 mL soln sulfamethoxazole 800 1 tab PO DAILY 7 days #7 tab s 09/17/24 mg-trimethoprim 160 mg tablet (Bactrim DS) albuterol sulfate 90 mcg/actuation See Rx Instructions .Route 10/09/24 aerosol inhaler .COMPLEX #8.5 grams doxycycline hyclate 100 mg tablet 100 mg PO BID 10 day s #20 tabs 10/11/24 prednisone 10 mg tablet 10 mg PO DIRECTED #42 tab s 10/11/24 atorvastatin 10 mg tablet (Lipitor) 10 mg PO HS #30 ta bs 10/28/24 furosemide 40 mg tablet 40 mg PO DAILY Fluid #30 tab s 10/28/24 hydroxyzine pamoate 50 mg capsule See Rx Instructions .Route 10/28/24 .COMPLEX #120 caps omeprazole 20 mg capsule,delayed See Rx Instructions . Route 10/28/24 release .COMPLEX #30 caps propranolol 80 mg capsule,24 See Rx Instructions .Rout e 10/28/24 hr,extended release .COMPLEX #90 caps doxycycline hyclate 100 mg capsule 100 mg PO BID 10 da ys #20 caps 11/08/24 prednisone 20 mg tablet See Rx Instructions .Route 0 11/08/24 .COMPLEX #15 tabs apixaban 5 mg tablet (Eliquis) See Rx Instructions .Ro [place] 11/11/24 .COMPLEX #60 tabs cariprazine 1.5 mg capsule See Rx Instructions .Route 11/11/24 (Vraylar) .COMPLEX #30 caps cholecalciferol (vitamin D3) 1,250 See Rx Instructions .Route 11/11/24 mcg (50,000 unit) capsule .COMPLEX #4 caps furosemide 40 mg tablet 40 mg PO BID #10 tabs potassium chloride 20 mEq 20 meq PO DAILY #5 tabs 11/07 01/30 tablet,extended release(part/cryst) sertraline 100 mg tablet See Rx Instructions .Route 0 12/02/24 .COMPLEX #90 tabs prednisone 10 mg tablet 10 mg PO DIRECTED #50 tab s 12/11/24 Allergies Allergy/AdvReac Type Severity Reaction Status Date / Time hydromorphone Allergy Severe S-DIFF. Verified 08/01/24 11:20 BREATHING; HIVES propoxyphene (From Allergy Severe S-SWELLS-OR Verified 08/01/24 11:20 Darvocet-N) AL/THROAT gabapentin (From Neurontin) Allergy Intermediate I-HIVES Verified 08/01/24 11:20 codeine Allergy Verified 08/01/24 11:20 [facility] Disclaimer: The information contained in this section may have been updated after the patient was seen, as this information can be updated by other users. Medical History Cat scratch of left lower leg Acute exacerbation of chronic obstructive pulmonary disease Recurrent pulmonary emboli Swelling of lower extremity History of DVT of lower extremity Sleep apnea Pneumonia History of gastroesophageal reflux (GERD) Hyperlipidemia Hypertension Diastolic dysfunction Myocardial bridge History of DVT (deep vein thrombosis) CHF (congestive heart failure) Gastroesophageal reflux disease COPD (chronic obstructive pulmonary disease) Acute and chronic respiratory failure with hypoxia History of pulmonary embolism Tobacco abuse disorder Anxiety COPD exacerbation Bronchitis Wheezing Surgical History History of hysterectomy Family History Other No significant family history Social History Smoking Status: Former smoker tobacco type: cigarettes packs per day: 1 second hand exposure: No alcohol intake: never substance use type: former substance user current occupational status: unemployed Travel in the last 8 weeks?: None household members: none housing: house current occupational exposures/hazards: No caffeine: Yes Have you lived/traveled outside [place] in past 30 days?: No Contact w/someone who lives/traveled outside [place] past 30 days?: No Exposure to someone with infectious disease in past 14 days?: No Do you have a fever (greater than 100.4 F or 38 C)?: No Have you tested positive for COVID-19?: No Exposed to someone with COVID-19 in past 14 days?: No Do you have a sore throat?: No Do you have a cough?: No Do you have any weakness?: No Do you have any diarrhea?: No Are you experiencing any unusual bleeding?: No Do you have any muscle aches/pain?: No Do you have any abdominal pain?: No Are you experiencing loss of taste or smell?: No Other Medical History Have you received the Flu Vaccine for this season: No Have you received the Pneumonia Vaccine: No ROS Obtained: Yes All systems reviewed & no additional complaints except as documented Physical Exam General General appearance: alert and in no apparent distress Head Head exam: atraumatic and normocephalic Eye Eye exam: Present normal appearance, PERRL and EOMI ENT ENT exam: Present normal exam, normal oropharynx, mucous membranes moist and normal external ear exam Neck Neck exam: Present normal inspection, full ROM and trachea midline; Absent tenderness Chest Chest inspection: Present normal inspection and symmetric chest wall rise; Absent tenderness Respiratory Respiratory exam: Present wheezes, accessory muscle use and prolonged expiratory phase; Absent stridor Cardiovascular Cardiovascular exam: Present regular rate and normal rhythm Abdominal Exam Abdominal exam: Present soft; Absent distention, tenderness or guarding Extremities Exam Extremities exam: Present full ROM, normal capillary refill and edema (symmetric BLE edema); Absent tenderness Back Exam Back exam: Present normal inspection and full ROM; Absent tenderness Neurological Exam Neurological exam: Present alert, oriented X3, CN II-XII intact and normal gait; Absent motor sensory deficit Psychiatric Psychiatric exam: Present normal affect and normal mood Skin Skin exam: Present warm and dry HEART Score HEART Score HEART Score assessment performed?: Yes History (anamnesis): Slightly suspicious ECG: Normal Age: 45-65 years Risk factors: Atherosclerosis history Troponin: </= normal limit HEART Score: 3 Critical Care Critical Care Time Critical Care Time: Yes Attestation: On 12/11/24, the high probability of a clinically significant, sudden or life threatening deterioration of the following system(s) required my full and direct attention, intervention and personal management. The time I documented below is in addition to time spent performing reported procedures but includes the following listed in this critical care notation. Total Time Total Critical Care Time: 35 Medical Decision Making Eliecer Inquiry Pt receiving controlled substance: No Vital Signs Vital Signs: 12/11/24 07:36 12/11/24 07:38 12/11/24 08:00 Temperature 97.9 F Temperature Source Oral Pulse Rate 87 80 Pulse Rate [Left Radial] 88 Respiratory Rate 23 22 15 Blood Pressure 127/71 135/106 H Blood Pressure [Right Arm] 127/71 Blood Pressure Mean [Right Arm] 89 02 Sat by Pulse Oximetry 90 L 92 L 100 Oxygen Delivery Method Nasal Cannula Oxygen Flow Rate (LPM) 2.5 12/11/24 08:01 12/11/24 08:30 12/11/24 09:09 Temperature Temperature Source Pulse Rate 72 80 89 Pulse Rate [Left Radial] Respiratory Rate 10 L 14 16 Blood Pressure 122/98 H 126/84 131/92 H Blood Pressure [Right Arm] Blood Pressure Mean [Right Arm] 02 Sat by Pulse Oximetry 100 93 L 83 L Oxygen Delivery Method Oxygen Flow Rate (LPM) 12/11/24 09:31 12/11/24 10:00 12/11/24 10:11 Temperature 98.2 F Temperature Source Pulse Rate 82 80 78 Pulse Rate [Left Radial] Respiratory Rate 15 16 20 Blood Pressure 117/68 110/85 110/85 Blood Pressure [Right Arm] Blood Pressure Mean [Right Arm] 02 Sat by Pulse Oximetry 95 96 Oxygen Delivery Method Nasal Cannula Oxygen Flow Rate (LPM) 4 Lab Data Labs: Lab Results 12/11/24 07:40: WBC 7.6, RBC 4.27, Hgb 11.9 L, Hct 37.1, MCV 86.9, MCH 27.9, MCHC 32.1, RDW 12.4, Plt Count 230, MPV 9.8, Neut % (Auto) 56.9, Lymph % (Auto) 21.6, [place] % (Auto) 11.2 H, Eos % (Auto) 8.3, Baso % (Auto) 0.9, Neut # (Auto) 4.3, Lymph # (Auto) 1.6, [place] # (Auto) 0.9, Eos # (Auto) 0.6 H, Baso # (Auto) 0.1, D-Dimer 0.52 H, VBG pH 7.36, VBG pCO2 64.7 H, VBG pO2 42.6 H, VBG HCO3 35.6 H, VBG Total CO2 37.6 H, VBG O2 Saturation 78.7 H, VBG Base Excess 10.1 H, VBG Lactic Acid 1.8, Sodium 136, Potassium 3.2 L, Chloride 93 L, Carbon Dioxide 38 H , Anion Gap 8.2, BUN 18 H, Creatinine 1.20 H, Estimated Creat Clear 71, E stimated GFR 47 L, Est GFR ( Amer) 57 L, Glucose 137 H, Calcium 9.2, Phosphorus 3.6, Magnesium 1.6, Total Bilirubin 0.8, AST 28, ALT 18, Alkaline Phosphatase 96, Troponin I < 0.01, NT-Pro-B Natriuret Pep 80.1, Total Protein 6.9, Albumin 4.1, Globulin 2.8, Albumin/Globulin Ratio 1.5, TSH 1.14, Thyroxine (T4) 11.8 H 12/11/24 07:53: SARS-CoV-2 (PCR) Not detected, Influenza A Untype (PCR) Not detected, Influenza Type B (PCR) Not detected 12/11/24 07:40 12/11/24 07:40 Response Orders (Tests/Meds): ED MEDICATIONS Discontinued Medications Generic Name Dose Route Start Last Admin Trade Name Freq PRN Reason Stop Dose Admin Albuterol/Ipratropium 9 ml 12/11/24 07:40 12/11/24 07:50 Ipratropium/Albuterol 3 Ml Neb IH 12/11/24 07:41 9 ml ONCE ONE Administration Iopamidol 70 ml 12/11/24 09:01 12/11/24 09:04 Iopamidol-370 (76%);100ml Bottle IV 12/11/24 09:02 70 ml ONCE ONE Administration Methylprednisolone Sodium Succinate 125 mg 12/11/24 07:40 12/11/24 07:50 Methylprednisolone Sod Succ 125mg Vial IV 12/11/24 07:41 125 mg ONCE ONE Administration Ondansetron HCl 4 mg 12/11/24 08:08 12/11/24 08:15 Ondansetron 4mg/2ml Vial IV 12/11/24 08:09 4 mg ONCE ONE Administration Potassium Chloride 40 meq 12/11/24 08:08 12/11/24 08:15 Potassium Chloride 20meq Tab PO 12/11/24 08:09 40 meq ONCE ONE Administration Sodium Chloride 50 ml 12/11/24 09:01 12/11/24 09:04 0.9 % Sodium Chloride 50 Ml Vial IV 12/11/24 09:02 50 ml ONCE ONE Administration Sodium Chloride 10 ml 12/11/24 09:01 12/11/24 09:04 Sodium Chloride 0.9% 10ml Syr (Rad Only) IV 12/11/24 09:02 10 ml ONCE ONE Administration ORDERS Category Date Time Status CT angio chest PE protocol Stat Cat Scan 12/11/24 08:54 Completed CXR --portable [XR chest portable] Stat Exams 12/11/24 07:40 Completed BNP [NT Pro Brain Natriuretic Pep.] Stat Lab 12/11/24 07:40 Completed Complete Blood Count Auto Diff Stat Lab 12/11/24 07:40 Completed Comprehensive Metabolic Panel Stat Lab 12/11/24 07:40 Completed D-Dimer Stat Lab 12/11/24 07:40 Completed MAG [Magnesium] Stat Lab 12/11/24 07:40 Completed PHOS [Phosphorous] Stat Lab 12/11/24 07:40 Completed Rapid PCR Covid and Flu A/B Stat Lab 12/11/24 07:53 Completed T4 (Thyroxine) Stat Lab 12/11/24 07:40 Completed TSH [Thyroid Stimulating Hormone] Stat Lab 12/11/24 07:40 Completed Trop I [Troponin I] Stat Lab 12/11/24 07:40 Completed VBG [Venous Blood Gas] Stat RT 12/11/24 07:40 Completed ECG Data Tracing #1: Attestation: I reviewed this ECG and interpreted as documented below: ECG Narrative: Sinus rhythm with a ventricular rate of 79 bpm. Incomplete right bundle branch block. No acute ST changes concerning for STEMI. Normal QTc ECG initial impression date: 12/11/24 ECG initial impression time: 07:36 MDM Narrative Medical Decision Narrative: In summary, this patient is a 54-year-old female presenting to the Emergency Department for evaluation of shortness of breath and leg swelling. Differential diagnoses considered include but are not limited to COPD exacerbation, CHF exacerbation, pulmonary edema, SHALINI on CKD, respiratory failure, PE. Ruling out the most morbid conditions drove assessment. It should be noted patient's history includes COPD, CHF, chronic respiratory failure, CAD which likely are not at goal therapy. This complicates all aspects of care by increasing patient's risk for morbidity. I reviewed patient's past medical records and noted evaluation here 12/02/2024 for similar symptoms and discharged with increased dose of Lasix for 1 week as detailed in HPI. She had initial improvement but then again worsened. On exam, the patient has symmetric bilateral lower extremity edema, prolonged expiratory phase, wheezing. She is not in significant distress. She is afebrile with normal vitals on cardiac telemetry on her home oxygen. Workup included CBC, CMP, troponin, BNP, TSH, T4, magnesium, phosphorus, D-dimer, VBG, chest x-ray, EKG. She was given a dose of Solu-Medrol and DuoNebs x 3 for symptomatic improvement of her shortness of breath in the setting of COPD. I independently interpreted chest x-ray prior to the radiologist read and noted bibasilar haziness/consolidation, concern for volume overload in this clinical setting. Please see their read for final interpretation. Labs were obtained that demonstrated reassuring CBC with no significant leukocytosis or anemia chemistry demonstrates hypokalemia for which oral replacement was ordered. I also administered IV Zofran given nausea to help her be able to tolerate this. BNP is not significantly elevated. Troponin is negative. D-dimer is negative per years and age-adjusted criteria. On x-ray, it is unclear if the patient has edema/bibasilar infiltrates versus atelectasis, so I elected to obtain CTA of the chest to further assess. I independently interpreted CT prior to radiology read and noted no PE, no aortic pathology, no pleural effusions, no consolidation, no edema. Please radiology read for final interpretation. Ultimately, lab work and imaging are very reassuring. Patient's feeling a lot better after nebs and steroids. She advises that she usually requires a prolonged steroid taper, and has been treated multiple times with short bursts over the last several months when she has COPD flareup. Will elect to provide her with a steroid taper today for COPD flareup. She has inhalers at home. I considered antibiotics, however she has no increased butyrin production, no fever, no consolidation noted on imaging so I do not feel that antibiotics are indicated. I do not see that she is followed recently with cardiology or pulmonology, so I did stress to her the importance of doing so, as they can help maintain her health and prevent these recurrent flareups. I am not can make changes to her diuretics today, as she has been doing quite a bit better and likely has mostly dependent edema symptoms isolated to bilateral lower extremities. I advised her again to keep her feet up and to continue taking her Lasix and other medications at home as prescribed. I advised that she follow-up with her care team over the next 72 hours and gave her strict return precautions should her symptoms worsen. She was discharged after all questions were answered
--- NOTE | 2024-12-11 07:48 | PC.NURSE ---
spoke with RT Yumiko regarding VBG.
[2024-12-11] MEDS: METHYLPREDNISOLONE SOD SUCC 125MG VIAL 125 MG IV (07:50)
[2024-12-11] MEDS: IPRATROPIUM/ALBUTEROL 3 ML NEB 9 ML IH (07:50)
[2024-12-11 07:53] LABS: Basophils # 0.1 K/mm3 (0-0.2); Basophils % 0.9 % (0.1-2.0); Eosinophils # 0.6 Kmm3 (0.0-0.4); Eosinophils % 8.3 % (0.1-12.0); Hematocrit 37.1 % (37.0-47.0); Hemoglobin 11.9 g/dL (12.2-16.2); Immature Granulocytes # 0.08 10^3uL; Immature Granulocytes % 1.1 %; Lactate Venous 1.8 mmol/L (0.4-2.0); Lymphocytes # 1.6 K/mm3 (0.7-4.5); Lymphocytes % 21.6 % (10-50); Mean Corpuscular HGB Conc 32.1 g/dL (31.8-35.4); Mean Corpuscular Hemoglobin 27.9 pg (27.0-31.2); Mean Corpuscular Volume 86.9 fl (81-99); Mean Platelet Volume 9.8 fl (7.4-10.4); Monocytes # 0.9 K/mm3 (0.1-1.0); Monocytes % 11.2 % (1.7-9.3); Neutrophils # 4.3 K/mm3 (1.8-7.8); Neutrophils % 56.9 % (37.0-80.0); Nucleated Red Blood Cells # 0 10^3/uL; Nucleated Red Blood Cells % 0 %; Platelet Count 230 K/mm3 (142-424); Red Blood Count 4.27 M/mm3 (4.20-5.40); Red Cell Distribution Width 12.4 % (11.5-17.5); Red Cell Distribution Width-SD 39.5 fL; VBG Base Excess 10.1 mmol/L (-2.4-2.3); VBG HCO3 35.6 mmol/L (23-30); VBG Oxygen Saturation 78.7 % (50-70); VBG PH 7.36 mmol/L (7.31-7.41); VBG PO2 42.6 mmol/L (28-40); VBG Total CO2 37.6 mmol/L (23-27); White Blood Count 7.6 K/mm3 (4.8-10.8)
[2024-12-11 07:56] LABS: VBG PCO2 64.7 mmol/L (35-51)
[2024-12-11 08:02] LABS: Coronavirus 19, PCR Not Detected (NotDetected); Influenza A, PCR Not Detected (NotDetected); Influenza B, PCR Not Detected (NotDetected)
--- NOTE | 2024-12-11 08:02 | PC.NURSE ---
radiology at bedside obtaining chest xray.
[2024-12-11 08:04] LABS: Alanine Aminotransferase 18 U/L (12-78); Albumin Level 4.1 g/dl (3.5-5.0); Albumin/Globulin Ratio 1.5 (1.1-1.8); Alkaline Phosphatase 96 U/L (38-126); Anion Gap 8.2 mEq/L (5-15); Aspartate Amino Transferase 28 U/L (14-36); Bilirubin,Total 0.8 mg/dl (0.2-1.3); Blood Urea Nitrogen 18 mg/dl (7-17); Calcium 9.2 mg/dl (8.4-10.2); Carbon Dioxide 38 mmol/L (22.0-30.0); Chloride 93 mmol/L (98-107); Creatinine Clearance Estimated 71 mL/min (50-200); Estimated Glomerular Filt Rate 47 ml/min (>60); GFR (African American) 57 ML/MIN (>60); Globulin 2.8 g/dL (1.3-3.2); Glucose 137 mg/dl (74-100); Magnesium 1.6 mg/dl (1.6-2.3); Phosphorous 3.6 mg/dl (2.5-4.5); Potassium 3.2 mmoL/L (3.5-5.1); Sodium 136 mmol/L (136-145); Total Protein,Serum 6.9 g/dl (6.3-8.2)
[2024-12-11 08:08] LABS: D-Dimer 0.52 ug/mL (0.0-0.5)
[2024-12-11] MEDS: ONDANSETRON 4MG/2ML VIAL 4 MG IV (08:15)
[2024-12-11] MEDS: POTASSIUM CHLORIDE 20MEQ TAB 40 MEQ PO (08:15)
[2024-12-11 08:17] LABS: NT Pro Brain Natriuretic Pep. 80.1 pg/mL (0-125)
[2024-12-11 08:18] LABS: Troponin I < 0.01 ng/ml (0.00-0.034)
[2024-12-11 08:22] LABS: T4 (Thyroxine) 11.8 ug/dl (5.53-11.0)
[2024-12-11 08:35] LABS: Thyroid Stimulating Hormone 1.14 uIU/mL (0.465-4.68)
--- NOTE | 2024-12-11 08:54 | CT_ITS ---
FINAL REPORT TECHNIQUE: Axial imaging of the chest is obtained after the administration of contrast. 3-D MIP reformatted images were also obtained and reviewed per PE protocol. This study was performed with techniques to keep radiation doses as low as reasonably achievable (ALARA). Individualized dose reduction techniques using automated exposure control or adjustment of mA and/or kV according to the patient's size were employed. CLINICAL HISTORY: abnormal XR, SOA, wheezing, eval pleural effusion COMPARISON: None FINDINGS: The pulmonary arteries are well filled. There is no evidence of pulmonary embolus. There is no aortic dissection. Heart size is normal. There is no mediastinal, hilar, or axillary lymphadenopathy. Changes of emphysema are present. There is evidence of prior granulomatous disease. Linear atelectasis versus scar is present in the right middle lobe and the lower lobes bilaterally. There is no pleural or pericardial effusion. Limited evaluation of the upper abdomen is without acute abnormality. No acute osseous abnormality. IMPRESSION: No evidence of pulmonary embolism or aortic dissection. Reviewed, Interpreted and Dictated by Aicha Street MD Transcribed by Iva Michael Authenticated and [facility]
--- NOTE | 2024-12-11 08:59 | PC.NURSE ---
Pt going for CT at this time
[2024-12-11] MEDS: IOPAMIDOL-370 (76%);100ML BOTTLE 70 ML IV (09:04)
[2024-12-11] MEDS: SODIUM CHLORIDE 0.9% 10ML SYR (RAD ONLY) 10 ML IV (09:04)
[2024-12-11] MEDS: 0.9 % SODIUM CHLORIDE 50 ML VIAL IV (09:04)
== END 2024-12-11 10:30 | disposition home or self-care (01) ==
PROVIDERS: Emergency Provider Emergency Medicine; PCP Family Medicine
DX: J44.1 Chronic obstructive pulmonary disease with (acute) exacerbation (principal); E87.6 Hypokalemia; R22.43 Localized swelling, mass and lump, lower limb, bilateral; Z87.891 Personal history of nicotine dependence
CPT/HCPCS: 71045; 71275; 80053; 82803; 83735; 83880; 84100; 84436; 84443; 84484; 85025; 85378; 87636; 93005; 96374; 96375; 99285; J2405; J2919; Q9967

== ENCOUNTER 2025-02-02 10:00 | Emergency (ER) | payer OTHER, SELFPAY ==
[2025-02-02] VITALS (7 sets, daily range): BP systolic 104–163; BP diastolic 68–140; PULSE 72–81; RESP 18–20; TEMP 36.7–37; O2SAT 92–99; BMI 31.8
--- NOTE | 2025-02-02 10:04 | ECG_ITS ---
APPROVED REPORT Exam: Resting ECG HR:82 bpm ECG Measurements Heart Rate 82 AXES SC 173 P 84 QRSd 94 QRS 82 QT 379 T 82 QTc 417 Conclusion SINUS RHYTHM INCOMPLETE RIGHT BUNDLE BRANCH BLOCK [90+ ms QRS DURATION, TERMINAL R IN V1/V2, 40+ ms S IN I/aVL/V4/V5/V6] No STEMI Electronically signed by : MALKA RONQUILLO, 02/02/2025 14:39:24
--- NOTE | 2025-02-02 10:11 | XR_ITS ---
FINAL REPORT CLINICAL HISTORY: Shortness of breath COMPARISON: 12/11/2024 FINDINGS: A portable view of the chest was obtained. Cardiac and mediastinal silhouettes are within normal limits. Right basilar opacity is favored to represent atelectasis. The lungs are otherwise clear.. There may be a small right pleural effusion. There is no pneumothorax.. IMPRESSION: Right basilar opacity, favor atelectasis. Possible small right pleural effusion. Reviewed, Interpreted and Dictated by Aicha Street MD Transcribed by Yoselyn Longoria Authenticated and [facility]
--- OUTSIDE RECORDS SUMMARY | 2025-02-02 10:12 | XMS_ITS | Clinical Summary ---
Author Organization Healthcare Address [address] [place] [address] Care Team Providers Care Property Developer Name Role Phone Darron Vicente MD Primary Care Provider [phone] Family History Medical History Relation Name Comments COPD Other 1 Hypertension Other 2 Other cancer Other 3 Relation Name Status Comments Other 1 Other 2 Other 3 Social History Tobacco Use Types Packs/Day Years Used Date Smoking Tobacco: Every Day Comments Unknown Sex and Gender Information Value Date Recorded Sex Assigned at Not on file Legal Sex Female 8:08 PM EDT Gender Identity Not on file Sexual Orientation Not on file Last Filed Vital Signs Vital Sign Reading Time Taken Comments Blood Pressure 121/88 05/07/2018 2:19 PM EDT Pulse 103 05/07/2018 2:19 PM EDT Temperature 36.7 C (98 F) 02/11/2018 12:04 PM EDT Respiratory Rate 16 05/07/2018 2:19 PM EDT Oxygen Saturation - - Inhaled Oxygen Concentration - - Weight 61.7 kg (136 lb 2.1 oz) 05/07/2018 2:19 P M EDT Height 160 cm (5' 3 ) 05/07/2018 2:19 PM EDT Body Mass Index 24.12 05/07/2018 2:19 PM EDT Plan of Treatment Not on file Care Teams Property Developer Relationship Specialty Start Date End Date Darron Vicente MD [address] [place] [address] [place] L[place]a [id number] PCP - General 11/19/20
--- NOTE | 2025-02-02 10:16 | HMH.EDCP ---
Discharge Plan Disposition Patient Disposition: Home, Self-Care Condition: Good Prescriptions Prescriptions: New amoxicillin-pot clavulanate 875-125 mg tablet 1 tab PO BID 5 Days Qty: 10 0RF prednisone 20 mg tablet 40 mg PO DAILY 5 Days Qty: 10 0RF azithromycin 500 mg tablet 500 mg PO DAILY 3 Days Qty: 3 0RF No Action buprenorphine-naloxone 8-2 mg tablet, sublingual 2 tab sublingual DAILY Trelegy Ellipta 100-62.5-25 mcg blister with device 1 inh inhalation DAILY Qty: 28 12RF prednisone 20 mg tablet 20 mg PO BID 5 Days Qty: 10 0RF spironolactone 100 mg tablet See Rx Instructions .ROUTE .COMPLEX Qty: 90 3RF Dose Instruction: TAKE ONE TABLET BY MOUTH ONCE A DAY Rx Instructions: TAKE ONE TABLET BY MOUTH ONCE A DAY sulfamethoxazole-trimethoprim [Bactrim DS] 800-160 mg tablet 1 tab PO DAILY 7 Days Qty: 7 0RF albuterol sulfate 90 mcg/actuation HFA aerosol inhaler See Rx Instructions .ROUTE .COMPLEX Qty: 8.5 0RF Dose Instruction: INHALE 4 PUFFS BY MOUTH EVERY 4 HOURS NEEDED FOR SHORTNESS OF BREATH OR WHEEZING Rx Instructions: INHALE 4 PUFFS BY MOUTH EVERY 4 HOURS NEEDED FOR SHORTNESS OF BREATH OR WHEEZING atorvastatin [Lipitor] 10 mg tablet 10 mg PO HS Qty: 30 5RF propranolol 80 mg capsule,extended release 24 hr See Rx Instructions .ROUTE .COMPLEX Qty: 90 1RF Dose Instruction: TAKE ONE CAPSULE BY MOUTH ONCE A DAY FOR HYPERTENSION Rx Instructions: TAKE ONE CAPSULE BY MOUTH ONCE A DAY FOR HYPERTENSION omeprazole 20 mg capsule,delayed release(DR/EC) See Rx Instructions .ROUTE .COMPLEX Qty: 30 5RF Dose Instruction: TAKE ONE CAPSULE BY MOUTH ONCE A DAY Rx Instructions: TAKE ONE CAPSULE BY MOUTH ONCE A DAY furosemide 40 mg tablet 40 mg PO DAILY Qty: 30 5RF hydroxyzine pamoate 50 mg capsule See Rx Instructions .ROUTE .COMPLEX Qty: 120 2RF Dose Instruction: TAKE ONE CAPSULE BY MOUTH FOUR TIMES A DAY Rx Instructions: TAKE ONE CAPSULE BY MOUTH FOUR TIMES A DAY cholecalciferol (vitamin D3) 1,250 mcg (50,000 unit) capsule See Rx Instructions .ROUTE .COMPLEX Qty: 4 0RF Dose Instruction: TAKE ONE CAPSULE BY MOUTH ONCE WEEKLY Rx Instructions: TAKE ONE CAPSULE BY MOUTH ONCE WEEKLY Eliquis 5 mg tablet See Rx Instructions .ROUTE .COMPLEX Qty: 60 0RF Dose Instruction: TAKE ONE TABLET BY MOUTH 2 TIMES A DAY FOR BLOOD THINNER Rx Instructions: TAKE ONE TABLET BY MOUTH 2 TIMES A DAY FOR BLOOD THINNER sertraline 100 mg tablet See Rx Instructions .ROUTE .COMPLEX Qty: 90 5RF Dose Instruction: TAKE ONE TABLET BY MOUTH ONCE A DAY Rx Instructions: TAKE ONE TABLET BY MOUTH ONCE A DAY ipratropium-albuterol 0.5 mg-3 mg(2.5 mg base)/3 mL solution for nebulization See Rx Instructions .ROUTE .COMPLEX Qty: 540 3RF Dose Instruction: INHALE CONTENTS OF 1 VIAL VIA NEBULIZER EVERY 4 HOURS FOR COPD Rx Instructions: INHALE CONTENTS OF 1 VIAL VIA NEBULIZER EVERY 4 HOURS FOR COPD Vraylar 1.5 mg capsule See Rx Instructions .ROUTE .COMPLEX Qty: 30 2RF Dose Instruction: TAKE ONE CAPSULE BY MOUTH ONCE A DAY Rx Instructions: TAKE ONE CAPSULE BY MOUTH ONCE A DAY doxycycline hyclate 100 mg capsule 100 mg PO BID 10 Days Qty: 20 0RF prednisone 20 mg tablet See Rx Instructions .ROUTE .COMPLEX Qty: 15 0RF Rx Instructions: 60 mg orally daily x 5 days furosemide 40 mg tablet 40 mg PO BID Qty: 10 0RF Rx Instructions: Take 40mg BID for 5 day starting tomorrow potassium chloride 20 mEq tablet,ER particles/crystals 20 meq PO DAILY Qty: 5 0RF (DME) [facility] Spacer See Rx Instructions .Route Rx Instructions: As directed prednisone 10 mg tablet 10 mg PO DIRECTED Qty: 42 0RF Rx Instructions: You have been prescribed Prednisone to take as a tapered dose. You will receive a quantity of 42 10mg tablets. You should take all the tablets for that day in the morning with food. The dosage will be reduced over a period of 12 days. Please follow the dosage instructions below. Day 1 take 6 tablets Day 2 take 6 tablets Day 3 take 5 tablets Day 4 take 5 tablets Day 5 take 4 tablets Day 6 take 4 tablets Day 7 take 3 tablets Day 8 take 3 tablets Day 9 take 2 tablets Day 10 take 2 tablets Day 11 take 1 tablet Day 12 take 1 tablet doxycycline hyclate 100 mg tablet 100 mg PO BID 10 Days Qty: 20 0RF prednisone 10 mg tablet 10 mg PO DIRECTED Qty: 50 0RF Rx Instructions: see taper instructions Take a total of 40 mg (4 of the 10 mg pills) by mouth for 5 days. Then, take a total of 30 mg (3 of the 10 mg pills) by mouth for the next 5 days. Then, take a total of 20 mg (2 of the 10 mg pills) by mouth for the next 5 days. Finally, take a total of 10 mg (1 of the 10 mg pills) by mouth for the final 5 days. Referrals Follow up/Referrals: Kelli Bee APRN [Primary Care Provider, Family Practice] - See instructions Activity Restrictions/Add. Instructions Additional Instructions/Restrictions: You were evaluated in the emergency department today. Please make sure to use your oxygen tubing and make sure that it does not have any kinks at home. Continue using your breathing treatments at home as needed/prescribed. research greenhouse supervisor your prescriptions at the pharmacy and take the full course as prescribed. Follow-up very closely with your primary care provider as well as with a seed production field supervisor over the next 24 to 48 hours. Return to the emergency department right away for new or worsening symptoms. Clinical Impressions Clinical Impression: Acute exacerbation of chronic obstructive pulmonary disease Instructions Patient Instructions: DI for Chronic Obstructive Pulmonary Disease, DI for Shortness of Breath Print Language Print Language: [place] Island[place] Discharge ED Provider: Lucero Parham HPI General Chief Complaint: Shortness of Breath/Dyspnea Stated Complaint: SOA Time Seen by Provider: 02/02/25 10:04 Mode of Arrival: EMS Source of Information: Patient and EMS Description of Symptoms (Recalled from ER Triage Doc. by RN): Pt in by EMS for SOA. Pt has hx of COPD and was having exacerbation with some mild panic. 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 Patient thinks that she had a panic attack this morning. She noted that she felt very wheezy so she took a neb with some improvement in her symptoms. EMS arrived and she was doing well, so they did not give any other additional nebs. They did give IV Solu-Medrol 125 mg. They note that she was on her home nasal cannula, but she had very long tubing that was kinked in multiple places. They were concerned that she was not actually getting any oxygen. She feels much better now that she is hooked up to oxygen. She denies any chest pain, leg pain, fevers, chills, or other concerns. She does note that her leg swelling is actually improved from prior. Related Data Home Medications ?Medication ?Instructions ?Recorded ?Confirmed buprenorphine 8 mg-naloxone 2 mg 2 tab sublingual DAILY Opioid 10/11/17 08/01/24 sublingual tablet dependence inhalational spacing device 02/11/23 08/01/24 ([facility] spacer) Previous Rx's ?Medication ?Instructions ?Recorded fluticasone fur. 100 mcg-umeclid 1 inh inhalation DAILY Breathing 04/08/24 62.5 mcg-vilant 25 mcg Problems #28 ea inhalat.powder (Trelegy Ellipta) spironolactone 100 mg tablet See Rx Instructions .Route 07/15/24 .COMPLEX #90 tabs prednisone 20 mg tablet 20 mg PO BID COPD 5 days #10 tabs 08/01/24 sulfamethoxazole 800 1 tab PO DAILY 7 days #7 tabs 09/17/24 mg-trimethoprim 160 mg tablet (Bactrim DS) albuterol sulfate 90 mcg/actuation See Rx Instructions .Route 10/09/24 aerosol inhaler .COMPLEX #8.5 grams doxycycline hyclate 100 mg tablet 100 mg PO BID 10 days #20 tabs 10/11/24 prednisone 10 mg tablet 10 mg PO DIRECTED #42 tabs 10/11/24 atorvastatin 10 mg tablet (Lipitor) 10 mg PO HS #30 tabs 10/28/24 furosemide 40 mg tablet 40 mg PO DAILY Fluid #30 tabs 10/28/24 hydroxyzine pamoate 50 mg capsule See Rx Instructions .Route 10/28/24 .COMPLEX #120 caps omeprazole 20 mg capsule,delayed See Rx Instructions .Route 10/28/24 release .COMPLEX #30 caps propranolol 80 mg capsule,24 See Rx Instructions .Route 10/28/24 hr,extended release .COMPLEX #90 caps doxycycline hyclate 100 mg capsule 100 mg PO BID 10 days #20 caps 11/08/24 prednisone 20 mg tablet See Rx Instructions .Route 11/08/24 .COMPLEX #15 tabs apixaban 5 mg tablet (Eliquis) See Rx Instructions .Route 11/11/24 .COMPLEX #60 tabs cholecalciferol (vitamin D3) 1,250 See Rx Instructions .Route 11/11/24 mcg (50,000 unit) capsule .COMPLEX #4 caps furosemide 40 mg tablet 40 mg PO BID #10 tabs 12/02/24 potassium chloride 20 mEq 20 meq PO DAILY #5 tabs 12/02/24 tablet,extended release(part/cryst) sertraline 100 mg tablet See Rx Instructions .Route 12/02/24 .COMPLEX #90 tabs prednisone 10 mg tablet 10 mg PO DIRECTED #50 tabs 12/11/24 ipratropium 0.5 mg-albuterol 3 mg See Rx Instructions .Route 12/29/24 (2.5 mg base)/3 mL nebulization .COMPLEX #540 mL soln cariprazine 1.5 mg capsule See Rx Instructions .Route 01/22/25 (Vraylar) .COMPLEX #30 caps amoxicillin 875 mg-potassium 1 tab PO BID 5 days #10 tabs 02/02/25 clavulanate 125 mg tablet azithromycin 500 mg tablet 500 mg PO DAILY 3 days #3 tabs 02/02/25 prednisone 20 mg tablet 40 mg (2 x 20 mg) PO DAILY 5 days 02/02/25 #10 tabs Allergies Allergy/AdvReac Type Severity Reaction Status Date / Time hydromorphone Allergy Severe S-DIFF. Verified 08/01/24 11:20 BREATHING; HIVES propoxyphene (From Allergy Severe S-SWELLS-OR Verified 08/01/24 11:20 Darvocet-N) AL/THROAT gabapentin (From Neurontin) Allergy Intermediate I-HIVES Verified 08/01/24 11:20 codeine Allergy Verified 08/01/24 11:20 [facility] Disclaimer: The information contained in this section may have been updated after the patient was seen, as this information can be updated by other users. Medical History Cat scratch of left lower leg Acute exacerbation of chronic obstructive pulmonary disease Recurrent pulmonary emboli Swelling of lower extremity History of DVT of lower extremity Sleep apnea Pneumonia History of gastroesophageal reflux (GERD) Hyperlipidemia Hypertension Diastolic dysfunction Myocardial bridge History of DVT (deep vein thrombosis) CHF (congestive heart failure) Gastroesophageal reflux disease COPD (chronic obstructive pulmonary disease) Acute and chronic respiratory failure with hypoxia History of pulmonary embolism Tobacco abuse disorder Anxiety COPD exacerbation Bronchitis Wheezing Surgical History History of hysterectomy Family History Other No significant family history Social History Smoking Status: Former smoker tobacco type: cigarettes packs per day: 1 second hand exposure: No alcohol intake: never substance use type: former substance user current occupational status: unemployed Travel in the last 8 weeks?: None household members: none housing: house current occupational exposures/hazards: No caffeine: Yes Have you lived/traveled outside [place] in past 30 days?: No Contact w/someone who lives/traveled outside US past 30 days?: No Exposure to someone with infectious disease in past 14 days?: No Do you have a fever (greater than 100.4 F or 38 C)?: No Have you tested positive for COVID-19?: No Exposed to someone with COVID-19 in past 14 days?: No Do you have a sore throat?: No Do you have a cough?: No Do you have any weakness?: No Do you have any diarrhea?: No Are you experiencing any unusual bleeding?: No Do you have any muscle aches/pain?: No Do you have any abdominal pain?: No Are you experiencing loss of taste or smell?: No Other Medical History Have you received the Flu Vaccine for this season: No Have you received the Pneumonia Vaccine: No ROS Obtained: Yes All systems reviewed & no additional complaints except as documented Physical Exam General General appearance: alert and in no apparent distress Head Head exam: atraumatic and normocephalic Eye Eye exam: Present normal appearance, PERRL and EOMI ENT ENT exam: Present normal exam, normal oropharynx, mucous membranes moist and normal external ear exam Neck Neck exam: Present normal inspection, full ROM and trachea midline; Absent tenderness Chest Chest inspection: Present normal inspection and symmetric chest wall rise; Absent tenderness Respiratory Respiratory exam: Present wheezes, accessory muscle use, prolonged expiratory phase and other; Absent stridor Cardiovascular Cardiovascular exam: Present regular rate and normal rhythm Abdominal Exam Abdominal exam: Present soft; Absent distention, tenderness or guarding Extremities Exam Extremities exam: Present full ROM, normal capillary refill and edema (Improved symmetric bilateral lower extremity edema when compared to prior exams by myself); Absent tenderness Back Exam Back exam: Present normal inspection and full ROM; Absent tenderness Neurological Exam Neurological exam: Present alert, oriented X3, CN II-XII intact and normal gait; Absent motor sensory deficit Psychiatric Psychiatric exam: Present normal affect and normal mood Skin Skin exam: Present warm and dry HEART Score HEART Score HEART Score assessment performed?: Yes History (anamnesis): Slightly suspicious ECG: Normal Age: 45-65 years Risk factors: Atherosclerosis history Troponin: </= normal limit HEART Score: 3 Critical Care Critical Care Time Critical Care Time: Yes Attestation: On 02/02/25, the high probability of a clinically significant, sudden or life threatening deterioration of the following system(s) required my full and direct attention, intervention and personal management. The time I documented below is in addition to time spent performing reported procedures but includes the following listed in this critical care notation. Total Time Total Critical Care Time: 35 Medical Decision Making Eliecer Inquiry Pt receiving controlled substance: No Vital Signs Vital Signs: 02/02/25 10:07 02/02/25 10:30 02/02/25 11:00 Temperature 98.6 F Temperature Source Oral Pulse Rate 77 76 Pulse Rate [Left] 81 Respiratory Rate 18 Blood Pressure 161/119 H 163/140 H Blood Pressure [Right Arm] 151/100 H Blood Pressure Mean Blood Pressure Mean [Right Arm] 117 Blood Pressure Source Blood Pressure Source [Right Arm] Automatic Cuff Blood Pressure Position 02 Sat by Pulse Oximetry 93 L 99 95 Oxygen Delivery Method Nasal Cannula Oxygen Flow Rate (LPM) 3 02/02/25 11:31 02/02/25 12:01 02/02/25 12:30 Temperature Temperature Source Pulse Rate 78 73 73 Pulse Rate [Left] Respiratory Rate Blood Pressure 126/68 104/79 L 111/74 Blood Pressure [Right Arm] Blood Pressure Mean 100 Blood Pressure Mean [Right Arm] Blood Pressure Source Blood Pressure Source [Right Arm] Blood Pressure Position 02 Sat by Pulse Oximetry 95 96 92 L Oxygen Delivery Method Oxygen Flow Rate (LPM) 02/02/25 12:52 Temperature 98.0 F Temperature Source Oral Pulse Rate 72 Pulse Rate [Left] Respiratory Rate 20 Blood Pressure 111/74 Blood Pressure [Right Arm] Blood Pressure Mean Blood Pressure Mean [Right Arm] Blood Pressure Source Automatic Cuff Blood Pressure Source [Right Arm] Blood Pressure Position Supine 02 Sat by Pulse Oximetry Oxygen Delivery Method Room Air Oxygen Flow Rate (LPM) Lab Data Labs: Lab Results 02/02/25 10:00: WBC 6.8, RBC 4.40, Hgb 11.4 L, Hct 37.1, MCV 84.3, MCH 25.9 L, MCHC 30.7 L, RDW 12.6, Plt Count 218, MPV 10.1, Neut % (Auto) 51.1, Lymph % (Auto) 31.7, [place] % (Auto) 9.8 H, Eos % (Auto) 6.1, Baso % (Auto) 0.9, Neut # (Auto) 3.5, Lymph # (Auto) 2.1, [place] # (Auto) 0.7, Eos # (Auto) 0.4, Baso # (Auto) 0.1, VBG pH 7.40, VBG pCO2 51.5 H, VBG pO2 144.8 H, VBG HCO3 31.8 H, VBG Total CO2 33.4 H, VBG O2 Saturation 98.9 H, VBG Base Excess 6.0 H, VBG Lactic Acid 1.1, Sodium 137, Potassium 3.9, Chloride 97 L, Carbon Dioxide 35 H, Anion Gap 8.9, BUN 15, Creatinine 1.10 H, Estimated Creat Clear 76, Estimated GFR 52 L, Est GFR ( Amer) 63, Glucose 118 H, Calcium 9.3, Total Bilirubin 0.5, AST 34, ALT 16, Alkaline Phosphatase 103, Troponin I < 0.01, NT-Pro-B Natriuret Pep 266 H, Total Protein 6.9, Albumin 4.2, Globulin 2.7, Albumin/Globulin Ratio 1.6 02/02/25 10:33: SARS-CoV-2 (PCR) Not detected, Influenza A Untype (PCR) Not detected, Influenza Type B (PCR) Not detected 02/02/25 12:07: Troponin I < 0.01 02/02/25 10:00 02/02/25 10:00 Response Orders (Tests/Meds): ED MEDICATIONS Discontinued Medications Generic Name Dose Route Start Last Admin Trade Name Freq PRN Reason Stop Dose Admin Albuterol/Ipratropium 9 ml 02/02/25 10:11 02/02/25 10:20 Ipratropium/Albuterol 3 Ml Neb IH 02/02/25 10:12 9 ml ONCE ONE Administration Magnesium Sulfate 2 gm in 50 mls @ 50 mls/hr 02/02/25 10:12 02/02/25 10:20 Magnesium Sulfate 2gm/50ml Premix IV 02/02/25 11:11 50 mls/hr ONCE ONE Administration ORDERS Category Date Time Status CXR --portable [XR chest portable] Stat Exams 02/02/25 10:11 Completed BNP [NT Pro Brain Natriuretic Pep.] Stat Lab 02/02/25 10:00 Completed CBC w/Auto Diff [Complete Blood Count Auto Diff] Stat Lab 02/02/25 10:00 Completed CMP [Comprehensive Metabolic Panel] Stat Lab 02/02/25 10:00 Completed Rapid PCR Covid and Flu A/B Stat Lab 02/02/25 10:33 Completed Trop I [Troponin I] Stat Lab 02/02/25 10:00 Completed Troponin I Q3H Lab 02/02/25 12:07 Completed VBG [Venous Blood Gas] Stat RT 02/02/25 10:00 Completed ECG Data Tracing #1: Attestation: I reviewed this ECG and interpreted as documented below: ECG Narrative: Sinus rhythm with a ventricular rate of 82 bpm. Incomplete right bundle branch block. No acute ST changes concerning for STEMI ECG initial impression date: 02/02/25 ECG initial impression time: 10:05 MDM Narrative Medical Decision Narrative: In summary, this patient is a 54-year-old female presenting to the Emergency Department for evaluation of wheezing and shortness of breath. She states she thinks she had a panic attack, but EMS reported that she was hooked up to very long oxygen to make that was kinked in multiple spots.. Differential diagnoses considered include but are not limited to COPD exacerbation, anxiety, panic attack, ACS, dysrhythmia, CHF, pneumonia, PE, acute on chronic respiratory failure. Ruling out the most morbid conditions drove assessment. It should be noted patient's history includes COPD, CHF, CKD, CAD, nonischemic cardiomyopathy which likely are not at goal therapy. Patient has not been following with pulmonology. This complicates all aspects of care by increasing patient's risk for morbidity. I reviewed patient's past medical records and noted prior evaluations here in November and December by myself for similar concerns. She had a negative CTA 12/11/2024. On exam, the patient is doing well on her home oxygen. She has accessory muscle use and wheezing as well as prolonged expiratory phase, but her vitals are great. Her O2 saturation is 95% on her home oxygen and she is nontachycardic. I feel clinical picture is likely consistent with COPD exacerbation. She does not have any risk factors or signs/symptoms of DVT/PE at this time, and she already had a negative PE workup in the setting of similar symptoms 12/11/2024. Workup included CBC, CMP, troponin, VBG, BNP, chest x-ray, viral swab, EKG. EKG obtained is reassuring. Patient received Solu-Medrol with EMS prior to arrival. Administered DuoNebs x 3 and IV magnesium for COPD exacerbation to assess for symptomatic improvement.. I independently interpreted chest x-ray prior to the radiologist read and noted stable bibasilar consolidation, though radiology thinks that she has a right basilar opacity. Please see their read for final interpretation. Labs were obtained that demonstrated reassuring CBC with no significant leukocytosis. She does have mild anemia. VBG is reassuring with no significant decompensating respiratory acidosis. Chemistry demonstrates creatinine around her baseline. BNP is slightly elevated, but her swelling is actually gone down. Troponins negative x 2. On reassessment, patient had great improvement after administration of interventions above. She states she is feeling good and is doing well on her home oxygen. Given this, I feel that she is appropriate for discharge home with instructions for close follow-up with PCP. She is given prescriptions for Augmentin, azithromycin, prednisone, and instructions to continue using her inhalers and breathing treatments at home. Strict return precautions given
[2025-02-02 10:20] LABS: VBG PH 7.40 mmol/L (7.31-7.41)
[2025-02-02] MEDS: MAGNESIUM SULFATE IN WATER 2 GM/50 ML PIGGYBACK IV (10:20)
[2025-02-02] MEDS: IPRATROPIUM/ALBUTEROL 3 ML NEB 9 ML IH (10:20)
[2025-02-02 10:21] LABS: Lactate Venous 1.1 mmol/L (0.4-2.0); VBG HCO3 31.8 mmol/L (23-30); VBG PCO2 51.5 mmol/L (35-51); VBG PO2 144.8 mmol/L (28-40)
[2025-02-02 10:22] LABS: Alanine Aminotransferase 16 U/L (12-78); Albumin Level 4.2 g/dl (3.5-5.0); Albumin/Globulin Ratio 1.6 (1.1-1.8); Alkaline Phosphatase 103 U/L (38-126); Anion Gap 8.9 mEq/L (5-15); Aspartate Amino Transferase 34 U/L (14-36); Bilirubin,Total 0.5 mg/dl (0.2-1.3); Blood Urea Nitrogen 15 mg/dl (7-17); Calcium 9.3 mg/dl (8.4-10.2); Carbon Dioxide 35 mmol/L (22.0-30.0); Chloride 97 mmol/L (98-107); Creatinine Clearance Estimated 76 mL/min (50-200); Creatinine,Serum 1.10 mg/dl (0.52-1.04); Estimated Glomerular Filt Rate 52 ml/min (>60); GFR (African American) 63 ML/MIN (>60); Globulin 2.7 g/dL (1.3-3.2); Glucose 118 mg/dl (74-100); Potassium 3.9 mmoL/L (3.5-5.1); Sodium 137 mmol/L (136-145); Total Protein,Serum 6.9 g/dl (6.3-8.2)
[2025-02-02 10:23] LABS: Hematocrit 37.1 % (37.0-47.0); Hemoglobin 11.4 g/dL (12.2-16.2); Immature Granulocytes % 0.4 %; Mean Corpuscular HGB Conc 30.7 g/dL (31.8-35.4); Mean Corpuscular Hemoglobin 25.9 pg (27.0-31.2); Mean Corpuscular Volume 84.3 fl (81-99); Nucleated Red Blood Cells % 0 %; Platelet Count 218 K/mm3 (142-424); Red Blood Count 4.40 M/mm3 (4.20-5.40); Red Cell Distribution Width-SD 38.2 fL; White Blood Count 6.8 K/mm3 (4.8-10.8)
[2025-02-02 10:32] LABS: NT Pro Brain Natriuretic Pep. 266 pg/mL (0-125)
[2025-02-02 10:35] LABS: Coronavirus 19, PCR Not Detected (NotDetected); Influenza A, PCR Not Detected (NotDetected); Influenza B, PCR Not Detected (NotDetected)
[2025-02-02 10:44] LABS: Troponin I < 0.01 ng/ml (0.00-0.034)
[2025-02-02 12:34] LABS: Troponin I < 0.01 ng/ml (0.00-0.034)
== END 2025-02-02 13:05 | disposition home or self-care (01) ==
PROVIDERS: Emergency Provider Emergency Medicine; PCP Family Medicine
DX: J44.1 Chronic obstructive pulmonary disease with (acute) exacerbation (principal); E78.5 Hyperlipidemia, unspecified; I10 Essential (primary) hypertension
CPT/HCPCS: 71045; 80053; 82803; 83880; 84484; 85025; 87636; 93005; 96365; 99284; J3475